=== PATIENT | male | born 2000 | race Caucasian/White ===

== ENCOUNTER 2023-10-18 13:33 | Emergency (ER) | payer SELFPAY ==
--- OUTSIDE RECORDS SUMMARY | 2023-10-18 13:38 | XMS REPORT | Continuity of Care Document ---
:2000 Author Organization [facility] t Address [address] [facility] [address] [place] [address] Care Team Providers Name Role Phone NO, PCP Primary Care Physician Unavailable LAURYN SALGADO Attending Clinician Unavailable Osvaldo Chiang MD Attending Clinician [phone] Lauryn Paz Attending Clinician Roger Wagner Attending Clinician Lab, Ang - Db Attending Clinician Unavailable Doctor Unassigned, [facility] Attending Clinician Unavailable Orquidea Sheets RN Attending Clinician Unavailable Hernan Mcneill MD Attending Clinician Pa Ramsey MD Attending Clinician PA RAMSEY Attending Clinician Unavailable Ria Hendricks MD Attending Clinician Sp Cazares Attending Clinician Unavailable Pa Ramsey MD Admitting Clinician PA RAMSEY Admitting Clinician Unavailable Payers Payer Name Policy Type Policy Number Effective Date Expiration Date [place] [id number] 2023 2023 C 00:00:00 00:00:00 Problems Condition Condition Condition Status Onset Resolution Last Treating Co mments Source Name Details Category Date Date Treatment Clinician Date Rectal Rectal Disease Active Univers bleeding bleeding -05 ity of 00:00: [address] Branch Colitis Colitis Disease Active Overview: Univ ers with with 5-05 Formattin ity of rectal rectal 00:00: g of this [place] bleeding bleeding 00 note Medica l might be Branch different from the original. Added automatic ally from request for surgery [id number] Shortness Problem Active [facility] Allergies, Adverse Reactions, Alerts Allergy Allergy Status Severity Reaction(s) Onset Inactive Treating Comm ents Source Name Type Date Date Clinician No Known DA Active [facility] NO KNOWN Drug Active Univers ALLERGIE Class ity of S [place] [facility] Social History Social Habit Start Date Stop Date Quantity Comments Source History SDOH University o f Alcohol Std Drinks [place] [facility] History SDOH University o f Alcohol Binge [place] [facility] al Branch History SDOH Social Unive rsity of Connections Get [place] Med ical Together Branch History SDOH Social Unive rsity of Connections [facility] Medical Branch History SDOH Social Unive rsity of Connections [place] [facility] Membership Branch History SDOH Social Unive rsity of Connections [place] [facility] Meetings Branch History SDOH Food Univers ity of Scarcity [place] [facility] Gender identity [facility] [place] [facility] Sexual orientation [facility] [place] [facility] Alcohol intake 2023-06-15 2023-06-15 3 /d University of 00:00:00 00:00:00 [place] [facility] History SDOH 2023-04-04 2023-04-04 1 University o f Alcohol Frequency 00:00:00 00:00:00 [place] [facility] History SDOH Social 2023-04-04 2023-04-04 5 Unive rsity of Connections Phone 00:00:00 00:00:00 [place] [facility] Branch History SDOH Social 2023-04-04 2023-04-04 7 Unive rsity of Connections Living 00:00:00 00:00:00 [place] [facility] History SDOH 2023-04-04 2023-04-04 3 University o f Physical Activity 00:00:00 00:00:00 [place] [facility] DPW Branch History SDOH 2023-04-04 2023-04-04 3 University o f Physical Activity 00:00:00 00:00:00 [place] [facility] MPS Branch History SDOH 2023-04-04 2023-04-04 5 University o f Financial 00:00:00 00:00:00 [place] [facility] History SDOH Food 2023-04-04 2023-04-04 1 Univers ity of Worry 00:00:00 00:00:00 [place] [facility] History SDOH 2023-04-04 2023-04-04 2 University o f Transport Med 00:00:00 00:00:00 [place] Medic al Branch History SDOH 2023-04-04 2023-04-04 2 University o f Transport Non-Med 00:00:00 00:00:00 [place] [facility] Branch History SDDE 2023-04-04 2023-04-04 2 University o f Housing Unable to 00:00:00 00:00:00 [place] [facility] edical Pay Branch History SDDE 2023-04-04 2023-04-04 1 University o f Housing Places 00:00:00 00:00:00 [facility] dakotah Lived Branch History SDDE 2023-04-04 2023-04-04 2 University o f Housing Homeless 00:00:00 00:00:00 [facility] dical Last Year Branch Exposure to 2023-03-24 2023-04-03 Not sure [facility] SARS-CoV-2 (event) 00:00:00 12:55:00 [facility] History of Social 2023-04-03 2023-04-03 Univers ity of function 00:00:00 00:00:00 [facility] Tobacco use and 2023-03-31 2023-03-31 Smokeless Universit y of exposure 00:00:00 00:00:00 tobacco non-user [facility] dical [place] Sex Assigned At [birth year] Universit y of 00:00:00 00:00:00 [facility] Smoking Status Start Date Stop Date Source Never smoked tobacco [facility] Medications Ordered Filled Start Stop Current Ordering Indication Dosage Frequency Signature Comments Components Source Medication Medication Date Date Medication? Clinician (SIG) Name Name mesalamine Yes [id number] 2.4g Take 2 Univers 1.2 gram EC 9-20 tablets by it y of tablet 00:00: mouth 00 daily with Medical breakfast. Branch mesalamine Yes [id number] 2.4g Take 2 Univers 1.2 gram EC 9-20 tablets by it y of tablet 00:00: mouth daily with Medical breakfast. Branch mesalamine Yes [id number] 2.4g Take 2 Univers 1.2 gram EC 9-20 tablets by it y of tablet 00:00: mouth [place] 00 daily with Medical breakfast. Branch mesalamine 2022-0 Yes [id number] 2.4g Take 2 Univers 1.2 gram EC 9-20 tablets by it y of tablet 00:00: mouth [place] 00 daily with Medical breakfast. Branch mesalamine 2022-0 Yes [id number] 2.4g Take 2 Univers 1.2 gram EC 9-20 tablets by it y of tablet 00:00: mouth [place] 00 daily with Medical breakfast. Branch mesalamine 0 Yes [id number] 2.4g Take 2 Univers 1.2 gram EC 9-20 tablets by it y of tablet 00:00: mouth [place] 00 daily with Medical breakfast. Branch mesalamine Yes [id number] 2.4g Take 2 Univers 1.2 gram EC 8-24 tablets by it y of tablet 00:00: mouth [place] 00 daily with Medical breakfast. Branch mesalamine 2022- No [id number] 2.4g Take 2 Univers 1.2 gram EC 8-24 09-20 tablets by i ty of tablet 00:00: 00:00 mouth [place] 00 :00 daily with Medical breakfast. Branch mesalamine 0 Yes [id number] 2.4g Take 2 Univers 1.2 gram EC 8-14 tablets by it y of tablet 00:00: mouth [place] 00 daily with Medical breakfast. Branch mesalamine 2022- No [id number] 2.4g Take 2 Univers 1.2 gram EC 8-14 08-24 tablets by i ty of tablet 00:00: 00:00 mouth [place] 00 :00 daily with Medical breakfast. Branch mesalamine 2022-0 Yes [id number] 2.4g Take 2 Univers 1.2 gram EC 7-20 tablets by it y of tablet 00:00: mouth [place] 00 daily with Medical breakfast. Branch mesalamine 2022-0 2022- No [id number] 2.4g Take 2 Univers 1.2 gram EC 7-20 08-14 tablets by i ty of tablet 00:00: 00:00 mouth [place] 00 :00 daily with Medical breakfast. Branch pantoprazol 2022-0 3- No [id number] 40mg Take 1 Univers e 40 mg EC 5-14 07-14 tablet by ity of tablet 00:00: 04:59 mouth in [place] 00 :00 the Medical morning Branch for 60 days. pantoprazol 2022-2022- No [id number] 40mg Take 1 Univers e 40 mg EC 5-14 - tablet by ity of tablet 00:00: 04:59 mouth in [place] 00 :00 the [facility] morning [place] for 60 days. pantoprazol 2022- No [id number] 40mg Take 1 Univers e 40 mg EC 5-06-09 tablet by ity of tablet 00:00: 04:59 mouth in [place] 00 :00 the [facility] morning [place] for 60 days. pantoprazol 2022- No [id number] 40mg Take 1 Univers e 40 mg EC 5-06-09 tablet by ity of tablet 00:00: 04:59 mouth in [place] 00 :00 the [facility] morning [place] for 60 days. pantoprazol 2022-2022- No [id number] 40mg Take 1 Univers e 40 mg EC 5-06-09 tablet by ity of tablet 00:00: 04:59 mouth in [place] 00 :[address] [facility] for 60 days. pantoprazol 2022-2022- No [id number] 40mg Take 1 Univers e 40 mg EC 5-06-09 tablet by ity of tablet 00:00: 04:59 mouth in [place] 00 :[address] [facility] for 60 days. pantoprazol 2022-2022- No [id number] 40mg Take 1 Univers e 40 mg EC 5-09 06- tablet by ity of tablet 00:00: 04:59 mouth in [place] 00 :[address] [facility] for 60 days. pantoprazol 2022- No [id number] 40mg Take 1 Univers e 40 mg EC 5-14 tablet by ity of tablet 00:00: 04:59 mouth in [place] 00 :[address] [facility] for 60 days. predniSONE 2022- No 60mg 60 mg, Univ ers (DELTASONE) 04-08 05-25 Oral, ity of tablet 60 14:00: 13:59 DAILY, 12 [place] 00 :00 doses, Medical First dose Branch on 04/08/23 at 0900, Last dose on Mon04/19/23 at 0900, Routine mesalamine 2022-0 Yes [id number] 2.4g Take 2 Univers 1.2 gram EC 5-13 tablets by it y of tablet 00:00: mouth [place] 00 daily with Medical breakfast. Branch mesalamine 2022-0 Yes [id number] 2.4g Take 2 Univers 1.2 gram EC 5-13 tablets by it y of tablet 00:00: mouth [place] 00 daily with Medical breakfast. Branch mesalamine 2022-0 Yes [id number] 2.4g Take 2 Univers 1.2 gram EC 5-13 tablets by it y of tablet 00:00: mouth [place] 00 daily with Medical breakfast. Branch mesalamine 2022-0 Yes [id number] 2.4g Take 2 Univers 1.2 gram EC 5-13 tablets by it y of tablet 00:00: mouth [place] 00 daily with Medical breakfast. Branch mesalamine 2022-0 Yes [id number] 2.4g Take 2 Univers 1.2 gram EC 5-13 tablets by it y of tablet 00:00: mouth [place] 00 daily with Medical breakfast. Branch mesalamine 2022-0 Yes [id number] 2.4g Take 2 Univers 1.2 gram EC 5-13 tablets by it y of tablet 00:00: mouth [place] 00 daily with Medical breakfast. Branch mesalamine 2022-0 Yes [id number] 2.4g Take 2 Univers 1.2 gram EC 5-13 tablets by it y of tablet 00:00: mouth [place] 00 daily with Medical breakfast. Branch predniSONE 2022-2022- No [id number] Take 3 Univers 20 mg 5-13 07-25 tablets by ity of tablet 00:00: 04:59 mouth [place] 00 :00 daily for Medical 7 days, Branch THEN 2 tablets daily for 30 days, THEN 1.5 tablets daily for 7 days, THEN 1 tablet daily for 28 days. predniSONE 2022-2022- No [id number] Take 3 Univers 20 mg 5-13 07-25 tablets by ity of tablet 00:00: 04:59 mouth [place] 00 :00 daily for Medical 7 days, Branch THEN 2 tablets daily for 30 days, THEN 1.5 tablets daily for 7 days, THEN 1 tablet daily for 28 days. predniSONE 2022-0 2022- No [id number] Take 3 Univers 20 mg 5-13 07-25 tablets by ity of tablet 00:00: 04:59 mouth [place] 00 :00 daily for Medical 7 days, Branch THEN 2 tablets daily for 30 days, THEN 1.5 tablets daily for 7 days, THEN 1 tablet daily for 28 days. predniSONE No [id number] Take 3 Univers 20 mg 5-13 07-25 tablets by ity of tablet 00:00: 04:59 mouth [place] 00 :00 daily for Medical 7 days, Branch THEN 2 tablets daily for 30 days, THEN 1.5 tablets daily for 7 days, THEN 1 tablet daily for 28 days. predniSONE No [id number] Take 3 Univers 20 mg 5-13 07-25 tablets by ity of tablet 00:00: 04:59 mouth [place] 00 :00 daily for Medical 7 days, Branch THEN 2 tablets daily for 30 days, THEN 1.5 tablets daily for 7 days, THEN 1 tablet daily for 28 days. predniSONE No [id number] Take 3 Univers 20 mg 5-13 07-25 tablets by ity of tablet 00:00: 04:59 mouth [place] 00 :00 daily for Medical 7 days, Branch THEN 2 tablets daily for 30 days, THEN 1.5 tablets daily for 7 days, THEN 1 tablet daily for 28 days. predniSONE No [id number] Take 3 Univers 20 mg 5-13 07-25 tablets by ity of tablet 00:00: 04:59 mouth [place] 00 :00 daily for Medical 7 days, Branch THEN 2 tablets daily for 30 days, THEN 1.5 tablets daily for 7 days, THEN 1 tablet daily for 28 days. predniSONE No [id number] Take 3 Univers 20 mg 5-13 07-25 tablets by ity of tablet 00:00: 04:59 mouth [place] 00 :00 daily for Medical 7 days, Branch THEN 2 tablets daily for 30 days, THEN 1.5 tablets daily for 7 days, THEN 1 tablet daily for 28 days. mesalamine No [id number] 2.4g Take 2 Univers 1.2 gram EC 5-13 07-20 tablets by i ty of tablet 00:00: 00:00 mouth [place] 00 :00 daily with Medical breakfast. Hilda melatonin Yes 3mg 3 mg, Univers (MELATIN) 5-12 Oral, QHS, ity of tablet 3 mg 02:00: First dose [place] 00 (after Medical last Branch modificati on) on Mon04/06/23 at 2100, Until Discontinu ed, Routine methylpredn 2023-0 2023- No 60mg 60 mg, Uni vers isolone sod 04-04 Intravenou i ty of succ 21:00: 20:59 s, Q24H, 3 [place] (SOLU-MEDRO 00 :00 doses, Medica l L) First dose Branch injection on Tue 60 mg 04/04/23 at 1600, Last dose on Mon04/06/23 at 1600, 2 mL methylpredn 2023-0 2023- No 60mg 60 mg, Uni vers isolone sod 04-04 Intravenou i ty of succ 21:00: 20:43 s, Q24H, 3 [place] (SOLU-MEDRO 00 :00 doses, Medica l L) First dose Branch injection on Tue 60 mg 04/04/23 at 1600, Last dose on Mon04/06/23 at 1600, 2 mL pantoprazol 2023-0 Yes 40mg 40 mg, Univ ers e 04-04 Oral, ity of (PROTONIX) 16:00: DAILY, [place] EC tablet 00 First dose Medi [place] 40 mg on [facility] 04/04/23 at 1100, Until Discontinu ed, Routine pantoprazol 2023-0 Yes 40mg 40 mg, Univ ers e 04-04 Oral, ity of (PROTONIX) 16:00: DAILY, [place] EC tablet 00 First dose Medi [place] 40 mg on [facility] 04/04/23 at 1100, Until Discontinu ed, Routine enoxaparin 2023-0 Yes 40mg 40 mg, Unive rs (LOVENOX) 5- Subcutaneo ity of injection 05:00: us, Q24H, [place] 40 mg 00 First dose Medical (after Branch last modificati on) on Mon04/04/23 at 0000, Until Discontinu ed, Routine enoxaparin 2023-0 Yes 40mg 40 mg, Unive rs (LOVENOX) 5- Subcutaneo ity of injection 05:00: us, Q24H, [place] 40 mg 00 First dose Medical (after Branch last modificati on) on Mon04/04/23 at 0000, Until Discontinu ed, Routine simethicone 2022- No PRN, Unive rs (GAS RELIEF 04-03 Starting ity of (SIMETHICON 22:12: 23:40 on Mon [place] E)) 40 00 :00 04/03/23 at Medical mg/0.6 mL 1712, Branch drops Until Mon04/03/23 at 1840, Routine, Intra-op bisacodyL No 10mg 10 mg, Unive rs (DULCOLAX) 04-02 Oral, ity of tablet 10 18:00: 18:03 PRE-PROCED [place] mg 00 :00 URE ONCE, Medical 1 dose, Branch Starting on Mon04/02/23 at 1300, Until Discontinu ed, Routine, Bowel Prep, Colonoscop y ondansetron 2022- No 4mg 4 mg, Slow Univers (ZOFRAN 04-02 IV Push, ity of (PF)) 12:40: 12:17 Q6HPRN, [place] injection 4 42 :10 Starting Medi [place] mg on Mon Branch 04/02/23 at 0740, Until Mon04/04/23 at 0717, Routine, Nausea and Vomiting (N/V) ciprofloxac No 500mg 500 mg, U nivers in HCl 04-01 Oral, ity of (CIPRO) 23:00: 15:51 Q12HA2, 20 [place] tablet 500 00 :55 doses, Medical mg First dose Branch on Mon04/01/23 at 1800, Last dose on Mon04/11/23 at 0600, BREN
Re ason for Anti-Infec tive: Documented Infection< br>Documen james Infection Site: Abdominal< br>Duratio n of Therapy: 10 days enoxaparin 2022- No 40mg 40 mg, Univ ers (LOVENOX) 04-01 Subcutaneo ity of injection 20:15: 20:56 [place], Q24H, [place] 40 mg 00 :13 First dose Medical on [facility] Branch 04/01/23 at 1515, Until Discontinu ed, Routine metroNIDAZO No 500mg 500 mg, U nivers LE (FLAGYL) 04-01-09 Oral, Q8H, i ty of tablet 500 19:00: 15:51 30 doses, [place] mg 00 :55 First dose Medical on Sat Branch 04/01/23 at 1400, Last dose on Mon04/11/23 at 0600, Routine
Reason for Anti-Infec tive: Documented Infection< br>Documen james Infection Site: Abdominal< br>Duratio n of Therapy: 10 days lactated 2022- No 1000mL at 999 Univ ers ringers IV 04-01-07 mL/hr, ity of infusion 13:30: 01:00 1,000 mL, [place] 1,000 mL 00 :00 Intravenou Medic al s, ONCE, 1 Branch dose, On 04/01/23 at 0830, Routine ciprofloxac No 400mg 400 mg, IV Univers in in 5 % 04-01 Piggyback, ity of dextrose 11:00: 14:45 Q12H ABX, [place] (CIPRO) 00 :11 28 doses, Medical piggyback First dose Bran ch 400 mg on 04/01/23 at 0600, Last dose on Mon04/14/23 at 1800, Administer over 60 Minutes, 200 mL
Reas on for Anti-Infec tive: Empiric Therapy for Suspected Infection< br>Empiric Therapy Site: Abdominal< br>Duratio n of therapy: 5 days metroNIDAZO No 500mg 500 mg, IV Univers LE in NaCl 04-01 Infusion, ity of (iso-os) 06:00: 14:45 Q8H ABX, [place] (FLAGYL 00 :11 42 doses, Medical I.V.) RTU First dose Bran ch IV infusion on Sat 500 mg 04/01/23 at 0100, Last dose on Mon04/14/23 at 1700, Administer over 60 Minutes, 100 mL
Reas on for Anti-Infec tive: Empiric Therapy for Suspected Infection< br>Empiric Therapy Site: Abdominal< br>Duratio n of therapy: 5 days lactated 2022- No 1000mL at 999 [facility] ers ringers IV 04-01 05-06 mL/hr, ity of infusion 04:30: 08:10 1,000 mL, [place] 1,000 mL 00 :00 Intravenou Medic al s, ONCE, 1 Branch dose, On Mon03/31/23 at 2330, Routine acetaminoph 0 Yes 650mg 650 mg, Un fawad en 04-01 Oral, ity of (TYLENOL) 03:33: Q6HPRN, [place] tablet 650 45 Starting Medic al mg on Mon Branch 03/31/23 at 2233, Until Discontinu ed, Routine, Pain (scale 1-3) acetaminoph Yes 650mg 650 mg, Un fawad en 04-01 Oral, ity of (TYLENOL) 03:33: Q6HPRN, [place] tablet 650 45 Starting Medic al mg on Mon Branch 03/31/23 at 2233, Until Discontinu ed, Routine, Pain (scale 1-3) NaCl 0.9% 2022- No 1000mL at 150 Uni vers (NS) IV 03-31-09 mL/hr, IV ity of infusion 22:45: 12:16 Infusion, [place] 1,000 mL 00 :26 CONTINUOUS Medic al , Starting Branch on Mon03/31/23 at 1745, Until Mon04/04/23 at 0716, Routine lactobacill 2022- No 1mg 1 mg, Univ ers us 03-31-05 Oral, ONCE ity of acidophilus 22:45: 22:49 NOW, 1 [place] tablet 1 mg 00 :00 dose, On Medi [place] Mon03/31/23 Branch at 1745, BREN ciprofloxac 2022- No 400mg 400 mg, IV Univers in in 5 % 03-31- Piggyback, ity of dextrose 22:30: 01:02 ONCE, 1 [place] (CIPRO) 00 :00 dose, On Medical piggyback Mon03/31/23 Bran ch 400 mg at 1730, Administer over 60 Minutes, 200 mL
R demar for Anti-Infec tive: Empiric Therapy for Suspected Infection< br>Empiric Therapy Site: Abdominal< br>Duratio n of therapy: 72 hours metroNIDAZO 2022- No 500mg 500 mg, U nivers LE (FLAGYL) 03-31 05-05 Oral, ity of tablet 500 21:45: 22:49 ONCE, 1 [place] mg 00 :00 dose, On Medical Mon03/31/23 Branch at 1645, BREN
Re ason for Anti-Infec tive: Empiric Therapy for Suspected Infection< br>Empiric Therapy Site: Abdominal< br>Duratio n of therapy: 72 hours iopamidol 2022- No [id number] 75mL 75 mL, U nivers (ISOVUE 03-31 05-05 Intravenou ity o f 370-500 mL) 21:45: 21:45 s, ONCE, 1 [place] injection 00 :00 dose, On Medica l 75 mL Mon03/31/23 Branch at 1645, Routine NaCl 0.9% 2022- No 1000mL at 999 Uni vers (NS) bolus 03-31 05-05 mL/hr, ity of infusion 20:30: 22:50 1,000 mL, [place] 1,000 mL 00 :00 IV Medical Piggyback, Branch ONCE, 1 dose, On Mon03/31/23 at 1530, STAT Immunizations Ordered Filled Date Status Comments Source Immunization Name Immunization Name DTAP 2018-05-09 Completed University of 00:00:00 [facility] DTAP 2018-05-09 Completed University of 00:00:00 [facility] DTAP 2018-05-09 Completed [facility] 00:00:00 [facility] DTAP 2018-05-09 Completed University of 00:00:00 [facility] DTAP 2018-05-09 Completed University of 00:00:00 [facility] DTAP 2018-05-09 Completed University of 00:00:00 [facility] DTAP 2018-05-09 Completed University of 00:00:00 [facility] DTAP Unknown Completed [facility] DTAP Unknown Completed [facility] DTAP Unknown Completed [facility] DTAP Unknown Completed [facility] DTAP Unknown Completed [facility] DTAP Unknown Completed [facility] Vital Signs Vital Name Observation Time Observation Value Comments Source Systolic blood 2023-05-11 19:48:00 126 mm[Hg] Univer sity of pressure [place] [facility] Diastolic blood 2023-05-11 19:48:00 68 mm[Hg] Unive rsity of pressure [place] [facility] Heart rate 2023-05-11 19:48:00 73 /min [facility]i ty [facility] [place] [facility] Body temperature 2023-05-11 19:48:00 36.78 Megha Univ ersity of [place] [facility] Respiratory rate 2023-05-11 19:48:00 16 /min Univ ersity of [place] [facility] Body height 2023-05-11 19:48:00 173.7 cm [facility]i ty [facility] [place] [facility] Body weight 2023-05-11 19:48:00 55.43 kg [facility] [place] [facility] BMI 2023-05-11 19:48:00 18.36 kg/m2 [facility] ty [facility] [place] [facility] Oxygen saturation in 2023-05-11 19:48:00 99 /min University of Arterial blood by [facility] Pulse oximetry Branch Systolic blood 2023-04-08 17:11:00 100 mm[Hg] Univer sity of pressure [place] [facility] Diastolic blood 2023-04-08 17:11:00 59 mm[Hg] Unive rsity of pressure [place] [facility] Heart rate 2023-04-08 17:11:00 88 /min Universi ty [facility] [place] [facility] Body temperature 2023-04-08 17:11:00 36.56 Megha Univ ersity of [place] [facility] Respiratory rate 2023-04-08 17:11:00 18 /min Univ ersity of [place] [facility] Oxygen saturation in 2023-04-08 17:11:00 96 /min University of Arterial blood by [facility] Pulse oximetry Branch Body height 2023-04-01 02:43:00 170.2 cm [facility] [place] [facility] Body weight 2023-04-01 02:43:00 55.339 kg [facility] [place] [facility] BMI 2023-04-01 02:43:00 19.11 kg/m2 [facility] [place] [facility] Systolic blood 2023-04-03 16:09:00 102 mm[Hg] Univer sity of pressure [place] [facility] Diastolic blood 2023-04-03 16:09:00 66 mm[Hg] Unive rsity of pressure [place] [facility] Heart rate 2023-04-03 16:09:00 94 /min [facility] [place] [facility] Body temperature 2023-04-03 16:09:00 36.67 Megha [facility] Respiratory rate 2023-04-03 16:09:00 18 /min [facility] Oxygen saturation in 2023-04-03 16:09:00 98 /min [facility] Arterial blood by [facility] Pulse oximetry Branch Body height 2023-04-01 02:43:00 170.2 cm [facility] Body weight 2023-04-01 02:43:00 55.339 kg [facility] BMI 2023-04-01 02:43:00 19.11 kg/m2 [facility] BMI (Body Mass 2020 08:22:00 21.0 kg/m2 [facility] Weight 2020 08:22:00 130 [lb_av] [facility] Procedures Procedure Date / Time Performing Clinician Source Performed COMP. METABOLIC PANEL 2023-05-11 21:01:00 Lauryn Salgado [facility] ([id number]) Medical Branch CBC WITH DIFF 2023-05-11 21:01[facility]00 [facility] ASSIGNMENT OF BENEFITS 2023-05-11 19:27:07 Doctor Unassigned, [facility] Medical Branch MAGNESIUM 2023-04-08 10:10:00 [facility] BASIC METABOLIC PANEL (NA, 2023-04-08 10:10:00 Jeny Pena [facility] K, CL, CO2, GLUCOSE, BUN, Medica l Branch CREATININE, CA) CBC WITH DIFF 2023-04-08 10:10:00 [facility] MAGNESIUM 2023-04-06 09:13:00 Moises [facility] HEPATIC FUNCTION PANEL 2023-04-06 09:13:00 Moises [facility] ([id number]) (ALB,T.PRO,BILI Medical Branch T,BU/BC,ALT,AST,ALK PHOS) BASIC METABOLIC PANEL (NA, 2023-04-06 09:13:00 Moises [facility] K, CL, CO2, GLUCOSE, BUN, Medica l Branch CREATININE, CA) CBC WITH DIFF 2023-04-06 09:13:00 Moises [facility] CBC WITH DIFF 2023-04-05 09:33:00 Moises [facility] MAGNESIUM 2023-04-05 09:14:00 [facility] (NA, 2023-04-05 09:14:00 Moises [facility] K, CL, CO2, GLUCOSE, BUN, Medica l Branch CREATININE, CA) HEPATITIS B SURFACE 2023-04-04 16:43[facility] HBC ANTIBODY (IGM & IGG) 2023-04-04 16:43:00 Moises [facility] HEPATITIS C VIRUS (HCV) BY 2023-04-04 16:43:00 Moises [facility] QUANTITATIVE NAAT [facility] QUANTIFERON-TB ASSAY 2023-04-04 16:43[facility] MINUS NIL 2023-04-04 16:43:00 Moises [facility] MAGNESIUM 2023-04-04 10:29:00 [facility] BASIC METABOLIC PANEL (NA, 2023-04-04 10:29:00 [facility] K, CL, CO2, GLUCOSE, BUN, Medica l Branch CREATININE, CA) CBC WITH DIFF 2023-04-04 10:29:00 Moises [facility] [facility] HEPATITIS B SURFACE 2023-04-04 10:29:00 Moises [facility] ANTIGEN [facility] MAGNESIUM 2023-04-04 10:29:00 oMises [facility] BASIC METABOLIC PANEL (NA, 2023-04-04 10:29:00 De Leon, [facility] K, CL, CO2, GLUCOSE, BUN, Medica l Branch CREATININE, CA) CBC WITH DIFF 2023-04-04 10:29:00 [facility] 2023-04-04 10:29:[address] [facility] SURGICAL PATHOLOGY EXAM 2023-04-03 22:36:00 [facility] COLONOSCOPY 2023-04-03 21:47:00 [facility] COLONOSCOPY 2023-04-03 21:47:00 [facility] COLONOSCOPY (ENDO) 2023-04-03 20:43:38 Moraima Jose M [facility] COLONOSCOPY (ENDO) 2023-04-03 20:43:38 Jose M Valera [facility] MAGNESIUM 2023-04-03 09:33:00 Moises [facility] BASIC METABOLIC PANEL (NA, 2023-04-03 09:33:00 [facility] K, CL, CO2, GLUCOSE, BUN, Medica l Branch CREATININE, CA) CBC WITH DIFF 2023-04-03 09:33:00 Moises [facility] MAGNESIUM 2023-04-03 09:33:00 [facility] BASIC METABOLIC PANEL (NA, 2023-04-03 09:33:00 [facility] K, CL, CO2, GLUCOSE, BUN, Medica l Branch CREATININE, CA) CBC WITH DIFF 2023-04-03 09:33:00 Moises [facility] CBC WITH DIFF 2023-04-02 10:56:00 [facility] CBC WITH DIFF 2023-04-02 10:56:00 [facility] 2023-04-01 16:47:00 [facility] LAB [facility] CELIAC SCREEN IGA 2023-04-01 16:47:00 Jeny Pena [facility] CELIAC SCREEN 2023-04-01 16:47:00 [facility] CELIAC SCREEN IGA 2023-04-01 16:47:00 Jeny Pena [facility] BLOOD CULTURE SCREEN 2023-04-01 16:21:00 [facility] 2023-04-01 16:21:00 Jeny Pena [facility] ABORH CONFIRMATION (LAB 2023-04-01 11:31:00 Kelly Good Li [facility] ONLY) Medical Branch ABORH CONFIRMATION (LAB 2023-04-01 11:31:00 Yejose Good Li [facility] ONLY) Medical Branch MAGNESIUM 2023-04-01 10:21:00 Derick [facility] FERRITIN SERUM 2023-04-01 10:21:00 Derick [facility] C-REACTIVE PROTEIN 2023-04-01 10:21:00 Dann Sepulveda [facility] HEPATIC FUNCTION PANEL 2023-04-01 10:21:00 Dann Sepulveda [facility] ([id number]) (ALB,T.PRO,BILI Medical Branch T,BU/BC,ALT,AST,ALK PHOS) BASIC METABOLIC PANEL (NA, 2023-04-01 10:21:00 Dann Sepulveda [facility] K, CL, CO2, GLUCOSE, BUN, Medica l Branch CREATININE, CA) IRON PANEL 2023-04-01 10:21:00 Derick [facility] CBC WITH DIFF 2023-04-01 10:21:00 Derick [facility] HB ABO GROUPING 2023-04-01 10:21:00 Dann Sepulveda [facility] MAGNESIUM 2023-04-01 10:21:00 Derick [facility] FERRITIN SERUM 2023-04-01 10:21:00 Derick [facility] C-REACTIVE PROTEIN 2023-04-01 10:21:00 Dann Sepulveda [facility] HEPATIC FUNCTION PANEL 2023-04-01 10:21:00 Dann Sepulveda [facility] ([id number]) (ALB,T.PRO,BILI [facility] Branch T,BU/BC,ALT,AST,ALK PHOS) BASIC METABOLIC PANEL (NA, 2023-04-01 10:21:00 Dann Sepulveda [facility] K, CL, CO2, GLUCOSE, BUN, Medica l Branch CREATININE, CA) IRON PANEL 2023-04-01 10:21:00 Dann Sepulveda [facility] CBC WITH DIFF 2023-04-01 10:21:00 Dann Sepulveda [facility] HB ABO GROUPING 2023-04-01 10:21:00 Dann Sepulveda [facility] CLOSTRIDIUM DIFFICILE 2023-04-01 04:15:00 Dann Sepulveda [facility] OVA AND PARASITE EXAM 2023-04-01 04:15:00 Dann Sepulveda [facility] FECAL [facility] GIARDIA CRYPTOSPORIDIUM AG 2023-04-01 04:15:00 Dann Sepulveda [facility] CALPROTECTIN, FECAL 2023-04-01 04:15:00 Dann Sepulveda [facility] FECAL PATHOGENS BY PCR 2023-04-01 04:15:00 Dann Sepulveda [facility] CLOSTRIDIUM DIFFICILE 2023-04-01 04:15:00 Dann Sepulveda [facility] GIARDIA CRYPTOSPORIDIUM AG 2023-04-01 04:15:00 Dann Sepulveda [facility] FECAL PATHOGENS BY PCR 2023-04-01 04:15:00 Dann Sepulveda [facility] CT ABDOMEN PELVIS W 2023-03-31 20:54:24 Hernan Mcneill [facility] CONTRAST [facility] CT ABDOMEN PELVIS W 2023-03-31 20:54:24 Hernan Mcneill [facility] CONTRAST [facility] COMP. METABOLIC PANEL 2023-03-31 20:19:00 Hernan Mcneill [facility] ([id number]) [facility] SEDIMENTATION RATE 2023-03-31 20:19:00 Hernan Mcneill [facility] CBC WITH DIFF 2023-03-31 20:19:00 Charito [facility] PROTHROMBIN TIME / INR 2023-03-31 20:19:00 Charito [facility] HIV 1/2 AG-AB WITH REFLEX 2023-03-31 20:19:00 Dann Sepulveda [facility] COMP. METABOLIC PANEL 2023-03-31 20:19:00 Hernan Mcneill [facility] ([id number]) Medical [place] SEDIMENTATION RATE 2023-03-31 20:19:00 Hernan Mcneill [facility] CBC WITH DIFF 2023-03-31 20:19:00 Hernan Mcneill [facility] PROTHROMBIN TIME / INR 2023-03-31 20:19:00 Hernan Mcneill [facility] HIV 1/2 AG-AB WITH REFLEX 2023-03-31 20:19:[address] [facility] NOTICE OF PRIVACY 2023-03-31 18:47:15 Doctor Unassigned, [facility] PRACTICES [facility] NOTICE OF PRIVACY 2023-03-31 18:47:15 Doctor Unasszafar, [facility] PRACTICES [facility] CONSENT/REFUSAL FOR 2023-03-31 18:46:20 Doctor Rosa Mzafar [facility] DIAGNOSIS AND TREATMENT [facility]SENT[facility]REFUSAL FOR 2023-03-31 18:46:20 Doctor Marco [facility] DIAGNOSIS AND TREATMENT [facility] HOSPITAL ADMISSION 2023-03-31 05:01:00 Doctor Marco [facility] Name [facility] ENDOSCOPY PROCEDURE 2023-03-31 05:01:00 Doctor Marco [facility] DOCUMENTATION [facility] Plan of Care Planned Activity Planned Date Details Comments Source Instructions Dyspnea [facility] Encounters Start End Encounter Admission Attending Care Care Encounter Source Date/Time Date/Time Type Type Clinicians Facility Department ID 2020 Inpatient [facility] [id number] MARITA 08:19:00 -[id number] [facility] 2023-11-16 2023-11-16 Outpatient GORDO JEWELL [facility] [id number] Univers 14:30:00 14:30:00 LAURYN boyd [facility] 2023-10-16 2023-10-16 Telephone Postletloree HUGHES 1.2.840.11 [id number] Univers 00:00:00 00:00:00 Osvaldo renner [facility] 350.1.13.10 [place]y [id number] [address] 2023-10-16 2023-10-16 [facility].840[facility]11 [id number] Univers 00:00:00 00:00:00 teOsvaldo Y HEALTH 350.1.13.10 ity of [facility] [address] [place] [phone] [address] 2023-10-16 2023-10-16 [facility] 1.2.840.11 [id number] Univers 00:00:00 00:00:00 teOsvaldo Y HEALTH 350.1.13.10 [place] [id number] [address] 2023-10-06 2023-10-06 Telephone [facility] 1.2.840.11 [id number] Univers 00:00:00 00:00:00 teOsvaldo Y HEALTH 350.1.13.10 ity of [facility] [address] [place] [id number] [address] 2023-09-07 2023-09-07 Outpatient R [facility] [id number] Univers 09:00:00 09:00:00 ity of [facility] 2023-08-18 2023-08-[address] [facility] [id number] Univers 00:00:00 00:00:00 Lauryn HEALTH 350.1.13.10 it y of [place] 4.2.7.2.686 Parish as CAROL?BLEA [phone] [address] MEDICAL OFFICE BUILDING 2023-08-15 2023-08-15 Outpatient R [facility] [id number] Univers 11:00:00 11:00:00 ity of [facility] 2023-08-14 2023-08-[address] [facility] 1.2.840.114 [id number] Univers 00:00:00 00:00:00 Lauryn HEALTH 350.1.13.10 it y of [place] 4.2.7.2.686 Parish as CAROL?BLEA [phone] [facility] 044 [facility] OFFICE [facility] 2023-07-20 2023-07-[address] [facility] [id number] Univers 00:00:00 00:00:00 Lauryn HEALTH 350.1.13.10 it y of [facility] 4.2.7.2.686 [place] [phone] [address] MEDICAL OFFICE [facility] 2023-07-06 2023-07-06 Outpatient R [facility] [id number] Univers 09:00:00 09:00:00 ity of [facility] 2023-07-05 2023-07-05 ELLEN Palacios ..[id number] Univers 00:00:00 00:00:00 Bandl Y HEALTH 350.1.13.10 i ty of [facility] [place] [id number] [address] 2023-05-18 2023-05-[address] [facility] 1..[id number] Univers 00:00:00 00:00:00 Lauryn HEALTH 350.1.13.10 it y of [facility] 4.2.7.2.686 Parish as [place] [id number] [address] OFFICE [facility] 2023-05-11 2023-05-11 [employer] [facility], Ang - Db [facility] 1.2.840.1 [id number] Univers 16:00:00 16:15:00 Visit Leida Salgadothia HEALTH 350.1.13.10 ity of [facility] 4.2.7.2.686 [place] [phone] [facility] 353 [facility] OFFICE [facility] 2023-05-11 2023-05-11 Outpatient R NAOMI [facility] [id number] Univers 14:30:00 15:43:12 LAURYN ity [facility] 2023-05-11 2023-05-[address] [facility] 1.2.840.114 [id number] Univers 14:30:00 15:43:12 Visit Lauryn HARDY 350.1.13.10 it y of [facility] 4.2.7.2.686 Parish as CAROL?[place] [id number] Ca alexandr PATEL 0[address] [place] MEDICAL OFFICE BUILDING 2023-05-11 2023-05-11 Orders Doctor SAVANNA 1.2.840.114 [id number] Univers 00:00:00 00:00:00 Only Unassigned, JACINTA 350.1.13.10 ity of [facility] 4.2.7.2.686 Parish as [id number] [facility] 009 Branch 2023-04-10 2023-04-10 Transition DAVID Sheets 1.2.840.114 [id number] Univers 00:00:00 00:00:00 of Care Orquideafransisco JAMES 350.1.13.10 i ty of [place] 4[place] [id number] [facility] 403 Branch 2023-03-31 2023-04-08 Hospital Charito Hernan COLE 1.2.840. 114 [id number] Univers 14:08:00 18:18:00 Encounter Pa Ramsey 350.1.13.1 0 ity of HOSPITAL 4.2.7.2.686 Parish as [phone] [facility] 095 Branch 2023-03-31 2023-04-08 [facility] [id number] Univers 14:08:00 18:18:00 PA cox of [facility] 2023-04-03 2023-04-03 Surgery [facility] [id number] Univers 16:09:00 17:21:00 Akshata ICAL 350.1.13.10 it y of [place] 4.2.7.2.686 [place] [phone] [facility] 020 Branch [address] [facility] [place] [id number] 08:50:00 09:50:00 Emergency Sp Patients 19 Hue es Room [facility] Results Test Description Test Time Test Comments Results Result Comments Source COMP. METABOLIC PANEL (37699) 2023-05-12 07:00:18 Test Item Value Reference Range Interpretation Comme nts NA (test code = 9731311307) 136 mmol/L 135-145 K (test code = 0271097207) 4.5 mmol/L 3.5-5.0 CL (test code = 2907825449) 98 mmol/L 98-108 CO2 TOTAL (test code = 2545194760) 28 mmol/L 23-31 AGAP (test code = 2823438051) 10 2-16 BUN (test code = 6590181025) 14 mg/dL 7-23 GLUCOSE (test code = 6241774186) 107 mg/dL 70-110 CREATININE (test code = 0.57 mg/dL 0.60-1.25 L 0371807729) TOTAL BILI (test code = 0.9 mg/dL 0.1-1.0 3799802469) CALCIUM (test code = 1080742318) 9.8 mg/dL 8.6-10.6 T PROTEIN (test code = 5948124196) 7.8 g/dL 6.3-8.2 ALBUMIN (test code = 9343807599) 4.7 g/dL 3.5-5.0 ALK PHOS (test code = 3011066357) 50 U/L 34-122 ALTv (test code = 1742-6) 35 U/L 5-50 AST(SGOT) (test code = 2449789122) 24 U/L 13-40 eGFR (test code = 5219531527) 175.6 mL/min/1.73m2 GEOVANI (test code = GEOVANI) Association of Glomerular Filtration Rate (GFR) and Staging of Kidney Disease* + +-------- + ------+| GFR (mL/min/1.73 m2) ?| With Kidney Damage ?| ?Without Kidney Damage+ +-- + +| ?>90 ?| ?Stage one ?| ? Normal ?+ +------- + -------+| ?60-89 ?| ?Stage two ?| ? Decreased GFR ? + +-------- + ------+| ?30-59 ?| ?Stage three ?| ? Stage three ? + +-------- + ------+| ?15-29 ?| ?Stage four ? | ? Stage four ?+ +------- + -------+| ?<15 (or dialysis) ? ?| ?Stage five ? | ? Stage five ?+ +------- + -------+ *Each stage assumes the associated GFR level has been in effect for at least three months. ?Stages 1 to 5, with or without kidney disease, indicate chronic kidney disease. Notes: Determination of stages one and two (with eGFR >59mL/min/1.73 m2) requires estimation of kidney damage for at least three months as defined by structural or functional abnormalities of the kidney, manifested by either:Pathological abnormalities or Markers of kidney damage (including abnormalities in the composition of the blood or urine or abnormalities in imaging tests). Lab Interpretation (test code = Abnormal 34658-6) [facility] WITH [id number] 06:57:57 Test Item Value Reference Range Interpretation Comments WBC (test code = 12.71 See_Comment H [Automated 3707-2) message] The system which generated this result transmit james reference range : 4.20 - 10.70 10*3/?L. The reference range was not used to interpret this result as normal/abnormal . RBC (test code = 4.79 See_Comment [Automated 829-8) message] The system which generated this result transmit james reference range : 4.26 - 5.52 10*6/?L. The reference range was not used to interpret this result as normal/abnormal . HGB (test code = 14.3 g/dL 12.2-16.4 718-7) HCT (test code = 43.0 % 38.4-49.3 4544-3) MCV (test code = 89.8 fL 81.7-95.6 787-2) MCH (test code = 29.9 pg 26.1-32.7 785-6) MCHC (test code = 33.3 g/dL 31.2-35.0 786-4) RDW-SD (test code = 47.6 fL 38.5-51.6 48091-0) RDW-CV (test code = 14.4 % 12.1-15.4 788-0) PLT (test code = 323 See_Comment [Automated 112-3) message] The system which generated this result transmit james reference range : 150 - 328 10*3/ ?L. The reference range was not u sed to interpret th is result as normal/abnormal . MPV (test code = 9.4 fL 9.8-13.0 L 19741-1) NRBC/100 WBC (test 0.0 See_Comment [Automat ed code = 0842099294) message] The system which generated this result transmit james reference range : 0.0 - 10.0 /100 WBCs. The reference range was not used to interpret this result as normal/abnormal . NRBC x10^3 (test code See_Comment [Auto mated = 7295330147) message] The system which generated this result transmit james reference range : 10*3/?L. The reference range was not used to interpret this result as normal/abnormal . GRAN MAT (NEUT) % 86.2 % (test code = 770-8) IMM GRAN % (test code 1.10 % = 4800588615) LYMPH % (test code = 9.4 % 736-9) MONO % (test code = 3.0 % 5905-5) EOS % (test code = 0.1 % 713-8) BASO % (test code = 0.2 % 706-2) GRAN MAT x10^3(ANC) 10.96 10*3/uL 1.99-6.95 H (test code = 9432764921) IMM GRAN x10^3 (test 0.14 10*3/uL 0.00-0.06 H code = 7380191753) LYMPH x10^3 (test code 1.20 10*3/uL 1.09-3.23 = 731-0) MONO x10^3 (test code 0.38 10*3/uL 0.36-1.02 = 742-7) EOS x10^3 (test code = 0.06-0.53 L 711-2) BASO x10^3 (test code 0.01-0.09 = 704-7) Lab Interpretation Abnormal (test code = 34527-9) [facility] [id number] 15:05:59 Test Item Value Reference Range Interpretation Comments QFT Gold Plus Result Negative Negative (test code = 51167-9) GEOVANI (test code = GEOVANI) The QuantiFERON? TB Gold Plus (in Tube) assay is intended for use as an aid in diagnosis of TB infection. A qualitative result (i.e., Negative, Positive, or Indeterminate) is based on interpretation of the four values, Nil, TB1 minus Nil, TB2 minus Nil, and Mitogen minus Nil. ?The Nil value represents nonspecific reactivity produced by the patient specimen. ?The TB1 minus Nil value indicates the interferon-gamma response of CD4+ T lymphocytes, specifically stimulated by the TB1 antigens. ?The TB2 minus Nil value indicates interferon-gamma response of both CD4+ and CD8+ T lymphocytes, stimulated by TB2 antigens. ?The Mitogen minus Nil value serves as the positive control, demonstrating the successful responsiveness of the T lymphocytes in patient specimen. A negative result suggests that M. tuberculosis infection is unlikely. ?However, in patients with high suspicion of exposure, a negative test should be repeated on a new sample. A positive result indicates an interferon-gamma response to M. tuberculosis antigens, suggesting infection with M. tuberculosis. Positive results in patients at low-risk for tuberculosis should be interpreted with caution and repeat testing on a new sample is advised. ?If repeat testing is positive, treatment may be indicated. ?Consult Infectious Disease Services for further recommendations. False positive results may occur in patients with prior infection with M. marinum, M. szulgai, or M. kansasii. For an indeterminate result, the likelihood of determining infection with M. tuberculosis cannot be determined. ?If clinically indicated, repeat testing on a new sample is advised. For further information, refer to http://www.cdc.gov/mmw r/pdf/rr/bz5996.pdf and https://doi.org/10.109 3/rema/yty497. Lab Interpretation Normal (test code = 12143-0) [facility] WITH [id number] 10:03:34 Test Item Value Reference Range Interpretation Comments WBC (test code = 15.09 See_Comment H [Automated 5009-2) message] The system which generated this result transmitted reference range : 4.20 - 10.70 10*3/?L. The reference range was not used to interpret this result as normal/abnormal . RBC (test code = 4.24 See_Comment L [Automated 789-8) message] The system which generated this result transmitted reference range : 4.26 - 5.52 10*6/?L. The reference range was not used to interpret this result as normal/abnormal . HGB (test code = 12.3 g/dL 12.2-16.4 718-7) HCT (test code = 35.8 % 38.4-49.3 L 4544-3) MCV (test code = 84.4 fL 81.7-95.6 787-2) MCH (test code = 29.0 pg 26.1-32.7 785-6) MCHC (test code = 34.4 g/dL 31.2-35.0 786-4) RDW-SD (test code = 37.8 fL 38.5-51.6 L 25698-5) RDW-CV (test code = 12.5 % 12.1-15.4 788-0) PLT (test code = 403 See_Comment H [Automated 777-3) message] The system which generated this result transmitted reference range : 150 - 328 10*3/?L. The reference range was not used to interpret this result as normal/abnormal . MPV (test code = 8.7 fL 9.8-13.0 L 96598-8) NRBC/100 WBC (test 0.0 See_Comment [Automat ed code = 5382762168) message] The system which generated this result transmitted reference range : 0.0 - 10.0 /100 WBCs. The reference range was not used to interpret this result as normal/abnormal . NRBC x10^3 (test code See_Comment [Auto mated = 0179199789) message] The system which generated this result transmitted reference range : 10*3/?L. The reference range was not used to interpret this result as normal/abnormal . GRAN MAT (NEUT) % 85.7 % (test code = 770-8) IMM GRAN % (test code 3.00 % = 8087925696) LYMPH % (test code = 6.7 % 736-9) MONO % (test code = 4.0 % 5905-5) EOS % (test code = 0.1 % 713-8) BASO % (test code = 0.5 % 706-2) GRAN MAT x10^3(ANC) 12.93 10*3/uL 1.99-6.95 H (test code = 4113898572) IMM GRAN x10^3 (test 0.46 10*3/uL 0.00-0.06 H code = 4956334368) LYMPH x10^3 (test 1.01 10*3/uL 1.09-3.23 L code = 731-0) MONO x10^3 (test code 0.61 10*3/uL 0.36-1.02 = 742-7) EOS x10^3 (test code 0.06-0.53 L = 711-2) BASO x10^3 (test code 0.07 10*3/uL 0.01-0.09 = 704-7) BANDS (test code = MARKED INCREASED A 5716018729) Lab Interpretation Abnormal (test code = 85632-2) [facility]80391[facility] (ALB,T.PRO,BILI T,BU/BC,ALT,AST,ALK PHOS)2023-04-06 09:54:25 Test Item Value Reference Range Interpretation Comments TOTAL BILI (test code = 3847767299) 0.3 mg/dL 0.1-1.1 BILI UNCON (test code = 6228540034) 0.2 mg/dL 0.1-1.1 BILI CONJ (test code = 5508891369) 0.0 mg/dL 0.0-0.3 T PROTEIN (test code = 6408670194) 6.2 g/dL 6.3-8.2 L ALBUMIN (test code = 2346246690) 3.4 g/dL 3.5-5.0 L ALK PHOS (test code = 9544730898) 54 U/L 34-122 ALTv (test code = 1742-6) 20 U/L 5-50 AST(SGOT) (test code = 8828423566) 33 U/L 13-40 Lab Interpretation (test code = Abnormal 72490-7) [facility]11 09:54:25 Test Item Value Reference Range Interpretation Comments MAGNESIUM (test code = 8764340125) 2.1 mg/dL 1.7-2.4 Lab Interpretation (test code = Normal 55842-7) [facility] METABOLIC PANEL (NA, K, CL, CO2, GLUCOSE, BUN, CREATININE, CA)2023-04-06 09:54:25 Test Item Value Reference Range Interpretation Comments NA (test code = 135 mmol/L 135-145 5664285352) K (test code = 3.8 mmol/L 3.5-5.0 7261279983) CL (test code = 98 mmol/L 98-108 6753411668) CO2 TOTAL (test code = 28 mmol/L 23-31 7981593167) AGAP (test code = 9 2-16 0728181731) BUN (test code = 6 mg/dL 7-23 L 8874663465) GLUCOSE (test code = 165 mg/dL 70-110 H 9655344751) CREATININE (test code = 0.63 mg/dL 0.60-1.25 5629259200) CALCIUM (test code = 8.1 mg/dL 8.6-10.6 L 6506553432) eGFR (test code = 156.5 mL/min/1.73m2 0607091341) GEOVANI (test code = GEOVANI) Association of Glomerular Filtration Rate (GFR) and Staging of Kidney Disease* + --+ --+ ------+| GFR (mL/min/1.73 m2) ?| With Kidney Damage ?| ?Without Kidney Damage+ --------+ --------+ +| ?>90 ?| ?Stage one ?| ? Normal ?+ ---+ ---+ -------+| ?60-89 ?| ?Stage two ?| ? Decreased GFR ? + --+ --+ ------+| ?30-59 ?| ?Stage three ?| ? Stage three ? + --+ --+ ------+| ?15-29 ?| ?Stage four ? | ? Stage four ?+ ---+ ---+ -------+| ?<15 (or dialysis) ? ?| ?Stage five ? | ? Stage five ?+ ---+ ---+ -------+ *Each stage assumes the associated GFR level has been in effect for at least three months. ?Stages 1 to 5, with or without kidney disease, indicate chronic kidney disease. Notes: Determination of stages one and two (with eGFR >59mL/min/1.73 m2) requires estimation of kidney damage for at least three months as defined by structural or functional abnormalities of the kidney, manifested by either:Pathological abnormalities or Markers of kidney damage (including abnormalities in the composition of the blood or urine or abnormalities in imaging tests). Lab Interpretation Abnormal (test code = 32884-2) [facility]IRUS (HCV) BY QUANTITATIVE NAAT 2023-04-05 19:02:52 Test Item Value Reference Range Interpretation Comments HCV Quantitative Not Detected Not Detected Interpretation (test code = 1578394784) GEOVANI (test code = GEOVANI) The Aptima HCV Quant Dx assay is an FDA-approved real-time wax machine operator-mediated amplification (TMA) test used for both detection and quantitation of hepatitis C virus (HCV) RNA in human serum and plasma from HCV-infected individuals. ?It is intended for use as an aid in the diagnosis of active HCV infection and the management of HCV-infected patients undergoing HCV antiviral drug therapy. ?It is not approved for use as a screening test for the presence of HCV RNA in blood or blood products. The quantitative range of this assay is 1.00 - 8.00 log IU/mL or 10 - 100,000,000 IU/mL. An interpretation of "Not Detected" does not rule out the presence of inhibitors in the patient specimen or HCV RNA concentration below the level of detection of the test. ?Care should be taken when interpreting any single viral load determination. Detected, not Quantifiable: HCV RNA detected, but at a level below 10 IU/mL (1.0 log IU/mL). ?HCV RNA concentration is below the lower limit of quantitation of the assay. Indeterminate: Error indicated in the generation of the result. ?Please submit a new specimen for repeat testing if clinically indicated. Lab Interpretation Normal (test code = 56227-3) [facility] [id number] 14:37:42 Test Item Value Reference Range Interpretation Comments Case Report (test code Surgical Pathology ? ? = [id number]) ?Case: [id number] ? Authorizing Provider: ?Ria Hendricks MD ? Collected: ? 04/03/2023 1736 ?Ordering Location: ? ? GI Endoscopy OR Department Received: ?04/04/2023 1257 ?Pathologist: ? Sofy Veronica MD ? Specimen: ? ?COLON, Colon BX eval for IBD ? Final Diagnosis (test a3dgbVJfRKYvv5rmVCQjiCJ code = 0277748217) uZzEwMzNcZnRuYmpcdWMxIH tccnRmMVxlcGljMTAyMDZcY Q9sjOateGl3hCexTCJgmqE6 hYYaTJewm2tzTHM0y8bvcjc qSYKlSWilZp5egNEarHmvQt OhZFAfWDb2gT72VXCxsV7ng YKkQTf1KWUnpAVsixKhLjBa EFGmoNMfoBJ9ANAhUF8mlnv zKSayTKzlTZUbqtR8WHZvnU FiS7DfOLNoJX8yghgjBQV5T CfhPDTkIFY7YlVtMRSsd6Yj coa1RbMmdZBaGJlsxONcdpp zjiXeFYEfmiKKYiBEO4dJSs wgQklPUFNZOlxwYXIgICAgL KZXP9jVOzyAYF0AY24KDIQN SVCZVSCBUAPFWPMMErtoA0V JUBLeEXESR4WOG4BEDWAPLp cYNVHTCiBYWCXEG5HXRtQHD ESGCGIGA7YYQH7YGRfqgLVe ICAgICAgIEFORCBJTkNSRUF SDCEbRYvPPHhFYEgBQ38XT2 cSKOCxJO8ESMBHWWUZNP6RS RqUUSaONRcWJZTEFq3WCqyZ LKZOF83GPUFWND9SFQhBHIs gXHBhciAgICAgICBDSFJPTk jWOPSFXAcZSWFeS1bLMGSJK 0VQChVAIXFLC1DBWdvFOCkm YXIgICAgLSBOTyBEWVNQTEF TSUEgSURFTlRJRklFRFxwYX HpyMOkcXxzaaEsKThco0DcH 2YyMjAwMFxhbnNpXGRlZmxh otooOUWdOST2tcJvZWUcQIt bBCFwZQulGb8udJEvtKwaLy WhGSKmb0ijueIPTQxzWpHyM 682OPDeOBhqf1qpj3ZqYIQp hHLrk1E7GCEIjzlaaTz6f5r gDdAxCqO8kLYiHZmjM5riio QhrVQfO6LmiMRzcJm6uUntS 69ne8H0MgwrP9deGPYkQTEb D7PpBY3qTBPuTyy6UAL7UWK 9OXXfGGMkT3HfMJ5iECUguX GzVSa3w7ctdMhfRCEpUPT3e 9ewQYxggaA6GU0zym7inPt4 i3octvZnLLRpMWIdoGJCLZE tB2XlsSshRm8xsQc3zArbPo vgKLU7Kpj3KV8gqr87cnr6e TkyHGAgxjrhKfT1FHifVALz wohlUYq6YWicALIpjRM5EPM rrVRfC7FgDJMvLG4jgld2LQ P3FLhcERMnCzV4YGDtqLTmC TUwlQqsAIujf123FOJ0CoEp UI9qM2Qpm6I6iM8dnMYdIQG hoIQuFjIdCEQltq4bwDPrEV iuz9MtYCO1jiX9pZAliYEtE NNjZO63Yypvr6TeCtszUBT5 VJNymjLtr2Zkp9moGuNagbP gU6buM2KiSGYzSQHxSDFdDz NiztTta7Nmc9LfrPFggEp3d 7vkAJMuFURgtNhkx9gtEXU4 OPCbX1U9vJVco6nnIHjcAIA toXA1peS5AHYsmCTbD1BrcI 3rOKIdXS3mfpn2d0otZQU9B AenPZHvVuR3zeY7OZUbtJRu HAAhlAfiBLadf777VOU2QdH aXPHyg9OjH2FbvVhdZ58idP gcI82bSUTwxXshbM8kwRtkz C2nTcUdTrFvMKegpPbhkIPt blxmMVxmczIwXGxhbmcxMDM zXEzuF3biRhOkHHTliKwsLR cta0YcBDTyJYZtXjmzlzRhF PEalcJFHMynacEjtIMzk63g YWxseSByZXZpZXdlZCBhbGw mk5SsP4nlPQ8wY7PgyABvpm BauxPcVKmjTQOco5n4vYUan Volf3JxjHBkUD27hhXxZVLs AFW5WNWnt8geTT19eicrEjJ xwT00jbCluiWsGJMvy0niD8 iwcYMfd5Wtf5MknbEeRZbll 6JkGR6pnTWxjinyaHG5WXEe hYPexxHqxhL3eVutNTQkhC7 msW6tpMvxkN8jSaOgJnUqED lwDK6mBHTjB0xzdAMyJMWeF NToX8xoVcWbfN5cqIqpAzdo isK2CLPwwr07 Clinical Information Pa Sultana (test code = Estremadoyung is a 22 [id number]) year old male1. Colon BX eval for IBD Gross Description p6rasQCnMLEchKNOJXQrBKO (test code = nEQ0ebOoshCw9vUfuBZCdpq 3660323000) P3pSUiZKaoi4vsINT2d1vhq nZLQukmZLBgKG8mLKfhPSVc VO9zCcHfXRBdQjQlDVHkzDF eqvMuQwYaUXXtxJCsuBJ6ZT QdUY6jsrwbVZdyZZfxEUXom pJ3XQFjnAUdV5ClJIOeVV7s qsdzPRU3CGBWGotlCh1hlNR ibHtcZjFcZmNoYXJzZXQwXG KzcDcdZNGcIBu4kH7OKccrM WZ4YHZFDeurBnkkwRnbf0Gr dCBcXHNnIFxcaWQgNTEwMDA mHJhcRcEGYmOmLkV1IYI9ZZ UaPtL6YOe2FRBANEJhHqv8V HGiSZN6FSe8TITsCK7tMEjb xRSbHGeeUdirKUmuT068JRr tXNEuW7FfY8NsUPakHtXjUS apQJCoSDVoLLhmZVJcM4MKM OIiPoR5BaS1AkSyYNf5VOjm L2GZFGEgAHSxPgJuFOV2StQ 0KRn9BGFVTo3nGWzaADFjHE H5MVH9LEusPUUlXRUgGwZlG OHtVWTfNOmjrYQmTG0boBda WAGoAV9GQHZrWBigYHRoCrU bU3FJV2hMQV6kZEeiTVJdFT pccGFyZCANClxwbGFpblxmc tPzLFr8sfKbEOYkGhLeMYVg B02cg9JDf9PbQA6EZJd4yxO gtyffwV0gVPLtmuIdAPlGdP GktX9hitRWDJaoTAMgG0Wpo rDbVRcjIJAefp7xaZumVZOi ARRoyFTrSUzqzWgjeDO2wFR cvPLqAF5zLGUQZRUzzD7sPK KiYWMkFHKmI06im15wIBCyg Q9yPFLLZSJ7FFzyJi9dBKzI RSEyMV4qMDRuslOpt4SkXR7 oYP26aYNazUsgIQwlL7o4WV DgzaDamfXtF7BvQSJxvSvaj 0AwJEHeBHrqIN79mnJiQA7x LTAuNCBjbSBpbiBncmVhdGV liZOtiP9nseNmt94uHBMlUG R8LLTmGLA5LPQrGxVhoQSau vNjH4ntCXjrnAKtDnSaEGiq IHNwZWNpbWVuIGlzIGZpbHR mclVkNXIrfy28O6ggTSMauI 6wg0jtCtOuNCXqLILvnCJdz XH7PGDhuZ0wrW47taCiylRQ IH4mbXWcLW0AYCRwkoCXYuT tbXlsZWUgWmFuZywgUEEgc3 I3NZElkOasESVnZRoQoEynO NOGA4aanHAuLLdnXCNIQOTR V9CeUTWduxXJOxylJRIcFJc ik8HrFEwdgNulOQXwLnOmHU ypWTUeE62oc1YUx7Bvz4bvu Rbvh5XypRAxZN93ZTVezNCp DPQ6FE2ggYhmDJTfRUhxcPE yZCANCn0= Disclaimer (test code z5vmtOKcWEKrv3isOELgpHZ = [id number]) uZzEwMzNcZnRuYmpcdWMxIH qavaZmMNmzp5GoC7VoIgHfV FxhbnNpXGRlZmxhbmcxMDMz ZGE3htIoDWCiIRygFHInMBb wLg6kzTDbhOvyHbOgENYay0 dujoMDJSfeSaZnC640MTJdI Beiu7oib5BxUAAdyJQqk3C7 TPUJvvwrqAr6qUihH11gi2Z 8VjhwO8goGTJbBWMjB2QrER 3wEIKyRel1JKU1KHA0CQQpL POzB4VfTF5uEBWnhHTpPGv2 w5fxuLfgFWIdPZZ9s8sfPSg hkjDdDE7gef1dqPb1x7ibei BiBHDxISUofGLLSUEnG4Anb OsuWd1geSn4sIomAffaJNG9 Iix4WD4bnp07fcu6uFdzPLW gqnexYhV8BOqxBPTcfhgmAK q9ZHaoBZXmiXH6WCGygMMcP 7BaITMaVU9pqru8WKN9WTvt CZVgDwV7HBGfvTHwLPMhbVa qQOgdq171UHL1EyAhAW0iS0 Tby0M0pO2msKGwCPIdeDEwU oDdGHYfqf8xzKVlUOpbo9Pr AFU7zzN8aFQqyQFgEWNmFJ4 4Kmlde2GpGllwk7WqD82ddP F8AVama5zsIP7gQiO6fgGlD Apal6pqqD8yZvU0HEkrLJ3c LR1dYBFrjS8uedepUDCyLsE olvupVIYexOycuvQwSl0inS zoGGU9UCepI3qwhB1oYvJ4M LnmU6dgwL8uTNx3AXiesSX3 EKWysU8mZG2gtuqto5ryLAo sQEwcMOGqqrX6llN1LJRigR YjN5VnwJ3sSVVqAH9ipwajy 0syWKU7ULnfORFzUSC4SeAn QLCvg6Nvstp5JiJto8NowXC vCBbiD83gn540TPBqrbBiE1 xwbGFpblxwbGFpblxmMFxmc dH5XJYjejAtw9RyTBPfJFK6 MBneVMcqaPTvISStgSunq4s lB7XdjDVlEIIhIGcaRTIhLV ZzMjBcbGFuZzEwMzNcaGlja DgpHTleKnXaSYApTXqvI1vg CmHcK1KkQXZvJqRjqAFcP1b xOQbrhaFaTRRtpjFrxEP2DY wiS8h7RPGiafSoeOj9fnNbR yNmNZCtQKT4JJkjwBZyQAPa g1NuygdosTIsXs4hyMJsBQV miY8aYVJeTIRcAEimZB2znS z9LZKJgXIncMNrUgMATOSeT S62okRvYLZIfqrxz3M3MRch MENgv9QycLWcT0zai9OjTYL pm67tFQ0ug9P5t2mbRTF0QX 0yw4YhKYNttGSskPEpXFHfo 7Fhdhior1NzWPXraaUbs2Vg ZCBhbmQgaXRzIHBlcmZvcm1 zckJgOQGdDVIaY6IoussvgQ iixwIpUWSszo1xqyVyIIG0H XVCBPLrHCDkw1WauF2rzOLY IRR4eLLsll1hlsKIjLWsPLO uxy43VNRwSU9xC8mrNMBwOZ QtfnPyhDVex2GxBLYvqPR5i PHeTZ6PNnTGx83yTSCgUAKH kzAlVAMckVbqiZN7nvF8oF9 uIChGREEpLlx+IFRoZSBGRE IwBF1qmsVrj0GgjlZsgErqO AHjgMOqk3IyiAYcq6HkzFci v0XihBWzaASsAY9qYROsdau aVYFwESWWHcGURDYwmlP7l5 NtDPZjMIGmQBZ3kVekhve8N TPzxO9rQTJfQ9venenzABec XKQoz1AelB7gwFBEbXUeh7X gdBMrhTZVjFHbOC3iwpGaOT sOGJoTWFY7kkBrTKKib4AlO GjuK8atB02ppYfnrIp6wJC9 LAQ7wR2iNug+IFxwYXJccGF yIEFwcHJvcHJpYXRlbHkgcm UyL7IiufGobL4qhNYyvbNoE B6nRI0qV9O2eACtPMVepmRq j7izWDntbsZyMaYziwVdCUU aAZjgJEUip9VwLQimSLL6VW lucyBpbmNsdWRpbmcgSCZFL PWHhOPmjKXuNJZ9WFmwqbHy hxFgTE7kaJ9gbWpdhH4frND xiMD2uchpFSThTBQgaDeiQZ HsWZ6gvHEjVGCvyeFGeNklf OJcsG0cU4NnDKGpBZJboc4q QJNlxO0uFZlwc4InrecbNLW uLEPpQNEutxUndf2sJVOhoX ATMT2WGFpqxQZpe6LrluApP 9kWAMN5MCRpIgMhYljxSCGj iAAceWLcHDWigc38OYDzdE9 rtAagVOMtmP0zeA8jjYozdU 7wDvLcWfYnJPtnBY8mIJFlC 4pclSKzCWVgLYNsB3qzPbVg eA4khZinTRleLxNbAgHqQKs uVDQ8zJ== Embedded Images (test code = 3992448485) [facility] [id number] 14:35:43 Test Item Value Reference Range Interpretation Comments Extra Tube (test code = Received in Lab [id number]) [facility] WITH [id number] 10:45:28 Test Item Value Reference Range Interpretation Comments WBC (test code = 22.16 See_Comment H [Automated 6501-2) message] The system which generated this result transmitted reference range : 4.20 - 10.70 10*3/?L. The reference range was not used to interpret this result as normal/abnormal . RBC (test code = 4.37 See_Comment [Automated 592-9) message] The system which generated this result transmitted reference range : 4.26 - 5.52 10*6/?L. The reference range was not used to interpret this result as normal/abnormal . HGB (test code = 13.0 g/dL 12.2-16.4 718-7) HCT (test code = 36.8 % 38.4-49.3 L 4544-3) MCV (test code = 84.2 fL 81.7-95.6 787-2) MCH (test code = 29.7 pg 26.1-32.7 785-6) MCHC (test code = 35.3 g/dL 31.2-35.0 H 786-4) RDW-SD (test code = 37.9 fL 38.5-51.6 L 59280-6) RDW-CV (test code = 12.4 % 12.1-15.4 788-0) PLT (test code = 403 See_Comment H [Automated 777-3) message] The system which generated this result transmitted reference range : 150 - 328 10*3/?L. The reference range was not used to interpret this result as normal/abnormal . MPV (test code = 8.8 fL 9.8-13.0 L 42510-9) NRBC/100 WBC (test 0.0 See_Comment [Automat ed code = 5353941866) message] The system which generated this result transmitted reference range : 0.0 - 10.0 /100 WBCs. The reference range was not used to interpret this result as normal/abnormal . NRBC x10^3 (test code See_Comment [Auto mated = 4766065015) message] The system which generated this result transmitted reference range : 10*3/?L. The reference range was not used to interpret this result as normal/abnormal . GRAN MAT (NEUT) % 90.9 % (test code = 770-8) IMM GRAN % (test code 1.60 % = 1752380203) LYMPH % (test code = 4.3 % 736-9) MONO % (test code = 2.9 % 5905-5) EOS % (test code = 0.0 % 713-8) BASO % (test code = 0.3 % 706-2) GRAN MAT x10^3(ANC) 20.14 10*3/uL 1.99-6.95 H (test code = 2246462430) IMM GRAN x10^3 (test 0.36 10*3/uL 0.00-0.06 H code = 9933871667) LYMPH x10^3 (test 0.95 10*3/uL 1.09-3.23 L code = 731-0) MONO x10^3 (test code 0.65 10*3/uL 0.36-1.02 = 742-7) EOS x10^3 (test code 0.06-0.53 L = 711-2) BASO x10^3 (test code 0.06 10*3/uL 0.01-0.09 = 704-7) BANDS (test code = MARKED INCREASED A 6144100297) Lab Interpretation Abnormal (test code = 30776-3) [facility] 09:58:18 Test Item Value Reference Range Interpretation Comments MAGNESIUM (test code = 8723080758) 2.1 mg/dL 1.7-2.4 Lab Interpretation (test code = Normal 04641-0) [facility] (NA, K, CL, CO2, GLUCOSE, BUN, CREATININE, CA)2023-04-05 09:58:18 Test Item Value Reference Range Interpretation Comments NA (test code = 133 mmol/L 135-145 L 7937343315) K (test code = 4.0 mmol/L 3.5-5.0 Slight 7420748431) hemolysis CL (test code = 100 mmol/L 98-108 8949801975) CO2 TOTAL (test code 26 mmol/L 23-31 = 3943202679) AGAP (test code = 7 2-16 4266996279) BUN (test code = 3 mg/dL 7-23 L Slight 6662344108) hemolysis GLUCOSE (test code = 178 mg/dL 70-110 H 9823971839) CREATININE (test code 0.58 mg/dL 0.60-1.25 L = 3407511327) CALCIUM (test code = 8.1 mg/dL 8.6-10.6 L 2555541558) eGFR (test code = 172.1 mL/min/1.73m2 7484030088) GEOVANI (test code = GEOVANI) Association of Glomerular Filtration Rate (GFR) and Staging of Kidney Disease* + -----+ --------+ +| GFR (mL/min/1.73 m2) ?| With Kidney Damage ?| ?Without Kidney Damage+ +------- +---- --+| ?>90 ?| ?Stage one ?| ? Normal ?+ ------+ ---------+--------- +| ?60-89 ?| ?Stage two ?| ? Decreased GFR ? + -----+ --------+ +| ?30-59 ?| ?Stage three ?| ? Stage three ? + -----+ --------+ +| ?15-29 ?| ?Stage four ? | ? Stage four ?+ ------+ ---------+--------- +| ?<15 (or dialysis) ? ?| ?Stage five ? | ? Stage five ?+ ------+ ---------+--------- + *Each stage assumes the associated GFR level has been in effect for at least three months. ?Stages 1 to 5, with or without kidney disease, indicate chronic kidney disease. Notes: Determination of stages one and two (with eGFR >59mL/min/1.73 m2) requires estimation of kidney damage for at least three months as defined by structural or functional abnormalities of the kidney, manifested by either:Pathological abnormalities or Markers of kidney damage (including abnormalities in the composition of the blood or urine or abnormalities in imaging tests). Lab Interpretation Abnormal (test code = 66574-5) [facility] B SURFACE [id number] 22:55:30 Test Item Value Reference Range Interpretation Comments HBsAB (test code = Negative 4136243971) HBsAb 0.10 mIU/mL Semi-Quantitative (test code = 6237744692) GEOVANI (test code = Interpretation: GEOVANI) ?Hepatitis B Surface Antibody ? Negative - Patient is considered to be not immune to infection with HBV. ? ? Positive - Anti-HBs detected at greater than or equal to 12 mIU/mL. ?Patient is considered to be immune to infection with HBV. ? [facility] IGG[facility]2023-04-04 22:55:30 Test Item Value Reference Range Interpretation Comments HBC (test code = 5422489429) Negative HBC Semi-Quantitative (test code = 3.15 4243131931) [facility] B SURFACE [id number] 15:42:58 Test Item Value Reference Range Interpretation Comments HBsAg Semi-Quantitative (test code = 0.05 Negative 5195-3) [facility] B SURFACE [id number] 15:42:58 Test Item Value Reference Range Interpretation Comments HBsAg Semi-Quantitative (test code = 0.05 Negative 5195-3) [facility] (NA, K, CL, CO2, GLUCOSE, BUN, CREATININE, CA)2023-04-04 11:32:42 Test Item Value Reference Range Interpretation Comments NA (test code = 132 mmol/L 135-145 L 6994649220) K (test code = 3.5 mmol/L 3.5-5.0 Slight 0620938063) hemolysis CL (test code = 100 mmol/L 98-108 5760397375) CO2 TOTAL (test code 24 mmol/L 23-31 = 6824368065) AGAP (test code = 8 2-16 1313062403) BUN (test code = 7-23 L Slight 4088814136) hemolysis GLUCOSE (test code = 88 mg/dL 70-110 1962896892) CREATININE (test code 0.73 mg/dL 0.60-1.25 = 2561883866) CALCIUM (test code = 7.7 mg/dL 8.6-10.6 L 8838993893) eGFR (test code = 132.0 mL/min/1.73m2 6213522955) GEOVANI (test code = GEOVANI) Association of Glomerular Filtration Rate (GFR) and Staging of Kidney Disease* + -----+ --------+ +| GFR (mL/min/1.73 m2) ?| With Kidney Damage ?| ?Without Kidney Damage+ +------- +---- --+| ?>90 ?| ?Stage one ?| ? Normal ?+ ------+ ---------+--------- +| ?60-89 ?| ?Stage two ?| ? Decreased GFR ? + -----+ --------+ +| ?30-59 ?| ?Stage three ?| ? Stage three ? + -----+ --------+ +| ?15-29 ?| ?Stage four ? | ? Stage four ?+ ------+ ---------+--------- +| ?<15 (or dialysis) ? ?| ?Stage five ? | ? Stage five ?+ ------+ ---------+--------- + *Each stage assumes the associated GFR level has been in effect for at least three months. ?Stages 1 to 5, with or without kidney disease, indicate chronic kidney disease. Notes: Determination of stages one and two (with eGFR >59mL/min/1.73 m2) requires estimation of kidney damage for at least three months as defined by structural or functional abnormalities of the kidney, manifested by either:Pathological abnormalities or Markers of kidney damage (including abnormalities in the composition of the blood or urine or abnormalities in imaging tests). Lab Interpretation Abnormal (test code = 27759-4) [facility] METABOLIC PANEL (NA, K, CL, CO2, GLUCOSE, BUN, CREATININE, CA)2023-04-04 11:32:42 Test Item Value Reference Range Interpretation Comments NA (test code = 132 mmol/L 135-145 L 9008273739) K (test code = 3.5 mmol/L 3.5-5.0 Slight 5372067997) hemolysis CL (test code = 100 mmol/L 98-108 2429280220) CO2 TOTAL (test code 24 mmol/L 23-31 = 6934007376) AGAP (test code = 8 2-16 7882736811) BUN (test code = 7-23 L Slight 2674454848) hemolysis GLUCOSE (test code = 88 mg/dL 70-110 2311335381) CREATININE (test code 0.73 mg/dL 0.60-1.25 = 6153855065) CALCIUM (test code = 7.7 mg/dL 8.6-10.6 L 7426457773) eGFR (test code = 132.0 mL/min/1.73m2 7984192956) GEOVANI (test code = GEOVANI) Association of Glomerular Filtration Rate (GFR) and Staging of Kidney Disease* + -----+ --------+ +| GFR (mL/min/1.73 m2) ?| With Kidney Damage ?| ?Without Kidney Damage+ +------- +---- --+| ?>90 ?| ?Stage one ?| ? Normal ?+ ------+ ---------+--------- +| ?60-89 ?| ?Stage two ?| ? Decreased GFR ? + -----+ --------+ +| ?30-59 ?| ?Stage three ?| ? Stage three ? + -----+ --------+ +| ?15-29 ?| ?Stage four ? | ? Stage four ?+ ------+ ---------+--------- +| ?<15 (or dialysis) ? ?| ?Stage five ? | ? Stage five ?+ ------+ ---------+--------- + *Each stage assumes the associated GFR level has been in effect for at least three months. ?Stages 1 to 5, with or without kidney disease, indicate chronic kidney disease. Notes: Determination of stages one and two (with eGFR >59mL/min/1.73 m2) requires estimation of kidney damage for at least three months as defined by structural or functional abnormalities of the kidney, manifested by either:Pathological abnormalities or Markers of kidney damage (including abnormalities in the composition of the blood or urine or abnormalities in imaging tests). Lab Interpretation Abnormal (test code = 27144-2) [facility] Test Item Value Reference Range Interpretation Comments MAGNESIUM (test code = 2517758704) 1.7 mg/dL 1.7-2.4 Lab Interpretation (test code = Normal 52203-7) [facility] 11:23[facility]35 Test Item Value Reference Range Interpretation Comments MAGNESIUM (test code = 8030643016) 1.7 mg/dL 1.7-2.4 Lab Interpretation (test code = Normal 61534-7) [facility] WITH [id number] 10:55:07 Test Item Value Reference Range Interpretation Comments WBC (test code = 18.08 See_Comment H [Automated 2190-2) message] The system which generated this result transmit james reference range : 4.20 - 10.70 10*3/?L. The reference range was not used to interpret this result as normal/abnormal . RBC (test code = 4.29 See_Comment [Automated 672-8) message] The system which generated this result transmit james reference range : 4.26 - 5.52 10*6/?L. The reference range was not used to interpret this result as normal/abnormal . HGB (test code = 12.5 g/dL 12.2-16.4 718-7) HCT (test code = 35.6 % 38.4-49.3 L 4544-3) MCV (test code = 83.0 fL 81.7-95.6 787-2) MCH (test code = 29.1 pg 26.1-32.7 785-6) MCHC (test code = 35.1 g/dL 31.2-35.0 H 786-4) RDW-SD (test code = 37.7 fL 38.5-51.6 L 21619-6) RDW-CV (test code = 12.5 % 12.1-15.4 788-0) PLT (test code = 329 See_Comment H [Automated 777-3) message] The system which generated this result transmit james reference range : 150 - 328 10*3/ ?L. The reference range was not u sed to interpret th is result as normal/abnormal . MPV (test code = 8.6 fL 9.8-13.0 L 07618-8) NRBC/100 WBC (test 0.0 See_Comment [Automat ed code = 8169774024) message] The system which generated this result transmit james reference range : 0.0 - 10.0 /100 WBCs. The reference range was not used to interpret this result as normal/abnormal . NRBC x10^3 (test code See_Comment [Auto mated = 1176891214) message] The system which generated this result transmit james reference range : 10*3/?L. The reference range was not used to interpret this result as normal/abnormal . GRAN MAT (NEUT) % 72.5 % (test code = 770-8) IMM GRAN % (test code 1.60 % = 1593025019) LYMPH % (test code = 11.5 % 736-9) MONO % (test code = 6.8 % 5905-5) EOS % (test code = 6.9 % 713-8) BASO % (test code = 0.7 % 706-2) GRAN MAT x10^3(ANC) 13.10 10*3/uL 1.99-6.95 H (test code = [id number]) IMM GRAN x10^3 (test 0.29 10*3/uL 0.00-0.06 H code = [id number]) LYMPH x10^3 (test code 2.08 10*3/uL 1.09-3.23 = 731-0) MONO x10^3 (test code 1.23 10*3/uL 0.36-1.02 H = 742-7) EOS x10^3 (test code = 1.25 10*3/uL 0.06-0.53 H 711-2) BASO x10^3 (test code 0.13 10*3/uL 0.01-0.09 H = 704-7) Lab Interpretation Abnormal (test code = 24767-2) [facility] WITH [id number] 10:55:07 Test Item Value Reference Range Interpretation Comments WBC (test code = 18.08 See_Comment H [Automated 6690-2) message] The system which generated this result transmit james reference range : 4.20 - 10.70 10*3/?L. The reference range was not used to interpret this result as normal/abnormal . RBC (test code = 4.29 See_Comment [Automated 789-8) message] The system which generated this result transmit james reference range : 4.26 - 5.52 10*6/?L. The reference range was not used to interpret this result as normal/abnormal . HGB (test code = 12.5 g/dL 12.2-16.4 718-7) HCT (test code = 35.6 % 38.4-49.3 L 4544-3) MCV (test code = 83.0 fL 81.7-95.6 787-2) MCH (test code = 29.1 pg 26.1-32.7 785-6) MCHC (test code = 35.1 g/dL 31.2-35.0 H 786-4) RDW-SD (test code = 37.7 fL 38.5-51.6 L 09104-9) RDW-CV (test code = 12.5 % 12.1-15.4 788-0) PLT (test code = 329 See_Comment H [Automated 777-3) message] The system which generated this result transmit james reference range : 150 - 328 10*3/ ?L. The reference range was not u sed to interpret th is result as normal/abnormal . MPV (test code = 8.6 fL 9.8-13.0 L 70582-8) NRBC/100 WBC (test 0.0 See_Comment [Automat ed code = [id number]) message] The system which generated this result transmit james reference range : 0.0 - 10.0 /100 WBCs. The reference range was not used to interpret this result as normal/abnormal . NRBC x10^3 (test code See_Comment [Auto mated = 4412830157) message] The system which generated this result transmit james reference range : 10*3/?L. The reference range was not used to interpret this result as normal/abnormal . GRAN MAT (NEUT) % 72.5 % (test code = 770-8) IMM GRAN % (test code 1.60 % = 6591774671) LYMPH % (test code = 11.5 % 736-9) MONO % (test code = 6.8 % 5905-5) EOS % (test code = 6.9 % 713-8) BASO % (test code = 0.7 % 706-2) GRAN MAT x10^3(ANC) 13.10 10*3/uL 1.99-6.95 H (test code = 5292741103) IMM GRAN x10^3 (test 0.29 10*3/uL 0.00-0.06 H code = 3697076855) LYMPH x10^3 (test code 2.08 10*3/uL 1.09-3.23 = 731-0) MONO x10^3 (test code 1.23 10*3/uL 0.36-1.02 H = 742-7) EOS x10^3 (test code = 1.25 10*3/uL 0.06-0.53 H 711-2) BASO x10^3 (test code 0.13 10*3/uL 0.01-0.09 H = 704-7) Lab Interpretation Abnormal (test code = 15146-2) [facility] METABOLIC PANEL (NA, K, CL, CO2, GLUCOSE, BUN, CREATININE, CA)2023-04-03 10:31:41 Test Item Value Reference Range Interpretation Comments NA (test code = 136 mmol/L 135-145 3247053397) K (test code = 3.5 mmol/L 3.5-5.0 2343836611) CL (test code = 104 mmol/L 98-108 0371996337) CO2 TOTAL (test code = 22 mmol/L 23-31 L 6251529244) AGAP (test code = 10 2-16 3415429470) BUN (test code = 7-23 L 2192750200) GLUCOSE (test code = 101 mg/dL 70-110 3410838674) CREATININE (test code = 0.77 mg/dL 0.60-1.25 5705246179) CALCIUM (test code = 8.4 mg/dL 8.6-10.6 L 5528290250) eGFR (test code = 124.1 mL/min/1.73m2 4458193616) GEOVANI (test code = GEOVANI) Association of Glomerular Filtration Rate (GFR) and Staging of Kidney Disease* + --+ --+ ------+| GFR (mL/min/1.73 m2) ?| With Kidney Damage ?| ?Without Kidney Damage+ --------+ --------+ +| ?>90 ?| ?Stage one ?| ? Normal ?+ ---+ ---+ -------+| ?60-89 ?| ?Stage two ?| ? Decreased GFR ? + --+ --+ ------+| ?30-59 ?| ?Stage three ?| ? Stage three ? + --+ --+ ------+| ?15-29 ?| ?Stage four ? | ? Stage four ?+ ---+ ---+ -------+| ?<15 (or dialysis) ? ?| ?Stage five ? | ? Stage five ?+ ---+ ---+ -------+ *Each stage assumes the associated GFR level has been in effect for at least three months. ?Stages 1 to 5, with or without kidney disease, indicate chronic kidney disease. Notes: Determination of stages one and two (with eGFR >59mL/min/1.73 m2) requires estimation of kidney damage for at least three months as defined by structural or functional abnormalities of the kidney, manifested by either:Pathological abnormalities or Markers of kidney damage (including abnormalities in the composition of the blood or urine or abnormalities in imaging tests). Lab Interpretation Abnormal (test code = 96987-9) [facility] (NA, K, CL, CO2, GLUCOSE, BUN, CREATININE, CA)2023-04-03 10:31:41 Test Item Value Reference Range Interpretation Comments NA (test code = 136 mmol/L 135-145 7806573632) K (test code = 3.5 mmol/L 3.5-5.0 5639934041) CL (test code = 104 mmol/L 98-108 8944661106) CO2 TOTAL (test code = 22 mmol/L 23-31 L 1931705364) AGAP (test code = 10 2-16 7225143113) BUN (test code = 7-23 L [id number]) GLUCOSE (test code = 101 mg/dL 70-110 7523134502) CREATININE (test code = 0.77 mg/dL 0.60-1.25 8783508293) CALCIUM (test code = 8.4 mg/dL 8.6-10.6 L 7167186871) eGFR (test code = 124.1 mL/min/1.73m2 3009238497) GEOVANI (test code = GEOVANI) Association of Glomerular Filtration Rate (GFR) and Staging of Kidney Disease* + --+ --+ ------+| GFR (mL/min/1.73 m2) ?| With Kidney Damage ?| ?Without Kidney Damage+ --------+ --------+ +| ?>90 ?| ?Stage one ?| ? Normal ?+ ---+ ---+ -------+| ?60-89 ?| ?Stage two ?| ? Decreased GFR ? + --+ --+ ------+| ?30-59 ?| ?Stage three ?| ? Stage three ? + --+ --+ ------+| ?15-29 ?| ?Stage four ? | ? Stage four ?+ ---+ ---+ -------+| ?<15 (or dialysis) ? ?| ?Stage five ? | ? Stage five ?+ ---+ ---+ -------+ *Each stage assumes the associated GFR level has been in effect for at least three months. ?Stages 1 to 5, with or without kidney disease, indicate chronic kidney disease. Notes: Determination of stages one and two (with eGFR >59mL/min/1.73 m2) requires estimation of kidney damage for at least three months as defined by structural or functional abnormalities of the kidney, manifested by either:Pathological abnormalities or Markers of kidney damage (including abnormalities in the composition of the blood or urine or abnormalities in imaging tests). Lab Interpretation Abnormal (test code = 95642-5) [facility] WITH [id number] 10:27:32 Test Item Value Reference Range Interpretation Comments WBC (test code = 24.94 See_Comment H [Automated 6690-2) message] The system which generated this result transmit james reference range : 4.20 - 10.70 10*3/?L. The reference range was not used to interpret this result as normal/abnormal . RBC (test code = 4.81 See_Comment [Automated 789-8) message] The system which generated this result transmit james reference range : 4.26 - 5.52 10*6/?L. The reference range was not used to interpret this result as normal/abnormal . HGB (test code = 14.0 g/dL 12.2-16.4 718-7) HCT (test code = 40.1 % 38.4-49.3 4544-3) MCV (test code = 83.4 fL 81.7-95.6 787-2) MCH (test code = 29.1 pg 26.1-32.7 785-6) MCHC (test code = 34.9 g/dL 31.2-35.0 786-4) RDW-SD (test code = 37.5 fL 38.5-51.6 L 73934-6) RDW-CV (test code = 12.3 % 12.1-15.4 788-0) PLT (test code = 406 See_Comment H [Automated 777-3) message] The system which generated this result transmit james reference range : 150 - 328 10*3/ ?L. The reference range was not u sed to interpret th is result as normal/abnormal . MPV (test code = 8.6 fL 9.8-13.0 L 59726-1) NRBC/100 WBC (test 0.0 See_Comment [Automat ed code = 5083864740) message] The system which generated this result transmit james reference range : 0.0 - 10.0 /100 WBCs. The reference range was not used to interpret this result as normal/abnormal . NRBC x10^3 (test code See_Comment [Auto mated = 8636797015) message] The system which generated this result transmit james reference range : 10*3/?L. The reference range was not used to interpret this result as normal/abnormal . GRAN MAT (NEUT) % 72.4 % (test code = 770-8) IMM GRAN % (test code 1.70 % = 8977139620) LYMPH % (test code = 13.6 % 736-9) MONO % (test code = 6.5 % 5905-5) EOS % (test code = 5.3 % 713-8) BASO % (test code = 0.5 % 706-2) GRAN MAT x10^3(ANC) 18.08 10*3/uL 1.99-6.95 H (test code = 5112786049) IMM GRAN x10^3 (test 0.42 10*3/uL 0.00-0.06 H code = 8945656995) LYMPH x10^3 (test code 3.39 10*3/uL 1.09-3.23 H = 731-0) MONO x10^3 (test code 1.61 10*3/uL 0.36-1.02 H = 742-7) EOS x10^3 (test code = 1.31 10*3/uL 0.06-0.53 H 711-2) BASO x10^3 (test code 0.13 10*3/uL 0.01-0.09 H = 704-7) BANDS (test code = Increased A 5401225180) Lab Interpretation Abnormal (test code = 80700-2) [facility] WITH [id number] 10:27:32 Test Item Value Reference Range Interpretation Comments WBC (test code = 24.94 See_Comment H [Automated 6690-2) message] The system which generated this result transmit james reference range : 4.20 - 10.70 10*3/?L. The reference range was not used to interpret this result as normal/abnormal . RBC (test code = 4.81 See_Comment [Automated 789-8) message] The system which generated this result transmit james reference range : 4.26 - 5.52 10*6/?L. The reference range was not used to interpret this result as normal/abnormal . HGB (test code = 14.0 g/dL 12.2-16.4 718-7) HCT (test code = 40.1 % 38.4-49.3 4544-3) MCV (test code = 83.4 fL 81.7-95.6 787-2) MCH (test code = 29.1 pg 26.1-32.7 785-6) MCHC (test code = 34.9 g/dL 31.2-35.0 786-4) RDW-SD (test code = 37.5 fL 38.5-51.6 L 32371-1) RDW-CV (test code = 12.3 % 12.1-15.4 788-0) PLT (test code = 406 See_Comment H [Automated 777-3) message] The system which generated this result transmit james reference range : 150 - 328 10*3/ ?L. The reference range was not u sed to interpret th is result as normal/abnormal . MPV (test code = 8.6 fL 9.8-13.0 L 25886-2) NRBC/100 WBC (test 0.0 See_Comment [Automat ed code = 8594794071) message] The system which generated this result transmit james reference range : 0.0 - 10.0 /100 WBCs. The reference range was not used to interpret this result as normal/abnormal . NRBC x10^3 (test code See_Comment [Auto mated = 5094018077) message] The system which generated this result transmit james reference range : 10*3/?L. The reference range was not used to interpret this result as normal/abnormal . GRAN MAT (NEUT) % 72.4 % (test code = 770-8) IMM GRAN % (test code 1.70 % = 7998723930) LYMPH % (test code = 13.6 % 736-9) MONO % (test code = 6.5 % 5905-5) EOS % (test code = 5.3 % 713-8) BASO % (test code = 0.5 % 706-2) GRAN MAT x10^3(ANC) 18.08 10*3/uL 1.99-6.95 H (test code = 8644734694) IMM GRAN x10^3 (test 0.42 10*3/uL 0.00-0.06 H code = 6593169032) LYMPH x10^3 (test code 3.39 10*3/uL 1.09-3.23 H = 731-0) MONO x10^3 (test code 1.61 10*3/uL 0.36-1.02 H = 742-7) EOS x10^3 (test code = 1.31 10*3/uL 0.06-0.53 H 711-2) BASO x10^3 (test code 0.13 10*3/uL 0.01-0.09 H = 704-7) BANDS (test code = Increased A 6565750914) Lab Interpretation Abnormal (test code = 89191-2) [facility] Test Item Value Reference Range Interpretation Comments MAGNESIUM (test code = 0198413226) 1.7 mg/dL 1.7-2.4 Lab Interpretation (test code = Normal 33490-7) [facility]27 Test Item Value Reference Range Interpretation Comments MAGNESIUM (test code = 5918760965) 1.7 mg/dL 1.7-2.4 Lab Interpretation (test code = Normal 22942-5) [facility] WITH [id number] 11:14:08 Test Item Value Reference Range Interpretation Comments WBC (test code = 12.48 See_Comment H [Automated 6690-2) message] The sy stem which generated this result transmitted reference range : 4.20 - 10.70 10*3/?L. The reference range was not used to interpret this result as normal/abnormal . RBC (test code = 4.20 See_Comment L [Automated 789-8) message] The sy stem which generated this result transmitted reference range : 4.26 - 5.52 10*6/?L. The reference range was not used to interpret this result as normal/abnormal . HGB (test code = 12.1 g/dL 12.2-16.4 L 718-7) HCT (test code = 35.6 % 38.4-49.3 L 4544-3) MCV (test code = 84.8 fL 81.7-95.6 787-2) MCH (test code = 28.8 pg 26.1-32.7 785-6) MCHC (test code = 34.0 g/dL 31.2-35.0 786-4) RDW-SD (test code = 38.0 fL 38.5-51.6 L 92725-1) RDW-CV (test code = 12.5 % 12.1-15.4 788-0) PLT (test code = 328 See_Comment [Automated 777-3) message] The sy stem which generated this result transmitted reference range : 150 - 328 10*3/ ?L. The reference r lauri was not used to interpret this result as normal/abnormal . MPV (test code = 9.2 fL 9.8-13.0 L 47791-5) NRBC/100 WBC (test 0.0 See_Comment [Automat ed code = 3417170943) message] The system which generated this result transmitted reference range : 0.0 - 10.0 /100 WBCs. The refer ence range was not u sed to interpret th is result as normal/abnormal . NRBC x10^3 (test code See_Comment [Auto mated = 9751166740) message] The s ystem which generated this result transmitted reference range : 10*3/?L. The reference range was not used to interpret this result as normal/abnormal . GRAN MAT (NEUT) % 58.9 % (test code = 770-8) IMM GRAN % (test code 1.90 % = 9789161204) LYMPH % (test code = 20.1 % 736-9) MONO % (test code = 8.8 % 5905-5) EOS % (test code = 9.6 % 713-8) BASO % (test code = 0.7 % 706-2) GRAN MAT x10^3(ANC) 7.34 10*3/uL 1.99-6.95 H (test code = 6977949097) IMM GRAN x10^3 (test 0.24 10*3/uL 0.00-0.06 H code = 8603006416) LYMPH x10^3 (test code 2.51 10*3/uL 1.09-3.23 = 731-0) MONO x10^3 (test code 1.10 10*3/uL 0.36-1.02 H = 742-7) EOS x10^3 (test code = 1.20 10*3/uL 0.06-0.53 H 711-2) BASO x10^3 (test code 0.09 10*3/uL 0.01-0.09 = 704-7) Lab Interpretation Abnormal (test code = 48792-9) [facility] WITH [id number] 11:14:08 Test Item Value Reference Range Interpretation Comments WBC (test code = 12.48 See_Comment H [Automated 6690-2) message] The sy stem which generated this result transmitted reference range : 4.20 - 10.70 10*3/?L. The reference range was not used to interpret this result as normal/abnormal . RBC (test code = 4.20 See_Comment L [Automated 789-8) message] The sy stem which generated this result transmitted reference range : 4.26 - 5.52 10*6/?L. The reference range was not used to interpret this result as normal/abnormal . HGB (test code = 12.1 g/dL 12.2-16.4 L 718-7) HCT (test code = 35.6 % 38.4-49.3 L 4544-3) MCV (test code = 84.8 fL 81.7-95.6 787-2) MCH (test code = 28.8 pg 26.1-32.7 785-6) MCHC (test code = 34.0 g/dL 31.2-35.0 786-4) RDW-SD (test code = 38.0 fL 38.5-51.6 L 18639-6) RDW-CV (test code = 12.5 % 12.1-15.4 788-0) PLT (test code = 328 See_Comment [Automated 777-3) message] The sy stem which generated this result transmitted reference range : 150 - 328 10*3/ ?L. The reference r lauri was not used to interpret this result as normal/abnormal . MPV (test code = 9.2 fL 9.8-13.0 L 37933-2) NRBC/100 WBC (test 0.0 See_Comment [Automat ed code = 1536815381) message] The system which generated this result transmitted reference range : 0.0 - 10.0 /100 WBCs. The refer ence range was not u sed to interpret th is result as normal/abnormal . NRBC x10^3 (test code See_Comment [Auto mated = 8013228941) message] The s ystem which generated this result transmitted reference range : 10*3/?L. The reference range was not used to interpret this result as normal/abnormal . GRAN MAT (NEUT) % 58.9 % (test code = 770-8) IMM GRAN % (test code 1.90 % = 4690053293) LYMPH % (test code = 20.1 % 736-9) MONO % (test code = 8.8 % 5905-5) EOS % (test code = 9.6 % 713-8) BASO % (test code = 0.7 % 706-2) GRAN MAT x10^3(ANC) 7.34 10*3/uL 1.99-6.95 H (test code = 9291997588) IMM GRAN x10^3 (test 0.24 10*3/uL 0.00-0.06 H code = 9067789848) LYMPH x10^3 (test code 2.51 10*3/uL 1.09-3.23 = 731-0) MONO x10^3 (test code 1.10 10*3/uL 0.36-1.02 H = 742-7) EOS x10^3 (test code = 1.20 10*3/uL 0.06-0.53 H 711-2) BASO x10^3 (test code 0.09 10*3/uL 0.01-0.09 = 704-7) Lab Interpretation Abnormal (test code = 76196-3) [facility]-REACTIVE [id number] 17:11:35 Test Item Value Reference Range Interpretation Comments CRP (test code = 7384388096) 2.1 mg/dL <=0.8 H Lab Interpretation (test code = Abnormal 85986-4) [facility]-REACTIVE [id number] 17:11:35 Test Item Value Reference Range Interpretation Comments CRP (test code = 6279560698) 2.1 mg/dL <=0.8 H Lab Interpretation (test code = Abnormal 70149-2) [facility] [id number] 14:44:35 Test Item Value Reference Range Interpretation Comments FERRITIN (test code = 47.1 ng/mL 18.0-464.0 3147450043) GEOVANI (test code = GEOVANI) Biotin has been reported to cause a negative bias, interpret results relative to patient's use of biotin. Lab Interpretation (test Normal code = 08235-7) [facility] [id number] 14:44:35 Test Item Value Reference Range Interpretation Comments FERRITIN (test code = 47.1 ng/mL 18.0-464.0 3219311308) GEOVANI (test code = GEOVANI) Biotin has been reported to cause a negative bias, interpret results relative to patient's use of biotin. Lab Interpretation (test Normal code = 30245-0) [facility] ([facility] Only)2023-04-01 11:38:00 Test Item Value Reference Range Interpretation Comments ABO & RH (test code = 20) O Positive [facility] Confirmation (Lab Only)2023-04-01 11:38:00 Test Item Value Reference Range Interpretation Comments ABO & RH (test code = 20) O [facility] [id number] 11:22:35 Test Item Value Reference Range Interpretation Comments IRON (test code = 5361588038) 27 ug/dL 50-160 L TIBC (test code = 7977558268) 267 ug/dL 250-410 % FE SAT (test code = 6203398145) 10 % 20-50 L Lab Interpretation (test code = Abnormal 59367-8) [id number] 11:22:35 Test Item Value Reference Range Interpretation Comments IRON (test code = 2168861062) 27 ug/dL 50-160 L TIBC (test code = 7890649676) 267 ug/dL 250-410 % FE SAT (test code = 4488877635) 10 % 20-50 L Lab Interpretation (test code = Abnormal 23878-2) [facility] (NA, K, CL, CO2, GLUCOSE, BUN, CREATININE, CA)2023-04-01 11:01:54 Test Item Value Reference Range Interpretation Comments NA (test code = 136 mmol/L 135-145 5350536517) K (test code = 3.5 mmol/L 3.5-5.0 7678758932) CL (test code = 102 mmol/L 98-108 1704817801) CO2 TOTAL (test code = 28 mmol/L 23-31 3132998158) AGAP (test code = 6 2-16 7409089950) BUN (test code = 3 mg/dL 7-23 L 0337486379) GLUCOSE (test code = 100 mg/dL 70-110 1243518127) CREATININE (test code = 0.83 mg/dL 0.60-1.25 3648255042) CALCIUM (test code = 7.9 mg/dL 8.6-10.6 L 7509357822) eGFR (test code = 113.8 mL/min/1.73m2 7942384540) GEOVANI (test code = GEOVANI) Association of Glomerular Filtration Rate (GFR) and Staging of Kidney Disease* + --+ --+ ------+| GFR (mL/min/1.73 m2) ?| With Kidney Damage ?| ?Without Kidney Damage+ --------+ --------+ +| ?>90 ?| ?Stage one ?| ? Normal ?+ ---+ ---+ -------+| ?60-89 ?| ?Stage two ?| ? Decreased GFR ? + --+ --+ ------+| ?30-59 ?| ?Stage three ?| ? Stage three ? + --+ --+ ------+| ?15-29 ?| ?Stage four ? | ? Stage four ?+ ---+ ---+ -------+| ?<15 (or dialysis) ? ?| ?Stage five ? | ? Stage five ?+ ---+ ---+ -------+ *Each stage assumes the associated GFR level has been in effect for at least three months. ?Stages 1 to 5, with or without kidney disease, indicate chronic kidney disease. Notes: Determination of stages one and two (with eGFR >59mL/min/1.73 m2) requires estimation of kidney damage for at least three months as defined by structural or functional abnormalities of the kidney, manifested by either:Pathological abnormalities or Markers of kidney damage (including abnormalities in the composition of the blood or urine or abnormalities in imaging tests). Lab Interpretation Abnormal (test code = 39889-4) [facility] (ALB,T.PRO,BILI T,BU/BC,ALT,AST,ALK PHOS)2023-04-01 11:01:54 Test Item Value Reference Range Interpretation Comments TOTAL BILI (test code = 5480236532) 0.4 mg/dL 0.1-1.1 BILI UNCON (test code = 6818138152) 0.4 mg/dL 0.1-1.1 BILI CONJ (test code = 8933832241) 0.0 mg/dL 0.0-0.3 T PROTEIN (test code = 9294003477) 6.0 g/dL 6.3-8.2 L ALBUMIN (test code = 4279408471) 3.2 g/dL 3.5-5.0 L ALK PHOS (test code = 4546836355) 54 U/L 34-122 ALTv (test code = 1742-6) 12 U/L 5-50 AST(SGOT) (test code = 6523246443) 24 U/L 13-40 Lab Interpretation (test code = Abnormal 61789-2) [facility] [id number] 11:01:54 Test Item Value Reference Range Interpretation Comments MAGNESIUM (test code = 2554448189) 2.0 mg/dL 1.7-2.4 Lab Interpretation (test code = Normal 27950-8) [facility] (NA, K, CL, CO2, GLUCOSE, BUN, CREATININE, CA)2023-04-01 11:01:54 Test Item Value Reference Range Interpretation Comments NA (test code = 136 mmol/L 135-145 7696961157) K (test code = 3.5 mmol/L 3.5-5.0 4010952777) CL (test code = 102 mmol/L 98-108 9454223658) CO2 TOTAL (test code = 28 mmol/L 23-31 4388998654) AGAP (test code = 6 2-16 4105390563) BUN (test code = 3 mg/dL 7-23 L 9554160756) GLUCOSE (test code = 100 mg/dL 70-110 1343986631) CREATININE (test code = 0.83 mg/dL 0.60-1.25 4403998305) CALCIUM (test code = 7.9 mg/dL 8.6-10.6 L 4510423117) eGFR (test code = 113.8 mL/min/1.73m2 3415577371) GEOVANI (test code = GEOVANI) Association of Glomerular Filtration Rate (GFR) and Staging of Kidney Disease* + --+ --+ ------+| GFR (mL/min/1.73 m2) ?| With Kidney Damage ?| ?Without Kidney Damage+ --------+ --------+ +| ?>90 ?| ?Stage one ?| ? Normal ?+ ---+ ---+ -------+| ?60-89 ?| ?Stage two ?| ? Decreased GFR ? + --+ --+ ------+| ?30-59 ?| ?Stage three ?| ? Stage three ? + --+ --+ ------+| ?15-29 ?| ?Stage four ? | ? Stage four ?+ ---+ ---+ -------+| ?<15 (or dialysis) ? ?| ?Stage five ? | ? Stage five ?+ ---+ ---+ -------+ *Each stage assumes the associated GFR level has been in effect for at least three months. ?Stages 1 to 5, with or without kidney disease, indicate chronic kidney disease. Notes: Determination of stages one and two (with eGFR >59mL/min/1.73 m2) requires estimation of kidney damage for at least three months as defined by structural or functional abnormalities of the kidney, manifested by either:Pathological abnormalities or Markers of kidney damage (including abnormalities in the composition of the blood or urine or abnormalities in imaging tests). Lab Interpretation Abnormal (test code = 01606-4) [facility]91489[facility] (ALB,T.PRO,BILI T,BU/BC,ALT,AST,ALK PHOS)2023-04-01 11:01:54 Test Item Value Reference Range Interpretation Comments TOTAL BILI (test code = 1828008883) 0.4 mg/dL 0.1-1.1 BILI UNCON (test code = 1769057824) 0.4 mg/dL 0.1-1.1 BILI CONJ (test code = 5644485886) 0.0 mg/dL 0.0-0.3 T PROTEIN (test code = 0835016972) 6.0 g/dL 6.3-8.2 L ALBUMIN (test code = 5690820661) 3.2 g/dL 3.5-5.0 L ALK PHOS (test code = 4865192628) 54 U/L 34-122 ALTv (test code = 1742-6) 12 U/L 5-50 AST(SGOT) (test code = 6751738982) 24 U/L 13-40 Lab Interpretation (test code = Abnormal 48824-7) [facility] Zuaqy1295-20-16 11:01:54 Test Item Value Reference Range Interpretation Comments MAGNESIUM (test code = 4935309293) 2.0 mg/dL 1.7-2.4 Lab Interpretation (test code = Normal 08311-1) [facility] with Lhmqvzqoilna2655-26-98 10:39:49 Test Item Value Reference Range Interpretation Comments WBC (test code = 17.31 See_Comment H [Automated 1790-2) message] The system which generated this result transmit james reference range : 4.20 - 10.70 10*3/?L. The reference range was not used to interpret this result as normal/abnormal . RBC (test code = 4.27 See_Comment [Automated 089-8) message] The system which generated this result transmit james reference range : 4.26 - 5.52 10*6/?L. The reference range was not used to interpret this result as normal/abnormal . HGB (test code = 12.6 g/dL 12.2-16.4 718-7) HCT (test code = 35.8 % 38.4-49.3 L 4544-3) MCV (test code = 83.8 fL 81.7-95.6 787-2) MCH (test code = 29.5 pg 26.1-32.7 785-6) MCHC (test code = 35.2 g/dL 31.2-35.0 H 786-4) RDW-SD (test code = 37.3 fL 38.5-51.6 L 83773-2) RDW-CV (test code = 12.3 % 12.1-15.4 788-0) PLT (test code = 332 See_Comment H [Automated 777-3) message] The system which generated this result transmit james reference range : 150 - 328 10*3/ ?L. The reference range was not u sed to interpret th is result as normal/abnormal . MPV (test code = 8.8 fL 9.8-13.0 L 69948-4) NRBC/100 WBC (test 0.0 See_Comment [Automat ed code = 6548394460) message] The system which generated this result transmit james reference range : 0.0 - 10.0 /100 WBCs. The reference range was not used to interpret this result as normal/abnormal . NRBC x10^3 (test code See_Comment [Auto mated = 4065946705) message] The system which generated this result transmit james reference range : 10*3/?L. The reference range was not used to interpret this result as normal/abnormal . GRAN MAT (NEUT) % 69.2 % (test code = 770-8) IMM GRAN % (test code 1.20 % = 3522420468) LYMPH % (test code = 14.9 % 736-9) MONO % (test code = 8.5 % 5905-5) EOS % (test code = 5.7 % 713-8) BASO % (test code = 0.5 % 706-2) GRAN MAT x10^3(ANC) 11.97 10*3/uL 1.99-6.95 H (test code = 9444572592) IMM GRAN x10^3 (test 0.21 10*3/uL 0.00-0.06 H code = 3704096451) LYMPH x10^3 (test code 2.58 10*3/uL 1.09-3.23 = 731-0) MONO x10^3 (test code 1.47 10*3/uL 0.36-1.02 H = 742-7) EOS x10^3 (test code = 0.99 10*3/uL 0.06-0.53 H 711-2) BASO x10^3 (test code 0.09 10*3/uL 0.01-0.09 = 704-7) Lab Interpretation Abnormal (test code = 92362-1) [facility] with Izohzmefynfg7226-69-76 10:39:49 Test Item Value Reference Range Interpretation Comments WBC (test code = 17.31 See_Comment H [Automated 6690-2) message] The system which generated this result transmit james reference range : 4.20 - 10.70 10*3/?L. The reference range was not used to interpret this result as normal/abnormal . RBC (test code = 4.27 See_Comment [Automated 789-8) message] The system which generated this result transmit james reference range : 4.26 - 5.52 10*6/?L. The reference range was not used to interpret this result as normal/abnormal . HGB (test code = 12.6 g/dL 12.2-16.4 718-7) HCT (test code = 35.8 % 38.4-49.3 L 4544-3) MCV (test code = 83.8 fL 81.7-95.6 787-2) MCH (test code = 29.5 pg 26.1-32.7 785-6) MCHC (test code = 35.2 g/dL 31.2-35.0 H 786-4) RDW-SD (test code = 37.3 fL 38.5-51.6 L 58805-1) RDW-CV (test code = 12.3 % 12.1-15.4 788-0) PLT (test code = 332 See_Comment H [Automated 777-3) message] The system which generated this result transmit james reference range : 150 - 328 10*3/ ?L. The reference range was not u sed to interpret th is result as normal/abnormal . MPV (test code = 8.8 fL 9.8-13.0 L 36379-7) NRBC/100 WBC (test 0.0 See_Comment [Automat ed code = 6939306058) message] The system which generated this result transmit james reference range : 0.0 - 10.0 /100 WBCs. The reference range was not used to interpret this result as normal/abnormal . NRBC x10^3 (test code See_Comment [Auto mated = 0667547485) message] The system which generated this result transmit james reference range : 10*3/?L. The reference range was not used to interpret this result as normal/abnormal . GRAN MAT (NEUT) % 69.2 % (test code = 770-8) IMM GRAN % (test code 1.20 % = 0539301029) LYMPH % (test code = 14.9 % 736-9) MONO % (test code = 8.5 % 5905-5) EOS % (test code = 5.7 % 713-8) BASO % (test code = 0.5 % 706-2) GRAN MAT x10^3(ANC) 11.97 10*3/uL 1.99-6.95 H (test code = 6562358871) IMM GRAN x10^3 (test 0.21 10*3/uL 0.00-0.06 H code = 4590404473) LYMPH x10^3 (test code 2.58 10*3/uL 1.09-3.23 = 731-0) MONO x10^3 (test code 1.47 10*3/uL 0.36-1.02 H = 742-7) EOS x10^3 (test code = 0.99 10*3/uL 0.06-0.53 H 711-2) BASO x10^3 (test code 0.09 10*3/uL 0.01-0.09 = 704-7) Lab Interpretation Abnormal (test code = 41090-4) [facility] [id number] 10:28:00 Test Item Value Reference Range Interpretation Comments ABO & RH (test code = 20) O POSITIVE IAT (test code = 1185) Negative [facility] [id number] 10:28:00 Test Item Value Reference Range Interpretation Comments ABO & RH (test code = 20) O POSITIVE IAT (test code = 1185) Negative [facility]2020 09:39:00 [place] [address] PatientName: PA LAWRENCE MR #: [id number] : 2000 Age/Sex: 20/M Req #: [id number] Adm Physician: Ordered by: Sp Cazares MD Report #: [id number] Location: ER Room/Bed: Procedure: [id number] DX/CHEST SINGLE (PORTABLE) Exam Date: 09/01/20 Exam Time: 900 REPORTSTATUS: Signed EXAMINATION: CHEST SINGLE (PORTABLE) INDICATION: Shortness of breath COMPARISON: NoneFINDINGS: LINES/TUBES:None LUNGS:The lungs are well-inflated. No focal consolidation or pulmonary edema. PLEURA:No pleural effusion or pneumothorax. MEDIASTINUM:The cardiomediastinal silhouette appearsnormal in size and shape. BONES/SOFT TISSUES:No acute osseous injury. ABDOMEN:No free air under thediaphragm. IMPRESSION: No focal pneumonia or pulmonary edema. Signed by: Ele Dhaliwal MD on 09/01/20209:39 AM Dictated By: ELE DHALIWAL MD 8 Transcribed By: VETO on 09/01/20938 COPY TO: SP CAZARES MDInfluenza virus A and B antigen identification by [id number] 08:30:00 Test Item Value Reference Range Interpretation Comments Influenza Virus Types A,B Antigen NEGATIVE NEGATIVE (test code = 25753-6) [facility] Notes Date/Time Note Provider Source 2023-07-20 09:07:42 [id number]:07:42Formatting of [facility] this note might be different from the original.Patient is needing a 30 day supply of Mesalamine due to a discrepancy on the script provided to the Patient assistance program. Script was corrected and resubmitted with corrections. BCIP approved patient to receive a refill from provider. Ishmael Damian [id number] encounter VxerUS3558-06-27S63:10:58Telephone encounter NoteTXT1.2.840.945561.1.13.104.2.7 .2.952225|[id number] for patient gbzv58178-3MssqKCECBWGYDN81 [id number] 44FQZZMEYISLTLWZEWJQTTZS7441-19-44 T09:10:581.2.840.875291.1.72.3.15| 1.2.840.652967.1.13.104.2.7.2.7278 [id number] 2023-07-10 09:57:20 [id number]:57:20Formatting of Julia metz [facility] this note is different from the original.Received 07/05/2023 refill request for: Medication:Requested Prescriptions Pending Prescriptions Disp Refills mesalamine 1.2 gram EC tablet 60 tablet 0 Sig: Take 2 tablets by mouth daily with breakfast. Last filled:06/15/2023Follow up scheduled for : 08/15/2023Last office visit:07/05/2023Refilled approval sent to: [id number] [place] [place] - [address] [facility] [address] [address] [place] [address]Qnhbq: [phone] Ioeautbk per ID Guidelines [id number] encounter SscrPV5685-26-85A86:58:26Telephone encounter NoteTXT1.2.840.670156.1.13.104.2.7 .2.782431|[id number] for patient [id number] [address] [place] [address]vdG[id number] 83YNOXWXALOHNANXFEZOVECM1005-34-12 T09:58:261.2.840.083643.1.72.3.15| 1.2.840.634783.1.13.104.2.7.2.7278 [id number] 2023-07-05 18:29:21 [id number]:29:21Formatting of [facility] this note might be different from the original.Pa Lawrence is a 22 year old malePatient had to cancel his appt because there is an insurance issue.It couldn't be rescheduled until September 07, but his medication is running out.Please refill the mesalamine 1.2 gram EC tablet so that he can make it until his next appointment.[id number] - [place], [place] [address] [facility] [address] [facility] [place] [address]Mfqnv: [phone] Jglrtxamwkngev signed by Cass Gilmore at 07/05/2023 6:32 PM [id number] encounter XofdOY5343-77-37G25:32:00Telephone encounter NoteTXT1.2.840.653223.1.13.104.2.7 .2.393506|[id number] for patient jfzz95500-7HtceTSWCRGMTBC24 [address] [id number] 28PJHFAXOCSMEDZIDYISDTQW8429-59-43 T18:32:001.2.840.385374.1.72.3.15| 1.2.840.871346.1.13.104.2.7.2.7278 [id number] 2023-05-11 14:30:00 [id number]:30:00 Addended by: [facility] BESSIE SALGADO DNP-LAURYN ARZATE on: 06/15/2023 05:04 PM Modules accepted: Orders [id number] [id number]:04:27Adden dum DocumentTXT1.2.840.789776.1.13.104 .2.7.2.068144|[id number] e for patient [id number] 66RGYJZEJWPDDDHULHWKBZNZ1268-01-68 T17:04:271.2.840.801280.1.72.3.15| 1.2.840.895711.1.13.104.2.7.2.7278 [id number]
--- NOTE | 2023-10-18 14:04 | ER ---
Nurse's Notes [facility] Name: Orlando Rowland Age: 23 yrs Sex: Male : 2000 Arrival Date: 10/18/2023 Time: 13:33 Bed 12 Private MD: Diagnosis: Encounter for medication refill Presentation: 10/18 13:59 Chief complaint: Has been taking mesalamine 1.2 mg BID for ulcerative colitis but ran hb out, follow up appointment is next week, needs refill. Coronavirus screen: At this time, the client does not indicate any symptoms associated with coronavirus-19. Ebola Screen: No symptoms or risks identified at this time. Initial Sepsis Screen: Does the patient meet any 2 criteria? No. Patient's initial sepsis screen is negative. Does the patient have a suspected source of infection? No. Patient's initial sepsis screen is negative. Risk Assessment: Do you want to hurt yourself or someone else? Patient reports no desire to harm self or others. Onset of symptoms was October 18, 2023. 13:59 Method Of Arrival: Ambulatory hb 13:59 Acuity: KO 5 hb Historical: - Allergies: 14:00 No Known Allergies; hb - Home Meds: 14:00 mesalamine 1.2 gram oral tablet, delayed release (enteric coated) twice a day [Active]; hb - PMHx: 14:00 Ulcerative Colitis; hb - PSHx: 14:00 None; hb - Immunization history:: Adult Immunizations up to date. - Social history:: Smoking status: Patient denies any tobacco usage or history of. Vital Signs: 13:59 BP 111 / 48; Pulse 75; Resp 16; Temp 97.8; Pulse Ox 98% on R/A; Weight 54.43 kg; Height hb 5 ft. 7 in. ; Pain 0/10; 13:59 Body Mass Index 18.79 (54.43 kg, 170.18 cm) hb 13:59 Pain Scale: Adult hb ED Course: 13:35 Patient arrived in ED. mr 13:41 Jennifer Rivers PA-C is PHCP. sb4 13:41 Tono Sanchez MD is Attending Physician. sb4 14:00 Triage completed. hb 14:01 Arm band placed on. hb Administered Medications: No medications were administered Outcome: 14:04 Discharge ordered by MD. lemus 14:46 Patient left the ED. hb Signatures: Charlene Pollock, Reg Reg Susan Kerr, EZEKIEL RN Jennifer Zheng, JACOBY lemus
--- NOTE | 2023-10-18 14:04 | EDPHYS ---
Physician Documentation [facility] Name: Orlando Rowland Age: 23 yrs Sex: Male : 2000 Arrival Date: 10/18/2023 Time: 13:33 Bed 12 Private MD: ED Physician Tono Sanchez HPI: 10/18 14:09 This 23 yrs old Male presents to ER via Ambulatory with complaints of Medication Refill.sb4 14:09 The patient presents to the emergency department requesting refill(s) for: mesalamine. sb4 The patient chronically suffers from ulcerative colitis. patient was diagnosed with UC and hospitalized because of it 1 month ago. he he been having issues getting a follow up appointment, therefore has run out of his medication. he states it has been working extremely well. Historical: - Allergies: 14:00 No Known Allergies; hb - Home Meds: 14:00 mesalamine 1.2 gram oral tablet, delayed release (enteric coated) twice a day [Active]; hb - PMHx: 14:00 Ulcerative Colitis; hb - PSHx: 14:00 None; hb - Immunization history:: Adult Immunizations up to date. - Social history:: Smoking status: Patient denies any tobacco usage or history of. ROS: 14:09 Constitutional: Negative for fever, chills, and weight loss, sb4 14:09 All other systems are negative, Exam: 14:09 Constitutional: This is a well developed, well nourished patient who is awake, alert, sb4 and in no acute distress. Head/Face: Normocephalic, atraumatic. Eyes: Extra-ocular motions intact. Periorbital areas with no swelling, redness, or edema. ENT: Mucous membranes moist. Skin: Warm, dry with normal turgor. Normal color with no rashes, no lesions, and no evidence of cellulitis. MS/ Extremity: Pulses equal, no cyanosis. Neurovascular intact. Full, normal range of motion. Neuro: Awake and alert, GCS 15, oriented to person, place, time, and situation. Motor strength 5/5 in all extremities. Sensory grossly intact. Vital Signs: 13:59 BP 111 / 48; Pulse 75; Resp 16; Temp 97.8; Pulse Ox 98% on R/A; Weight 54.43 kg; Height hb 5 ft. 7 in. ; Pain 0/10; 13:59 Body Mass Index 18.79 (54.43 kg, 170.18 cm) hb 13:59 Pain Scale: Adult hb MDM: 13:56 Patient medically screened. sb4 14:09 Data reviewed: vital signs, nurses notes, and as a result, I will discharge patient. sb4 Historians other than the Patient: Parent: mother. Counseling: I had a detailed discussion with the patient and/or guardian regarding the historical points, exam findings, and any diagnostic results supporting the discharge/admit diagnosis, the need for outpatient follow up, a business management specialist, to return to the emergency department if symptoms worsen or persist or if there are any questions or concerns that arise at home. Administered Medications: No medications were administered Disposition: 20:19 Co-signature as Attending Physician, Tono Sanchez MD I reviewed the patient's care rt provided by the Advanced Practice Provider and agree with the diagnosis and treatment plan. Disposition Summary: 10/18/23 14:04 Discharge Ordered Notes: Location: Home sb4 Problem: new sb4 Symptoms: are unchanged sb4 Condition: Stable sb4 Diagnosis - Encounter for medication refill sb4 Followup: sb4 - With: Emergency Department - When: As needed - Reason: Trouble breathing, Worsening of condition Discharge Instructions: - Discharge Summary Sheet sb4 - Ulcerative Colitis, Adult sb4 Forms: - Medication Reconciliation Form sb4 - Thank You Letter sb4 - Antibiotic Education sb4 - Prescription Opioid Use sb4 - Patient Portal Instructions sb4 - Leadership Thank You Letter sb4 Prescriptions: - mesalamine 1.2 gram Oral tablet, delayed release (enteric coated) - take 1 tablet ORAL route every 12 hours; 20 tablet; Refills: 0, Product sb4 Selection Permitted Signatures: Susan Gilliam, RN RN Jennifer Zheng PA-C PASebastien sb4 Tono Sanchez MD MD rt
[2023-10-18 15:07] VITALS: BP 111/48; TEMP 97.8; O2SAT 98
== END 2023-10-18 14:46 | disposition home or self-care (01) ==
LOC: ER 13:33
DX: Z76.0 Encounter for issue of repeat prescription (principal)
CPT/HCPCS: 99281

== ENCOUNTER 2023-11-02 14:46 | Emergency (ER) | payer SELFPAY ==
--- OUTSIDE RECORDS SUMMARY | 2023-11-02 14:51 | XMS REPORT | Continuity of Care Document ---
Author Name Unknown Address [address] [facility]. [address] [place] [address] [facility] Address [address] [facility] [address] [place] [address] Care Team Providers Care Acquisition Analyst Name Role Phone NO, PCP Primary Care Physician Unavailab ORALIA Albrecht Attending Clinician Unavailable Osvaldo Chiang MD Attending Clinicia n Oralia Paz Attending Clinician [phone] Roger Wagner Attending Clinician [phone] Thania, Ang - Db Attending Clinician Unavailable Doctor Unassigned, [place] Attending Clinician U susana Sheets RN, Orquidea Roberts Attending Clinician Unavail Hernan Belle MD Attending Clinician [phone] Pa Ramsey MD Attending Clinician [phone] PA RAMSEY Attending Clinician Unavailleon Hendricks MD, Ria Attending Clinician [phone] Sp Cazares Attending Clinician Pa Paez MD Admitting Clinician [phone] PA RAMSEY Admitting Clinician Shalini hinson Payers Payer Name Policy Type Policy Number Effective Date Expirati on Date Source [place] [id number] 2023 00:00:00 2023 00:00:00 Problems Condition Name Condition Details Condition Category Status Onset Date Resolution Date Last Treatment Date Treating Clinician Comments Source Rectal bleeding Rectal bleeding Disease Active 03-31 00:00: 00 [facility] Colitis with rectal bleeding Colitis with rectal bleeding Disease Active 03-31 00:00: 00 Overview: Formattin g of this note might be different from the original. Added automatic ally from request for surgery [id number] [facility] Shortness of breath Problem Active [facility] Allergies, Adverse Reactions, Alerts Allergy Name Allergy Type Status Severity Reaction(s) Onset Date Inactive Date Treating Clinician Comments Source No Known Allergie s DA Active [facility] NO KNOWN ALLERGIE S Drug Class Active [facility] Social History Social Habit Start Date Stop Date Quantity Comments Source History SDOH Alcohol Std Drinks [facility] History SDOH Alcohol Binge [facility] History SDOH Social Connections Get Together [facility] History SDOH Social Connections Voodoo [facility] History SDOH Social Connections Membership [facility] History SDOH Social Connections Meetings [facility] History SDOH Food Scarcity [facility] Gender identity [facility] Sexual orientation U [facility] Alcohol intake 2023-06-15 00:00:00 2023-06-15 00:00:00 3 /d [facility] History SDOH Alcohol Frequency 2023-04-04 00:00:00 2023-04-04 00:00:00 1 [facility] History SDOH Social Connections Phone 2023-04-04 00:00:00 2023-04-04 00:00:00 5 [facility] History SDOH Social Connections Living 2023-04-04 00:00:00 2023-04-04 00:00:00 7 [facility] History SDOH Physical Activity DPW 2023-04-04 00:00:00 2023-04-04 00:00:00 3 [facility] History SDOH Physical Activity MPS 2023-04-04 00:00:00 2023-04-04 00:00:00 3 [facility] History SDOH Financial 2023-04-04 00:00:00 2023-04-04 00:00:00 5 [facility] History SDOH Food Worry 2023-04-04 00:00:00 2023-04-04 00:00:00 1 [facility] History SDOH Transport Med 2023-04-04 00:00:00 2023-04-04 00:00:00 2 [facility] History SDOH Transport Non-Med 2023-04-04 00:00:00 2023-04-04 00:00:00 2 [facility] History SDOH Housing Unable to Pay 2023-04-04 00:00:00 2023-04-04 00:00:00 2 [facility] History SDOH Housing Places Lived 2023-04-04 00:00:00 2023-04-04 00:00:00 1 [facility] History SDOH Housing Homeless Last Year 2023-04-04 00:00:00 2023-04-04 00:00:00 2 [facility] Exposure to SARS-CoV-2 (event) 2023-03-24 00:00:00 2023-04-03 12:55:00 Not sure [facility] History of Social function 2023-04-03 00:00:00 2023-04-03 00:00:00 [facility] Tobacco use and exposure 2023-03-31 00:00:00 2023-03-31 00:00:00 Smokeless tobacco non-user [facility] Sex Assigned At 2000 00:00:00 2000 00:00:00 [facility] Smoking Status Start Date Stop Date Source Never smoked tobacco [facility] Medications Ordered Medication Name Filled Medication Name Start Date Stop Date Current Medication? Ordering Clinician Indication Dosage Frequency Signature (SIG) Comments Components Source mesalamine 1.2 gram EC tablet 2022-11 00:00: 00 Yes [id number] 2.4g Take 2 tablets by mouth daily with breakfast. [facility] mesalamine 1.2 gram EC tablet 08-16 00:00: 00 Yes [id number] 2.4g Take 2 tablets by mouth daily with breakfast. [facility] mesalamine 1.2 gram EC tablet 08-16 00:00: 00 Yes [id number] 2.4g Take 2 tablets by mouth daily with breakfast. [facility] mesalamine 1.2 gram EC tablet 2022-0 9-20 00:00: 00 Yes [id number] 2.4g Take 2 tablets by mouth daily with breakfast. [facility] mesalamine 1.2 gram EC tablet 2022-0 9-20 00:00: 00 Yes [id number] 2.4g Take 2 tablets by mouth daily with breakfast. [facility] mesalamine 1.2 gram EC tablet 2022-0 9-20 00:00: 00 Yes [id number] 2.4g Take 2 tablets by mouth daily with breakfast. [facility] mesalamine 1.2 gram EC tablet 2022-0 920 00:00: 00 Yes [id number] 2.4g Take 2 tablets by mouth daily with breakfast. [facility] mesalamine 1.2 gram EC tablet 2022-0 920 00:00: 00 10-16 00:00 :00 No [id number] 2.4g Take 2 tablets by mouth daily with breakfast. [facility] mesalamine 1.2 gram EC tablet 2022-0 824 00:00: 00 Yes [id number] 2.4g Take 2 tablets by mouth daily with breakfast. [facility] mesalamine 1.2 gram EC tablet 2022-0 824 00:00: 00 08-16 00:00 :00 No [id number] 2.4g Take 2 tablets by mouth daily with breakfast. [facility] mesalamine 1.2 gram EC tablet 2022-0 8-14 00:00: 00 Yes [id number] 2.4g Take 2 tablets by mouth daily with breakfast. [facility] mesalamine 1.2 gram EC tablet 2022-0 8-14 00:00: 00 24 00:00 :00 No [id number] 2.4g Take 2 tablets by mouth daily with breakfast. [facility] mesalamine 1.2 gram EC tablet 2022-0 7-20 00:00: 00 Yes [id number] 2.4g Take 2 tablets by mouth daily with breakfast. [facility] mesalamine 1.2 gram EC tablet 2022-0 7-20 00:00: 00 07-10 00:00 :00 No [id number] 2.4g Take 2 tablets by mouth daily with breakfast. [facility] pantoprazol e 40 mg EC tablet 14 00:00: 00 06-09 04:59 :00 No [id number] 40mg Take 1 tablet by mouth in the morning for 60 days. [facility] pantoprazol e 40 mg EC tablet 04-09 00:00: 00 06-09 04:59 :00 No [id number] 40mg Take 1 tablet by mouth in the morning for 60 days. [facility] pantoprazol e 40 mg EC tablet 04-09 00:00: 00 06-09 04:59 :00 No [id number] 40mg Take 1 tablet by mouth in the morning for 60 days. [facility] pantoprazol e 40 mg EC tablet 04-09 00:00: 00 06-09 04:59 :00 No [id number] 40mg Take 1 tablet by mouth in the morning for 60 days. [facility] pantoprazol e 40 mg EC tablet 04-09 00:00: 00 06-09 04:59 :00 No [id number] 40mg Take 1 tablet by mouth in the morning for 60 days. [facility] pantoprazol e 40 mg EC tablet 04-09 00:00: 00 06-09 04:59 :00 No [id number] 40mg Take 1 tablet by mouth in the morning for 60 days. [facility] pantoprazol e 40 mg EC tablet 14 00:00: 00 06-09 04:59 :00 No [id number] 40mg Take 1 tablet by mouth in the morning for 60 days. [facility] pantoprazol e 40 mg EC tablet 0 14 00:00: 00 06-09 04:59 :00 No [id number] 40mg Take 1 tablet by mouth in the morning for 60 days. [facility] predniSONE (DELTASONE) tablet 60 mg 04-08 14:00: 00 04-20 13:59 :00 No 60mg 60 mg, Oral, DAILY, 12 doses, First dose on Mon04/08/23 at 0900, Last dose on Mon04/19/23 at 0900, Routine [facility] mesalamine 1.2 gram EC tablet 0 04-08 00:00: 00 Yes [id number] 2.4g Take 2 tablets by mouth daily with breakfast. [facility] mesalamine 1.2 gram EC tablet 0 04-08 00:00: 00 Yes [id number] 2.4g Take 2 tablets by mouth daily with breakfast. [facility] mesalamine 1.2 gram EC tablet 0 04-08 00:00: 00 Yes [id number] 2.4g Take 2 tablets by mouth daily with breakfast. [facility] mesalamine 1.2 gram EC tablet 0 04-08 00:00: 00 Yes [id number] 2.4g Take 2 tablets by mouth daily with breakfast. [facility] mesalamine 1.2 gram EC tablet 0 04-08 00:00: 00 Yes [id number] 2.4g Take 2 tablets by mouth daily with breakfast. [facility] mesalamine 1.2 gram EC tablet 0 04-08 00:00: 00 Yes [id number] 2.4g Take 2 tablets by mouth daily with breakfast. [facility] mesalamine 1.2 gram EC tablet 0 04-08 00:00: 00 Yes [id number] 2.4g Take 2 tablets by mouth daily with breakfast. [facility] predniSONE 20 mg tablet 2022-0 04-08 00:00: 00 06-20 04:59 :00 No [id number] Take 3 tablets by mouth daily for 7 days, THEN 2 tablets daily for 30 days, THEN 1.5 tablets daily for 7 days, THEN 1 tablet daily for 28 days. [facility] predniSONE 20 mg tablet 2022-0 04-08 00:00: 00 06-20 04:59 :00 No [id number] Take 3 tablets by mouth daily for 7 days, THEN 2 tablets daily for 30 days, THEN 1.5 tablets daily for 7 days, THEN 1 tablet daily for 28 days. [facility] predniSONE 20 mg tablet 2022-0 04-08 00:00: 00 06-20 04:59 :00 No [id number] Take 3 tablets by mouth daily for 7 days, THEN 2 tablets daily for 30 days, THEN 1.5 tablets daily for 7 days, THEN 1 tablet daily for 28 days. [facility] predniSONE 20 mg tablet 2022-0 04-08 00:00: 00 06-20 04:59 :00 No [id number] Take 3 tablets by mouth daily for 7 days, THEN 2 tablets daily for 30 days, THEN 1.5 tablets daily for 7 days, THEN 1 tablet daily for 28 days. [facility] predniSONE 20 mg tablet 04-08 00:00: 00 06-20 04:59 :00 No [id number] Take 3 tablets by mouth daily for 7 days, THEN 2 tablets daily for 30 days, THEN 1.5 tablets daily for 7 days, THEN 1 tablet daily for 28 days. [facility] predniSONE 20 mg tablet 2022-0 04-08 00:00: 00 06-20 04:59 :00 No [id number] Take 3 tablets by mouth daily for 7 days, THEN 2 tablets daily for 30 days, THEN 1.5 tablets daily for 7 days, THEN 1 tablet daily for 28 days. [facility] predniSONE 20 mg tablet 2022-0 04-08 00:00: 00 06-20 04:59 :00 No [id number] Take 3 tablets by mouth daily for 7 days, THEN 2 tablets daily for 30 days, THEN 1.5 tablets daily for 7 days, THEN 1 tablet daily for 28 days. [facility] predniSONE 20 mg tablet 2022-0 04-08 00:00: 00 06-20 04:59 :00 No [id number] Take 3 tablets by mouth daily for 7 days, THEN 2 tablets daily for 30 days, THEN 1.5 tablets daily for 7 days, THEN 1 tablet daily for 28 days. [facility] mesalamine 1.2 gram EC tablet 04-08 00:00: 00 06-15 00:00 :00 No [id number] 2.4g Take 2 tablets by mouth daily with breakfast. [facility] melatonin (MELATIN) tablet 3 mg 04-07 02:00: 00 Yes 3mg 3 mg, Oral, QHS, First dose (after last modificati on) on Mon04/06/23 at 2100, Until Discontinu ed, Routine [facility] methylpredn isolone sod succ (SOLU-MEDRO L) injection 60 mg 04-04 21:00: 00 04-07 20:59 :00 No 60mg 60 mg, Intravenou s, Q24H, 3 doses, First dose on Mon04/04/23 at 1600, Last dose on Mon04/06/23 at 1600, 2 mL [facility] methylpredn isolone sod succ (SOLU-MEDRO L) injection 60 mg 04-04 21:00: 00 04-06 20:43 :00 No 60mg 60 mg, Intravenou s, Q24H, 3 doses, First dose on Mon04/04/23 at 1600, Last dose on Mon04/06/23 at 1600, 2 mL [facility] pantoprazol e (PROTONIX) EC tablet 40 mg 04-04 16:00: 00 Yes 40mg 40 mg, Oral, DAILY, First dose on Mon04/04/23 at 1100, Until Discontinu ed, Routine [facility] pantoprazol e (PROTONIX) EC tablet 40 mg 04-04 16:00: 00 Yes 40mg 40 mg, Oral, DAILY, First dose on Mon04/04/23 at 1100, Until Discontinu ed, Routine [facility] enoxaparin (LOVENOX) injection 40 mg 04-04 05:00: 00 Yes 40mg 40 mg, Subcutaneo us, Q24H, First dose (after last modificati on) on Mon04/04/23 at 0000, Until Discontinu ed, Routine [facility] enoxaparin (LOVENOX) injection 40 mg 04-04 05:00: 00 Yes 40mg 40 mg, Subcutaneo us, Q24H, First dose (after last modificati on) on Mon04/04/23 at 0000, Until Discontinu ed, Routine [facility] simethicone (GAS RELIEF (SIMETHICON E)) 40 mg/0.6 mL drops 04-03 22:12: 00 04-03 23:40 :00 No PRN, Starting on Mon04/03/23 at 1712, Until Mon04/03/23 at 1840, Routine, Intra-op [facility] bisacodyL (DULCOLAX) tablet 10 mg 04-02 18:00: 00 04-02 18:03 :00 No 10mg 10 mg, Oral, PRE-PROCED URE ONCE, 1 dose, Starting on Mon04/02/23 at 1300, Until Discontinu ed, Routine, Bowel Prep, Colonoscop y [facility] ondansetron (ZOFRAN (PF)) injection 4 mg 04-02 12:40: 42 04-04 12:17 :10 No 4mg 4 mg, Slow IV Push, Q6HPRN, Starting on Mon04/02/23 at 0740, Until Mon04/04/23 at 0717, Routine, Nausea and Vomiting (N/V) [facility] ciprofloxac in HCl (CIPRO) tablet 500 mg 04-01 23:00: 00 04-04 15:51 :55 No 500mg 500 mg, Oral, Q12HA2, 20 doses, First dose on Mon04/01/23 at 1800, Last dose on Mon04/11/23 at 0600, BREN
Re ason for Anti-Infec tive: Documented Infection< br>Documen james Infection Site: Abdominal< br>Duratio n of Therapy: 10 days [facility] enoxaparin (LOVENOX) injection 40 mg 04-01 20:15: 00 04-02 20:56 :13 No 40mg 40 mg, Subcutaneo us, Q24H, First dose on Mon04/01/23 at 1515, Until Discontinu ed, Routine [facility] metroNIDAZO LE (FLAGYL) tablet 500 mg 04-01 19:00: 00 04-04 15:51 :55 No 500mg 500 mg, Oral, Q8H, 30 doses, First dose on Mon04/01/23 at 1400, Last dose on Mon04/11/23 at 0600, Routine
Reason for Anti-Infec tive: Documented Infection< br>Documen james Infection Site: Abdominal< br>Duratio n of Therapy: 10 days [facility] lactated ringers IV infusion 1,000 mL 04-01 13:30: 00 04-02 01:00 :00 No 1000mL at 999 mL/hr, 1,000 mL, Intravenou s, ONCE, 1 dose, On Mon04/01/23 at 0830, Routine [facility] ciprofloxac in in 5 % dextrose (CIPRO) piggyback 400 mg 04-01 11:00: 00 04-01 14:45 :11 No 400mg 400 mg, IV Piggyback, Q12H ABX, 28 doses, First dose on Mon04/01/23 at 0600, Last dose on Mon04/14/23 at 1800, Administer over 60 Minutes, 200 mL
Reas on for Anti-Infec tive: Empiric Therapy for Suspected Infection< br>Empiric Therapy Site: Abdominal< br>Duratio n of therapy: 5 days [facility] metroNIDAZO LE in NaCl (iso-os) (FLAGYL I.V.) RTU IV infusion 500 mg 04-01 06:00: 00 04-01 14:45 :11 No 500mg 500 mg, IV Infusion, Q8H ABX, 42 doses, First dose on Mon04/01/23 at 0100, Last dose on Mon04/14/23 at 1700, Administer over 60 Minutes, 100 mL
Reas on for Anti-Infec tive: Empiric Therapy for Suspected Infection< br>Empiric Therapy Site: Abdominal< br>Duratio n of therapy: 5 days [facility] lactated ringers IV infusion 1,000 mL 04-01 04:30: 00 04-01 08:10 :00 No 1000mL at 999 mL/hr, 1,000 mL, Intravenou s, ONCE, 1 dose, On Mon03/31/23 at 2330, Routine [facility] acetaminoph en (TYLENOL) tablet 650 mg 04-01 03:33: 45 Yes 650mg 650 mg, Oral, Q6HPRN, Starting on Mon03/31/23 at 2233, Until Discontinu ed, Routine, Pain (scale 1-3) [facility] acetaminoph en (TYLENOL) tablet 650 mg 04-01 03:33: 45 Yes 650mg 650 mg, Oral, Q6HPRN, Starting on Mon03/31/23 at 2233, Until Discontinu ed, Routine, Pain (scale 1-3) [facility] NaCl 0.9% (NS) IV infusion 1,000 mL 03-31 22:45: 00 04-04 12:16 :26 No 1000mL at 150 mL/hr, IV Infusion, CONTINUOUS , Starting on Mon03/31/23 at 1745, Until Mon04/04/23 at 0716, Routine [facility] lactobacill us acidophilus tablet 1 mg 03-31 22:45: 00 03-31 22:49 :00 No 1mg 1 mg, Oral, ONCE NOW, 1 dose, On Mon03/31/23 at 1745, BREN [facility] ciprofloxac in in 5 % dextrose (CIPRO) piggyback 400 mg 03-31 22:30: 00 04-01 01:02 :00 No 400mg 400 mg, IV Piggyback, ONCE, 1 dose, On Mon03/31/23 at 1730, Administer over 60 Minutes, 200 mL
Reas on for Anti-Infec tive: Empiric Therapy for Suspected Infection< br>Empiric Therapy Site: Abdominal< br>Duratio n of therapy: 72 hours [facility] metroNIDAZO LE (FLAGYL) tablet 500 mg 03-31 21:45: 00 03-31 22:49 :00 No 500mg 500 mg, Oral, ONCE, 1 dose, On Mon03/31/23 at 1645, BREN
Re ason for Anti-Infec tive: Empiric Therapy for Suspected Infection< br>Empiric Therapy Site: Abdominal< br>Duratio n of therapy: 72 hours [facility] iopamidol (ISOVUE 370-500 mL) injection 75 mL 03-31 21:45: 00 03-31 21:45 :00 No [id number] 75mL 75 mL, Intravenou s, ONCE, 1 dose, On Mon03/31/23 at 1645, Routine [facility] NaCl 0.9% (NS) bolus infusion 1,000 mL 03-31 20:30: 00 03-31 22:50 :00 No 1000mL at 999 mL/hr, 1,000 mL, IV Piggyback, ONCE, 1 dose, On Mon03/31/23 at 1530, STAT [facility] Immunizations Ordered Immunization Name Filled Immunization Name Date Status Comments Source DTAP 2018-05-09 00:00:00 Completed [facility] DTAP 2018-05-09 00:00:00 Completed [facility] DTAP 2018-05-09 00:00:00 Completed [facility] DTAP 2018-05-09 00:00:00 Completed [facility] DTAP 2018-05-09 00:00:00 Completed [facility] DTAP 2018-05-09 00:00:00 Completed [facility] DTAP 2018-05-09 00:00:00 Completed [facility] DTAP Unknown Completed [facility] DTAP Unknown Completed [facility] DTAP Unknown Completed [facility] DTAP Unknown Completed [facility] DTAP Unknown Completed [facility] DTAP Unknown Completed [facility] DTAP Unknown Completed [facility] Vital Signs Vital Name Observation Time Observation Value Comments S ource Systolic blood pressure 2023-05-11 19:48:00 126 mm[Hg] [facility] Diastolic blood pressure 2023-05-11 19:48:00 68 mm[Hg] [facility] Heart rate 2023-05-11 19:48:00 73 /min Unive [facility] Body temperature 2023-05-11 19:48:00 36.78 Megha [facility] Respiratory rate 2023-05-11 19:48:00 16 /min [facility] Body height 2023-05-11 19:48:00 173.7 cm [facility] Body weight 2023-05-11 19:48:00 55.43 kg [facility] BMI 2023-05-11 19:48:00 18.36 kg/m2 [facility] Oxygen saturation in Arterial blood by Pulse oximetry 2023-05-11 19:48:00 99 /min [facility] Systolic blood pressure 2023-04-08 17:11:00 100 mm[Hg] [facility] Diastolic blood pressure 2023-04-08 17:11:00 59 mm[Hg] [facility] Heart rate 2023-04-08 17:11:00 88 /min Unive [facility] Body temperature 2023-04-08 17:11:00 36.56 Megha [facility] Respiratory rate 2023-04-08 17:11:00 18 /min [facility] Oxygen saturation in Arterial blood by Pulse oximetry 2023-04-08 17:11:00 96 /min [facility] Body height 2023-04-01 02:43:00 170.2 cm [facility] Body weight 2023-04-01 02:43:00 55.339 kg [facility] BMI 2023-04-01 02:43:00 19.11 kg/m2 [facility] Systolic blood pressure 2023-04-03 16:09:00 102 mm[Hg] [facility] Diastolic blood pressure 2023-04-03 16:09:00 66 mm[Hg] [facility] Heart rate 2023-04-03 16:09:00 94 /min Unive [facility] Body temperature 2023-04-03 16:09:00 36.67 Megha [facility] Respiratory rate 2023-04-03 16:09:00 18 /min [facility] Oxygen saturation in Arterial blood by Pulse oximetry 2023-04-03 16:09:00 98 /min [place] [facility] Body height 2023-04-01 02:43:00 170.2 cm [facility] Body weight 2023-04-01 02:43:00 55.339 kg [facility] BMI 2023-04-01 02:43:00 19.11 kg/m2 [facility] BMI (Body Mass Index) 2020 08:22:00 21.0 kg/m2 [facility] Weight 2020 08:22:00 130 [lb_av] [facility] Procedures Procedure Date / Time Performed Performing Clinician Source COMP. METABOLIC PANEL (90689) 2023-05-11 21:01:00 Oralia Salgado [facility] CBC WITH DIFF 2023-05-11 21:01:00 Oralia Salgado [facility] ASSIGNMENT OF BENEFITS 2023-05-11 19:27:07 Docto r Unassigned, [place] [facility] MAGNESIUM 2023-04-08 10:10:00 Jeny Pena [facility] BASIC METABOLIC PANEL (NA, K, CL, CO2, GLUCOSE, BUN, CREATININE, CA) 2023-04-08 10:10:00 Jeny Pena [facility] CBC WITH DIFF 2023-04-08 10:10:00 Jeny Pena [facility] MAGNESIUM 2023-04-06 09:13:00 Moises [facility] HEPATIC FUNCTION PANEL (23863) (ALB,T.PRO,BILI T,BU/BC,ALT,AST,ALK PHOS) 2023-04-06 09:13:00 [facility] (NA, K, CL, CO2, GLUCOSE, BUN, CREATININE, CA) 2023-04-06 09:13:00 Moises [facility] CBC WITH DIFF 2023-04-06 09:13:00 De Leon, [facility] CBC WITH DIFF 2023-04-05 09:33:00 De Leon, [facility] MAGNESIUM 2023-04-05 09:14[facility] (NA, K, CL, CO2, GLUCOSE, BUN, CREATININE, CA) 2023-04-05 09:14:00 Moises [facility] HEPATITIS B SURFACE ANTIBODY 2023-04-04 16:43:00 Moises [facility] HBC ANTIBODY (IGM & IGG) 2023-04-04 16:43:00 Moises [facility] HEPATITIS C VIRUS (HCV) BY QUANTITATIVE NAAT 2023-04-04 16:43:00 [facility] QUANTIFERON-TB ASSAY 2023-04-04 16:43:00 Moises [facility] QFT TB2 MINUS NIL 2023-04-04 16:43:00 Moises [facility] MAGNESIUM 2023-04-04 10:29:[facility] (NA, K, CL, CO2, GLUCOSE, BUN, CREATININE, CA) 2023-04-04 10:29:00 Moises [facility] CBC WITH DIFF 2023-04-04 10:29:00 De Leon [facility] HEPATITIS B SURFACE ANTIGEN 2023-04-04 10:29:00 Moises [facility] MAGNESIUM 2023-04-04 10:29:00 [facility]IC [facility]EL (NA, K, CL, CO2, GLUCOSE, BUN, CREATININE, CA) 2023-04-04 10:29:00 Moises [facility] CBC WITH DIFF 2023-04-04 10:29:00 [facility]FACE ANTIGEN 2023-04-04 10:29:00 [facility]AM 2023-04-03 22:36:00 Geoff Hendricks [facility] COLONOSCOPY 2023-04-03 21:47:00 Rafael Hendricksangelia [facility] COLONOSCOPY 2023-04-03 21:47:00 Eladio [facility] COLONOSCOPY (ENDO) 2023-04-03 20:43:38 Jose M Valera larry [facility] COLONOSCOPY (ENDO) 2023-04-03 20:43:38 Jose M Valera [facility] MAGNESIUM 2023-04-03 09:33:00 Moises [facility] BASIC METABOLIC PANEL (NA, K, CL, CO2, GLUCOSE, BUN, CREATININE, CA) 2023-04-03 09:33:00 Moises [facility] CBC WITH DIFF 2023-04-03 09:33:00 De Leon [facility] MAGNESIUM 2023-04-03 09:33:00 De Leon [facility] BASIC METABOLIC PANEL (NA, K, CL, CO2, GLUCOSE, BUN, CREATININE, CA) 2023-04-03 09:33:00 De Leon [facility] CBC WITH DIFF 2023-04-03 09:33:00 De Leon [facility] CBC WITH DIFF 2023-04-02 10:56:00 Jean [facility] CBC WITH DIFF 2023-04-02 10:56:00 Jean [facility] CELIAC SCREEN 2023-04-01 16:47:00 Jean [facility] LAB ONLY CELIAC SCREEN IGA 2023-04-01 16:47:00 Jean [facility] CELIAC SCREEN 2023-04-01 16:47:00 Jean [facility] LAB ONLY CELIAC SCREEN IGA 2023-04-01 16:47:00 Jean [facility] BLOOD CULTURE SCREEN 2023-04-01 16:21:00 Jean [facility] BLOOD CULTURE SCREEN 2023-04-01 16:21:00 Jean, [facility] ABORH CONFIRMATION (LAB ONLY) 2023-04-01 11:31:00 Good Mendoza [facility] ABORH CONFIRMATION (LAB ONLY) 2023-04-01 11:31:00 Good Mendoza [facility] MAGNESIUM 2023-04-01 10:21:00 Dann Sepulveda [facility] FERRITIN SERUM 2023-04-01 10:21:00 Dann Sepulveda [facility] C-REACTIVE PROTEIN 2023-04-01 10:21:00 Dann Sepulveda [facility] HEPATIC FUNCTION PANEL (01293) (ALB,T.PRO,BILI T,BU/BC,ALT,AST,ALK PHOS) 2023-04-01 10:21:00 Derick [facility] BASIC METABOLIC PANEL (NA, K, CL, CO2, GLUCOSE, BUN, CREATININE, CA) 2023-04-01 10:21:00 Dann Sepulveda [facility] IRON PANEL 2023-04-01 10:21:00 Dann Sepulveda [facility] CBC WITH DIFF 2023-04-01 10:21:00 Dann Sepulveda [facility] HB ABO GROUPING 2023-04-01 10:21:00 Dann Sepulveda [facility] MAGNESIUM 2023-04-01 10:21:00 Dann Sepulveda [facility] FERRITIN SERUM 2023-04-01 10:21:00 Dann Sepulveda [facility] C-REACTIVE PROTEIN 2023-04-01 10:21:00 Dann Sepulveda [facility] HEPATIC FUNCTION PANEL (09922) (ALB,T.PRO,BILI T,BU/BC,ALT,AST,ALK PHOS) 2023-04-01 10:21:00 Derick [facility] BASIC METABOLIC PANEL (NA, K, CL, CO2, GLUCOSE, BUN, CREATININE, CA) 2023-04-01 10:21:00 Dann Sepulveda [facility] IRON PANEL 2023-04-01 10:21:00 Dann Sepulveda [facility] CBC WITH DIFF 2023-04-01 10:21:00 Derick, Dann [facility] HB ABO GROUPING 2023-04-01 10:21:00 Dann Sepulveda [facility] CLOSTRIDIUM DIFFICILE TOXIN 2023-04-01 04:15:00 Dann Sepulveda [facility] OVA AND PARASITE EXAM FECAL 2023-04-01 04:15:00 Dann Sepulveda [facility] GIARDIA CRYPTOSPORIDIUM AG SCR 2023-04-01 04:15:00 Dann Sepulveda [facility] CALPROTECTIN, FECAL 2023-04-01 04:15:00 Dann Sepulveda [facility] FECAL PATHOGENS BY PCR 2023-04-01 04:15:00 Oswald Sepulveda [facility] CLOSTRIDIUM DIFFICILE TOXIN 2023-04-01 04:15:00 Dann Sepulveda [facility] GIARDIA CRYPTOSPORIDIUM AG SCR 2023-04-01 04:15:00 Dann Sepulveda [facility] FECAL PATHOGENS BY PCR 2023-04-01 04:15:00 Oswald Sepulveda [facility] CT ABDOMEN PELVIS W CONTRAST 2023-03-31 20:54:[facility] 2023-03-31 20:54:24 [facility] COMP. METABOLIC PANEL (20057) 2023-03-31 20:19:00 Hernan Mcneill [facility] SEDIMENTATION RATE 2023-03-31 20:19:00 Nehemias Mcneill [facility] CBC WITH DIFF 2023-03-31 20:19:00 Hernan Mcneill [facility] PROTHROMBIN TIME / INR 2023-03-31 20:19:00 Symone Mcneill [facility] HIV 1/2 AG-AB WITH REFLEX 2023-03-31 20:19:00 Nasir Sepulveda [facility] COMP. METABOLIC PANEL (75119) 2023-03-31 20:19:00 Hernan Mcneill [facility] SEDIMENTATION RATE 2023-03-31 20:19:00 Nehemias Mcneill [facility] CBC WITH DIFF 2023-03-31 20:19:00 Hernan Mcneill [facility] PROTHROMBIN TIME / INR 2023-03-31 20:19:00 Symone Mcneill [facility] HIV 1/2 AG-AB WITH REFLEX 2023-03-31 20:19:00 Nasir Sepulveda [facility] NOTICE OF PRIVACY PRACTICES 2023-03-31 18:47:15 Doctor Unassigned, [place] [facility] NOTICE OF PRIVACY PRACTICES 2023-03-31 18:47:15 Doctor Unassigned, [place] [facility] CONSENT/REFUSAL FOR DIAGNOSIS AND TREATMENT 2023-03-31 18:46:20 Doctor Unassigned, [place] [facility] CONSENT/REFUSAL FOR DIAGNOSIS AND TREATMENT 2023-03-31 18:46:20 Doctor Unassigned, [place] [facility] HOSPITAL ADMISSION 2023-03-31 05:01:00 Doctor Un assigned, [place] [facility] ENDOSCOPY PROCEDURE DOCUMENTATION 2023-03-31 05:01:00 Doctor Unassigned, [place] [facility] Plan of Care Planned Activity Planned Date Details Comments Source Instructions Dyspnea [facility] Encounters Start Date/Time End Date/Time Encounter Type Admission Type Attending [facility] Care Facility Care Department Encounter ID Source 2020 08:19:00 Inpatient [facility] [id number] [facility] 2023-11-16 14:30:00 2023-11-16 14:30:00 Outpatient ORALIA JEWELL [place] [id number] [facility] 2023-10-26 08:00:00 2023-10-26 08:00:00 Outpatient R [place] [id number] [facility] 2023-10-16 00:00:00 2023-10-16 00:00:00 Telephone Postletloree renner [facility] ..840.114 350.1.13.10 4.2.7.2.686 [id number] [facility] 2023-10-16 00:00:00 2023-10-16 00:00:00 Telephone Postmarisela renner [facility] 1.840.114 350.1.13.10 4.2.7.2.686 [id number] [facility] 2023-10-16 00:00:00 2023-10-16 00:00:00 [facility] 1.114 350.1.13.10 4.2.7.2.686 [id number] [facility] 2023-10-16 00:00:00 2023-10-16 00:00:00 [facility] 1.84.114 350.1.13.10 4.2.7.2.686 [id number] [facility] 2023-10-06 00:00:00 2023-10-06 00:00:00 [facility] 1.114 350.1.13.10 4.2.7.2.686 [id number] [facility] 2023-09-07 09:00:00 2023-09-07 09:00:00 Outpatient [place] [id number] [facility] 2023-08-18 00:00:00 2023-08-18 00:00:00 Telephone [facility]omi [facility] 1.84.114 350.1.13.10 4.2.7.2.686 [id number] [facility] 2023-08-15 11:00:00 2023-08-15 11:00:00 Outpatient [place] [id number] [facility] 2023-08-14 00:00:00 2023-08-14 00:00:00 Refill Naomi [facility] 1.84.114 350.1.13.10 4.2.7.2.686 [id number] [facility] 2023-07-20 00:00:00 2023-07-20 00:00:00 Telephone [facility]Former[facility] 1..840.114 350.1.13.10 4.2.7.2.686 [id number] [facility] 2023-07-06 09:00:00 2023-07-06 09:00:00 Outpatient [place] [id number] [facility] 2023-07-05 00:00:00 2023-07-05 00:00:00 [facility] 1..840.114 350.1.13.10 4.2.7.2.686 [id number] [facility] 2023-05-18 00:00:00 2023-05-18 00:00:00 [facility] 1..840.114 350.1.13.10 4.2.7.2.686 [id number] [facility] 2023-05-11 16:00:00 2023-05-11 16:15:00 [facility] Visit Lab, [facility] 1..840.114 350.1.13.10 4.2.7.2.686 [id number] [facility] 2023-05-11 14:30:00 2023-05-11 15:43:12 Outpatient R ORALIA SALGADO [place] [id number] [facility] 2023-05-11 14:30:00 2023-05-11 15:43:12 Office [facility] 1.2840.114 350.1.13.10 4.2.7.2.686 [id number] [facility] 2023-05-11 00:00:00 2023-05-11 00:00:00 Orders Only Doctor Unassigned, [place] [facility] 1.2.840.114 350.1.13.10 4.2.7.2.686 [id number] [facility] 2023-04-10 00:00:00 2023-04-10 00:00:00 Transition of Care SudeepRandyOrquidea Alejandra CASTR[facility] 1.2840.114 350.1.13.10 4.2.7.2.686 [id number] [facility] 2023-03-31 14:08:00 2023-04-08 18:18:00 Hospital Encounter Hernan Mcneill [facility] 1.2840.114 350.1.13.10 4.2.7.2.686 [id number] [facility] 2023-03-31 14:08:00 2023-04-08 18:18:00 Inpatient U PA [facility] [id number] [facility] 2023-04-03 16:09:00 2023-04-03 17:21:00 Surgery Ria Hendricks [facility] 1.2840.114 350.1.13.10 4.2.7.2.686 [id number] [facility] 2020 08:50:00 2020 09:50:00 Departed Emergency Room 1 Sp [facility] [id number] [facility] Results Test Description Test Time Test Comments Results Result Co mments Source [facility] [id number] 06:57:57* Test Item Value Reference Range Interpretation Comme nts WBC (test code = 6690-2) 12.71 See_Comment H [Automated message] The system which generated this result transmitted reference range: 4.20 - 10.70 10*3/?L. The reference range was not used to interpret this result as normal/abnormal. RBC (test code = 789-8) 4.79 See_Comment [Automated message] The system which generated this result transmitted reference range: 4.26 - 5.52 10*6/?L. The reference range was not used to interpret this result as normal/abnormal. HGB (test code = 718-7) 14.3 g/dL 12.2-16.4 HCT (test code = 4544-3) 43.0 % 38.4-49.3 MCV (test code = 787-2) 89.8 fL 81.7-95.6 MCH (test code = 785-6) 29.9 pg 26.1-32.7 MCHC (test code = 786-4) 33.3 g/dL 31.2-35.0 RDW-SD (test code = 43153-5) 47.6 fL 38.5-51.6 RDW-CV (test code = 788-0) 14.4 % 12.1-15.4 PLT (test code = 777-3) 323 See_Comment [Automated message] The system which generated this result transmitted reference range: 150 - 328 10*3/?L. The reference range was not used to interpret this result as normal/abnormal. MPV (test code = 14933-9) 9.4 fL 9.8-13.0 L NRBC/100 WBC (test code = 8504357931) 0.0 See_Comment [Automated message] The system which generated this result transmitted reference range: 0.0 - 10.0 /100 WBCs. The reference range was not used to interpret this result as normal/abnormal. NRBC x10^3 (test code = 4092073332) See_Comment [Automated message] The system which generated this result transmitted reference range: 10*3/?L. The reference range was not used to interpret this result as normal/abnormal. GRAN MAT (NEUT) % (test code = 770-8) 86.2 % IMM GRAN % (test code = 9032225943) 1.10 % LYMPH % (test code = 736-9) 9.4 % MONO % (test code = 5905-5) 3.0 % EOS % (test code = 713-8) 0.1 % BASO % (test code = 706-2) 0.2 % GRAN MAT x10^3(ANC) (test code = 3439578520) 10.96 10*3/uL 1.99-6.95 H IMM GRAN x10^3 (test code = 7739315320) 0.14 10*3/uL 0.00-0.06 H LYMPH x10^3 (test code = 731-0) 1.20 10*3/uL 1.09-3.23 MONO x10^3 (test code = 742-7) 0.38 10*3/uL 0.36-1.02 EOS x10^3 (test code = 711-2) 0.06-0.53 L BASO x10^3 (test code = 704-7) 0.01-0.09 Lab Interpretation (test code = 33395-7) Abnormal [facility] [id number] 15:05:59* Test Item Value Reference Range Interpretation Comme nts QFT Gold Plus Result (test code = 76745-2) Negative Negative GEOVANI (test code = GEOVANI) The QuantiFERON? T B Gold Plus (in Tube) assay is intended [...] advised. For further information, refer to http://www.cdc.gov/mmw r/pdf/rr/xk7685.pdf and https://doi.org/10.109 3/rema/qoi706. Lab Interpretation (test code = 24439-5) Normal [facility] WITH [id number] 10:03:34* Test Item Value Reference Range Interpretation Comme nts WBC (test code = 6690-2) 15.09 See_Comment H [Automated message] The system which generated this result transmitted reference range: 4.20 - 10.70 10*3/?L. The reference range was not used to interpret this result as normal/abnormal. RBC (test code = 789-8) 4.24 See_Comment L [Automated message] The system which generated this result transmitted reference range: 4.26 - 5.52 10*6/?L. The reference range was not used to interpret this result as normal/abnormal. HGB (test code = 718-7) 12.3 g/dL 12.2-16.4 HCT (test code = 4544-3) 35.8 % 38.4-49.3 L MCV (test code = 787-2) 84.4 fL 81.7-95.6 MCH (test code = 785-6) 29.0 pg 26.1-32.7 MCHC (test code = 786-4) 34.4 g/dL 31.2-35.0 RDW-SD (test code = 38230-9) 37.8 fL 38.5-51.6 L RDW-CV (test code = 788-0) 12.5 % 12.1-15.4 PLT (test code = 777-3) 403 See_Comment H [Automated message] The system which generated this result transmitted reference range: 150 - 328 10*3/?L. The reference range was not used to interpret this result as normal/abnormal. MPV (test code = 71157-3) 8.7 fL 9.8-13.0 L NRBC/100 WBC (test code = 4123286318) 0.0 See_Comment [Automated message] The system which generated this result transmitted reference range: 0.0 - 10.0 /100 WBCs. The reference range was not used to interpret this result as normal/abnormal. NRBC x10^3 (test code = 6600193408) See_Comment [Automated message] The system which generated this result transmitted reference range: 10*3/?L. The reference range was not used to interpret this result as normal/abnormal. GRAN MAT (NEUT) % (test code = 770-8) 85.7 % IMM GRAN % (test code = 1692342730) 3.00 % LYMPH % (test code = 736-9) 6.7 % MONO % (test code = 5905-5) 4.0 % EOS % (test code = 713-8) 0.1 % BASO % (test code = 706-2) 0.5 % GRAN MAT x10^3(ANC) (test code = 7262177472) 12.93 10*3/uL 1.99-6.95 H IMM GRAN x10^3 (test code = 4661208238) 0.46 10*3/uL 0.00-0.06 H LYMPH x10^3 (test code = 731-0) 1.01 10*3/uL 1.09-3.23 L MONO x10^3 (test code = 742-7) 0.61 10*3/uL 0.36-1.02 EOS x10^3 (test code = 711-2) 0.06-0.53 L BASO x10^3 (test code = 704-7) 0.07 10*3/uL 0.01-0.09 BANDS (test code = 5905177430) MARKED INCREASED A Lab Interpretation (test code = 93900-8) Abnormal [facility] (60489) (ALB,T.PRO,BILI T,BU/BC,ALT,AST,ALK PHOS)2023-04-06 09:54:25* Test Item Value Reference Range Interpretation Comme nts TOTAL BILI (test code = 6047008366) 0.3 mg/dL 0.1-1.1 BILI UNCON (test code = 6518434812) 0.2 mg/dL 0.1-1.1 BILI CONJ (test code = 0755460604) 0.0 mg/dL 0.0-0.3 T PROTEIN (test code = 5247197443) 6.2 g/dL 6.3-8.2 L ALBUMIN (test code = 6155387770) 3.4 g/dL 3.5-5.0 L ALK PHOS (test code = 4798501754) 54 U/L 34-122 ALTv (test code = 1742-6) 20 U/L 5-50 AST(SGOT) (test code = 6962244426) 33 U/L 13-40 Lab Interpretation (test cod e = 32736-5) Abnormal [facility]2023-[facility]-11 09:54:25* Test Item Value Reference Range Interpretation Comme nts MAGNESIUM (test code = 3319594947) 2.1 mg/dL 1.7-2.4 Lab Interpretation (test cod e = 15248-0) Normal [facility] (NA, K, CL, CO2, GLUCOSE, BUN, CREATININE, CA)2023-04-06 09:54:25* Test Item Value Reference Range Interpretation Comme nts NA (test code = 0786843689) 135 mmol/L 135-145 K (test code = 9953717809) 3.8 mmol/L 3.5-5.0 CL (test code = 0805231391) 98 mmol/L 98-108 CO2 TOTAL (test code = 2364319799) 28 mmol/L 23-31 AGAP (test code = 4124333641) 9 2-16 BUN (test code = 9805040910) 6 mg/dL 7-23 L GLUCOSE (test code = 2739204418) 165 mg/dL 70-110 H CREATININE (test code = 3444521043) 0.63 mg/dL 0.60-1.25 CALCIUM (test code = 7865227395) 8.1 mg/dL 8.6-10.6 L eGFR (test code = 5800035309) 156.5 mL/min/1.73m2 GEOVANI (test code = GEOVANI) Association [...] imaging tests). Lab Interpretation (test code = 68743-0) Abnormal [facility]IRUS (HCV) BY QUANTITATIVE NAAT 2023-04-05 19:02:52* Test Item Value Reference Range Interpretation Comme nts HCV Quantitative Interpretation (test code = 1928223863) Not Detected Not Detected GEOVANI (test code = GEOVANI) The Aptima HCV Dwight nt Dx assay is an FDA-approved real-time property site manager-mediated amplification (TMA) test used for both detection [...] repeat testing if clinically indicated. Lab Interpretation (test code = 53866-2) Normal [facility] [id number] 14:37:42* Test Item Value Reference Range Interpretation Comme nts Case Report (test code = 2668621547) Surgical Pathology ?Case: [id number] ? Authorizing Provider: ?Ria Hendricks MD ? Collected: ? 04/03/2023 1736 ?Ordering Location: ? ? GI Endoscopy OR Department Received: ?04/04/2023 1257 ?Pathologist: ? Sofy Veronica MD ? Specimen: ? ?COLON, Colon BX eval for IBD ? Final Diagnosis (test code = 7949612530) x2ftfSFgHCBge4hzUMNvpRP uZzEwMzNcZnRuYmpcdWMxIH tccnRmMVxlcGljMTAyMDZcY T0cuLeztXf4uTkiSFFpouP5 eIEqUSelm8jqFCR0g9rrler pZFHqINggSd4crTAazYqbCg KuJZVcRTs0bW31EHKnjO9ot FBjCJf6HPZocFMhowGkZqTd FWNkcZPdmWL1VKQvXH7ijon nJTgqTXkbZWLwqtG9EJLeyZ DoI5ArBHPdPY4gynihASH9S RptKWXbSLO7BiLpUPYpw7Bm vwo0DxVooGFnRGwpbNZcikw wtlMwGCFqpyERExBVI5dMFg wgQklPUFNZOlxwYXIgICAgL PBWE1sZFsgWVX7UV90QGQOL DQEVTHCSTKMAIASAOersG6B UQHFmCNJAE3ANP6BHTAPLYt bUBPCRMyEVXABWO6VSMhEKE RAZZDSAG2LIDO6CVMfxaHSn ICAgICAgIEFORCBJTkNSRUF XIJBsUBzOPArPORbAH47NI1 rQWQEzUV3JYBWIOAHBBZ0FM VqIDElJHKsBNLYNUy6ZWyhA ORALT57HYXOTAL9GMWyLCPn gXHBhciAgICAgICBDSFJPTk mMQDTYRWtHAPIuC4wPFKASA 2JZFvKRKUKZE3QHLqwLBVmw YXIgICAgLSBOTyBEWVNQTEF TSUEgSURFTlRJRklFRFxwYX WxiTXpcIcgvtYbBXqve7PlD 2YyMjAwMFxhbnNpXGRlZmxh ykiqTWDeJII9soQzEMOiDSe aUZNwAOkpDi5skAWkpKdrRq WbWRStd0cyqaBXHEzdHhJpY 441XOBhAMvqr2atl3GsHWCv oRCel3R3AAVSnqyrxRv8w4f hReZsLsJ5fNOyVFeqD6xsof NugGUyF1EhlJOyxKb5hQseQ 93ub5A9UpvwX0yvFYFkXRDt T3KgSA0lJNFyNnl9AGF2ESO 7IRAdLJIzY2ZePS9dOGTtrY XbSZn2l1giwWbtPCRxZEV8g 6zhIAgtidN8RU7huz2qhYp3 z3yborHcYDMbUJAlrCTTKKT fX0PirRpyAx8sqMb6gNqkYx avFGI3Qbl6NZ1qap37qwf1w JckDFFqudbkTnQ6BWqvQSXl djdnHIi3NZxsLSAseSR3XXT zgNWlY5XrOPYjFN3kmnp1QL Z9QCotSKOmCtP2JQBfwZIkV ALfmQvsJSurl184UNK6VfFg MI8kH2Xss6V9wP1rmDXlJQA swKQfDxZwTFUrgx4thKReWZ jgc2TrBSJ4fkW0fDGdtESpR UEnCD44Zdrjw3HvNdbbXRV2 QXFubbQeo6Ggn3pjVtUmsjC pW2pmC5MyADFxAHEqQRQsHn LzvfXwy9Hyx0XnaNCyfAy3j 1ogDHZmQSItpAggz6bnGML2 ITArY2J9dZOzf0cpWMjcYXO mpXU8vwK8ILBefXRbO7YolD 9hZHPmAZ9lixs3q6xrLXT5J PwnZAVoSaO2vfE1YLKzhMVz RNMltAkfNLgns441UNF6ZwU wPZNja3SuO2PhiVmpL75jaH vcL51sHWHbaYnrcC9mnNjym Y7zNhFnYgWfJBcyzQpnfTHy blxmMVxmczIwXGxhbmcxMDM iDOxgW6eaNzWjGAAfsKezIH atk9OmXOUwPKYxKqjsbeNtZ BQfmyNSYQncjkJufCKwy82d YWxseSByZXZpZXdlZCBhbGw cx2YcE6vpVA7yN8UevVAunj OhoaBrILhwOZYxz9r5xVQkz Ytil3NpaBEdYH85hqBiUNZx YQT7TAUei0pzXK42oisbIdJ xyG96jdFncgMiKGQrt6noX0 godLUog3Zro1EjhuPbPQhum 1MiEA8ucYRlljztnWD9KWXc lHVvkjPnivG3hQjaEZEotN9 eoB7bbDwqaL6pMrLjLbWqOG vfOV7dMIIcU1lnfBFjTJBtI ICsO7xpIhLbxX3stOwzFmla iiX9CFUior11 Clinical Information (test code = 8244069054) Pa Lawrence is a 22 year old male1. Colon BX eval for IBD Gross Description (test code = 3628041035) w0doxBWdSGFfmYLMVBRvFEV vSU5shEpanAy7hOyhBJKlhj Y8sFXgMXkym6boOKB1p5jpu uSVQqinURAuBK5dRWizARBa KB4eBqXpWUElUlMiMCGtkTK ozgKaPgRtFDIrgLZhaZU7WM QlOM9etbcaNFufPBneLCYjy pQ7GQIlkXLnY8LpDLBkYC6e ybxuHKO5YMGNDpsbLf3jeMS ibHtcZjFcZmNoYXJzZXQwXG DehDyhAQAeXVk0mN6PBkqkZ PE6XGCPSvjxKtxoaFany1Ji dCBcXHNnIFxcaWQgNTEwMDA gAMmxShCNFbGrIeF8XBP0PA CkZmK1GNt4MJGFUQAiXgs4K PJhDXW7WKd2PUSlWX1xVRtt rRNhQLkcNnjjTKuiR536UUx mZWXuF1GhK7BvUPhqZrUtJV aoETPtOOMdIFqdMZUsG1MZS CMvOeX7NtY6XsOpYWl3MMyf I4WCAQZmFZYrSeApYPH9TaA 3TDx9VMZZVr4gESwhFPEoLS N8OOK8DTxhYAPdRIJjOhQxI NDiYZYyJQoacYYjXB4eeFzn AROuOE0QOVAkLBpnAYZoZrK qL2QHI5nYDD6xUOogJWVyWB pccGFyZCANClxwbGFpblxmc nCyFJg7dmAaOPGxJtCzDEMh N35wq0NMq3AqWK7QZOf2pqB bvybvtM6tTYFviqXzPRnTfM LwfU2nczJYTYxbFMCxA8Pvn tQyZNaqASHeps8bzHudAHJb HVZqpBZiMXfmmKqylHJ3hKP izXWwZH4bOAPTFXRraZ3jLX ExLZUyXVYgL60mu43pOWRka Y3tNXJLDJO9XRqrLd3fFAaT MBPmOM5eNWByakTlu0DlRK6 yJN62xQIsnTesIRwtO4u3DK KpikYhndCmW5JnBDTpkQrcc 5HuKRVjQTorJE90gvZzVX2y LTAuNCBjbSBpbiBncmVhdGV laGBugA3bloLrt06eIAUjOK U8IVRsVMQ7NTJhVoRuzZUgu wQiT5gyJOzvzUCgKaFiNNvu IHNwZWNpbWVuIGlzIGZpbHR ltgPbSVVmpq75X4fwGWRpgU 6we9yyTzDyCVRzYEJdqZBkb EB0KKQbbA6eqP23xtKsgzOE NQ4wuFKoLS5BTJHwkbOBNvW tbXlsZWUgWmFuZywgUEEgc3 P9MXPndCerNJViXFySeEhmW NNXX6scaLRyJGmnKIVMXXFH U6DaHEMasaPFHdboGYQmLGd kk6YkVRxkeKdfQVSdXoBqEK bqBMWtX03yh1XIh8Fsw1iqp Ftsn8EpsJLtQV25BIDbmFNa XEA7LK3mpPbjLRQpQIjjpWY yZCANCn0= Disclaimer (test code = [id number]) f6gdfLSjWZJhd3rrDIGzwEB uZzEwMzNcZnRuYmpcdWMxIH olxrSzACzzw7SnQ6AdBsJjD FxhbnNpXGRlZmxhbmcxMDMz HSL2ejKiOCXpQRiqYXYbMTe lPy5tmISgvXzbCzFiIUUit9 ygyiJMQKknLrSqY232OIMoI Ylkv6raz7QiEMJhdIGxv8L4 BPWXzdyjnWk3jXmbT06af5U 7ZjnnA8rvNEIqMBXhB2SrNV 9nSPOvUaw6JIJ4ISA2UPBvE BFmB7CnIV9zIKSutGNaWYl2 j7qxqJbbQTPhNOY1s9uoWUz pjeXqVH1zzv8uyCt0i3sewj VwPPXeLCNqrNYPVLGbM5Mee NevGo0vrQz7aGybYrvdRRI5 Pme6MU2cyr39zoq0mSexXDB kcbfzRwF4PFuvYNIhcymdGN e5UAmuEJRslCE1YONmzRGiG 3UeFWPcWC8svtm9QLB4KYcd EXMjKhE5GSJcyHLiZKQnnGh ePOuux852EOP2QtIpUP7jP2 Tgb4P8mQ3xvFSiBFNetYMbC aXhKCAmac8dsJGxSWjdk5Vn CBR2tzB0sHDbmLQdAVXnFG7 9Nhxht2CbQcmmn6SuP73ouT W6LNekx3cnPW0pCpC3okYvU Bmgr2oyaO8pHiX8UChoFZ3s PG3uKVRwjF4rbqoxIWTiTjA bxejzXYYxoQmhcdXwKg1csD pfWXZ3HKsmJ9zzoY6kAlI7L AcfW3ltdE9hYDd9FItrfID0 RUKcuP4yOM3hknpij6tzGCg lTBidMXTdbfG8drD2XTEjvW SbH5LclF6xRHFkHI3ifpxft 4aqLBC9OKabDYCaESE1ZzSg KNGei6Sqrzz8PrLnw2BchMQ oXDftO10vf700ZGQhqzReF7 xwbGFpblxwbGFpblxmMFxmc oU7PUPtycBgm6YfXWKkYDA1 OQidTTzuaQZyQAOpaAifd9g lC9BkpWQqUDVaLVhvZLLqYF ZzMjBcbGFuZzEwMzNcaGlja EllZZyxPcXyRNKvGLptA4xi QqEiP1ZfJJKqIdSbbJVgF7h nOXjjjpAhOXZchiAynWM4JW ykZ6p2IBXoniImuWr9ctNgU xCuULAwPBQ5PXccoGViDLPk q5GzsdsikPFuJn5diSArSXS drJ9qJCKvBNSgENhgYD7tnP u2MTGMlYKrqHFmXcVUJWRmY N61lwXrMHUIllrjj0S5HVlo UGBjr6KwvDFaM5oiq2PnNMZ xp76fOR7of4N6s2lsZGG4UU 5wz1YuTWTeoAZenPMmBDNbb 4Xneqazv6EpOLPedhHck7Wa ZCBhbmQgaXRzIHBlcmZvcm1 ydbXfEFFsSHGaS2PvjhpwhY ksvmKhSXQlim5sygMnNNC5G NXVUFLeFBNxo4RleD3rcSOR HIL2sTTiis7bioCSkTKdDML lvo85FWPeVZ1eY7wqMQZxGP RdegBexLGwk4WuHZAcsVV7f RYaDV0JDuCQr79tJCBfKSSN isKpZJWoeBhhcAW8oyN7lK1 uIChGREEpLlx+IFRoZSBGRE ByAF2btcOnw9QrhvUapRnbU UJhjFKay8AeqJRbj1IuyDrm g7EdvSDhqZVqEM4iNCLrmpe xODTjWTCMAsNRZFHjrcP2w1 NxPTKhPMHrJZR5cAzyisi6S EOirH3lTGNlJ6ohpsijYTvy EVYan3CdqL2dpZVMoGQrz7O kqPVvzAZVkCBnVX3ietIjOR tQQXmTQFF1ueLrEASkc6LoZ LbbO8abO58qyObosSg1oWG6 UDK3xD7zDuy+IFxwYXJccGF yIEFwcHJvcHJpYXRlbHkgcm ZrC4KvjnIxoS1wbWFfaaHxO Q8aFO5uG1E7jRAfMWQyqwIy y2jpQRpsylEjOzXijoJtZJN dUGcdFLKkz0FaCIzaXKE2SV lucyBpbmNsdWRpbmcgSCZFL GRWbVZsyIPaNBZ9KOpcjxVu gqJkQX9gpX1aoJqylB2eqED wbMP4nmihMZEmBPOwySueWI YmXB5zvYQwMCIwpkCVlRvqv RYqaK7aD6YnLZSxDETmpu8x KPDmxG2yFSjez3VtxgheKZS tZQEvFEGsqjWbny0hIARhfS JBND5UJQbjwLNgj0UtxvVdT 5gTEEL9IRVfOlTcZierTEBd rSNjePFfFRYwhy12NGIxcK2 uuBjfRXGmuE3jcZ9hhNciwJ 8sOuJpJlYdPAsyKR5aNTOgN 2ckwPCyJZQsAYXmI9oqUhQn mP0cgJsnHMjfLhIpQwDeXQr uECR6fS== Embedded Images (test code = [id number]) [facility] [id number] 14:35:43* Test Item Value Reference Range Interpretation Comme nts Extra Tube (test code = [id number]) [facility] [id number] 10:45:28* Test Item Value Reference Range Interpretation Comme nts WBC (test code = 6690-2) 22.16 See_Comment H [Automated message] The system which generated this result transmitted reference range: 4.20 - 10.70 10*3/?L. The reference range was not used to interpret this result as normal/abnormal. RBC (test code = 789-8) 4.37 See_Comment [Automated message] The system which generated this result transmitted reference range: 4.26 - 5.52 10*6/?L. The reference range was not used to interpret this result as normal/abnormal. HGB (test code = 718-7) 13.0 g/dL 12.2-16.4 HCT (test code = 4544-3) 36.8 % 38.4-49.3 L MCV (test code = 787-2) 84.2 fL 81.7-95.6 MCH (test code = 785-6) 29.7 pg 26.1-32.7 MCHC (test code = 786-4) 35.3 g/dL 31.2-35.0 H RDW-SD (test code = 52665-7) 37.9 fL 38.5-51.6 L RDW-CV (test code = 788-0) 12.4 % 12.1-15.4 PLT (test code = 777-3) 403 See_Comment H [Automated message] The system which generated this result transmitted reference range: 150 - 328 10*3/?L. The reference range was not used to interpret this result as normal/abnormal. MPV (test code = 76510-8) 8.8 fL 9.8-13.0 L NRBC/100 WBC (test code = 7773461233) 0.0 See_Comment [Automated message] The system which generated this result transmitted reference range: 0.0 - 10.0 /100 WBCs. The reference range was not used to interpret this result as normal/abnormal. NRBC x10^3 (test code = 9475499813) See_Comment [Automated message] The system which generated this result transmitted reference range: 10*3/?L. The reference range was not used to interpret this result as normal/abnormal. GRAN MAT (NEUT) % (test code = 770-8) 90.9 % IMM GRAN % (test code = 6599817441) 1.60 % LYMPH % (test code = 736-9) 4.3 % MONO % (test code = 5905-5) 2.9 % EOS % (test code = 713-8) 0.0 % BASO % (test code = 706-2) 0.3 % GRAN MAT x10^3(ANC) (test code = 2576902180) 20.14 10*3/uL 1.99-6.95 H IMM GRAN x10^3 (test code = 6196931907) 0.36 10*3/uL 0.00-0.06 H LYMPH x10^3 (test code = 731-0) 0.95 10*3/uL 1.09-3.23 L MONO x10^3 (test code = 742-7) 0.65 10*3/uL 0.36-1.02 EOS x10^3 (test code = 711-2) 0.06-0.53 L BASO x10^3 (test code = 704-7) 0.06 10*3/uL 0.01-0.09 BANDS (test code = 5328742246) MARKED INCREASED A Lab Interpretation (test code = 04098-2) [facility]* Test Item Value Reference Range Interpretation Comme nts MAGNESIUM (test code = 6650969955) 2.1 mg/dL 1.7-2.4 Lab Interpretation (test cod e = 69618-1) [facility] (NA, K, CL, CO2, GLUCOSE, BUN, CREATININE, CA)2023-04-05 09:58:18* Test Item Value Reference Range Interpretation Comme nts NA (test code = 2671198538) 133 mmol/L 135-145 L K (test code = 8040891084) 4.0 mmol/L 3.5-5.0 Slight hemolysis CL (test code = 1374616965) 100 mmol/L 98-108 CO2 TOTAL (test code = 5332976485) 26 mmol/L 23-31 AGAP (test code = 7256789598) 7 2-16 BUN (test code = 9669284815) 3 mg/dL 7-23 L Slight hemolysis GLUCOSE (test code = 0329300917) 178 mg/dL 70-110 H CREATININE (test code = 3468612964) 0.58 mg/dL 0.60-1.25 L CALCIUM (test code = 9932948612) 8.1 mg/dL 8.6-10.6 L eGFR (test code = 4353529744) 172.1 mL/min/1.73m2 GEOVANI (test code = GEOVANI) Association [...] imaging tests). Lab Interpretation (test code = 11880-1) Abnormal [facility] B SURFACE [id number] 22:55:30* Test Item Value Reference Range Interpretation Comme [facility] HBsAB (test code = 4671273871) Negative HBsAb Semi-Quantitative (test code = 9630400266) 0.10 mIU/mL GEOVANI (test code = GEOVANI) Interpretation: ?Hepatitis B Surface Antibody ? Negative - Patient is considered to be not immune to infection with HBV. ? ? Positive - Anti-HBs detected at greater than or equal to 12 mIU/mL. ?Patient is considered to be immune to infection with HBV. ? [facility]GG[facility]2023-04-04 22:55:30* Test Item Value Reference Range Interpretation Comme [facility] HBC (test code = 8829866209) Negative HBC Semi-Quantitative (test code = 3065027002) 3.15 [facility] B SURFACE [id number] 15:42:58 * Test Item Value Reference Range Interpretation Comme [facility] HBsAg Semi-Quantitative (melvin t code = 5195-3) 0.05 Negative [facility] B SURFACE [id number] 15:42:58 * Test Item Value Reference Range Interpretation Comme [facility] HBsAg Semi-Quantitative (melvin t code = 5195-3) 0.05 Negative [facility] METABOLIC PANEL (NA, K, CL, CO2, GLUCOSE, BUN, CREATININE, CA)2023-04-04 11:32:42* Test Item Value Reference Range Interpretation Comme [facility] NA (test code = 5934389101) 132 mmol/L 135-145 L K (test code = 2548288157) 3.5 mmol/L 3.5-5.0 Slight hemolysis CL (test code = 1473550848) 100 mmol/L 98-108 CO2 TOTAL (test code = 3231087367) 24 mmol/L 23-31 AGAP (test code = 4454540879) 8 2-16 BUN (test code = 3999752575) 7-23 L Slight hemolysis GLUCOSE (test code = 4732080824) 88 mg/dL 70-110 CREATININE (test code = 0741852490) 0.73 mg/dL 0.60-1.25 CALCIUM (test code = 6503818216) 7.7 mg/dL 8.6-10.6 L eGFR (test code = 8776680745) 132.0 mL/min/1.73m2 GEOVANI (test code = GEOVANI) Association [...] imaging tests). Lab Interpretation (test code = 96283-1) Abnormal [facility] METABOLIC PANEL (NA, K, CL, CO2, GLUCOSE, BUN, CREATININE, CA)2023-04-04 11:32:42* Test Item Value Reference Range Interpretation Comme nts NA (test code = 4362160867) 132 mmol/L 135-145 L K (test code = 8349568883) 3.5 mmol/L 3.5-5.0 Slight hemolysis CL (test code = 4946306442) 100 mmol/L 98-108 CO2 TOTAL (test code = 2515612501) 24 mmol/L 23-31 AGAP (test code = 9723269122) 8 2-16 BUN (test code = 6997664679) 7-23 L Slight hemolysis GLUCOSE (test code = 6810290971) 88 mg/dL 70-110 CREATININE (test code = 2542936345) 0.73 mg/dL 0.60-1.25 CALCIUM (test code = 3131215726) 7.7 mg/dL 8.6-10.6 L eGFR (test code = 3402224794) 132.0 mL/min/1.73m2 GEOVANI (test code = GEOVANI) Association [...] imaging tests). Lab Interpretation (test code = 15636-4) [facility] Test Item Value Reference Range Interpretation Comme nts MAGNESIUM (test code = 6516184069) 1.7 mg/dL 1.7-2.4 Lab Interpretation (test cod e = 04731-5) [facility] 11:23:35* Test Item Value Reference Range Interpretation Comme nts MAGNESIUM (test code = 9774406252) 1.7 mg/dL 1.7-2.4 Lab Interpretation (test cod e = 54716-3) Normal [facility] WITH [id number] 10:55:07* Test Item Value Reference Range Interpretation Comme nts WBC (test code = 6690-2) 18.08 See_Comment H [Automated message] The system which generated this result transmitted reference range: 4.20 - 10.70 10*3/?L. The reference range was not used to interpret this result as normal/abnormal. RBC (test code = 789-8) 4.29 See_Comment [Automated message] The system which generated this result transmitted reference range: 4.26 - 5.52 10*6/?L. The reference range was not used to interpret this result as normal/abnormal. HGB (test code = 718-7) 12.5 g/dL 12.2-16.4 HCT (test code = 4544-3) 35.6 % 38.4-49.3 L MCV (test code = 787-2) 83.0 fL 81.7-95.6 MCH (test code = 785-6) 29.1 pg 26.1-32.7 MCHC (test code = 786-4) 35.1 g/dL 31.2-35.0 H RDW-SD (test code = 10676-7) 37.7 fL 38.5-51.6 L RDW-CV (test code = 788-0) 12.5 % 12.1-15.4 PLT (test code = 777-3) 329 See_Comment H [Automated message] The system which generated this result transmitted reference range: 150 - 328 10*3/?L. The reference range was not used to interpret this result as normal/abnormal. MPV (test code = 43828-6) 8.6 fL 9.8-13.0 L NRBC/100 WBC (test code = 8297696367) 0.0 See_Comment [Automated message] The system which generated this result transmitted reference range: 0.0 - 10.0 /100 WBCs. The reference range was not used to interpret this result as normal/abnormal. NRBC x10^3 (test code = 0625366887) See_Comment [Automated message] The system which generated this result transmitted reference range: 10*3/?L. The reference range was not used to interpret this result as normal/abnormal. GRAN MAT (NEUT) % (test code = 770-8) 72.5 % IMM GRAN % (test code = 8065993514) 1.60 % LYMPH % (test code = 736-9) 11.5 % MONO % (test code = 5905-5) 6.8 % EOS % (test code = 713-8) 6.9 % BASO % (test code = 706-2) 0.7 % GRAN MAT x10^3(ANC) (test code = 5787220207) 13.10 10*3/uL 1.99-6.95 H IMM GRAN x10^3 (test code = 0306151302) 0.29 10*3/uL 0.00-0.06 H LYMPH x10^3 (test code = 731-0) 2.08 10*3/uL 1.09-3.23 MONO x10^3 (test code = 742-7) 1.23 10*3/uL 0.36-1.02 H EOS x10^3 (test code = 711-2) 1.25 10*3/uL 0.06-0.53 H BASO x10^3 (test code = 704-7) 0.13 10*3/uL 0.01-0.09 H Lab Interpretation (test code = 66734-9) Abnormal [facility] WITH [id number] 10:55:07* Test Item Value Reference Range Interpretation Comme nts WBC (test code = 6690-2) 18.08 See_Comment H [Automated message] The system which generated this result transmitted reference range: 4.20 - 10.70 10*3/?L. The reference range was not used to interpret this result as normal/abnormal. RBC (test code = 789-8) 4.29 See_Comment [Automated message] The system which generated this result transmitted reference range: 4.26 - 5.52 10*6/?L. The reference range was not used to interpret this result as normal/abnormal. HGB (test code = 718-7) 12.5 g/dL 12.2-16.4 HCT (test code = 4544-3) 35.6 % 38.4-49.3 L MCV (test code = 787-2) 83.0 fL 81.7-95.6 MCH (test code = 785-6) 29.1 pg 26.1-32.7 MCHC (test code = 786-4) 35.1 g/dL 31.2-35.0 H RDW-SD (test code = 83751-4) 37.7 fL 38.5-51.6 L RDW-CV (test code = 788-0) 12.5 % 12.1-15.4 PLT (test code = 777-3) 329 See_Comment H [Automated message] The system which generated this result transmitted reference range: 150 - 328 10*3/?L. The reference range was not used to interpret this result as normal/abnormal. MPV (test code = 85572-0) 8.6 fL 9.8-13.0 L NRBC/100 WBC (test code = 1514319497) 0.0 See_Comment [Automated message] The system which generated this result transmitted reference range: 0.0 - 10.0 /100 WBCs. The reference range was not used to interpret this result as normal/abnormal. NRBC x10^3 (test code = 7720675838) See_Comment [Automated message] The system which generated this result transmitted reference range: 10*3/?L. The reference range was not used to interpret this result as normal/abnormal. GRAN MAT (NEUT) % (test code = 770-8) 72.5 % IMM GRAN % (test code = 2950519417) 1.60 % LYMPH % (test code = 736-9) 11.5 % MONO % (test code = 5905-5) 6.8 % EOS % (test code = 713-8) 6.9 % BASO % (test code = 706-2) 0.7 % GRAN MAT x10^3(ANC) (test code = 7885352627) 13.10 10*3/uL 1.99-6.95 H IMM GRAN x10^3 (test code = 2217464945) 0.29 10*3/uL 0.00-0.06 H LYMPH x10^3 (test code = 731-0) 2.08 10*3/uL 1.09-3.23 MONO x10^3 (test code = 742-7) 1.23 10*3/uL 0.36-1.02 H EOS x10^3 (test code = 711-2) 1.25 10*3/uL 0.06-0.53 H BASO x10^3 (test code = 704-7) 0.13 10*3/uL 0.01-0.09 H Lab Interpretation (test code = 54377-6) Abnormal [facility] METABOLIC PANEL (NA, K, CL, CO2, GLUCOSE, BUN, CREATININE, CA)2023-04-03 10:31:41* Test Item Value Reference Range Interpretation Comme nts NA (test code = 4704134418) 136 mmol/L 135-145 K (test code = 6505681146) 3.5 mmol/L 3.5-5.0 CL (test code = 6459840280) 104 mmol/L 98-108 CO2 TOTAL (test code = 3586312586) 22 mmol/L 23-31 L AGAP (test code = 3947593191) 10 2-16 BUN (test code = 8063021909) 7-23 L GLUCOSE (test code = 7583197154) 101 mg/dL 70-110 CREATININE (test code = 1535036889) 0.77 mg/dL 0.60-1.25 CALCIUM (test code = 8130634861) 8.4 mg/dL 8.6-10.6 L eGFR (test code = 7446928499) 124.1 mL/min/1.73m2 GEOVANI (test code = GEOVANI) Association [...] imaging tests). Lab Interpretation (test code = 14713-5) Abnormal [facility] METABOLIC PANEL (NA, K, CL, CO2, GLUCOSE, BUN, CREATININE, CA)2023-04-03 10:31:41* Test Item Value Reference Range Interpretation Comme nts NA (test code = 9101928904) 136 mmol/L 135-145 K (test code = 2241275686) 3.5 mmol/L 3.5-5.0 CL (test code = 2278235968) 104 mmol/L 98-108 CO2 TOTAL (test code = 3964651825) 22 mmol/L 23-31 L AGAP (test code = 8772204465) 10 2-16 BUN (test code = 9396877479) 7-23 L GLUCOSE (test code = 2745521323) 101 mg/dL 70-110 CREATININE (test code = 0399319458) 0.77 mg/dL 0.60-1.25 CALCIUM (test code = 5433851823) 8.4 mg/dL 8.6-10.6 L eGFR (test code = 3694447897) 124.1 mL/min/1.73m2 GEOVANI (test code = GEOVANI) Association [...] imaging tests). Lab Interpretation (test code = 08179-0) Abnormal [facility] WITH [id number] 10:27:32* Test Item Value Reference Range Interpretation Comme nts WBC (test code = 6690-2) 24.94 See_Comment H [Automated message] The system which generated this result transmitted reference range: 4.20 - 10.70 10*3/?L. The reference range was not used to interpret this result as normal/abnormal. RBC (test code = 789-8) 4.81 See_Comment [Automated message] The system which generated this result transmitted reference range: 4.26 - 5.52 10*6/?L. The reference range was not used to interpret this result as normal/abnormal. HGB (test code = 718-7) 14.0 g/dL 12.2-16.4 HCT (test code = 4544-3) 40.1 % 38.4-49.3 MCV (test code = 787-2) 83.4 fL 81.7-95.6 MCH (test code = 785-6) 29.1 pg 26.1-32.7 MCHC (test code = 786-4) 34.9 g/dL 31.2-35.0 RDW-SD (test code = 52797-0) 37.5 fL 38.5-51.6 L RDW-CV (test code = 788-0) 12.3 % 12.1-15.4 PLT (test code = 777-3) 406 See_Comment H [Automated message] The system which generated this result transmitted reference range: 150 - 328 10*3/?L. The reference range was not used to interpret this result as normal/abnormal. MPV (test code = 32749-8) 8.6 fL 9.8-13.0 L NRBC/100 WBC (test code = 1771955496) 0.0 See_Comment [Automated message] The system which generated this result transmitted reference range: 0.0 - 10.0 /100 WBCs. The reference range was not used to interpret this result as normal/abnormal. NRBC x10^3 (test code = 3452595748) See_Comment [Automated message] The system which generated this result transmitted reference range: 10*3/?L. The reference range was not used to interpret this result as normal/abnormal. GRAN MAT (NEUT) % (test code = 770-8) 72.4 % IMM GRAN % (test code = 1710134640) 1.70 % LYMPH % (test code = 736-9) 13.6 % MONO % (test code = 5905-5) 6.5 % EOS % (test code = 713-8) 5.3 % BASO % (test code = 706-2) 0.5 % GRAN MAT x10^3(ANC) (test code = 5828410986) 18.08 10*3/uL 1.99-6.95 H IMM GRAN x10^3 (test code = 5321074665) 0.42 10*3/uL 0.00-0.06 H LYMPH x10^3 (test code = 731-0) 3.39 10*3/uL 1.09-3.23 H MONO x10^3 (test code = 742-7) 1.61 10*3/uL 0.36-1.02 H EOS x10^3 (test code = 711-2) 1.31 10*3/uL 0.06-0.53 H BASO x10^3 (test code = 704-7) 0.13 10*3/uL 0.01-0.09 H BANDS (test code = 4885021262) Increased A Lab Interpretation (test code = 07091-7) Abnormal [facility] WITH [id number] 10:27:32* Test Item Value Reference Range Interpretation Comme nts WBC (test code = 6690-2) 24.94 See_Comment H [Automated message] The system which generated this result transmitted reference range: 4.20 - 10.70 10*3/?L. The reference range was not used to interpret this result as normal/abnormal. RBC (test code = 789-8) 4.81 See_Comment [Automated message] The system which generated this result transmitted reference range: 4.26 - 5.52 10*6/?L. The reference range was not used to interpret this result as normal/abnormal. HGB (test code = 718-7) 14.0 g/dL 12.2-16.4 HCT (test code = 4544-3) 40.1 % 38.4-49.3 MCV (test code = 787-2) 83.4 fL 81.7-95.6 MCH (test code = 785-6) 29.1 pg 26.1-32.7 MCHC (test code = 786-4) 34.9 g/dL 31.2-35.0 RDW-SD (test code = 29769-8) 37.5 fL 38.5-51.6 L RDW-CV (test code = 788-0) 12.3 % 12.1-15.4 PLT (test code = 777-3) 406 See_Comment H [Automated message] The system which generated this result transmitted reference range: 150 - 328 10*3/?L. The reference range was not used to interpret this result as normal/abnormal. MPV (test code = 49188-6) 8.6 fL 9.8-13.0 L NRBC/100 WBC (test code = 8837178500) 0.0 See_Comment [Automated message] The system which generated this result transmitted reference range: 0.0 - 10.0 /100 WBCs. The reference range was not used to interpret this result as normal/abnormal. NRBC x10^3 (test code = 2550114454) See_Comment [Automated message] The system which generated this result transmitted reference range: 10*3/?L. The reference range was not used to interpret this result as normal/abnormal. GRAN MAT (NEUT) % (test code = 770-8) 72.4 % IMM GRAN % (test code = 2721560649) 1.70 % LYMPH % (test code = 736-9) 13.6 % MONO % (test code = 5905-5) 6.5 % EOS % (test code = 713-8) 5.3 % BASO % (test code = 706-2) 0.5 % GRAN MAT x10^3(ANC) (test code = 1540295032) 18.08 10*3/uL 1.99-6.95 H IMM GRAN x10^3 (test code = 8874947641) 0.42 10*3/uL 0.00-0.06 H LYMPH x10^3 (test code = 731-0) 3.39 10*3/uL 1.09-3.23 H MONO x10^3 (test code = 742-7) 1.61 10*3/uL 0.36-1.02 H EOS x10^3 (test code = 711-2) 1.31 10*3/uL 0.06-0.53 H BASO x10^3 (test code = 704-7) 0.13 10*3/uL 0.01-0.09 H BANDS (test code = 4354721718) Increased A Lab Interpretation (test code = 49134-7) [facility]* Test Item Value Reference Range Interpretation Comme nts MAGNESIUM (test code = 0571086254) 1.7 mg/dL 1.7-2.4 Lab Interpretation (test cod e = 31215-9) [facility]:27:27* Test Item Value Reference Range Interpretation Comme nts MAGNESIUM (test code = 3843433942) 1.7 mg/dL 1.7-2.4 Lab Interpretation (test cod e = 23184-6) Normal [facility] WITH [id number] 11:14:08* Test Item Value Reference Range Interpretation Comme nts WBC (test code = 6690-2) 12.48 See_Comment H [Automated messa ge] The system which generated this result transmitted reference range: 4.20 - 10.70 10*3/?L. The reference range was not used to interpret this result as normal/abnormal. RBC (test code = 789-8) 4.20 See_Comment L [Automated messa ge] The system which generated this result transmitted reference range: 4.26 - 5.52 10*6/?L. The reference range was not used to interpret this result as normal/abnormal. HGB (test code = 718-7) 12.1 g/dL 12.2-16.4 L HCT (test code = 4544-3) 35.6 % 38.4-49.3 L MCV (test code = 787-2) 84.8 fL 81.7-95.6 MCH (test code = 785-6) 28.8 pg 26.1-32.7 MCHC (test code = 786-4) 34.0 g/dL 31.2-35.0 RDW-SD (test code = 12078-6) 38.0 fL 38.5-51.6 L RDW-CV (test code = 788-0) 12.5 % 12.1-15.4 PLT (test code = 777-3) 328 See_Comment [Automated messa ge] The system which generated this result transmitted reference range: 150 - 328 10*3/?L. The reference range was not used to interpret this result as normal/abnormal. MPV (test code = 43205-1) 9.2 fL 9.8-13.0 L NRBC/100 WBC (test code = 6404363653) 0.0 See_Comment [Automated [employer] ssage] The system which generated this result transmitted reference range: 0.0 - 10.0 /100 WBCs. The reference range was not used to interpret this result as normal/abnormal. NRBC x10^3 (test code = 5530101776) See_Comment [Automated messa ge] The system which generated this result transmitted reference range: 10*3/?L. The reference range was not used to interpret this result as normal/abnormal. GRAN MAT (NEUT) % (test code = 770-8) 58.9 % IMM GRAN % (test code = 2821424198) 1.90 % LYMPH % (test code = 736-9) 20.1 % MONO % (test code = 5905-5) 8.8 % EOS % (test code = 713-8) 9.6 % BASO % (test code = 706-2) 0.7 % GRAN MAT x10^3(ANC) (test code = 7000844981) 7.34 10*3/uL 1.99-6.95 H IMM GRAN x10^3 (test code = 7110620328) 0.24 10*3/uL 0.00-0.06 H LYMPH x10^3 (test code = 731-0) 2.51 10*3/uL 1.09-3.23 MONO x10^3 (test code = 742-7) 1.10 10*3/uL 0.36-1.02 H EOS x10^3 (test code = 711-2) 1.20 10*3/uL 0.06-0.53 H BASO x10^3 (test code = 704-7) 0.09 10*3/uL 0.01-0.09 Lab Interpretation (test code = 70437-3) Abnormal [facility] WITH [id number] 11:14:08* Test Item Value Reference Range Interpretation Comme nts WBC (test code = 6690-2) 12.48 See_Comment H [Automated messa ge] The system which generated this result transmitted reference range: 4.20 - 10.70 10*3/?L. The reference range was not used to interpret this result as normal/abnormal. RBC (test code = 789-8) 4.20 See_Comment L [Automated messa ge] The system which generated this result transmitted reference range: 4.26 - 5.52 10*6/?L. The reference range was not used to interpret this result as normal/abnormal. HGB (test code = 718-7) 12.1 g/dL 12.2-16.4 L HCT (test code = 4544-3) 35.6 % 38.4-49.3 L MCV (test code = 787-2) 84.8 fL 81.7-95.6 MCH (test code = 785-6) 28.8 pg 26.1-32.7 MCHC (test code = 786-4) 34.0 g/dL 31.2-35.0 RDW-SD (test code = 40519-6) 38.0 fL 38.5-51.6 L RDW-CV (test code = 788-0) 12.5 % 12.1-15.4 PLT (test code = 777-3) 328 See_Comment [Automated messa ge] The system which generated this result transmitted reference range: 150 - 328 10*3/?L. The reference range was not used to interpret this result as normal/abnormal. MPV (test code = 36624-7) 9.2 fL 9.8-13.0 L NRBC/100 WBC (test code = 3817259105) 0.0 See_Comment [Automated me ssage] The system which generated this result transmitted reference range: 0.0 - 10.0 /100 WBCs. The reference range was not used to interpret this result as normal/abnormal. NRBC x10^3 (test code = 0657633657) See_Comment [Automated messa ge] The system which generated this result transmitted reference range: 10*3/?L. The reference range was not used to interpret this result as normal/abnormal. GRAN MAT (NEUT) % (test code = 770-8) 58.9 % IMM GRAN % (test code = 5055986721) 1.90 % LYMPH % (test code = 736-9) 20.1 % MONO % (test code = 5905-5) 8.8 % EOS % (test code = 713-8) 9.6 % BASO % (test code = 706-2) 0.7 % GRAN MAT x10^3(ANC) (test code = 4883249650) 7.34 10*3/uL 1.99-6.95 H IMM GRAN x10^3 (test code = 2503144989) 0.24 10*3/uL 0.00-0.06 H LYMPH x10^3 (test code = 731-0) 2.51 10*3/uL 1.09-3.23 MONO x10^3 (test code = 742-7) 1.10 10*3/uL 0.36-1.02 H EOS x10^3 (test code = 711-2) 1.20 10*3/uL 0.06-0.53 H BASO x10^3 (test code = 704-7) 0.09 10*3/uL 0.01-0.09 Lab Interpretation (test code = 62958-2) Abnormal [facility] [id number] 17:11:35* Test Item Value Reference Range Interpretation Comme nts CRP (test code = 8298924846) 2.1 mg/dL <=0.8 H Lab Interpretation (test cod e = 95853-9) Abnormal [facility] [id number] 17:11:35* Test Item Value Reference Range Interpretation Comme nts CRP (test code = 6247316628) 2.1 mg/dL <=0.8 H Lab Interpretation (test cod e = 49509-0) [facility] [id number] 14:44:35* Test Item Value Reference Range Interpretation Comme nts FERRITIN (test code = 0405535043) 47.1 ng/mL 18.0-464.0 GEOVANI (test code = GEOVANI) Biotin has been reported to cause a negative bias, interpret results relative to patient's use of biotin. Lab Interpretation (test code = 37835-3) [facility] [id number] 14:44:35* Test Item Value Reference Range Interpretation Comme nts FERRITIN (test code = 3607833346) 47.1 ng/mL 18.0-464.0 GEOVANI (test code = GEOVANI) Biotin has been reported to cause a negative bias, interpret results relative to patient's use of biotin. Lab Interpretation (test code = 05905-6) Normal [facility] Confirmation (Lab Only)2023-04-01 11:38:00* Test Item Value Reference Range Interpretation Comme nts ABO & RH (test code = 20) [facility] 11:38:00* Test Item Value Reference Range Interpretation Comme nts ABO & RH (test code = 20) O Positive [facility] [id number] 11:22:35* Test Item Value Reference Range Interpretation Comme nts IRON (test code = 4232097281) 27 ug/dL 50-160 L TIBC (test code = 8049401003) 267 ug/dL 250-410 % FE SAT (test code = 0052088670) 10 % 20-50 L Lab Interpretation (test cod e = 70377-3) Abnormal [facility] [id number] 11:22:35* Test Item Value Reference Range Interpretation Comme nts IRON (test code = 6391854092) 27 ug/dL 50-160 L TIBC (test code = 4406319245) 267 ug/dL 250-410 % FE SAT (test code = 3924023234) 10 % 20-50 L Lab Interpretation (test cod e = 37472-8) Abnormal [facility] Metabolic Panel (NA, K, CL, CO2, GLUCOSE, BUN, CREATININE, CA)2023-04-01 11:01:54* Test Item Value Reference Range Interpretation Comme nts NA (test code = 2048454501) 136 mmol/L 135-145 K (test code = 2530110983) 3.5 mmol/L 3.5-5.0 CL (test code = 9769620327) 102 mmol/L 98-108 CO2 TOTAL (test code = 5821165585) 28 mmol/L 23-31 AGAP (test code = 9055172971) 6 2-16 BUN (test code = 7247753401) 3 mg/dL 7-23 L GLUCOSE (test code = 7691413696) 100 mg/dL 70-110 CREATININE (test code = 1323523381) 0.83 mg/dL 0.60-1.25 CALCIUM (test code = 6899595109) 7.9 mg/dL 8.6-10.6 L eGFR (test code = 6225140169) 113.8 mL/min/1.73m2 GEOVANI (test code = GEOVANI) Association [...] imaging tests). Lab Interpretation (test code = 41285-1) [facility]normal [facility] (ALB,T.PRO,BILI T,BU/BC,ALT,AST,ALK PHOS)2023-04-01 11:01:54* Test Item Value Reference Range Interpretation Comme nts TOTAL BILI (test code = 2318363975) 0.4 mg/dL 0.1-1.1 BILI UNCON (test code = 5013303487) 0.4 mg/dL 0.1-1.1 BILI CONJ (test code = 6666461664) 0.0 mg/dL 0.0-0.3 T PROTEIN (test code = 6141386756) 6.0 g/dL 6.3-8.2 L ALBUMIN (test code = 7480714030) 3.2 g/dL 3.5-5.0 L ALK PHOS (test code = 5551385932) 54 U/L 34-122 ALTv (test code = 1742-6) 12 U/L 5-50 AST(SGOT) (test code = 9614594897) 24 U/L 13-40 Lab Interpretation (test cod e = 43711-2) Abnormal [facility] Zvlkk2000-21-35 11:01:54* Test Item Value Reference Range Interpretation Comme nts MAGNESIUM (test code = 2689054472) 2.0 mg/dL 1.7-2.4 Lab Interpretation (test cod e = 93369-4) Normal [facility] (NA, K, CL, CO2, GLUCOSE, BUN, CREATININE, CA)2023-04-01 11:01:54* Test Item Value Reference Range Interpretation Comme nts NA (test code = 4602263295) 136 mmol/L 135-145 K (test code = 0817988370) 3.5 mmol/L 3.5-5.0 CL (test code = 0036922158) 102 mmol/L 98-108 CO2 TOTAL (test code = 7312560618) 28 mmol/L 23-31 AGAP (test code = 4359464093) 6 2-16 BUN (test code = 5120615589) 3 mg/dL 7-23 L GLUCOSE (test code = 2255148541) 100 mg/dL 70-110 CREATININE (test code = 6627455881) 0.83 mg/dL 0.60-1.25 CALCIUM (test code = 7337880285) 7.9 mg/dL 8.6-10.6 L eGFR (test code = 9431758554) 113.8 mL/min/1.73m2 GEOVANI (test code = GEOVANI) Association [...] imaging tests). Lab Interpretation (test code = 47282-8) Abnormal [facility] (76117) (ALB,T.PRO,BILI T,BU/BC,ALT,AST,ALK PHOS)2023-04-01 11:01:54* Test Item Value Reference Range Interpretation Comme nts TOTAL BILI (test code = 2559163335) 0.4 mg/dL 0.1-1.1 BILI UNCON (test code = 5187979562) 0.4 mg/dL 0.1-1.1 BILI CONJ (test code = 1216324798) 0.0 mg/dL 0.0-0.3 T PROTEIN (test code = 7553181476) 6.0 g/dL 6.3-8.2 L ALBUMIN (test code = 1293039299) 3.2 g/dL 3.5-5.0 L ALK PHOS (test code = 7705795826) 54 U/L 34-122 ALTv (test code = 1742-6) 12 U/L 5-50 AST(SGOT) (test code = 8669196114) 24 U/L 13-40 Lab Interpretation (test cod e = 13240-6) Abnormal [facility] Cphfm7802-07-94 11:01:54* Test Item Value Reference Range Interpretation Comme nts MAGNESIUM (test code = 8288515950) 2.0 mg/dL 1.7-2.4 Lab Interpretation (test cod e = 35046-6) Normal [facility] with Dpzbtamlvsae6118-44-45 10:39:49* Test Item Value Reference Range Interpretation Comme nts WBC (test code = 6690-2) 17.31 See_Comment H [Automated message] The system which generated this result transmitted reference range: 4.20 - 10.70 10*3/?L. The reference range was not used to interpret this result as normal/abnormal. RBC (test code = 789-8) 4.27 See_Comment [Automated message] The system which generated this result transmitted reference range: 4.26 - 5.52 10*6/?L. The reference range was not used to interpret this result as normal/abnormal. HGB (test code = 718-7) 12.6 g/dL 12.2-16.4 HCT (test code = 4544-3) 35.8 % 38.4-49.3 L MCV (test code = 787-2) 83.8 fL 81.7-95.6 MCH (test code = 785-6) 29.5 pg 26.1-32.7 MCHC (test code = 786-4) 35.2 g/dL 31.2-35.0 H RDW-SD (test code = 54772-1) 37.3 fL 38.5-51.6 L RDW-CV (test code = 788-0) 12.3 % 12.1-15.4 PLT (test code = 777-3) 332 See_Comment H [Automated message] The system which generated this result transmitted reference range: 150 - 328 10*3/?L. The reference range was not used to interpret this result as normal/abnormal. MPV (test code = 75985-7) 8.8 fL 9.8-13.0 L NRBC/100 WBC (test code = 0130593163) 0.0 See_Comment [Automated message] The system which generated this result transmitted reference range: 0.0 - 10.0 /100 WBCs. The reference range was not used to interpret this result as normal/abnormal. NRBC x10^3 (test code = 9752274243) See_Comment [Automated message] The system which generated this result transmitted reference range: 10*3/?L. The reference range was not used to interpret this result as normal/abnormal. GRAN MAT (NEUT) % (test code = 770-8) 69.2 % IMM GRAN % (test code = 0880580579) 1.20 % LYMPH % (test code = 736-9) 14.9 % MONO % (test code = 5905-5) 8.5 % EOS % (test code = 713-8) 5.7 % BASO % (test code = 706-2) 0.5 % GRAN MAT x10^3(ANC) (test code = 6209867710) 11.97 10*3/uL 1.99-6.95 H IMM GRAN x10^3 (test code = 9392671376) 0.21 10*3/uL 0.00-0.06 H LYMPH x10^3 (test code = 731-0) 2.58 10*3/uL 1.09-3.23 MONO x10^3 (test code = 742-7) 1.47 10*3/uL 0.36-1.02 H EOS x10^3 (test code = 711-2) 0.99 10*3/uL 0.06-0.53 H BASO x10^3 (test code = 704-7) 0.09 10*3/uL 0.01-0.09 Lab Interpretation (test code = 79212-4) Abnormal [facility] with Rflptnvzfifg4237-32-78 10:39:49* Test Item Value Reference Range Interpretation Comme nts WBC (test code = 6690-2) 17.31 See_Comment H [Automated message] The system which generated this result transmitted reference range: 4.20 - 10.70 10*3/?L. The reference range was not used to interpret this result as normal/abnormal. RBC (test code = 789-8) 4.27 See_Comment [Automated message] The system which generated this result transmitted reference range: 4.26 - 5.52 10*6/?L. The reference range was not used to interpret this result as normal/abnormal. HGB (test code = 718-7) 12.6 g/dL 12.2-16.4 HCT (test code = 4544-3) 35.8 % 38.4-49.3 L MCV (test code = 787-2) 83.8 fL 81.7-95.6 MCH (test code = 785-6) 29.5 pg 26.1-32.7 MCHC (test code = 786-4) 35.2 g/dL 31.2-35.0 H RDW-SD (test code = 79136-6) 37.3 fL 38.5-51.6 L RDW-CV (test code = 788-0) 12.3 % 12.1-15.4 PLT (test code = 777-3) 332 See_Comment H [Automated message] The system which generated this result transmitted reference range: 150 - 328 10*3/?L. The reference range was not used to interpret this result as normal/abnormal. MPV (test code = 72181-9) 8.8 fL 9.8-13.0 L NRBC/100 WBC (test code = 8953876957) 0.0 See_Comment [Automated message] The system which generated this result transmitted reference range: 0.0 - 10.0 /100 WBCs. The reference range was not used to interpret this result as normal/abnormal. NRBC x10^3 (test code = 0623531235) See_Comment [Automated message] The system which generated this result transmitted reference range: 10*3/?L. The reference range was not used to interpret this result as normal/abnormal. GRAN MAT (NEUT) % (test code = 770-8) 69.2 % IMM GRAN % (test code = 3122463504) 1.20 % LYMPH % (test code = 736-9) 14.9 % MONO % (test code = 5905-5) 8.5 % EOS % (test code = 713-8) 5.7 % BASO % (test code = 706-2) 0.5 % GRAN MAT x10^3(ANC) (test code = 9979647304) 11.97 10*3/uL 1.99-6.95 H IMM GRAN x10^3 (test code = 2234730459) 0.21 10*3/uL 0.00-0.06 H LYMPH x10^3 (test code = 731-0) 2.58 10*3/uL 1.09-3.23 MONO x10^3 (test code = 742-7) 1.47 10*3/uL 0.36-1.02 H EOS x10^3 (test code = 711-2) 0.99 10*3/uL 0.06-0.53 H BASO x10^3 (test code = 704-7) 0.09 10*3/uL 0.01-0.09 Lab Interpretation (test code = 37260-7) Abnormal [facility] - ONCE Yskfdmp1089-35-54 10:28:00* Test Item Value Reference Range Interpretation Comme nts ABO & RH (test code = 20) O POSITIVE IAT (test code = 1185) Negative [facility] and Screen - ONCE Iegemue6347-67-82 10:28:00* Test Item Value Reference Range Interpretation Comme nts ABO & RH (test code = 20) O POSITIVE IAT (test code = 1185) Negative [facility] SINGLE (PORTABLE)2020 09:39:00[place] [address] PatientName: PA LAWRENCE MR #: [id number] : 2000 Age/Sex: 20/M Req #: [id number] Adm Physician: Ordered by: Sp Cazares MD Report #: [id number] Location:ER Room/Bed: Procedure: [id number] DX/CHEST SINGLE (PORTABLE) Exam Date: 09/01/20 Exam Time: 900 REPORT STATUS: Signed EXAMINATION: CHEST SINGLE (PORTABLE) INDICATION: Shortness of breath COMPARISON: None FINDINGS: LINES/TUBES:None LUNGS:The lungs are well-inflated. No focal consolidation or pulmonary edema. PLEURA:No pleural effusion or pneumothorax. MEDIASTINUM:The cardiomediastinal silhouette appears normal in size and shape. BONES/SOFT TISSUES:No acute osseous injury. ABDOMEN:No free air under the diaphragm. IMPRESSION: No focal pneumonia or pulmonary edema. Signed by: Ele Dhaliwal MD on 2020 9:39 AM Dictated By: ELE DHALIWAL MD 8 Transcribed By: VETO on 09/01/20938 COPY TO: SP CAZARES MDInfluenza virus A and B antigen identification by qmzalvkqlmqqhpjhuj2642-91-44 08:30:00* Test Item Value Reference Range Interpretation Comme nts Influenza Virus Types A,B An tigen (test code = 65928-4) NEGATIVE NEGATIVE [facility] Notes Date/Time Note Provider Source 2023-07-20 09:07:42 5789-77-56G61:07:42F ormatting of this note might be different from the original.Patient is needing a 30 day supply of Mesalamine due to a discrepancy on the script provided to the Patient assistance program. Script was corrected and resubmitted with corrections. [facility] a [facility] from provider. Ishmael Damian 64971-7Ealskajxp encounter BgzhSW4608-02-74F78:10:58Telephone encounter NoteTXT1.2.840.384215.1.13.104.2.7 .2.959480|[id number] for patient kwoj69318-3KcszZNJXXDRKJV[id number] 77QKVXFASDTCQEQHCFPHBPCN7777-19-45 T09:10:581.2.840.809908.1.72.3.15| 1.2.840.036339.1.13.104.2.7.2.7278 [id number] [facility] 2023-07-10 09:57:20 2399-51-57O66:57:20F ormatting of this note is different from the original.Received 07/05/2023 refill request for: Medication:Requested Prescriptions Pending Prescriptions Disp Refills mesalamine 1.2 gram EC tablet 60 tablet 0 Sig: Take 2 tablets by mouth daily with breakfast. Last filled:06/15/2023Follow up scheduled for : 08/15/2023Last office visit:07/05/2023Refilled approval sent to: Pharmacy: [id number] - [place], [place] - [address] [facility] [address] [address] [place] [address]Nvuai: [phone] Yozdsaok per ID Guidelines [id number] encounter PvelFF8286-30-15Z54:58:26Telephone encounter NoteTXT1.2.840.821305.1.13.104.2.7 .2.748358|[id number] for patient obmc37107-7KumuAE444923249Jcozn N [place] [address] EzcqGbrqfvjjvTxeatpaycMUQJ36786791 05YFHDKMWZWYWVLIKYLIRMZW2625-63-54 T09:58:261.2.840.177576.1.72.3.15| 1.2.840.851535.1.13.104.2.7.2.7278 [id number] Julia Madera [facility] 2023-07-05 18:29:21 8485-16-02S89:29:21F ormatting of this note might be different from the original.Pa Lawrence is a 22 year old malePatient had to cancel his appt because there is an insurance issue.It couldn't be rescheduled until September 07, but his medication is running out.Please refill the mesalamine 1.2 gram EC tablet so that he can make it until his next appointment.[id number] - [place], [place] - [address] [facility] [address] [place] [address] [place] [address]Lpeps: [phone] Ptavhcsxohjhdd signed by Cass Gilmore at 07/05/2023 6:32 PM VLA70129-1Qicpokxgo encounter DwvqON3905-46-06V95:32:00Telephone encounter NoteTXT1.2.840.881980.1.13.104.2.7 .2.294153|[id number] for patient cwty52739-8NvqeXOZUYRRDQJ[address] StreetTXTX[address] 32FKTVCRUYQYTGPSSMRYUYOJ4968-15-05 T18:32:001.2.840.116828.1.72.3.15| 1.2.840.285025.1.13.104.2.7.2.7278 [id number] [facility] 2023-05-11 14:30:00 4984-50-46O61:30:00 Addended by: NAOMI MATTHEW, BESSIE-ORALIA ARZATE on: 06/15/2023 05:04 PM Modules accepted: Orders [id number] EqqiufuhHW7719-99-99R44:04:27Adden dum DocumentTXT1.2.840.621753.1.13.104 .2.7.2.328105|[id number] e for patient [address]onGalvestonTXTX[address] 40LSZMEXSVGXOJAIQSHWRYGD5330-75-85 T17:04:271.2.840.175622.1.72.3.15| 1.2.840.549596.1.13.104.2.7.2.7278 [id number] [facility]
--- NOTE | 2023-11-02 15:02 | EDPHYS ---
Physician Documentation [facility] Name: Orlando Rowland Age: 23 yrs Sex: Male : 2000 Arrival Date: 11/02/2023 Time: 14:46 Bed IW3 Private MD: ED Physician Alvin De Leon HPI: 11/02 15:00 This 23 yrs old Male presents to ER via Ambulatory with complaints of Medication Refill.sp3 15:00 23-year-old male with history of ulcerative colitis was on mesalamine 1.2 g twice daily sp3 presents ED for refill secondary to position change and insurance change in process. Patient has no symptoms and is only here due to his prior prescription running out. ROS completely negative. Historical: - Allergies: 14:54 No Known Allergies; ll1 - PMHx: 14:54 ulcerative colitis; ll1 - PSHx: 14:54 None; ll1 - Immunization history:: Adult Immunizations up to date. - Social history:: Smoking status: Patient denies any tobacco usage or history of. ROS: 15:00 Constitutional: Negative for fever, chills, and weight loss, Eyes: Negative for injury, sp3 pain, redness, and discharge, Neck: Negative for injury, pain, and swelling, Cardiovascular: Negative for chest pain, palpitations, and edema, Respiratory: Negative for shortness of breath, cough, wheezing, and pleuritic chest pain, Abdomen/GI: Negative for abdominal pain, nausea, vomiting, diarrhea, and constipation, Back: Negative for injury and pain, MS/Extremity: Negative for injury and deformity, Skin: Negative for injury, rash, and discoloration, Neuro: Negative for headache, weakness, numbness, tingling, and seizure, 15:00 All other systems are negative, Exam: 15:00 Constitutional: This is a well developed, well nourished patient who is awake, alert, sp3 and in no acute distress. Head/Face: Normocephalic, atraumatic. Eyes: Pupils equal round and reactive to light, extra-ocular motions intact. Lids and lashes normal. Conjunctiva and sclera are non-icteric and not injected. Cornea within normal limits. Periorbital areas with no swelling, redness, or edema. Neck: Trachea midline, no thyromegaly or masses palpated, and no cervical lymphadenopathy. Supple, full range of motion without nuchal rigidity, or vertebral point tenderness. No Meningismus. Chest/axilla: Normal chest wall appearance and motion. Nontender with no deformity. No lesions are appreciated. Cardiovascular: Regular rate and rhythm with a normal S1 and S2. No gallops, murmurs, or rubs. Normal PMI, no JVD. No pulse deficits. Respiratory: Lungs have equal breath sounds bilaterally, clear to auscultation and percussion. No rales, rhonchi or wheezes noted. No increased work of breathing, no retractions or nasal flaring. Abdomen/GI: Soft, non-tender, with normal bowel sounds. No distension or tympany. No guarding or rebound. No evidence of tenderness throughout. Male : Normal genitalia with no discharge or lesions. Skin: Warm, dry with normal turgor. Normal color with no rashes, no lesions, and no evidence of cellulitis. MS/ Extremity: Pulses equal, no cyanosis. Neurovascular intact. Full, normal range of motion. Neuro: Awake and alert, GCS 15, oriented to person, place, time, and situation. Cranial nerves II-XII grossly intact. Motor strength 5/5 in all extremities. Sensory grossly intact. Cerebellar exam normal. Normal gait. Vital Signs: 14:55 BP 103 / 52; Pulse 65; Resp 17; Temp 97.2; Pulse Ox 100% ; Weight 56.25 kg; Height 5 ll1 ft. 7 in. ; Pain 0/10; 14:55 Body Mass Index 19.42 (56.25 kg, 170.18 cm) ll1 14:55 Pain Scale: Adult ll1 MDM: 14:59 Patient medically screened. sp3 15:01 Data reviewed: vital signs, nurses notes. ED course: Prescription given for 30 days and sp3 patient to follow-up with his new GI physician.. Administered Medications: No medications were administered Disposition Summary: 11/02/23 15:01 Discharge Ordered Notes: Location: Home sp3 Condition: Stable sp3 Diagnosis - Ulcerative colitis, medication refill sp3 Followup: sp3 - With: Private Physician - When: Upon discharge from the Emergency Department - Reason: Continuance of care Discharge Instructions: - Discharge Summary Sheet sp3 - Ulcerative Colitis, Adult sp3 Forms: - Medication Reconciliation Form sp3 - Thank You Letter sp3 - Antibiotic Education sp3 - Prescription Opioid Use sp3 - Patient Portal Instructions sp3 - Leadership Thank You Letter sp3 Prescriptions: - mesalamine 1.2 gram Oral tablet, delayed release (enteric coated) - take 1 tablet ORAL route every 12 hours; 60 tablet; Refills: 0, Product sp3 Selection Permitted Signatures: Malou Ruiz RN RN ll1 Alvin De Leon MD MD sp3
--- NOTE | 2023-11-02 15:02 | ER ---
Nurse's Notes [facility] Name: Orlando Rowland Age: 23 yrs Sex: Male : 2000 Arrival Date: 11/02/2023 Time: 14:46 Bed IW3 Private MD: Diagnosis: Ulcerative colitis, medication refill Presentation: 11/02 14:55 Chief complaint: Patient states: Needs Mesalamine 1.2 GM BID 1 months worth until he ll1 can get to his GI appointment. Took his last dose yesterday. Coronavirus screen: Vaccine status: Patient reports being unvaccinated. Client denies travel out of the [place] in the last 14 days. At this time, the client does not indicate any symptoms associated with coronavirus-19. Ebola Screen: Patient denies travel to an Ebola-affected area in the 21 days before illness onset. Initial Sepsis Screen: Does the patient meet any 2 criteria? No. Patient's initial sepsis screen is negative. Does the patient have a suspected source of infection? Yes: Acute abdominal pain. Risk Assessment: Do you want to hurt yourself or someone else? Patient reports no desire to harm self or others. Onset of symptoms was November 02, 2023. 14:55 Method Of Arrival: Ambulatory ll1 14:55 Acuity: KO 5 ll1 Triage Assessment: 14:57 General: Appears in no apparent distress. Behavior is calm, cooperative, appropriate ll1 for age. Pain: Denies pain. GI: needs RX refill. Historical: - Allergies: 14:54 No Known Allergies; ll1 - PMHx: 14:54 ulcerative colitis; ll1 - PSHx: 14:54 None; ll1 - Immunization history:: Adult Immunizations up to date. - Social history:: Smoking status: Patient denies any tobacco usage or history of. Screenin:06 [facility] ED Fall Risk Assessment (Adult) Score/Fall Risk Level 0 - 2 = Low Risk. Abuse ll1 screen: Denies threats or abuse. Nutritional screening: No deficits noted. Tuberculosis screening: No symptoms or risk factors identified. Assessment: 15:06 Reassessment: No changes from previously documented assessment. Patient and/or family ll1 updated on plan of care and expected duration. Pain level reassessed. Patient is alert, oriented x 3, equal unlabored respirations, skin warm/dry/pink. Vital Signs: 14:55 BP 103 / 52; Pulse 65; Resp 17; Temp 97.2; Pulse Ox 100% ; Weight 56.25 kg; Height 5 ll1 ft. 7 in. ; Pain 0/10; 14:55 Body Mass Index 19.42 (56.25 kg, 170.18 cm) ll1 14:55 Pain Scale: Adult ll1 ED Course: 14:48 Patient arrived in ED. im 14:49 Alvin De Leon MD is Attending Physician. sp3 14:54 Arm band placed on. ll1 14:57 Triage completed. ll1 15:06 Patient has correct armband on for positive identification. Provided Education on: n/a. ll1 15:06 No provider procedures requiring assistance completed. Patient did not have IV access ll1 during this emergency room visit. Administered Medications: No medications were administered Medication: 15:06 VIS not applicable for this client. ll1 Outcome: 15:01 Discharge ordered by . sp3 15:06 Discharged to home ambulatory, ll1 15:06 Condition: stable 15:06 Discharge instructions given to patient, Instructed on discharge instructions, follow up and referral plans. medication usage, Demonstrated understanding of instructions, follow-up care, medications, Prescriptions given X 1, 15:07 Patient left the ED. ll1 Signatures: Malou Ruiz RN RN 1 Alvin De Leon MD MD sp3 Jennifer Meadows Corrections: (The following items were deleted from the chart) 15:06 14:55 BP 93 / 52; Pulse 65bpm; Resp 17bpm; Pulse Ox 100%; Temp 97.2F; 56.25 kg; Height ll1 5 ft. 7 in.; BMI: 19.4; Pain 0/10, Adult; ll1
[2023-11-02 15:25] VITALS: BP 103/52; TEMP 97.2; O2SAT 100
== END 2023-11-02 15:07 | disposition home or self-care (01) ==
LOC: ER 14:46
DX: Z76.0 Encounter for issue of repeat prescription (principal)
CPT/HCPCS: 99283

== ENCOUNTER 2024-04-27 17:48 | Emergency (ER) | payer OTHER, SELFPAY ==
--- OUTSIDE RECORDS SUMMARY | 2024-04-27 17:56 | XMS REPORT | Continuity of Care Document ---
Author Name Unknown Address [address] [facility] [place] [address] [facility] th[facility] Address [address] [facility] [address] [place] [address] Care Team Providers Care Manager Of Business Operations Name Role Phone NO, PCP Primary Care Physician Unavailab ORALIA Albrecht Attending Clinician Unavailable Osvaldo Chiang MD Attending Clinicia n Oralia Paz Attending Clinician [phone] Roger Wagner Attending Clinician [phone] Thania, Ang - Db Attending Clinician Unavailable Doctor Unassigned, [place] Attending Clinician U susana Sheets RN, Orquidea Roberts Attending Clinician Unavail Hernan Belle MD Attending Clinician [phone] Pa Ramsey MD Attending Clinician [phone] PA RAMSEY Attending Clinician Unavailleon Hendricks MD, Ria Attending Clinician [phone] Sp Cazares Attending Clinician Pa Paez MD Admitting Clinician [phone] PA RAMSEY Admitting Clinician Shalini hinson Payers Payer Name Policy Type Policy Number Effective Date Expirati on Date Source [place] [id number] 2023 00:00:00 2023 00:00:00 Problems Condition Name Condition Details Condition Category Status Onset Date Resolution Date Last Treatment Date Treating Clinician Comments Source Rectal bleeding Rectal bleeding Disease Active 03-31 00:00: 00 [facility] Colitis with rectal bleeding Colitis with rectal bleeding Disease Active 03-31 00:00: 00 Overview: Formattin g of this note might be different from the original. Added automatic ally from request for surgery [id number] [facility] Shortness of breath Problem Active [facility] Allergies, Adverse Reactions, Alerts Allergy Name Allergy Type Status Severity Reaction(s) Onset Date Inactive Date Treating Clinician Comments Source No Known Allergie s DA Active [facility] NO KNOWN ALLERGIE S Drug Class Active [facility] Social History Social Habit Start Date Stop Date Quantity Comments Source History SDOH Alcohol Std Drinks [facility] History SDOH Alcohol Binge [facility] History SDOH Social Connections Get Together [facility] History SDOH Social Connections Latter Day [facility] History SDOH Social Connections Membership [facility] History SDOH Social Connections Meetings [facility] History SDOH Food Scarcity [facility] Gender identity [facility] Sexual orientation U [facility] Alcohol intake 2023-06-15 00:00:00 2023-06-15 00:00:00 3 /d [facility] History SDOH Alcohol Frequency 2023-04-04 00:00:00 2023-04-04 00:00:00 1 [facility] History SDOH Social Connections Phone 2023-04-04 00:00:00 2023-04-04 00:00:00 5 [facility] History SDOH Social Connections Living 2023-04-04 00:00:00 2023-04-04 00:00:00 7 [facility] History SDOH Physical Activity DPW 2023-04-04 00:00:00 2023-04-04 00:00:00 3 [facility] History SDOH Physical Activity MPS 2023-04-04 00:00:00 2023-04-04 00:00:00 3 [facility] History SDOH Financial 2023-04-04 00:00:00 2023-04-04 00:00:00 5 [facility] History SDOH Food Worry 2023-04-04 00:00:00 2023-04-04 00:00:00 1 [facility] History SDOH Transport Med 2023-04-04 00:00:00 2023-04-04 00:00:00 2 [facility] History SDOH Transport Non-Med 2023-04-04 00:00:00 2023-04-04 00:00:00 2 [facility] History SDOH Housing Unable to Pay 2023-04-04 00:00:00 2023-04-04 00:00:00 2 [facility] History SDOH Housing Places Lived 2023-04-04 00:00:00 2023-04-04 00:00:00 1 [facility] History SDOH Housing Homeless Last Year 2023-04-04 00:00:00 2023-04-04 00:00:00 2 [facility] Exposure to SARS-CoV-2 (event) 2023-03-24 00:00:00 2023-04-03 12:55:00 Not sure [facility] History of Social function 2023-04-03 00:00:00 2023-04-03 00:00:00 [facility] Tobacco use and exposure 2023-03-31 00:00:00 2023-03-31 00:00:00 Smokeless tobacco non-user [facility] Sex Assigned At 2000 00:00:00 2000 00:00:00 [facility] Smoking Status Start Date Stop Date Source Never smoked tobacco [facility] Medications Ordered Medication Name Filled Medication Name Start Date Stop Date Current Medication? Ordering Clinician Indication Dosage Frequency Signature (SIG) Comments Components Source mesalamine 1.2 gram EC tablet 2022-11 00:00: 00 Yes [id number] 2.4g Take 2 tablets by mouth daily with breakfast. [facility] mesalamine 1.2 gram EC tablet - 00:00: 00 10-16 00:00 :00 No [id number] 2.4g Take 2 tablets by mouth daily with breakfast. [facility] mesalamine 1.2 gram EC tablet 8-24 00:00: 00 Yes [id number] 2.4g Take 2 tablets by mouth daily with breakfast. [facility] mesalamine 1.2 gram EC tablet 8-14 00:00: 00 Yes [id number] 2.4g Take 2 tablets by mouth daily with breakfast. [facility] mesalamine 1.2 gram EC tablet 7-20 00:00: 00 Yes [id number] 2.4g Take 2 tablets by mouth daily with breakfast. [facility] pantoprazol e 40 mg EC tablet 04-09 00:00: 00 06-09 04:59 :00 No [id number] 40mg Take 1 tablet by mouth in the morning for 60 days. [facility] predniSONE (DELTASONE) tablet 60 mg 04-08 14:00: 00 04-20 13:59 :00 No 60mg 60 mg, Oral, DAILY, 12 doses, First dose on Mon04/08/23 at 0900, Last dose on Mon04/19/23 at 0900, Routine [facility] predniSONE 20 mg tablet 04-08 00:00: 00 06-20 04:59 :00 No [id number] Take 3 tablets by mouth daily for 7 days, THEN 2 tablets daily for 30 days, THEN 1.5 tablets daily for 7 days, THEN 1 tablet daily for 28 days. [facility] mesalamine 1.2 gram EC tablet 04-08 00:00: 00 06-15 00:00 :00 No [id number] 2.4g Take 2 tablets by mouth daily with breakfast. [facility] melatonin (MELATIN) tablet 3 mg 12 02:00: 00 Yes 3mg 3 mg, Oral, QHS, First dose (after last modificati on) on Mon04/06/23 at 2100, Until Discontinu ed, Routine [facility] methylpredn isolone sod succ (SOLU-MEDRO L) injection 60 mg 04-04 21:00: 00 04-06 20:43 :00 No 60mg 60 mg, Intravenou s, Q24H, 3 doses, First dose on Mon04/04/23 at 1600, Last dose on Mon04/06/23 at 1600, 2 mL [facility] pantoprazol e (PROTONIX) EC tablet 40 mg 04-04 16:00: 00 Yes 40mg 40 mg, Oral, DAILY, First dose on Mon04/04/23 at 1100, Until Discontinu ed, Routine [facility] enoxaparin (LOVENOX) injection 40 mg 04-04 05:00: 00 Yes 40mg 40 mg, Subcutaneo us, Q24H, First dose (after last modificati on) on Mon04/04/23 at 0000, Until Discontinu ed, Routine [facility] simethicone (GAS RELIEF (SIMETHICON E)) 40 mg/0.6 mL drops 04-03 22:12: 00 04-03 23:40 :00 No PRN, Starting on Mon04/03/23 at 1712, Until Mon04/03/23 at 1840, Routine, Intra-op [facility] bisacodyL (DULCOLAX) tablet 10 mg 04-02 18:00: 00 04-02 18:03 :00 No 10mg 10 mg, Oral, PRE-PROCED URE ONCE, 1 dose, Starting on Mon04/02/23 at 1300, Until Discontinu ed, Routine, Bowel Prep, Colonoscop y [facility] ondansetron (ZOFRAN (PF)) injection 4 mg 04-02 12:40: 42 04-04 12:17 :10 No 4mg 4 mg, Slow IV Push, Q6HPRN, Starting on Mon04/02/23 at 0740, Until Mon04/04/23 at 0717, Routine, Nausea and Vomiting (N/V) [facility] ciprofloxac in HCl (CIPRO) tablet 500 mg 04-01 23:00: 00 04-04 15:51 :55 No 500mg 500 mg, Oral, Q12HA2, 20 doses, First dose on Mon04/01/23 at 1800, Last dose on Mon04/11/23 at 0600, BREN
Re ason for Anti-Infec tive: Documented Infection< br>Documen james Infection Site: Abdominal< br>Duratio n of Therapy: 10 days [facility] enoxaparin (LOVENOX) injection 40 mg 04-01 20:15: 00 04-02 20:56 :13 No 40mg 40 mg, Subcutaneo us, Q24H, First dose on Mon04/01/23 at 1515, Until Discontinu ed, Routine [facility] metroNIDAZO LE (FLAGYL) tablet 500 mg 04-01 19:00: 00 04-04 15:51 :55 No 500mg 500 mg, Oral, Q8H, 30 doses, First dose on Mon04/01/23 at 1400, Last dose on Mon04/11/23 at 0600, Routine
Reason for Anti-Infec tive: Documented Infection< br>Documen james Infection Site: Abdominal< br>Duratio n of Therapy: 10 days [facility] lactated ringers IV infusion 1,000 mL 04-01 13:30: 00 04-02 01:00 :00 No 1000mL at 999 mL/hr, 1,000 mL, Intravenou s, ONCE, 1 dose, On Mon04/01/23 at 0830, Routine [facility] ciprofloxac in in 5 % [...] Abdominal< br>Duratio n of therapy: 5 days [facility] metroNIDAZO LE in NaCl (iso-os) [...] Abdominal< br>Duratio n of therapy: 5 days [facility] lactated ringers IV infusion 1,000 mL 04-01 04:30: 00 04-01 08:10 :00 No 1000mL at 999 mL/hr, 1,000 mL, Intravenou s, ONCE, 1 dose, On Mon03/31/23 at 2330, Routine [facility] acetaminoph en (TYLENOL) tablet 650 mg 04-01 03:33: 45 Yes 650mg 650 mg, Oral, Q6HPRN, Starting on Mon03/31/23 at 2233, Until Discontinu ed, Routine, Pain (scale 1-3) [facility] NaCl 0.9% (NS) IV infusion 1,000 mL 03-31 22:45: 00 04-04 12:16 :26 No 1000mL at 150 mL/hr, IV Infusion, CONTINUOUS , Starting on Mon03/31/23 at 1745, Until Mon04/04/23 at 0716, Routine [facility] lactobacill us acidophilus tablet 1 mg 03-31 22:45: 00 03-31 22:49 :00 No 1mg 1 mg, Oral, ONCE NOW, 1 dose, On Mon03/31/23 at 1745, BREN [facility] ciprofloxac in in 5 % dextrose (CIPRO) piggyback 400 mg 03-31 22:30: 00 04-01 01:02 :00 No 400mg 400 mg, IV Piggyback, ONCE, 1 dose, On Mon03/31/23 at 1730, Administer over 60 Minutes, 200 mL
Reas on for Anti-Infec tive: Empiric Therapy for Suspected Infection< br>Empiric Therapy Site: Abdominal< br>Duratio n of therapy: 72 hours [facility] metroNIDAZO LE (FLAGYL) tablet 500 mg 03-31 21:45: 00 03-31 22:49 :00 No 500mg 500 mg, Oral, ONCE, 1 dose, On Mon03/31/23 at 1645, BREN
Re ason for Anti-Infec tive: Empiric Therapy for Suspected Infection< br>Empiric Therapy Site: Abdominal< br>Duratio n of therapy: 72 hours [facility] iopamidol (ISOVUE 370-500 mL) injection 75 mL 03-31 21:45: 00 03-31 21:45 :00 No [id number] 75mL 75 mL, Intravenou s, ONCE, 1 dose, On Mon03/31/23 at 1645, Routine [facility] NaCl 0.9% (NS) bolus infusion 1,000 mL 03-31 20:30: 00 03-31 22:50 :00 No 1000mL at 999 mL/hr, 1,000 mL, IV Piggyback, ONCE, 1 dose, On Mon03/31/23 at 1530, STAT [facility] Immunizations Ordered Immunization Name Filled Immunization Name Date Status Comments Source DTAP 2018-05-09 00:00:00 Completed [facility] DTAP 2018-05-09 00:00:00 Completed [facility] DTAP 2018-05-09 00:00:00 Completed [facility] DTAP 2018-05-09 00:00:00 Completed [facility] DTAP 2018-05-09 00:00:00 Completed [facility] DTAP 2018-05-09 00:00:00 Completed [facility] DTAP 2018-05-09 00:00:00 Completed [facility] DTAP Unknown Completed [facility] DTAP Unknown Completed [facility] DTAP Unknown Completed [facility] DTAP Unknown Completed [facility] DTAP Unknown Completed [facility] DTAP Unknown Completed [facility] DTAP Unknown Completed [facility] Vital Signs Vital Name Observation Time Observation Value Comments S ource Systolic blood pressure 2023-05-11 19:48:00 126 mm[Hg] [facility] Diastolic blood pressure 2023-05-11 19:48:00 68 mm[Hg] [facility] Heart rate 2023-05-11 19:48:00 73 /min Unive [facility] Body temperature 2023-05-11 19:48:00 36.78 Megha [facility] Respiratory rate 2023-05-11 19:48:00 16 /min [facility] Body height 2023-05-11 19:48:00 173.7 cm [facility] Body weight 2023-05-11 19:48:00 55.43 kg [facility] BMI 2023-05-11 19:48:00 18.36 kg/m2 [facility] Oxygen saturation in Arterial blood by Pulse oximetry 2023-05-11 19:48:00 99 /min [facility] Systolic blood pressure 2023-04-08 17:11:00 100 mm[Hg] [facility] Diastolic blood pressure 2023-04-08 17:11:00 59 mm[Hg] [facility] Heart rate 2023-04-08 17:11:00 88 /min [facility] Body temperature 2023-04-08 17:11:00 36.56 Megha [facility] Respiratory rate 2023-04-08 17:11:00 18 /min [facility] Oxygen saturation in Arterial blood by Pulse oximetry 2023-04-08 17:11:00 96 /min [facility] Body height 2023-04-01 02:43:00 170.2 cm [facility] Body weight 2023-04-01 02:43:00 55.339 kg [facility] BMI 2023-04-01 02:43:00 19.11 kg/m2 [facility] Systolic blood pressure 2023-04-03 16:09:00 102 mm[Hg] [facility] Diastolic blood pressure 2023-04-03 16:09:00 66 mm[Hg] [facility] Heart rate 2023-04-03 16:09:00 94 /min [facility] Body temperature 2023-04-03 16:09:00 36.67 Megha [facility] Respiratory rate 2023-04-03 16:09:00 18 /min [facility] Oxygen saturation in Arterial blood by Pulse oximetry 2023-04-03 16:09:00 98 /min Raymond o f [facility] Body height 2023-04-01 02:43:00 170.2 cm [facility] Body weight 2023-04-01 02:43:00 55.339 kg [facility] BMI 2023-04-01 02:43:00 19.11 kg/m2 [facility] BMI (Body Mass Index) 2020 08:22:00 21.0 kg/m2 [facility] Weight 2020 08:22:00 130 [lb_av] [facility] Procedures Procedure Date / Time Performed Performing Clinician Source COMP. METABOLIC PANEL ([id number]) 2023-05-11 21:01:00 [facility] 2023-05-11 21:01:00 [facility] ASSIGNMENT OF BENEFITS 2023-05-11 19:27:07 Docto r Unassigned, [place] [facility] MAGNESIUM 2023-04-08 10:10:00 Jeny Pena [facility] BASIC METABOLIC PANEL (NA, K, CL, CO2, GLUCOSE, BUN, CREATININE, CA) 2023-04-08 10:10:00 Jeny Pena [facility] CBC WITH DIFF 2023-04-08 10:10:00 [facility]y [facility] MAGNESIUM 2023-04-06 09:13:00 Moises [facility] HEPATIC FUNCTION PANEL ([id number]) (ALB,T.PRO,BILI T,BU/BC,ALT,AST,ALK PHOS) 2023-04-06 09:13:00 Moises [facility] BASIC METABOLIC PANEL (NA, K, CL, CO2, GLUCOSE, BUN, CREATININE, CA) 2023-04-06 09:13:00 Moises [facility] CBC WITH DIFF 2023-04-06 09:13:00 Moises [facility] CBC WITH DIFF 2023-04-05 09:33:00 De Leon [facility] MAGNESIUM 2023-04-05 09:14:00 [facility] (NA, K, CL, CO2, GLUCOSE, BUN, CREATININE, CA) 2023-04-05 09:14:00 Moises [facility] HEPATITIS B SURFACE ANTIBODY 2023-04-04 16:43:00 Moises [facility] HBC ANTIBODY (IGM & IGG) 2023-04-04 16:43:00 Moises [facility] HEPATITIS C VIRUS (HCV) BY QUANTITATIVE NAAT 2023-04-04 16:43[facility] 2023-04-04 16:43:00 Moises [facility] QFT TB2 MINUS NIL 2023-04-04 16:43:00 Moises [facility] MAGNESIUM 2023-04-04 10:29:[facility] (NA, K, CL, CO2, GLUCOSE, BUN, CREATININE, CA) 2023-04-04 10:29:00 Moises [facility] CBC WITH DIFF 2023-04-04 10:29:00 Moises [facility] HEPATITIS B SURFACE ANTIGEN 2023-04-04 10:29:00 Moises [facility] MAGNESIUM 2023-04-04 10:29:00 Moises [facility] BASIC METABOLIC PANEL (NA, K, CL, CO2, GLUCOSE, BUN, CREATININE, CA) 2023-04-04 10:29:00 Moises [facility] CBC WITH DIFF 2023-04-04 10:29[facility]TIGEN 2023-04-04 10:29:00 Moises [facility] SURGICAL PATHOLOGY EXAM 2023-04-03 22:36:00 EladioRafaelakua perdue [facility] COLONOSCOPY 2023-04-03 21:47:00 [facility] 2023-04-03 21:47:00 [facility] (ENDO) 2023-04-03 20:43:38 Jose M Valera [facility] COLONOSCOPY (ENDO) 2023-04-03 20:43:38 Jose M Valera [facility] MAGNESIUM 2023-04-03 09:33:00 Moises [facility] BASIC METABOLIC PANEL (NA, K, CL, CO2, GLUCOSE, BUN, CREATININE, CA) 2023-04-03 09:33:00 Moises [facility] CBC WITH DIFF 2023-04-03 09:33:00 Moises [facility] MAGNESIUM 2023-04-03 09:33:00 Moises [facility] BASIC METABOLIC PANEL (NA, K, CL, CO2, GLUCOSE, BUN, CREATININE, CA) 2023-04-03 09:33:00 Moises [facility] CBC WITH DIFF 2023-04-03 09:33:00 Moises [facility] CBC WITH DIFF 2023-04-02 10:56:00 [facility] CBC WITH DIFF 2023-04-02 10:56:00 [facility] CELIAC SCREEN 2023-04-01 16:47:00 [facility] LAB ONLY CELIAC SCREEN IGA 2023-04-01 16:47:00 Jean [facility] CELIAC SCREEN 2023-04-01 16:47:00 [facility] LAB ONLY CELIAC SCREEN IGA 2023-04-01 16:47:00 Jean [facility] BLOOD CULTURE SCREEN 2023-04-01 16:21:00 Jean [facility] BLOOD CULTURE SCREEN 2023-04-01 16:21:00 Jean [facility] ABORH CONFIRMATION (LAB ONLY) 2023-04-01 11:31:00 RileyjoseGood [facility] ABORH CONFIRMATION (LAB ONLY) 2023-04-01 11:31:00 [facility] 2023-04-01 10:21:00 Dann Sepulveda [facility] FERRITIN SERUM 2023-04-01 10:21:00 Dann [facility] C-REACTIVE PROTEIN 2023-04-01 10:21:00 Dann Sepulveda [facility] HEPATIC FUNCTION PANEL ([id number]) (ALB,T.PRO,BILI T,BU/BC,ALT,AST,ALK PHOS) 2023-04-01 10:21:00 Derick [facility] BASIC METABOLIC PANEL (NA, K, CL, CO2, GLUCOSE, BUN, CREATININE, CA) 2023-04-01 10:21:00 Dann Sepulveda [facility] IRON PANEL 2023-04-01 10:21:00 Dann Sepulveda [facility] CBC WITH DIFF 2023-04-01 10:21:00 Dann Sepulveda [facility] HB ABO GROUPING 2023-04-01 10:21:00 Dann Sepulveda [facility] MAGNESIUM 2023-04-01 10:21:00 Dann Sepulveda [facility] FERRITIN SERUM 2023-04-01 10:21:00 Dann [facility] C-REACTIVE PROTEIN 2023-04-01 10:21:00 Dann Sepulveda [facility] HEPATIC FUNCTION PANEL ([id number]) (ALB,T.PRO,BILI T,BU/BC,ALT,AST,ALK PHOS) 2023-04-01 10:21:00 Derick [facility] BASIC METABOLIC PANEL (NA, K, CL, CO2, GLUCOSE, BUN, CREATININE, CA) 2023-04-01 10:21:00 Derick [facility] IRON PANEL 2023-04-01 10:21:00 Derick[facility] 2023-04-01 10:21:00 Dann Sepulveda [facility] HB ABO GROUPING 2023-04-01 10:21:00 Dann Sepulveda [facility] CLOSTRIDIUM DIFFICILE TOXIN 2023-04-01 04:15:00 Dann Sepulveda [facility] OVA AND PARASITE EXAM FECAL 2023-04-01 04:15:00 Dann Sepulveda [facility] GIARDIA CRYPTOSPORIDIUM AG SCR 2023-04-01 04:15:00 Derick [facility] CALPROTECTIN, FECAL 2023-04-01 04:15:00 Dann Sepulveda [facility] FECAL PATHOGENS BY PCR 2023-04-01 04:15:00 Oswald Sepulveda [facility] CLOSTRIDIUM DIFFICILE TOXIN 2023-04-01 04:15:00 Derick [facility] GIARDIA CRYPTOSPORIDIUM AG SCR 2023-04-01 04:15:00 Dann Sepulveda [facility] FECAL PATHOGENS BY PCR 2023-04-01 04:15:00 Oswald Sepulveda [facility] ABDOMEN PELVIS W CONTRAST 2023-03-31 20:54:24 Hernan Mcneill [facility] CT ABDOMEN PELVIS W CONTRAST 2023-03-31 20:54:24 Hernan Mcneill [facility] COMP. METABOLIC PANEL ([id number]) 2023-03-31 20:19:00 Hernan Mcneill [facility] SEDIMENTATION RATE 2023-03-31 20:19:00 Nehemias Mcneill [facility] CBC WITH DIFF 2023-03-31 20:19:00 Hernan Mcneill [facility] PROTHROMBIN TIME / INR 2023-03-31 20:19:00 Symone Mcneill [facility] HIV 1/2 AG-AB WITH REFLEX 2023-03-31 20:19:00 Nasri Sepulveda [facility] COMP. METABOLIC PANEL ([id number]) 2023-03-31 20:19:00 Hernan Mcneill [facility] SEDIMENTATION RATE 2023-03-31 20:19:00 Nehemias Mcneill [facility] CBC WITH DIFF 2023-03-31 20:19:00 [facility] / [facility] 2023-03-31 20:19:00 Symone Mcneill [facility] HIV 1/2 AG-AB WITH REFLEX 2023-03-31 20:19:00 Nasir Sepulveda [facility] NOTICE OF PRIVACY PRACTICES 2023-03-31 18:47:15 Doctor Unassigned, [place] [facility] NOTICE OF PRIVACY PRACTICES 2023-03-31 18:47:15 Doctor Unassigned, [place] [facility] CONSENT/REFUSAL FOR DIAGNOSIS AND TREATMENT 2023-03-31 18:46:20 Doctor Unassigned, [place] [facility] CONSENT/REFUSAL FOR DIAGNOSIS AND TREATMENT 2023-03-31 18:46:20 Doctor Unassigned, [place] [facility] HOSPITAL ADMISSION 2023-03-31 05:01:00 Doctor Un assigned, [place] [facility] ENDOSCOPY PROCEDURE DOCUMENTATION 2023-03-31 05:01:00 Doctor Unassigned, [place] [facility] Plan of Care Planned Activity Planned Date Details Comments Source Instructions Dyspnea [facility] Encounters Start Date/Time End Date/Time Encounter Type Admission Type Attending Clinicians Care Facility Care Department Encounter ID Source 2020 08:19:00 Inpatient [facility] [id number] [facility] 2023-11-16 14:30:00 2023-11-16 14:30:00 Outpatient ORALIA JEWELL [facility] [id number] [facility] 2023-10-26 08:00:00 2023-10-26 08:00:00 Outpatient R [facility] [id number] [facility] 2023-10-16 00:00:00 2023-10-16 00:00:00 Telephone PostOsvaldo bhakta [facility] [id number] [facility] 2023-10-16 00:00:00 2023-10-16 00:00:00 [facility] [id number] [facility] 2023-10-16 00:00:00 2023-10-16 00:00:[facility] [id number] [facility] 2023-10-16 00:00:00 2023-10-16 00:00:00 Refjodie [facility] [id number] [facility] 2023-10-06 00:00:00 2023-10-06 00:00:00 [facility] [id number] [facility] 2023-09-07 09:00:00 2023-09-07 09:00:00 Outpatient R [facility] [id number] [facility] 2023-08-18 00:00:00 2023-08-18 00:00:00 Telephone [facility] [id number] [facility] 2023-08-15 11:00:00 2023-08-15 11:00:00 Outpatient R [facility] [id number] [facility] 2023-08-14 00:00:00 2023-08-14 00:00:00 Refill Anene, [facility] [place] [facility] 1..840.114 350.1.13.10 4.2.7.2.686 [id number] [id number] [facility] 2023-07-20 00:00:00 2023-07-20 00:00:00 [facility] 1.840.114 350.1.13.10 4.2.7.2.686 [id number] [facility] 2023-07-06 09:00:00 2023-07-06 09:00:00 Outpatient R [facility] [id number] [facility] 2023-07-05 00:00:00 2023-07-05 00:00:00 [facility] 1.840.114 350.1.13.10 4.2.7.2.686 [id number] [id number] [facility] 2023-05-18 00:00:00 2023-05-18 00:00:00 [facility] 1..840.114 350.1.13.10 4.2.7.2.686 [id number] [facility] 2023-05-11 16:00:00 2023-05-11 16:15:00 Cutter Inspector Visit Lab, Ronan Eid Naomi [facility] [place] CAROL[facility] 1..840.114 350.1.13.10 4.2.7.2.686 [id number] [facility] 2023-05-11 14:30:00 2023-05-11 15:43:12 [facility] [id number] [facility] 2023-05-11 14:30:00 2023-05-11 15:43:12 Office Visit Oralia Salgado [facility] 1.2.840.114 350.1.13.10 4.2.7.2.686 [id number] [facility] 2023-05-11 00:00:00 2023-05-11 00:00:00 Orders Only Doctor Unassigned, [place] [facility] 1.2.840.114 350.1.13.10 4.2.7.2.686 [id number] [id number] [facility] 2023-04-10 00:00:00 2023-04-10 00:00:00 Transition of Care Orquidea Sheets ERIKA CASTRO 1.2.840.114 350.1.13.10 4.2.7.2.686 [id number] [facility] 2023-03-31 14:08:00 2023-04-08 18:18:00 Hospital Encounter Hernan Mcneill Michael [facility] 1.2840.114 350.1.13.10 4.2.7.2.686 [id number] [facility] 2023-03-31 14:08:00 2023-04-08 18:18:00 Inpatient PA [facility] [id number] [facility] 2023-04-03 16:09:00 2023-04-03 17:21:00 Surgery Ria Hendricks [email or web address] 1.2840.114 350.1.13.10 4.2.7.2.686 [id number] [id number] [facility] 2020 08:50:00 2020 09:50:00 Departed Emergency Room 1 Sp [facility] [id number] [facility] Results Test Description Test Time Test Comments Results Result Co mments Source [facility] WITH [id number] 06:57:57* Test Item Value Reference Range Interpretation [...] 33.3 g/dL 31.2-35.0 RDW-SD (test code = 69038-1) 47.6 fL 38.5-51.6 RDW-CV (test code = 788-0) 14.4 % 12.1-15.4 PLT (test code = 777-3) 323 See_Comment [Automated message] The system which generated this result transmitted reference range: 150 - 328 10*3/?L. The reference range was not used to interpret this result as normal/abnormal. MPV (test code = 46096-8) 9.4 fL 9.8-13.0 L NRBC/100 WBC (test code = 6460280846) 0.0 See_Comment [Automated message] The system which generated this result transmitted reference range: 0.0 - 10.0 /100 WBCs. The reference range was not used to interpret this result as normal/abnormal. NRBC x10^3 (test code = 7989166310) See_Comment [Automated message] The system which generated this result transmitted reference range: 10*3/?L. The reference range was not used to interpret this result as normal/abnormal. GRAN MAT (NEUT) % (test code = 770-8) 86.2 % IMM GRAN % (test code = 7831247772) 1.10 % LYMPH % (test code = 736-9) 9.4 % MONO % (test code = 5905-5) 3.0 % EOS % (test code = 713-8) 0.1 % BASO % (test code = 706-2) 0.2 % GRAN MAT x10^3(ANC) (test code = 5803400564) 10.96 10*3/uL 1.99-6.95 H IMM GRAN x10^3 (test code = 6619634164) 0.14 10*3/uL 0.00-0.06 H LYMPH x10^3 (test code = 731-0) 1.20 10*3/uL 1.09-3.23 MONO x10^3 (test code = 742-7) 0.38 10*3/uL 0.36-1.02 EOS x10^3 (test code = 711-2) 0.06-0.53 L BASO x10^3 (test code = 704-7) 0.01-0.09 Lab Interpretation (test code = 76069-2) [facility] [id number] 15:05:59* Test Item Value Reference Range Interpretation Comme nts QFT Gold Plus Result (test code = 67755-6) Negative Negative GEOVANI (test code = GEOVANI) [...] advised. For further information, refer to http://www.cdc.gov/mmw r/pdf/rr/ew9225.pdf and https://doi.org/10.109 3/rema/uah249. Lab Interpretation (test code = 42868-4) Normal [facility] WITH [id number] 10:03:34* Test Item Value Reference Range Interpretation [...] 34.4 g/dL 31.2-35.0 RDW-SD (test code = 18871-5) 37.8 fL 38.5-51.6 L RDW-CV (test code = 788-0) 12.5 % 12.1-15.4 PLT (test code = 777-3) 403 See_Comment H [Automated message] The system which generated this result transmitted reference range: 150 - 328 10*3/?L. The reference range was not used to interpret this result as normal/abnormal. MPV (test code = 72844-1) 8.7 fL 9.8-13.0 L NRBC/100 WBC (test code = 8121847927) 0.0 See_Comment [Automated message] The system which generated this result transmitted reference range: 0.0 - 10.0 /100 WBCs. The reference range was not used to interpret this result as normal/abnormal. NRBC x10^3 (test code = 7175743213) See_Comment [Automated message] The system which generated this result transmitted reference range: 10*3/?L. The reference range was not used to interpret this result as normal/abnormal. GRAN MAT (NEUT) % (test code = 770-8) 85.7 % IMM GRAN % (test code = 3495697637) 3.00 % LYMPH % (test code = 736-9) 6.7 % MONO % (test code = 5905-5) 4.0 % EOS % (test code = 713-8) 0.1 % BASO % (test code = 706-2) 0.5 % GRAN MAT x10^3(ANC) (test code = 6149666628) 12.93 10*3/uL 1.99-6.95 H IMM GRAN x10^3 (test code = 3642986376) 0.46 10*3/uL 0.00-0.06 H LYMPH x10^3 (test code = 731-0) 1.01 10*3/uL 1.09-3.23 L MONO x10^3 (test code = 742-7) 0.61 10*3/uL 0.36-1.02 EOS x10^3 (test code = 711-2) 0.06-0.53 L BASO x10^3 (test code = 704-7) 0.07 10*3/uL 0.01-0.09 BANDS (test code = 8593483617) MARKED INCREASED A Lab Interpretation (test code = 56023-7) [facility] (ALB,T.PRO,BILI T,BU/BC,ALT,AST,ALK PHOS)2023-04-06 09:54:25* Test Item Value Reference Range Interpretation Comme nts TOTAL BILI (test code = 9534319422) 0.3 mg/dL 0.1-1.1 BILI UNCON (test code = 8126024659) 0.2 mg/dL 0.1-1.1 BILI CONJ (test code = 4767103440) 0.0 mg/dL 0.0-0.3 T PROTEIN (test code = 8325626873) 6.2 g/dL 6.3-8.2 L ALBUMIN (test code = 2960244126) 3.4 g/dL 3.5-5.0 L ALK PHOS (test code = 0339533723) 54 U/L 34-122 ALTv (test code = 1742-6) 20 U/L 5-50 AST(SGOT) (test code = 5163080887) 33 U/L 13-40 Lab Interpretation (test cod e = 75529-2) [facility] 09:54:25* Test Item Value Reference Range Interpretation Comme nts MAGNESIUM (test code = 6375886784) 2.1 mg/dL 1.7-2.4 Lab Interpretation (test cod e = 84478-0) [facility] (NA, K, CL, CO2, GLUCOSE, BUN, CREATININE, CA)2023-04-06 09:54:25* Test Item Value Reference Range Interpretation Comme nts NA (test code = 8346407552) 135 mmol/L 135-145 K (test code = 2705157285) 3.8 mmol/L 3.5-5.0 CL (test code = 0954711500) 98 mmol/L 98-108 CO2 TOTAL (test code = 2168536908) 28 mmol/L 23-31 AGAP (test code = 8853119959) 9 2-16 BUN (test code = 3895573803) 6 mg/dL 7-23 L GLUCOSE (test code = 0497869430) 165 mg/dL 70-110 H CREATININE (test code = 5874714894) 0.63 mg/dL 0.60-1.25 CALCIUM (test code = 7139432374) 8.1 mg/dL 8.6-10.6 L eGFR (test code = 2626378735) 156.5 mL/min/1.73m2 GEOVANI (test code = GEOVANI) [...] imaging tests). Lab Interpretation (test code = 50381-0) [facility]normal [facility] (HCV[facility] BY QUANTITATIVE NAAT 2023-04-05 19:02:52* Test Item Value Reference Range Interpretation Comme nts HCV Quantitative Interpretation (test code = 2079682362) Not Detected Not Detected GEOVANI (test code = GEOVANI) The Aptima HCV Dwight nt Dx assay is an FDA-approved real-time cutter plastics rolls-mediated amplification (TMA) test used for both detection [...] clinically indicated. Lab Interpretation (test code = 85060-2) Normal [facility] [id number] 14:37:42* Test Item Value Reference Range Interpretation Comme nts Case Report (test code = 4458217599) Surgical Pathology ?Case: [id number] ? Authorizing Provider: ?Ria Hendricks MD ? Collected: ? 04/03/2023 1736 ?Ordering Location: ? ? GI Endoscopy OR Department Received: ?04/04/2023 1257 ?Pathologist: ? Sofy Veronica MD ? Specimen: ? ?COLON, Colon BX eval for IBD ? Final Diagnosis (test code = 1167032106) [id number] uZzEwMzNcZnRuYmpcdWMxIH tccnRmMVxlcGljMTAyMDZcY N1fpRfdcZu5pRurKRXmdtQ7 hFQbFYdmd6txKNX7r6zjyod tEMPmPCzzFv3iyYKhmKczNx NuXNPtZNe3bJ60CEZuzO0jd GAcIRz9JWTycNOccgCxAfNw AGBhpMPhmYF2LHHjRQ0mmiu eKSziVMdvIKOuioQ7SGWeoL ShD1KxKAYvNL9algioXAD7T FpdQAWuDMU0ThYaKTAik2Ro umi6UoFfrKCdNSdipQXrwtn ukfSmNVRyimDUOfNYK7xFGv wgQklPUFNZOlxwYXIgICAgL CNNC0eDQleGBH6YX96TCKYH TCCHYZOTCTAGGKEKZskrB6B OAKKfQITHU1HTB5OEXTASFy wFTTXCBiNLMVESF9KVXcFPM YGWJMEQN4XTAJ5ASHodrXZi ICAgICAgIEFORCBJTkNSRUF MAUWzCMfGHFlWWDqQL99TQ2 oEOIXlTW8SHOVIOTQCXI9ML EgWGIsYZQtCLLOIHe9GHbuG OHKFE04AHEUORO4SCQdGTFl gXHBhciAgICAgICBDSFJPTk gJDKAZSDqDERJcI3xNXBIFD 4ZACqWAETCUE4HWLmzZNQvb YXIgICAgLSBOTyBEWVNQTEF TSUEgSURFTlRJRklFRFxwYX WssXWztUbsuoPtJIxju5ZgU 2YyMjAwMFxhbnNpXGRlZmxh fkngBEPdFIR0heNuFZBpBKf qSUMmGWnzCx9zhXQiuDviLw LcCCSdn2gxnrNPMLkoZcVkP 416DQMjRHemd9udy5OyMXXe hLGxh7N7AYZBhqcywWs7a0w aKzVpHcO1qMUvTDvyI7rbfx XkfEDqO2BjqZNugBb6lNjyW 33bl0G5AnibG0wlFAIvDNDj F3QbXV0mOPOuGsa9QPM9KVA 8OFWtMVMvJ5TxAL1fHBXkoG JlJRb3y0jneKwsNETeRMQ7n 5cuERlkygD4QB7vgu2tbNg2 n7boyqBpJIIlZWGooDCEVBT sH8UtmBqbKy2nwBe5wNggRv icPEO2Uhd4CE5zsk95wfh9e MwjTJYrhxlfCeL7DSsyRLIn hyktAPh8UTvqEOIbiUW6RFW dwOSfN4KmDRTdGL0ugqt0TA D0JYumBWVsYmB0KOXmaKFwW WXoaNukKPetc334ORJ0TuFw II3uW0Jdg2R1cY1ofZIbXIS qyYFkJdRaODSmps2woVAtNT krd1ZiUEQ4gmU0fKUdbMDvE GDbJG09Uuaid2TlLjjzKGZ9 MUMufoHja9Zsj7dxEgLybsN uT0nkV9McOFGtAISnPPZpCa HjxtJbj9Jat1MxvLJbdHi1i 6hdTLWcTMEioLfjx9nzFUS2 QZMkC4X9wWBnl6ndZVdwQRH arPB4seG4QIJpbMFrK7JdhG 6lJBDbET1ieja6q3xsAER4J BjkCYCnMcL8wpD2FXWyaQBo OFCkpWidWVieb362OSJ4TmT mDQNqw2OkN0NpaEyqX42tvQ wrQ98yVKQbiPbvrO4ieZqsj Z2hVcMoArInFRxlnDkozLRq blxmMVxmczIwXGxhbmcxMDM vDAjoY1szClLaRLPtcDahED xek1RiUCRiMYGoAuexqcUpO NMckxCEPXlfmeHwgSNsz01t YWxseSByZXZpZXdlZCBhbGw cm2LpW2tqWK4nN5GweSLayj QcurOcMVyuJHNii0f5wPFte Jlci9WlxDYwZT11gpAdANYa GVK3WQKpw1tpIV34xaksCvI gpE79otIrosThTIXsr8ynW4 tfdSTqy2Xun6QupeNgCQttb 0QbIJ5ktNVucrdsvME7FINp aSXjxxKqlyL8dHkrAUEamP8 tpM4dfJiyoV8xCnLuBvEnMO ssGW2eZJVkD5atxOHtWBKtB SKbF8xvAlAjvC8djDvgKpwn egL9ESBwmf69 Clinical Information (test code = 8316449487) Pa Sultana Janett is a 22 year old male1. Colon BX eval for IBD Gross Description (test code = 2182290380) a9rjmYJqTNIbjNHGYOFcGDZ qEY3sfOnlqPv6gOolUJIjdg R0yCVvTFeha4quMSA1m8uak fYDGctzCYKxXD9wOOfnEZEe MM7iNfPiSEJdJwKkGBWjrER ukbJhSsChIWZttAGutGC5DY NpTM4yjkoyMVvxUArgCTZza yU1VKUkdKAsZ1KjFJFwBY9q xoicPEG6BYSSFoqdTw7fjCN ibHtcZjFcZmNoYXJzZXQwXG ApcFfsHONrPUb8cO8VRcbrS GL0WRKREzswUakazHxlp1Ow dCBcXHNnIFxcaWQgNTEwMDA pOAqkFyWXJiDfFsE8RQQ6CX AxOzO8VSg1NVEPAHKlKnc9K YRkPLU9VGi0FSHjHK0vHFim fIAbWQvcBxcyBQbfH311FXn hEXJdR6McB0NqQYctHwEwDX pgZECxPBPnSVlvFMMuH3XQU ELiBnS7SpW2LqBnGOf6TMen R2OQQLPqNVXvMeVnMWO6CzZ 5NBc9UNWDYs6cUOxvSNXoWK I7WIH4BMufGWCuEVLvGyBwA TQvJYVeTKxtqWCpJZ6wsJpd RQKzAE8RFCTmINgfKHNrMpX yY9AED4wZDD8cQSapYFFwZT pccGFyZCANClxwbGFpblxmc fTvQFm2fqWwFIXaRjZtMJSz S57td6JVz6DgSH2NSKp8iaF jdtnldL7zMMQtqbToHPnAbS YkyM9nfyZPHJguJJPuI1Xhx mQcJXunMLUyqu0xjBauBUZz KKWxdXMwNIrvtTnchYV5wSP zqMIzHX3nBPSSKEGvkR7kVL TyIVWeJZQoE33mh41aQFYae O0kJIOCXMA0JLjlPp8eAOfP XKSnVO3hTEQewjRea4FtUQ9 lEQ82vKHfkYdaLIllB1r6HR YlkqGtheTfC7WjMQKalFnli 2AkZEMvYRohIA78qtSbEP1f LTAuNCBjbSBpbiBncmVhdGV lnEIagD1fovNun17gTWEaDL R8GEUfFXW5HETkKaZuoSRpf tNjF4pbIOhzpQUgGePwOJhn IHNwZWNpbWVuIGlzIGZpbHR upbAoDDCfmr09B2geFSBzgX 5cr6hkWrPwVBYlXJFtcEZit FY3SAGtfV5byF38pcSiijVK LL6lnVWyNI9COXGntpHBScR tbXlsZWUgWmFuZywgUEEgc3 Q6YYGgjKyoUIDiBCfLpTlbL SPTZ0ntsHTcIHajXOADONPY P9PpHRQsbpNUIxcrPOUmXJl we7GyMUxdrHbfFJAxVgPdRL fbLOBbN90mz8IGg3Kkb9nib Zmrw5UbiRFkXQ10PBSmaAYk XYN9WK9fnRylJAVpELdrvKJ yZCANCn0= Disclaimer (test code = 1936716254) z9zzzHXmQLScg7cwJWGoiDI uZzEwMzNcZnRuYmpcdWMxIH chtpDjVKcie5WvT1AvUwLhT FxhbnNpXGRlZmxhbmcxMDMz UJY3zsJrAHElTNbnJQFnGJv rBl4wkYSwmLxoAqCvAGUxz1 urcmGHODhpWoRiW009MDOuG Mpyo8pnw5MyWOIhwSMav2C0 YJPBmgusnRz0kFsuX83iz9B 4TnuzA8bpYBLpMHOgD5BwTF 9dTLMqNyq5XMH7FXC3HIXpL JAfJ1UaRT7hQTVkiAIlZOd8 e4wymHixULIbZBU3t7paGRx ckcKgOJ4avq9zjHw5o8htcu SfSMQjCOCyiFBEKJQoG5Bni QhmVe4xeGo3jFzxPuzqHZH7 Wke9IE3fus18ukc4yAadPUG mdrmfWhI9CNtxLMMtaekiWD f5BXooCRVbhFM5BFPnkEJgF 0MhLJWoWZ6poae8VHB6GTlm XMNaPaN8EMPvtHHeQNUccDu nWLiom313GAA0FiIsDS7lW6 Zgz5D1wW2ljHQeHFCqfRLdM bGeEDUhsu0wiKEoNFfmz0Vl OKM6xmB6kQAupMGoCUTqUP9 2Rlxle9EmCkwhd7ItN10xuV Z2LDjzn3kcHG2oFiT7tjDpS Vzrd1ggvC5dQxX7WCggNX0m KU0zDXLqlK7iivuvJFKpAjN dugvvIDHshBdvniUvCl3txA gcGAJ5VEtjF6kmwC8lPoY4R AlcD8yxhT8iBKd5IVrcsAJ5 LUOzdU8pVC6nqngjn5qhESf zRHqdWTYhjsP4faM3KXButV WyZ9GpdT5kYNVcQP1fyalos 1qhNUT0QNxiGKLcINT8DnFy QNWul9Btuuc3YbZhu1WlqEA iCRjfP75ka366WCBbavMcX9 xwbGFpblxwbGFpblxmMFxmc oO0PMTvlkErg6SqIJAjUFA2 ICtzGWvkeMUxJBNjnPrdr6v fV1XulSFgYGJgZDjyUHPrGE ZzMjBcbGFuZzEwMzNcaGlja PsoIOjuLbWnNMAoEFohK8qd JmIeP7PoSSHgRbMzyZNsX6u gEPsqfcIvGEJldpBokYE1WJ cwU9l3LUTfhoGmpOr5pkOoC jNmSTFnVLY6UYeqiDEpDTQa r0NdmmwypDUkCi1wqTWfPGL jtH4dOKTlHWIzQTteDC5btG y6NFDFmPSmhDSeQyVZAAAhR G92ocVaGYMQczihc6V0XQnh XMElb3VztMErL5uid6JvVIZ cs65jKW8tk6V7t5scYNM3GQ 0nw0EuRUYloNHcbYCxVTMpy 0Meejewv8LpAMZkfyRyb5Ip ZCBhbmQgaXRzIHBlcmZvcm1 qwtKaMAUfIRBlR6NqerxviF blbbTnFOCxvw2eqoEzGVN3Z YFXPNFpBUUcj2XiwP5usGQX REQ2rMOlwx6lplHQcFYfNNJ aby44NAMeQH7vU7cxHWLrUX HczzOnwZXrl0OtRCRltHZ6i EYkCG4DIpKBi84dEXOfTJGK esJjPYXhyAonmEC1ypF8oU9 uIChGREEpLlx+IFRoZSBGRE RqHJ4okcRkd4KorfCtaHmfP KFezMRul6CiqHYot1HejEcv a4QvaQTqtUCzNW2oIQQckbk lOBHtXCQBDvTKKGAqtnR4a2 QqQAQxZFUjDTB6xVsdtwn0U IGyhQ3uDQSbA8hsyxbtSAfj SQHta3DboA0mrIBGmTRkw5F nbEXccNMVqBPoWQ8rtuWbIL hWHUpCBOS1lzLjDNEce6GbQ QbbN9edQ15vvPijpOh7zPH8 ERG8sF1xIvv+IFxwYXJccGF yIEFwcHJvcHJpYXRlbHkgcm HfT3VunlAfvQ3zyMQvewEuO E1bRK4aQ4W9wRTcSEVvvoOg l3ijUScwjlVsUnUlxeVuEJD sVLqiOAWmn2EwEEvyEJU1VW lucyBpbmNsdWRpbmcgSCZFL NJRjHMuxRNiZKA3VQdhtwMp itCeYL6xaJ6hyJcykQ8caBL olSA4pbpaDPJiIURmqNicIW NwEP9wnGGmYLBoftUQhCpsr NZsdQ0uR5CqLDWwEDXjfk3x WXJvcB4xKVqry9JtukmjTBO eFZLjYBRdjyIjlq4hWWSozN TMXT2ZSBwsmQDwh0EzbgWnT 2pPSOA9WUNgPoCmPlrfFDDk kSTulMTeOKQafa70NLHfxC7 idXxxBDCbwP0xgM5hrZaqlJ 9gWzXiWiBtSQnkLF6jWRIdQ 1mdgGLuWSKvEPWmQ1muTyTw zX0pdOldPJwuRbRdRaIpBMh fBUV9mS== Embedded Images (test code = 9212070574) [facility] [id number] 14:35:43* Test Item Value Reference Range Interpretation Comme nts Extra Tube (test code = 2961493711) Received in Lab [facility] [id number] 10:45:28* Test Item Value Reference Range Interpretation [...] g/dL 31.2-35.0 H RDW-SD (test code = 11964-2) 37.9 fL 38.5-51.6 L RDW-CV (test code = 788-0) 12.4 % 12.1-15.4 PLT (test code = 777-3) 403 See_Comment H [Automated message] The system which generated this result transmitted reference range: 150 - 328 10*3/?L. The reference range was not used to interpret this result as normal/abnormal. MPV (test code = 29782-6) 8.8 fL 9.8-13.0 L NRBC/100 WBC (test code = 3896193170) 0.0 See_Comment [Automated message] The system which generated this result transmitted reference range: 0.0 - 10.0 /100 WBCs. The reference range was not used to interpret this result as normal/abnormal. NRBC x10^3 (test code = 1701526857) See_Comment [Automated message] The system which generated this result transmitted reference range: 10*3/?L. The reference range was not used to interpret this result as normal/abnormal. GRAN MAT (NEUT) % (test code = 770-8) 90.9 % IMM GRAN % (test code = 4926376729) 1.60 % LYMPH % (test code = 736-9) 4.3 % MONO % (test code = 5905-5) 2.9 % EOS % (test code = 713-8) 0.0 % BASO % (test code = 706-2) 0.3 % GRAN MAT x10^3(ANC) (test code = 1194447955) 20.14 10*3/uL 1.99-6.95 H IMM GRAN x10^3 (test code = 3723973978) 0.36 10*3/uL 0.00-0.06 H LYMPH x10^3 (test code = 731-0) 0.95 10*3/uL 1.09-3.23 L MONO x10^3 (test code = 742-7) 0.65 10*3/uL 0.36-1.02 EOS x10^3 (test code = 711-2) 0.06-0.53 L BASO x10^3 (test code = 704-7) 0.06 10*3/uL 0.01-0.09 BANDS (test code = 4625540232) MARKED INCREASED A Lab Interpretation (test code = 99579-4) [facility] Test Item Value Reference Range Interpretation Comme nts MAGNESIUM (test code = 0544932303) 2.1 mg/dL 1.7-2.4 Lab Interpretation (test cod e = 48613-1) [facility] (NA, K, CL, CO2, GLUCOSE, BUN, CREATININE, CA)2023-04-05 09:58:18* Test Item Value Reference Range Interpretation Comme nts NA (test code = 6669070763) 133 mmol/L 135-145 L K (test code = 5346467044) 4.0 mmol/L 3.5-5.0 Slight hemolysis CL (test code = 8470014900) 100 mmol/L 98-108 CO2 TOTAL (test code = 1294974236) 26 mmol/L 23-31 AGAP (test code = 0515058249) 7 2-16 BUN (test code = 8423180239) 3 mg/dL 7-23 L Slight hemolysis GLUCOSE (test code = 1159775608) 178 mg/dL 70-110 H CREATININE (test code = 2448724278) 0.58 mg/dL 0.60-1.25 L CALCIUM (test code = 7094104827) 8.1 mg/dL 8.6-10.6 L eGFR (test code = 4471472933) 172.1 mL/min/1.73m2 GEOVANI (test code = GEOVANI) [...] imaging tests). Lab Interpretation (test code = 19506-7) Abnormal [facility] B SURFACE [id number] 22:55:30* Test Item Value Reference Range Interpretation Comme [facility] HBsAB (test code = 1391844502) Negative HBsAb Semi-Quantitative (test code = 7687535768) 0.10 mIU/mL GEOVANI (test code = GEOVANI) Interpretation: ?Hepatitis B Surface Antibody ? Negative - Patient is considered to be not immune to infection with HBV. ? ? Positive - Anti-HBs detected at greater than or equal to 12 mIU/mL. ?Patient is considered to be immune to infection with HBV. ? [facility] 22:55:30* Test Item Value Reference Range Interpretation Comme [facility] HBC (test code = 5445409999) Negative HBC Semi-Quantitative (test code = 2879599643) 3.15 [facility] B SURFACE [id number] 15:42:58 * Test Item Value Reference Range Interpretation Comme [facility] HBsAg Semi-Quantitative (melvin t code = 5195-3) 0.05 Negative [facility] B SURFACE [id number] 15:42:58 * Test Item Value Reference Range Interpretation Comme [facility] HBsAg Semi-Quantitative (melvin t code = 5195-3) 0.[address] [facility] METABOLIC PANEL (NA, K, CL, CO2, GLUCOSE, BUN, CREATININE, CA)2023-04-04 11:32:42* Test Item Value Reference Range Interpretation Comme [facility] NA (test code = 7682844372) 132 mmol/L 135-145 L K (test code = 1126488482) 3.5 mmol/L 3.5-5.0 Slight hemolysis CL (test code = 2882151146) 100 mmol/L 98-108 CO2 TOTAL (test code = 9783713612) 24 mmol/L 23-31 AGAP (test code = 9505727076) 8 2-16 BUN (test code = 0790037099) 7-23 L Slight hemolysis GLUCOSE (test code = 9641930108) 88 mg/dL 70-110 CREATININE (test code = 4714462842) 0.73 mg/dL 0.60-1.25 CALCIUM (test code = 4989859503) 7.7 mg/dL 8.6-10.6 L eGFR (test code = 7788269064) 132.0 mL/min/1.73m2 GEOVANI (test code = GEOVANI) [...] imaging tests). Lab Interpretation (test code = 42561-9) Abnormal [facility] METABOLIC PANEL (NA, K, CL, CO2, GLUCOSE, BUN, CREATININE, CA)2023-04-04 11:32:42* Test Item Value Reference Range Interpretation Comme nts NA (test code = 9863793924) 132 mmol/L 135-145 L K (test code = 7785449544) 3.5 mmol/L 3.5-5.0 Slight hemolysis CL (test code = 6327398505) 100 mmol/L 98-108 CO2 TOTAL (test code = 8100432277) 24 mmol/L 23-31 AGAP (test code = 9595676515) 8 2-16 BUN (test code = 4101014896) 7-23 L Slight hemolysis GLUCOSE (test code = 7010233244) 88 mg/dL 70-110 CREATININE (test code = 7519717172) 0.73 mg/dL 0.60-1.25 CALCIUM (test code = 9665519524) 7.7 mg/dL 8.6-10.6 L eGFR (test code = 7291148244) 132.0 mL/min/1.73m2 GEOVANI (test code = GEOVANI) [...] imaging tests). Lab Interpretation (test code = 68642-1) [facility]* Test Item Value Reference Range Interpretation Comme nts MAGNESIUM (test code = 3034018352) 1.7 mg/dL 1.7-2.4 Lab Interpretation (test cod e = 23702-9) [facility]:23:35* Test Item Value Reference Range Interpretation Comme nts MAGNESIUM (test code = 7531107925) 1.7 mg/dL 1.7-2.4 Lab Interpretation (test cod e = 90342-3) Normal [facility] WITH [id number] 10:55:07* Test Item Value Reference Range Interpretation [...] g/dL 31.2-35.0 H RDW-SD (test code = 36717-0) 37.7 fL 38.5-51.6 L RDW-CV (test code = 788-0) 12.5 % 12.1-15.4 PLT (test code = 777-3) 329 See_Comment H [Automated message] The system which generated this result transmitted reference range: 150 - 328 10*3/?L. The reference range was not used to interpret this result as normal/abnormal. MPV (test code = 44642-8) 8.6 fL 9.8-13.0 L NRBC/100 WBC (test code = 0188613217) 0.0 See_Comment [Automated message] The system which generated this result transmitted reference range: 0.0 - 10.0 /100 WBCs. The reference range was not used to interpret this result as normal/abnormal. NRBC x10^3 (test code = 5559510643) See_Comment [Automated message] The system which generated this result transmitted reference range: 10*3/?L. The reference range was not used to interpret this result as normal/abnormal. GRAN MAT (NEUT) % (test code = 770-8) 72.5 % IMM GRAN % (test code = 8986789747) 1.60 % LYMPH % (test code = 736-9) 11.5 % MONO % (test code = 5905-5) 6.8 % EOS % (test code = 713-8) 6.9 % BASO % (test code = 706-2) 0.7 % GRAN MAT x10^3(ANC) (test code = 5779086462) 13.10 10*3/uL 1.99-6.95 H IMM GRAN x10^3 (test code = 7698237383) 0.29 10*3/uL 0.00-0.06 H LYMPH x10^3 (test code = 731-0) 2.08 10*3/uL 1.09-3.23 MONO x10^3 (test code = 742-7) 1.23 10*3/uL 0.36-1.02 H EOS x10^3 (test code = 711-2) 1.25 10*3/uL 0.06-0.53 H BASO x10^3 (test code = 704-7) 0.13 10*3/uL 0.01-0.09 H Lab Interpretation (test code = 84947-0) Abnormal [facility] WITH [id number] 10:55:07* Test Item Value Reference Range Interpretation [...] g/dL 31.2-35.0 H RDW-SD (test code = 55849-9) 37.7 fL 38.5-51.6 L RDW-CV (test code = 788-0) 12.5 % 12.1-15.4 PLT (test code = 777-3) 329 See_Comment H [Automated message] The system which generated this result transmitted reference range: 150 - 328 10*3/?L. The reference range was not used to interpret this result as normal/abnormal. MPV (test code = 45976-5) 8.6 fL 9.8-13.0 L NRBC/100 WBC (test code = 5041330235) 0.0 See_Comment [Automated message] The system which generated this result transmitted reference range: 0.0 - 10.0 /100 WBCs. The reference range was not used to interpret this result as normal/abnormal. NRBC x10^3 (test code = 3031978480) See_Comment [Automated message] The system which generated this result transmitted reference range: 10*3/?L. The reference range was not used to interpret this result as normal/abnormal. GRAN MAT (NEUT) % (test code = 770-8) 72.5 % IMM GRAN % (test code = 7474196992) 1.60 % LYMPH % (test code = 736-9) 11.5 % MONO % (test code = 5905-5) 6.8 % EOS % (test code = 713-8) 6.9 % BASO % (test code = 706-2) 0.7 % GRAN MAT x10^3(ANC) (test code = 3786577716) 13.10 10*3/uL 1.99-6.95 H IMM GRAN x10^3 (test code = 0554370086) 0.29 10*3/uL 0.00-0.06 H LYMPH x10^3 (test code = 731-0) 2.08 10*3/uL 1.09-3.23 MONO x10^3 (test code = 742-7) 1.23 10*3/uL 0.36-1.02 H EOS x10^3 (test code = 711-2) 1.25 10*3/uL 0.06-0.53 H BASO x10^3 (test code = 704-7) 0.13 10*3/uL 0.01-0.09 H Lab Interpretation (test code = 50039-7) Abnormal [facility] METABOLIC PANEL (NA, K, CL, CO2, GLUCOSE, BUN, CREATININE, CA)2023-04-03 10:31:41* Test Item Value Reference Range Interpretation Comme nts NA (test code = 3254249753) 136 mmol/L 135-145 K (test code = 0630821116) 3.5 mmol/L 3.5-5.0 CL (test code = 6711975143) 104 mmol/L 98-108 CO2 TOTAL (test code = 8928249839) 22 mmol/L 23-31 L AGAP (test code = 8031563077) 10 2-16 BUN (test code = 7907764117) 7-23 L GLUCOSE (test code = 5414895717) 101 mg/dL 70-110 CREATININE (test code = 5349392207) 0.77 mg/dL 0.60-1.25 CALCIUM (test code = 4774694417) 8.4 mg/dL 8.6-10.6 L eGFR (test code = 4891534377) 124.1 mL/min/1.73m2 GEOVANI (test code = GEOVANI) [...] imaging tests). Lab Interpretation (test code = 44470-5) Abnormal [facility] METABOLIC PANEL (NA, K, CL, CO2, GLUCOSE, BUN, CREATININE, CA)2023-04-03 10:31:41* Test Item Value Reference Range Interpretation Comme nts NA (test code = 9637915538) 136 mmol/L 135-145 K (test code = 5678083791) 3.5 mmol/L 3.5-5.0 CL (test code = 6267104529) 104 mmol/L 98-108 CO2 TOTAL (test code = 3472283186) 22 mmol/L 23-31 L AGAP (test code = 3971443686) 10 2-16 BUN (test code = 8407236863) 7-23 L GLUCOSE (test code = 0002276176) 101 mg/dL 70-110 CREATININE (test code = 4707810625) 0.77 mg/dL 0.60-1.25 CALCIUM (test code = 6190921191) 8.4 mg/dL 8.6-10.6 L eGFR (test code = 3917294100) 124.1 mL/min/1.73m2 GEOVANI (test code = GEOVANI) [...] imaging tests). Lab Interpretation (test code = 77817-7) Abnormal [facility] WITH GNPL6996-49-41 10:27:32* Test Item Value Reference Range Interpretation [...] 34.9 g/dL 31.2-35.0 RDW-SD (test code = 00317-6) 37.5 fL 38.5-51.6 L RDW-CV (test code = 788-0) 12.3 % 12.1-15.4 PLT (test code = 777-3) 406 See_Comment H [Automated message] The system which generated this result transmitted reference range: 150 - 328 10*3/?L. The reference range was not used to interpret this result as normal/abnormal. MPV (test code = 97855-6) 8.6 fL 9.8-13.0 L NRBC/100 WBC (test code = 3168868442) 0.0 See_Comment [Automated message] The system which generated this result transmitted reference range: 0.0 - 10.0 /100 WBCs. The reference range was not used to interpret this result as normal/abnormal. NRBC x10^3 (test code = 6155056508) See_Comment [Automated message] The system which generated this result transmitted reference range: 10*3/?L. The reference range was not used to interpret this result as normal/abnormal. GRAN MAT (NEUT) % (test code = 770-8) 72.4 % IMM GRAN % (test code = 1799231357) 1.70 % LYMPH % (test code = 736-9) 13.6 % MONO % (test code = 5905-5) 6.5 % EOS % (test code = 713-8) 5.3 % BASO % (test code = 706-2) 0.5 % GRAN MAT x10^3(ANC) (test code = 9990466232) 18.08 10*3/uL 1.99-6.95 H IMM GRAN x10^3 (test code = 2375602679) 0.42 10*3/uL 0.00-0.06 H LYMPH x10^3 (test code = 731-0) 3.39 10*3/uL 1.09-3.23 H MONO x10^3 (test code = 742-7) 1.61 10*3/uL 0.36-1.02 H EOS x10^3 (test code = 711-2) 1.31 10*3/uL 0.06-0.53 H BASO x10^3 (test code = 704-7) 0.13 10*3/uL 0.01-0.09 H BANDS (test code = 3416581050) Increased A Lab Interpretation (test code = 11250-3) Abnormal [facility] WITH SACG0358-90-40 10:27:32* Test Item Value Reference Range Interpretation [...] 34.9 g/dL 31.2-35.0 RDW-SD (test code = 12599-6) 37.5 fL 38.5-51.6 L RDW-CV (test code = 788-0) 12.3 % 12.1-15.4 PLT (test code = 777-3) 406 See_Comment H [Automated message] The system which generated this result transmitted reference range: 150 - 328 10*3/?L. The reference range was not used to interpret this result as normal/abnormal. MPV (test code = 23085-4) 8.6 fL 9.8-13.0 L NRBC/100 WBC (test code = 4683260606) 0.0 See_Comment [Automated message] The system which generated this result transmitted reference range: 0.0 - 10.0 /100 WBCs. The reference range was not used to interpret this result as normal/abnormal. NRBC x10^3 (test code = 3642526710) See_Comment [Automated message] The system which generated this result transmitted reference range: 10*3/?L. The reference range was not used to interpret this result as normal/abnormal. GRAN MAT (NEUT) % (test code = 770-8) 72.4 % IMM GRAN % (test code = 1941245459) 1.70 % LYMPH % (test code = 736-9) 13.6 % MONO % (test code = 5905-5) 6.5 % EOS % (test code = 713-8) 5.3 % BASO % (test code = 706-2) 0.5 % GRAN MAT x10^3(ANC) (test code = 6610601833) 18.08 10*3/uL 1.99-6.95 H IMM GRAN x10^3 (test code = 3783948154) 0.42 10*3/uL 0.00-0.06 H LYMPH x10^3 (test code = 731-0) 3.39 10*3/uL 1.09-3.23 H MONO x10^3 (test code = 742-7) 1.61 10*3/uL 0.36-1.02 H EOS x10^3 (test code = 711-2) 1.31 10*3/uL 0.06-0.53 H BASO x10^3 (test code = 704-7) 0.13 10*3/uL 0.01-0.09 H BANDS (test code = 9356649649) Increased A Lab Interpretation (test code = 96221-3) [facility]:27* Test Item Value Reference Range Interpretation Comme nts MAGNESIUM (test code = 9672779948) 1.7 mg/dL 1.7-2.4 Lab Interpretation (test cod e = 61754-5) [facility] 10:27:27* Test Item Value Reference Range Interpretation Comme nts MAGNESIUM (test code = 4274596849) 1.7 mg/dL 1.7-2.4 Lab Interpretation (test cod e = 13609-5) [facility] NIYV1081-19-67 11:14:08* Test Item Value Reference Range Interpretation [...] 34.0 g/dL 31.2-35.0 RDW-SD (test code = 37002-8) 38.0 fL 38.5-51.6 L RDW-CV (test code = 788-0) 12.5 % 12.1-15.4 PLT (test code = 777-3) 328 See_Comment [Automated messa ge] The system which generated this result transmitted reference range: 150 - 328 10*3/?L. The reference range was not used to interpret this result as normal/abnormal. MPV (test code = 08922-8) 9.2 fL 9.8-13.0 L NRBC/100 WBC (test code = 7080828286) 0.0 See_Comment [Automated me ssage] The system which generated this result transmitted reference range: 0.0 - 10.0 /100 WBCs. The reference range was not used to interpret this result as normal/abnormal. NRBC x10^3 (test code = 7552198874) See_Comment [Automated messa ge] The system which generated this result transmitted reference range: 10*3/?L. The reference range was not used to interpret this result as normal/abnormal. GRAN MAT (NEUT) % (test code = 770-8) 58.9 % IMM GRAN % (test code = 4169411390) 1.90 % LYMPH % (test code = 736-9) 20.1 % MONO % (test code = 5905-5) 8.8 % EOS % (test code = 713-8) 9.6 % BASO % (test code = 706-2) 0.7 % GRAN MAT x10^3(ANC) (test code = 0603556371) 7.34 10*3/uL 1.99-6.95 H IMM GRAN x10^3 (test code = 3382506172) 0.24 10*3/uL 0.00-0.06 H LYMPH x10^3 (test code = 731-0) 2.51 10*3/uL 1.09-3.23 MONO x10^3 (test code = 742-7) 1.10 10*3/uL 0.36-1.02 H EOS x10^3 (test code = 711-2) 1.20 10*3/uL 0.06-0.53 H BASO x10^3 (test code = 704-7) 0.09 10*3/uL 0.01-0.09 Lab Interpretation (test code = 26898-2) Abnormal [facility] WITH XCMO2206-71-12 11:14:08* Test Item Value Reference Range Interpretation [...] 34.0 g/dL 31.2-35.0 RDW-SD (test code = 58714-4) 38.0 fL 38.5-51.6 L RDW-CV (test code = 788-0) 12.5 % 12.1-15.4 PLT (test code = 777-3) 328 See_Comment [Automated messa ge] The system which generated this result transmitted reference range: 150 - 328 10*3/?L. The reference range was not used to interpret this result as normal/abnormal. MPV (test code = 57214-3) 9.2 fL 9.8-13.0 L NRBC/100 WBC (test code = 4520911287) 0.0 See_Comment [Automated Kiddie Kist ssage] The system which generated this result transmitted reference range: 0.0 - 10.0 /100 WBCs. The reference range was not used to interpret this result as normal/abnormal. NRBC x10^3 (test code = 0980169495) See_Comment [Automated [employer] ge] The system which generated this result transmitted reference range: 10*3/?L. The reference range was not used to interpret this result as normal/abnormal. GRAN MAT (NEUT) % (test code = 770-8) 58.9 % IMM GRAN % (test code = 8846593768) 1.90 % LYMPH % (test code = 736-9) 20.1 % MONO % (test code = 5905-5) 8.8 % EOS % (test code = 713-8) 9.6 % BASO % (test code = 706-2) 0.7 % GRAN MAT x10^3(ANC) (test code = 4862009425) 7.34 10*3/uL 1.99-6.95 H IMM GRAN x10^3 (test code = 3746644726) 0.24 10*3/uL 0.00-0.06 H LYMPH x10^3 (test code = 731-0) 2.51 10*3/uL 1.09-3.23 MONO x10^3 (test code = 742-7) 1.10 10*3/uL 0.36-1.02 H EOS x10^3 (test code = 711-2) 1.20 10*3/uL 0.06-0.53 H BASO x10^3 (test code = 704-7) 0.09 10*3/uL 0.01-0.09 Lab Interpretation (test code = 05779-1) [facility] BJPHWVI7958-81-31 17:11:35* Test Item Value Reference Range Interpretation Comme nts CRP (test code = 5783173363) 2.1 mg/dL <=0.8 H Lab Interpretation (test cod e = 30697-2) Abnormal [facility]-REACTIVE UUQKTGH7521-87-73 17:11:35* Test Item Value Reference Range Interpretation Comme nts CRP (test code = 4130093549) 2.1 mg/dL <=0.8 H Lab Interpretation (test cod e = 69515-7) [facility] Ubuft3179-00-27 14:44:35* Test Item Value Reference Range Interpretation Comme nts FERRITIN (test code = 8963577632) 47.1 ng/mL 18.0-464.0 GEOVANI (test code = GEOVANI) Biotin has been reported to cause a negative bias, interpret results relative to patient's use of biotin. Lab Interpretation (test code = 32332-9) [facility] Alffq9921-78-41 14:44:35* Test Item Value Reference Range Interpretation Comme nts FERRITIN (test code = 6927869203) 47.1 ng/mL 18.0-464.0 GEOVANI (test code = GEOVANI) Biotin has been reported to cause a negative bias, interpret results relative to patient's use of biotin. Lab Interpretation (test code = 88719-0) Normal [facility] Confirmation (Lab Only)2023-04-01 11:38:00* Test Item Value Reference Range Interpretation Comme nts ABO & RH (test code = 20) O Positive [facility] Only)2023-04-01 11:38:00* Test Item Value Reference Range Interpretation Comme nts ABO & RH (test code = 20) O Positive [facility] Myqpf7254-82-79 11:22:35* Test Item Value Reference Range Interpretation Comme nts IRON (test code = 5075284504) 27 ug/dL 50-160 L TIBC (test code = 2811208950) 267 ug/dL 250-410 % FE SAT (test code = 4750354220) 10 % 20-50 L Lab Interpretation (test cod e = 08109-1) Abnormal [facility] Eenen2656-42-23 11:22:35* Test Item Value Reference Range Interpretation Comme nts IRON (test code = 1257848500) 27 ug/dL 50-160 L TIBC (test code = 8443646698) 267 ug/dL 250-410 % FE SAT (test code = 5796075328) 10 % 20-50 L Lab Interpretation (test cod e = 60984-9) Abnormal [facility] Metabolic Panel (NA, K, CL, CO2, GLUCOSE, BUN, CREATININE, CA)2023-04-01 11:01:54* Test Item Value Reference Range Interpretation Comme nts NA (test code = 8461224266) 136 mmol/L 135-145 K (test code = 8567523023) 3.5 mmol/L 3.5-5.0 CL (test code = 0400407011) 102 mmol/L 98-108 CO2 TOTAL (test code = 2263870182) 28 mmol/L 23-31 AGAP (test code = 8774152902) 6 2-16 BUN (test code = 0424991787) 3 mg/dL 7-23 L GLUCOSE (test code = 5106067435) 100 mg/dL 70-110 CREATININE (test code = 5718971316) 0.83 mg/dL 0.60-1.25 CALCIUM (test code = 4401431175) 7.9 mg/dL 8.6-10.6 L eGFR (test code = 7461963668) 113.8 mL/min/1.73m2 GEOVANI (test code = GEOVANI) [...] imaging tests). Lab Interpretation (test code = 46321-4) [facility]99[facility] (ALB,T.PRO,BILI T,BU/BC,ALT,AST,ALK PHOS)2023-04-01 11:01:54* Test Item Value Reference Range Interpretation Comme nts TOTAL BILI (test code = 7365009807) 0.4 mg/dL 0.1-1.1 BILI UNCON (test code = 7803213537) 0.4 mg/dL 0.1-1.1 BILI CONJ (test code = 9225572214) 0.0 mg/dL 0.0-0.3 T PROTEIN (test code = 1489059796) 6.0 g/dL 6.3-8.2 L ALBUMIN (test code = 3105314733) 3.2 g/dL 3.5-5.0 L ALK PHOS (test code = 1945784702) 54 U/L 34-122 ALTv (test code = 1742-6) 12 U/L 5-50 AST(SGOT) (test code = 0233932166) 24 U/L 13-40 Lab Interpretation (test cod e = 61278-5) [facility]normal [facility] Msxbt1714-42-82 11:01:54* Test Item Value Reference Range Interpretation Comme nts MAGNESIUM (test code = 0331379681) 2.0 mg/dL 1.7-2.4 Lab Interpretation (test cod e = 41535-1) [facility] (NA, K, CL, CO2, GLUCOSE, BUN, CREATININE, CA)2023-04-01 11:01:54* Test Item Value Reference Range Interpretation Comme nts NA (test code = 0109221227) 136 mmol/L 135-145 K (test code = 7871621929) 3.5 mmol/L 3.5-5.0 CL (test code = 3274465499) 102 mmol/L 98-108 CO2 TOTAL (test code = 7528533388) 28 mmol/L 23-31 AGAP (test code = 9060778450) 6 2-16 BUN (test code = 1081861326) 3 mg/dL 7-23 L GLUCOSE (test code = 1144141072) 100 mg/dL 70-110 CREATININE (test code = 9361922033) 0.83 mg/dL 0.60-1.25 CALCIUM (test code = 0488176590) 7.9 mg/dL 8.6-10.6 L eGFR (test code = 1669882545) 113.8 mL/min/1.73m2 GEOVANI (test code = GEOVANI) [...] imaging tests). Lab Interpretation (test code = 12676-6) [facility] (72196[facility] (ALB,T.PRO,BILI T,BU/BC,ALT,AST,ALK PHOS)2023-04-01 11:01:54* Test Item Value Reference Range Interpretation Comme nts TOTAL BILI (test code = 7569305642) 0.4 mg/dL 0.1-1.1 BILI UNCON (test code = 5841634978) 0.4 mg/dL 0.1-1.1 BILI CONJ (test code = 2918440655) 0.0 mg/dL 0.0-0.3 T PROTEIN (test code = 3975892225) 6.0 g/dL 6.3-8.2 L ALBUMIN (test code = 7818286384) 3.2 g/dL 3.5-5.0 L ALK PHOS (test code = 4713513294) 54 U/L 34-122 ALTv (test code = 1742-6) 12 U/L 5-50 AST(SGOT) (test code = 7294065176) 24 U/L 13-40 Lab Interpretation (test cod e = 23877-5) [facility]normal [facility] Glfld0868-72-75 11:01:54* Test Item Value Reference Range Interpretation Comme nts MAGNESIUM (test code = 3951428069) 2.0 mg/dL 1.7-2.4 Lab Interpretation (test cod e = 96285-3) Normal [facility] with Mdttcdjqnqzp8053-01-85 10:39:49* Test Item Value Reference Range Interpretation [...] g/dL 31.2-35.0 H RDW-SD (test code = 57237-2) 37.3 fL 38.5-51.6 L RDW-CV (test code = 788-0) 12.3 % 12.1-15.4 PLT (test code = 777-3) 332 See_Comment H [Automated message] The system which generated this result transmitted reference range: 150 - 328 10*3/?L. The reference range was not used to interpret this result as normal/abnormal. MPV (test code = 50871-2) 8.8 fL 9.8-13.0 L NRBC/100 WBC (test code = 6721801653) 0.0 See_Comment [Automated message] The system which generated this result transmitted reference range: 0.0 - 10.0 /100 WBCs. The reference range was not used to interpret this result as normal/abnormal. NRBC x10^3 (test code = 0347861106) See_Comment [Automated message] The system which generated this result transmitted reference range: 10*3/?L. The reference range was not used to interpret this result as normal/abnormal. GRAN MAT (NEUT) % (test code = 770-8) 69.2 % IMM GRAN % (test code = 1174909137) 1.20 % LYMPH % (test code = 736-9) 14.9 % MONO % (test code = 5905-5) 8.5 % EOS % (test code = 713-8) 5.7 % BASO % (test code = 706-2) 0.5 % GRAN MAT x10^3(ANC) (test code = 8811410097) 11.97 10*3/uL 1.99-6.95 H IMM GRAN x10^3 (test code = 0848783201) 0.21 10*3/uL 0.00-0.06 H LYMPH x10^3 (test code = 731-0) 2.58 10*3/uL 1.09-3.23 MONO x10^3 (test code = 742-7) 1.47 10*3/uL 0.36-1.02 H EOS x10^3 (test code = 711-2) 0.99 10*3/uL 0.06-0.53 H BASO x10^3 (test code = 704-7) 0.09 10*3/uL 0.01-0.09 Lab Interpretation (test code = 37060-6) Abnormal [facility] with Fwfrnahrmxle3695-47-85 10:39:49* Test Item Value Reference Range Interpretation [...] g/dL 31.2-35.0 H RDW-SD (test code = 10907-5) 37.3 fL 38.5-51.6 L RDW-CV (test code = 788-0) 12.3 % 12.1-15.4 PLT (test code = 777-3) 332 See_Comment H [Automated message] The system which generated this result transmitted reference range: 150 - 328 10*3/?L. The reference range was not used to interpret this result as normal/abnormal. MPV (test code = 44062-8) 8.8 fL 9.8-13.0 L NRBC/100 WBC (test code = 8713901663) 0.0 See_Comment [Automated message] The system which generated this result transmitted reference range: 0.0 - 10.0 /100 WBCs. The reference range was not used to interpret this result as normal/abnormal. NRBC x10^3 (test code = 1741805180) See_Comment [Automated message] The system which generated this result transmitted reference range: 10*3/?L. The reference range was not used to interpret this result as normal/abnormal. GRAN MAT (NEUT) % (test code = 770-8) 69.2 % IMM GRAN % (test code = 6595551523) 1.20 % LYMPH % (test code = 736-9) 14.9 % MONO % (test code = 5905-5) 8.5 % EOS % (test code = 713-8) 5.7 % BASO % (test code = 706-2) 0.5 % GRAN MAT x10^3(ANC) (test code = 5343165199) 11.97 10*3/uL 1.99-6.95 H IMM GRAN x10^3 (test code = 1427630665) 0.21 10*3/uL 0.00-0.06 H LYMPH x10^3 (test code = 731-0) 2.58 10*3/uL 1.09-3.23 MONO x10^3 (test code = 742-7) 1.47 10*3/uL 0.36-1.02 H EOS x10^3 (test code = 711-2) 0.99 10*3/uL 0.06-0.53 H BASO x10^3 (test code = 704-7) 0.09 10*3/uL 0.01-0.09 Lab Interpretation (test code = 10082-5) [facility] Mzqexbh9234-87-66 10:28:00* Test Item Value Reference Range Interpretation Comme nts ABO & RH (test code = 20) O POSITIVE IAT (test code = 1185) Negative [facility] Gqjdbia1236-52-11 10:28:00* Test Item Value Reference Range Interpretation Comme nts ABO & RH (test code = 20) O POSITIVE IAT (test code = 1185) Negative [facility] SINGLE (PORTABLE)2020 09:39:00[place] [address] PatientName: PA LAWRENCE MR #: [id number] : 2000 Age/Sex: 20/M Req #: [id number] Adm Physician: Ordered by: Sp Cazares MD Report #: [id number] Location: ER Room/Bed: Procedure: [id number] DX/CHEST SINGLE (PORTABLE) Exam Date: 09/01/20 Exam Time: 900 REPORT STATUS: Signed EXAMINATION: CHEST SINGLE (PORTABLE) INDICATION: Shortness of breath COMPARISON: None FINDINGS: LINES/TUBES:None LUNGS:The lungs are well-inflated. No focal consolidation or pulmonary edema. PLEURA:No pleural effusion or pneumothorax. MEDIASTINUM:The cardiomediastinal silhouette appears normal in size and shape. BONES/SOFT TISSUES:No acute osseous injury. ABDOMEN:No free airunder the diaphragm. IMPRESSION: No focal pneumonia or pulmonary edema. Signed by: Ele Dhaliwal MD on 2020 9:39 AM Dictated By: ELE DHALIWAL MD 8 Transcribed By: VETO on 09/01/20938 COPY TO: SP CAZARES MDInfluenza virus A and B antigen identification by sirdaohvryhcqtlhlx4742-99-39 08:30:00* Test Item Value Reference Range Interpretation Comme nts Influenza Virus Types A,B An tigen (test code = 26543-0) NEGATIVE NEGATIVE [facility] Notes Date/Time Note Provider Source 2023-07-20 09:07:42 9083-50-75C76:07:42F ormatting of this note might be different from the original.Patient is needing a 30 day supply of Mesalamine due to a discrepancy on the script provided to the Patient assistance program. Script was corrected and resubmitted with corrections. BCIP approved patient to receive a refill from provider. Ishmael Damian 09351-8Eotfkfcaq encounter LszlNY2599-93-23K33:10:58Telephone encounter NoteTXT1.2.840.019916.1.13.104.2.7 .2.728741|[id number] for patient uvnj03134-7AuvkCIZVLAGEVC[address] MgysFiqfrwpkhMgyborowgPLNF05771450 24UOWRZYSDKFKOXXOVAQNIGX5780-96-73 T09:10:581.2.840.211390.1.72.3.15| 1.2.840.356941.1.13.104.2.7.2.7278 [id number] [facility] 2023-07-10 09:57:20 1813-78-87S42:57:20F ormatting of this note is different from the original.Received 07/05/2023 refill request for: Medication:Requested Prescriptions Pending Prescriptions Disp Refills mesalamine 1.2 gram EC tablet 60 tablet 0 Sig: Take 2 tablets by mouth daily with breakfast. Last filled:06/15/2023Follow up scheduled for : 08/15/2023Last office visit:07/05/2023Refilled approval sent to: Pharmacy: [id number] - [place], [place] - [address] [facility] [address] [place] [address]Zkjih: [phone] Bcdaqiax per ID Guidelines 63536-0Bsusajflv encounter HshaMO8823-19-37V08:58:26Telephone encounter NoteTXT1.2.840.447925.1.13.104.2.7 .2.366271|[id number] for patient qeme49124-2HmrxWT041711129Llwky N Sustman [address] TgznXlivdqfzqGfvqlehifQZBA51025248 00QHNXOPYXDPMUEZOIQRKAIZ0006-48-77 T09:58:261.2.840.781218.1.72.3.15| 1.2.840.619920.1.13.104.2.7.2.7278 [id number] Julia Madera [facility] 2023-07-05 18:29:21 1887-56-70N52:29:21F ormatting of this note might be different from the original.Pa Anayaalyssa is a 22 year old malePatient had to cancel his appt because there is an insurance issue.It couldn't be rescheduled until September 07, but his medication is running out.Please refill the mesalamine 1.2 gram EC tablet so that he can make it until his next appointment.[id number] [place] [facility] [address] [facility] [address] [place] [address]Yptfn: [phone] Bcjzhwzwkrshtc signed by Cass Gilmore at 07/05/2023 6:32 PM ZEN78197-7Sjbkapfbt encounter MpmaSK6747-62-31Y39:32:00Telephone encounter NoteTXT1.2.840.405091.1.13.104.2.7 .2.212902|[id number] for patient evhg95477-0CectEXYVGVHFVX[address]vestonTXTX[address] 35PRFYJFLGITVKXUOIDZJTVJ5153-85-33 T18:32:001.2.840.857401.1.72.3.15| 1.2.840.770394.1.13.104.2.7.2.7278 [id number] [facility] 2023-05-11 14:30:00 5854-97-75O81:30:00 Addended by: BESSIE SALGADO DNP-ORALIA ARZATE on: 06/15/2023 05:04 PM Modules accepted: Orders [id number] BkvyqmogSF7736-38-37B43:04:27Adden dum DocumentTXT1.2.840.989263.1.13.104 .2.7.2.753583|[id number] e for patient [address]onGal[place]on[place]TX[address] 94MCGAYCTODUVXFIPFDIBZDX4192-49-64 T17:04:271.2.840.752280.1.72.3.15| 1.2.840.004236.1.13.104.2.7.2.7278 [id number] [facility]
--- NOTE | 2024-04-27 19:22 | EDPHYS ---
Physician Documentation [facility] Name: Orlando Rowland Age: 23 yrs Sex: Male : 2000 Arrival Date: 04/27/2024 Time: 17:48 Bed 11 Private MD: ED Physician Rene Metzger HPI: 04/27 18:30 This 23 yrs old Male presents to ER via Ambulatory with complaints of Sore Throat - cp x1week. 18:30 The patient presents with sore throat. cp 18:30 The patient describes throat pain as constant. Onset: The symptoms/episode cp began/occurred 5 day(s) ago. Severity of symptoms: in the emergency department the symptoms are unchanged, despite home interventions. Associated signs and symptoms: Pertinent negatives cough, fever, flu-like symptoms, headache. Historical: - Allergies: 18:16 No Known Allergies; cm10 - PMHx: 18:16 ulcerative colitis; cm10 - Immunization history:: Adult Immunizations up to date. - Infectious Disease History:: Denies. - Social history:: Smoking status: Patient denies any tobacco usage or history of. ROS: 18:35 Constitutional: Negative for fever, poor PO intake, cp 18:35 Eyes: Negative for injury, pain, redness, and discharge, cp 18:35 ENT: Positive for sore throat, Negative for drainage from ear(s), ear pain, difficulty swallowing, difficulty handling secretions, 18:35 Respiratory: Negative for cough, shortness of breath, wheezing, 18:35 Abdomen/GI: Negative for vomiting, diarrhea, constipation, 18:35 Neuro: Negative for altered mental status, dizziness, headache, weakness, 18:35 All other systems are negative, Exam: 18:40 Constitutional: The patient appears in no acute distress, alert, awake, non-toxic, well cp developed, well nourished, 18:40 Head/Face: Normocephalic, atraumatic. cp 18:40 Eyes: Periorbital structures: appear normal, Conjunctiva: normal, no exudate, no injection, Sclera: no appreciated abnormality, Lids and lashes: appear normal, bilaterally, 18:40 ENT: External ear(s): are unremarkable, Ear canal(s): are normal, clear, TM's: dullness, bilaterally, Nose: is normal, Mouth: Lips: moist, Oral mucosa: moist, Tongue: is normal, Posterior pharynx: Airway: no evidence of obstruction, patent, Tonsils: bilaterally enlarged, with erythema, large ulcer noted right tonsil, no exudate, Uvula: midline, erythema, that is moderate, Voice: is normal, 18:40 Neck: ROM/movement: Meningeal signs: are not present, nuchal rigidity, is not appreciated, 18:40 Chest/axilla: Inspection: normal, 18:40 Cardiovascular: Rate: normal, 18:40 Respiratory: the patient does not display signs of respiratory distress, Respirations: normal, no use of accessory muscles, no retractions, labored breathing, is not present, Breath sounds: are clear throughout, no decreased breath sounds, no stridor, no wheezing, 18:40 Skin: no rash present. Vital Signs: 18:14 BP 104 / 70; Pulse 80; Resp 18; Temp 97.3; Pulse Ox 99% on R/A; Weight 56.7 kg; Height cm10 5 ft. 7 in. ; Pain 3/10; 18:14 Body Mass Index 19.58 (56.70 kg, 170.18 cm) cm10 18:14 Pain Scale: Adult cm10 MDM: 18:18 Patient medically screened. cp 19:21 Data reviewed: vital signs, nurses notes, lab test result(s), and as a result, I will cp discharge patient. 19:21 Differential diagnosis: apthous stomatitis, apthous ulcer, group A strep tonsillitis, cp mononucleosis, peritonsillar abscess retropharyngeal abcess. Counseling: I had a detailed discussion with the patient and/or guardian regarding the historical points, exam findings, and any diagnostic results supporting the discharge/admit diagnosis, lab results, to return to the emergency department if symptoms worsen or persist or if there are any questions or concerns that arise at home. 04/27 18:26 Order name: Strep cp 04/27 19:22 Order name: Throat Culture EDMS Administered Medications: No medications were administered Disposition Summary: 04/27/24 19:21 Discharge Ordered Notes: Location: Home cp Problem: new cp Symptoms: are unchanged cp Condition: Stable cp Diagnosis - Acute tonsillitis, unspecified cp Followup: cp - With: Private Physician - When: 2 - 3 days - Reason: Worsening of condition Discharge Instructions: - Discharge Summary Sheet cp - Tonsillitis cp Forms: - Medication Reconciliation Form cp - Antibiotic Education cp - Prescription Opioid Use cp - Patient Portal Instructions cp - Leadership Thank You Letter cp - Work release form mb9 Prescriptions: - Lidocaine Viscous - take 5 milliliter ORAL route every 4-6 hours; 246 milliliter; Refills: 0, cp Product Selection Permitted - Augmentin 875-125 mg Oral Tablet - take 1 tablet ORAL route every 12 hours for 10 days; 20 tablet; Refills: 0, cp Product Selection Permitted - Ibuprofen 600 mg Oral tablet - take 1 tablet ORAL route every 8 hours As needed take with food; 30 tablet; cp Refills: 0, Product Selection Permitted Signatures: Dispatcher [employer] EDRene Valencia PA PA cp Martinez, Clarissa RN RN cm10
--- NOTE | 2024-04-27 19:22 | ER ---
Nurse's Notes [facility] Name: Orlando Rowland Age: 23 yrs Sex: Male : 2000 Arrival Date: 04/27/2024 Time: 17:48 Bed 11 Private MD: Diagnosis: Acute tonsillitis, unspecified Presentation: 04/27 18:14 Chief complaint: Patient states: Canker sore to right tonsil onset 5 days ago. Pt cm10 states that usually gets them every other month. Coronavirus screen: Client denies travel out of the [place] in the last 14 days. At this time, the client does not indicate any symptoms associated with coronavirus-19. Ebola Screen: Patient denies travel to an Ebola-affected area in the 21 days before illness onset. No symptoms or risks identified at this time. Initial Sepsis Screen: Does the patient meet any 2 criteria? No. Patient's initial sepsis screen is negative. Does the patient have a suspected source of infection? No. Patient's initial sepsis screen is negative. Risk Assessment: Do you want to hurt yourself or someone else? Patient reports no desire to harm self or others. Onset of symptoms was April 22, 2024. 18:14 Method Of Arrival: Ambulatory cm10 18:14 Acuity: KO 4 cm10 Triage Assessment: 18:17 General: Appears in no apparent distress. comfortable, Behavior is calm, cooperative. cm10 Pain: Complains of pain in Throat. EENT: Throat has patchy exudate on right. Neuro: No deficits noted. Level of Consciousness is awake, alert, obeys commands, Oriented to person, place, time, situation, Appropriate for age. Respiratory: No deficits noted. Airway is patent Respiratory effort is even, unlabored, Respiratory pattern is regular, symmetrical. Derm: No deficits noted. Skin is intact, Skin is pink, warm \T\ dry. Musculoskeletal: No deficits noted. Range of motion: intact in all extremities. Historical: - Allergies: 18:16 No Known Allergies; cm10 - PMHx: 18:16 ulcerative colitis; cm10 - Immunization history:: Adult Immunizations up to date. - Infectious Disease History:: Denies. - Social history:: Smoking status: Patient denies any tobacco usage or history of. Screenin:18 [facility] ED Fall Risk Assessment (Adult) History of falling in the last 3 months, cm10 including since admission No falls in past 3 months (0 pts) Confusion or Disorientation No (0 pts) Intoxicated or Sedated No (0 pts) Impaired Gait No (0 pts) Mobility Assist Device Used No (0 pt) Altered Elimination No (0 pt) Score/Fall Risk Level 0 - 2 = Low Risk Oriented to surroundings, Maintained a safe environment, Hourly rounding (assess needs \T\ fall precautionary measures) done. Abuse screen: Denies threats or abuse. Denies injuries from another. Nutritional screening: No deficits noted. Tuberculosis screening: No symptoms or risk factors identified. Assessment: 18:43 General: Appears in no apparent distress. Behavior is calm, cooperative. Pain: mb9 Complains of pain in THROAT Pain does not radiate. Quality of pain is described as throbbing, Pain began suddenly. Neuro: Vaz Agitation-Sedation Scale (RASS): 0 - Alert and Calm Level of Consciousness is awake, alert, obeys commands, Oriented to person, place, time, situation, Appropriate for age. Cardiovascular: Patient's skin is warm and dry. Respiratory: Airway is patent Respiratory effort is even, unlabored, Respiratory pattern is regular, symmetrical, Breath sounds are clear bilaterally. GI: No signs and/or symptoms were reported involving the gastrointestinal system. : No signs and/or symptoms were reported regarding the genitourinary system. EENT: No signs and/or symptoms were reported regarding the EENT system. EENT: Throat is reddened. Derm: Skin is pink, warm \T\ dry. Musculoskeletal: Range of motion: intact in all extremities. Vital Signs: 18:14 BP 104 / 70; Pulse 80; Resp 18; Temp 97.3; Pulse Ox 99% on R/A; Weight 56.7 kg; Height cm10 5 ft. 7 in. ; Pain 3/10; 18:14 Body Mass Index 19.58 (56.70 kg, 170.18 cm) cm10 18:14 Pain Scale: Adult cm10 ED Course: 17:52 Patient arrived in ED. ra3 17:53 Rene Cameron PA is PHCP. cp 17:53 Rene Metzger MD is Attending Physician. cp 18:16 Triage completed. cm10 18:16 Arm band placed on Patient placed in an exam room, on a stretcher. cm10 18:18 Patient has correct armband on for positive identification. Call light in reach. cm10 Provided Education on: ER process and procedures.. 18:19 Charlene Perez, RN is Primary Nurse. mb9 18:42 Strep Sent. mb9 18:44 No provider procedures requiring assistance completed. Patient did not have IV access elena during this emergency room visit. Administered Medications: No medications were administered Medication: 18:18 VIS not applicable for this client. cm10 Outcome: 19:21 Discharge ordered by . tricia 19:30 Discharged to home ambulatory, with family, mbBrayden 19:30 Condition: stable 19:30 Discharge instructions given to patient, family, Instructed on discharge instructions, follow up and referral plans. Demonstrated understanding of instructions, follow-up care, medications, Prescriptions given X 3, 19:30 Patient left the ED. mb9 Signatures: Rene Cameron PA PA cp Breneman, Mary Beth, RN RN [id number] Ida Schaefer RN RN cm10 Rosa Florentino ra3
[2024-04-27 19:42] VITALS: BP 104/70; TEMP 97.3; O2SAT 99
== END 2024-04-27 19:30 | disposition home or self-care (01) ==
LOC: ER 17:48
DX: J03.90 Acute tonsillitis, unspecified (principal)
CPT/HCPCS: 87070; 87081; 99283

== ENCOUNTER 2024-05-09 20:16 | Emergency (ER) | payer OTHER ==
--- OUTSIDE RECORDS SUMMARY | 2024-05-09 20:24 | XMS REPORT | Continuity of Care Document ---
Author Name Unknown Address [address] [facility]. [address] [place] [address] [facility] thconnect Address [address] [facility] [address] [place] [address] Care Team Providers Care Acting Section Chief Name Role Phone NO, PCP Primary Care Physician Unavailab ORALIA Albrecht Attending Clinician Unavailable Osvaldo Chiang MD Attending Clinicia n Oralia Paz Attending Clinician [phone] Roger Wagner Attending Clinician [phone] Thania, Ang - Db Attending Clinician Unavailable Doctor Unassigned, [place] Attending Clinician U susana Sheets RN, Orquidea Roberts Attending Clinician Unavail Hernan Belle MD Attending Clinician [phone] Pa Ramsey MD Attending Clinician [phone] PA RAMSEY Attending Clinician Unavailleon Hendricks MD, Ria Attending Clinician [phone] Sp Cazares Attending Clinician Pa Paez MD Admitting Clinician [phone] PA RAMSEY Admitting Clinician Shalini hinson Payers Payer Name Policy Type Policy Number Effective Date Expirati on Date Source [place] [id number] 2023 00:00:00 2023 00:00:00 Problems Condition Name Condition Details Condition Category Status Onset Date Resolution Date Last Treatment Date Treating Clinician Comments Source Rectal bleeding Rectal bleeding Disease Active 03-31 00:00: 00 General acute hospital Colitis with rectal bleeding Colitis with rectal bleeding Disease Active 03-31 00:00: 00 Overview: Formattin g of this note might be different from the original. Added automatic ally from request for surgery [id number] General acute hospital Shortness of breath Problem Active [facility] Allergies, Adverse Reactions, Alerts Allergy Name Allergy Type Status Severity Reaction(s) Onset Date Inactive Date Treating Clinician Comments Source No Known Allergie s DA Active [facility] NO KNOWN ALLERGIE S Drug Class Active [facility] acute hospital Social History Social Habit Start Date Stop Date Quantity Comments Source History SDOH Alcohol Std Drinks [facility] History SDOH Alcohol Binge [facility] History SDOH Social Connections Get Together [facility] History SDOH Social Connections Judaism [facility] History SDOH Social Connections Membership [facility] History SDOH Social Connections Meetings [facility] History SDOH Food Scarcity [facility] Gender identity [facility] Sexual orientation U [facility] Alcohol intake 2023-06-15 00:00:00 2023-06-15 00:00:00 3 /d [facility] History SDOH Alcohol Frequency 2023-04-04 00:00:00 2023-04-04 00:00:00 1 [facility] History SDOH Social Connections Phone 2023-04-04 00:00:00 2023-04-04 00:00:00 5 [facility] History SDOH Social Connections Living 2023-04-04 00:00:00 2023-04-04 00:00:00 7 [facility] History SDOH Physical Activity DPW 2023-04-04 00:00:00 2023-04-04 00:00:00 3 [facility] History SDOH Physical Activity MPS 2023-04-04 00:00:00 2023-04-04 00:00:00 3 [facility] History SDOH Financial 2023-04-04 00:00:00 2023-04-04 00:00:00 5 [facility] History SDOH Food Worry 2023-04-04 00:00:00 2023-04-04 00:00:00 1 [facility] History SDOH Transport Med 2023-04-04 00:00:00 2023-04-04 00:00:00 2 [facility] History SDOH Transport Non-Med 2023-04-04 00:00:00 2023-04-04 00:00:00 2 [facility] History SDOH Housing Unable to Pay 2023-04-04 00:00:00 2023-04-04 00:00:00 2 [facility] History SDOH Housing Places Lived 2023-04-04 00:00:00 2023-04-04 00:00:00 1 [facility] History SDOH Housing Homeless Last Year 2023-04-04 00:00:00 2023-04-04 00:00:00 2 [facility] Exposure to SARS-CoV-2 (event) 2023-03-24 00:00:00 2023-04-03 12:55:00 Not sure [facility] History of Social function 2023-04-03 00:00:00 2023-04-03 00:00:00 [facility] Tobacco use and exposure 2023-03-31 00:00:00 2023-03-31 00:00:00 Smokeless tobacco non-user [facility] Sex Assigned At 2000 00:00:00 2000 00:00:00 [facility] Smoking Status Start Date Stop Date Source Never smoked tobacco [facility] acute hospital Medications Ordered Medication Name Filled Medication Name Start Date Stop Date Current Medication? Ordering Clinician Indication Dosage Frequency Signature (SIG) Comments Components Source mesalamine 1.2 gram EC tablet 2022-11 00:00: 00 Yes [id number] 2.4g Take 2 tablets by mouth daily with breakfast. [facility] acute hospital mesalamine 1.2 gram EC tablet - 00:00: 00 10-16 00:00 :00 No [id number] 2.4g Take 2 tablets by mouth daily with breakfast. [facility] acute hospital mesalamine 1.2 gram EC tablet 8-24 00:00: 00 Yes [id number] 2.4g Take 2 tablets by mouth daily with breakfast. [facility] acute hospital mesalamine 1.2 gram EC tablet 8-14 00:00: 00 Yes [id number] 2.4g Take 2 tablets by mouth daily with breakfast. [facility] acute hospital mesalamine 1.2 gram EC tablet 7-20 00:00: 00 Yes [id number] 2.4g Take 2 tablets by mouth daily with breakfast. [facility] acute hospital pantoprazol e 40 mg EC tablet 04-09 00:00: 00 06-09 04:59 :00 No [id number] 40mg Take 1 tablet by mouth in the morning for 60 days. [facility] acute hospital predniSONE (DELTASONE) tablet 60 mg 04-08 14:00: 00 04-20 13:59 :00 No 60mg 60 mg, Oral, DAILY, 12 doses, First dose on Mon04/08/23 at 0900, Last dose on Mon04/19/23 at 0900, Routine [facility] acute hospital predniSONE 20 mg tablet 04-08 00:00: 00 06-20 04:59 :00 No [id number] Take 3 tablets by mouth daily for 7 days, THEN 2 tablets daily for 30 days, THEN 1.5 tablets daily for 7 days, THEN 1 tablet daily for 28 days. [facility] acute hospital mesalamine 1.2 gram EC tablet 04-08 00:00: 00 06-15 00:00 :00 No [id number] 2.4g Take 2 tablets by mouth daily with breakfast. [facility] acute hospital melatonin (MELATIN) tablet 3 mg 12 02:00: 00 Yes 3mg 3 mg, Oral, QHS, First dose (after last modificati on) on Mon04/06/23 at 2100, Until Discontinu ed, Routine [facility] acute hospital methylpredn isolone sod succ (SOLU-MEDRO L) injection 60 mg 04-04 21:00: 00 04-06 20:43 :00 No 60mg 60 mg, Intravenou s, Q24H, 3 doses, First dose on Mon04/04/23 at 1600, Last dose on Mon04/06/23 at 1600, 2 mL [facility] acute hospital pantoprazol e (PROTONIX) EC tablet 40 mg 04-04 16:00: 00 Yes 40mg 40 mg, Oral, DAILY, First dose on Mon04/04/23 at 1100, Until Discontinu ed, Routine [facility] enoxaparin (LOVENOX) injection 40 mg 04-04 05:00: 00 Yes 40mg 40 mg, Subcutaneo us, Q24H, First dose (after last modificati on) on Mon04/04/23 at 0000, Until Discontinu ed, Routine [facility] simethicone (GAS RELIEF (SIMETHICON E)) 40 mg/0.6 mL drops 04-03 22:12: 00 04-03 23:40 :00 No PRN, Starting on Mon04/03/23 at 1712, Until Mon04/03/23 at 1840, Routine, Intra-op [facility] bisacodyL (DULCOLAX) tablet 10 mg 04-02 18:00: 00 04-02 18:03 :00 No 10mg 10 mg, Oral, PRE-PROCED URE ONCE, 1 dose, Starting on Mon04/02/23 at 1300, Until Discontinu ed, Routine, Bowel Prep, Colonoscop y [facility] ondansetron (ZOFRAN (PF)) injection 4 mg 04-02 12:40: 42 04-04 12:17 :10 No 4mg 4 mg, Slow IV Push, Q6HPRN, Starting on Mon04/02/23 at 0740, Until Mon04/04/23 at 0717, Routine, Nausea and Vomiting (N/V) [facility] ciprofloxac in HCl (CIPRO) tablet 500 mg 04-01 23:00: 00 04-04 15:51 :55 No 500mg 500 mg, Oral, Q12HA2, 20 doses, First dose on Mon04/01/23 at 1800, Last dose on Mon04/11/23 at 0600, BREN
Re ason for Anti-Infec tive: Documented Infection< br>Documen james Infection Site: Abdominal< br>Duratio n of Therapy: 10 days [facility] acute hospital enoxaparin (LOVENOX) injection 40 mg 04-01 20:15: 00 04-02 20:56 :13 No 40mg 40 mg, Subcutaneo us, Q24H, First dose on Mon04/01/23 at 1515, Until Discontinu ed, Routine [facility] acute hospital metroNIDAZO LE (FLAGYL) tablet 500 mg 04-01 19:00: 00 04-04 15:51 :55 No 500mg 500 mg, Oral, Q8H, 30 doses, First dose on Mon04/01/23 at 1400, Last dose on Mon04/11/23 at 0600, Routine
Reason for Anti-Infec tive: Documented Infection< br>Documen james Infection Site: Abdominal< br>Duratio n of Therapy: 10 days [facility] acute hospital lactated ringers IV infusion 1,000 mL 04-01 13:30: 00 04-02 01:00 :00 No 1000mL at 999 mL/hr, 1,000 mL, Intravenou s, ONCE, 1 dose, On Mon04/01/23 at 0830, Routine [facility] acute hospital ciprofloxac in in 5 % dextrose (CIPRO) [...] Abdominal< br>Duratio n of therapy: 5 days [facility] acute hospital metroNIDAZO LE in NaCl (iso-os) (FLAGYL I.V.) [...] Abdominal< br>Duratio n of therapy: 5 days [facility] acute hospital lactated ringers IV infusion 1,000 mL 04-01 04:30: 00 04-01 08:10 :00 No 1000mL at 999 mL/hr, 1,000 mL, Intravenou s, ONCE, 1 dose, On Mon03/31/23 at 2330, Routine [facility] acute hospital acetaminoph en (TYLENOL) tablet 650 mg 04-01 03:33: 45 Yes 650mg 650 mg, Oral, Q6HPRN, Starting on Mon03/31/23 at 2233, Until Discontinu ed, Routine, Pain (scale 1-3) [facility] acute hospital NaCl 0.9% (NS) IV infusion 1,000 mL 03-31 22:45: 00 04-04 12:16 :26 No 1000mL at 150 mL/hr, IV Infusion, CONTINUOUS , Starting on Mon03/31/23 at 1745, Until Mon04/04/23 at 0716, Routine [facility] acute hospital lactobacill us acidophilus tablet 1 mg 03-31 22:45: 00 03-31 22:49 :00 No 1mg 1 mg, Oral, ONCE NOW, 1 dose, On Mon03/31/23 at 1745, BREN [facility] acute hospital ciprofloxac in in 5 % dextrose (CIPRO) piggyback 400 mg 03-31 22:30: 00 04-01 01:02 :00 No 400mg 400 mg, IV Piggyback, ONCE, 1 dose, On Mon03/31/23 at 1730, Administer over 60 Minutes, 200 mL
Reas on for Anti-Infec tive: Empiric Therapy for Suspected Infection< br>Empiric Therapy Site: Abdominal< br>Duratio n of therapy: 72 hours [facility] acute hospital metroNIDAZO LE (FLAGYL) tablet 500 mg 03-31 21:45: 00 03-31 22:49 :00 No 500mg 500 mg, Oral, ONCE, 1 dose, On Mon03/31/23 at 1645, BREN
Re ason for Anti-Infec tive: Empiric Therapy for Suspected Infection< br>Empiric Therapy Site: Abdominal< br>Duratio n of therapy: 72 hours [facility] acute hospital iopamidol (ISOVUE 370-500 mL) injection 75 mL 03-31 21:45: 00 03-31 21:45 :00 No [id number] 75mL 75 mL, Intravenou s, ONCE, 1 dose, On Mon03/31/23 at 1645, Routine [facility] acute hospital NaCl 0.9% (NS) bolus infusion 1,000 mL 03-31 20:30: 00 03-31 22:50 :00 No 1000mL at 999 mL/hr, 1,000 mL, IV Piggyback, ONCE, 1 dose, On Mon03/31/23 at 1530, STAT [facility] acute hospital Immunizations Ordered Immunization Name Filled Immunization Name Date Status Comments Source DTAP 2018-05-09 00:00:00 Completed [facility] DTAP 2018-05-09 00:00:00 Completed [facility] DTAP 2018-05-09 00:00:00 Completed [facility] DTAP 2018-05-09 00:00:00 Completed [facility] DTAP 2018-05-09 00:00:00 Completed [facility] DTAP 2018-05-09 00:00:00 Completed [facility] DTAP 2018-05-09 00:00:00 Completed [facility] DTAP Unknown Completed [facility] DTAP Unknown Completed [facility] DTAP Unknown Completed [facility] DTAP Unknown Completed [facility] DTAP Unknown Completed [facility] DTAP Unknown Completed [facility] DTAP Unknown Completed [facility] Vital Signs Vital Name Observation Time Observation Value Comments S ource Systolic blood pressure 2023-05-11 19:48:00 126 mm[Hg] [facility] Diastolic blood pressure 2023-05-11 19:48:00 68 mm[Hg] [facility] Heart rate 2023-05-11 19:48:00 73 /min [facility] Body temperature 2023-05-11 19:48:00 36.78 Megha [facility] Respiratory rate 2023-05-11 19:48:00 16 /min [facility] Body height 2023-05-11 19:48:00 173.7 cm [facility] Body weight 2023-05-11 19:48:00 55.43 kg [facility] BMI 2023-05-11 19:48:00 18.36 kg/m2 [facility] Oxygen saturation in Arterial blood by Pulse oximetry 2023-05-11 19:48:00 99 /min [facility] Systolic blood pressure 2023-04-08 17:11:00 100 mm[Hg] [facility] Diastolic blood pressure 2023-04-08 17:11:00 59 mm[Hg] [facility] Heart rate 2023-04-08 17:11:00 88 /min [facility] Body temperature 2023-04-08 17:11:00 36.56 Megha [facility] Respiratory rate 2023-04-08 17:11:00 18 /min [facility] Oxygen saturation in Arterial blood by Pulse oximetry 2023-04-08 17:11:00 96 /min [facility] Body height 2023-04-01 02:43:00 170.2 cm [facility] Body weight 2023-04-01 02:43:00 55.339 kg [facility] BMI 2023-04-01 02:43:00 19.11 kg/m2 [facility] Systolic blood pressure 2023-04-03 16:09:00 102 mm[Hg] [facility] Diastolic blood pressure 2023-04-03 16:09:00 66 mm[Hg] [facility] Heart rate 2023-04-03 16:09:00 94 /min [facility] Body temperature 2023-04-03 16:09:00 36.67 Megha [facility] Respiratory rate 2023-04-03 16:09:00 18 /min [facility] Oxygen saturation in Arterial blood by Pulse oximetry 2023-04-03 16:09:00 98 /min [place] [facility] Body height 2023-04-01 02:43:00 170.2 cm [facility] Body weight 2023-04-01 02:43:00 55.339 kg [facility] BMI 2023-04-01 02:43:00 19.11 kg/m2 [facility] BMI (Body Mass Index) 2020 08:22:00 21.0 kg/m2 [facility] Weight 2020 08:22:00 130 [lb_av] [facility] Procedures Procedure Date / Time Performed Performing Clinician Source COMP. METABOLIC PANEL (26512) 2023-05-11 21:01:00 [facility]FF 2023-05-11 21:01:00 [facility] ASSIGNMENT OF BENEFITS 2023-05-11 19:27:07 Docto r Unassigned, [place] [facility] MAGNESIUM 2023-04-08 10:10:00 Jeny Pena [facility] BASIC METABOLIC PANEL (NA, K, CL, CO2, GLUCOSE, BUN, CREATININE, CA) 2023-04-08 10:10:00 Jeny Pena [facility] CBC WITH DIFF 2023-04-08 10:10:00 Jeny Pena [facility] MAGNESIUM 2023-04-06 09:13:00 Moises [facility] HEPATIC FUNCTION PANEL ([id number]) (ALB,T.PRO,BILI T,BU/BC,ALT,AST,ALK PHOS) 2023-04-06 09:13:00 Moises [facility] BASIC METABOLIC PANEL (NA, K, CL, CO2, GLUCOSE, BUN, CREATININE, CA) 2023-04-06 09:13:00 Moises [facility] CBC WITH DIFF 2023-04-06 09:13:00 Moises [facility] CBC WITH DIFF 2023-04-05 09:33:00 De Leon [facility] MAGNESIUM 2023-04-05 09:14:00 [facility] (NA, K, CL, CO2, GLUCOSE, BUN, CREATININE, CA) 2023-04-05 09:14:00 Moises [facility] HEPATITIS B SURFACE ANTIBODY 2023-04-04 16:43:00 Moises [facility] HBC ANTIBODY (IGM & IGG) 2023-04-04 16:43:00 Moises [facility] HEPATITIS C VIRUS (HCV) BY QUANTITATIVE NAAT 2023-04-04 16:43[facility] 2023-04-04 16:43:00 Moises [facility] QFT TB2 MINUS NIL 2023-04-04 16:43:00 Moises [facility] MAGNESIUM 2023-04-04 10:29:[facility] (NA, K, CL, CO2, GLUCOSE, BUN, CREATININE, CA) 2023-04-04 10:29:00 Moises [facility] CBC WITH DIFF 2023-04-04 10:29:00 Moises [facility] HEPATITIS B SURFACE ANTIGEN 2023-04-04 10:29:00 Moises [facility] MAGNESIUM 2023-04-04 10:29:00 Moises [facility] BASIC METABOLIC PANEL (NA, K, CL, CO2, GLUCOSE, BUN, CREATININE, CA) 2023-04-04 10:29:00 Moises [facility] CBC WITH DIFF 2023-04-04 10:29[facility]TIGEN 2023-04-04 10:29:00 Moises [facility] SURGICAL PATHOLOGY EXAM 2023-04-03 22:36:00 EladioRafaelakua perdue [facility] COLONOSCOPY 2023-04-03 21:47:00 Eladio [facility] COLONOSCOPY 2023-04-03 21:47:00 [facility] COLONOSCOPY (ENDO) 2023-04-03 20:43:38 Jose M Valera [facility] COLONOSCOPY (ENDO) 2023-04-03 20:43:38 Jose M Valera [facility] MAGNESIUM 2023-04-03 09:33:00 Moises [facility] BASIC METABOLIC PANEL (NA, K, CL, CO2, GLUCOSE, BUN, CREATININE, CA) 2023-04-03 09:33:00 Moises [facility] CBC WITH DIFF 2023-04-03 09:33:00 Moises [facility] MAGNESIUM 2023-04-03 09:33:00 Moises [facility] BASIC METABOLIC PANEL (NA, K, CL, CO2, GLUCOSE, BUN, CREATININE, CA) 2023-04-03 09:33:00 Moises [facility] CBC WITH DIFF 2023-04-03 09:33:00 Moises [facility] CBC WITH DIFF 2023-04-02 10:56:00 Jean [facility] CBC WITH DIFF 2023-04-02 10:56:00 Jean [facility] CELIAC SCREEN 2023-04-01 16:47:00 Jean [facility] LAB ONLY CELIAC SCREEN IGA 2023-04-01 16:47:00 Jean [facility] CELIAC SCREEN 2023-04-01 16:47:00 Jean [facility] LAB ONLY CELIAC SCREEN IGA 2023-04-01 16:47:00 Jean [facility] BLOOD CULTURE SCREEN 2023-04-01 16:21:00 Jean [facility] BLOOD CULTURE SCREEN 2023-04-01 16:21:00 Jean [facility] ABORH CONFIRMATION (LAB ONLY) 2023-04-01 11:31:00 [facility] ABORH CONFIRMATION (LAB ONLY) 2023-04-01 11:31:00 [facility] 2023-04-01 10:21:00 Dann Sepulveda [facility] FERRITIN SERUM 2023-04-01 10:21:00 Dann Sepulveda [facility] C-REACTIVE PROTEIN 2023-04-01 10:21:00 Dann Sepulveda [facility] HEPATIC FUNCTION PANEL ([id number]) (ALB,T.PRO,BILI T,BU/BC,ALT,AST,ALK PHOS) 2023-04-01 10:21:00 Derick [facility] BASIC METABOLIC PANEL (NA, K, CL, CO2, GLUCOSE, BUN, CREATININE, CA) 2023-04-01 10:21:00 Dann Sepulveda [facility] IRON PANEL 2023-04-01 10:21:00 Dann Sepulveda [facility] CBC WITH DIFF 2023-04-01 10:21:00 Dann Sepulveda [facility] HB ABO GROUPING 2023-04-01 10:21:00 Dann Sepulveda [facility] MAGNESIUM 2023-04-01 10:21:00 Dann Sepulveda [facility] FERRITIN SERUM 2023-04-01 10:21:00 Dann Sepulveda [facility] C-REACTIVE PROTEIN 2023-04-01 10:21:00 Dann Sepulveda [facility] HEPATIC FUNCTION PANEL ([id number]) (ALB,T.PRO,BILI T,BU/BC,ALT,AST,ALK PHOS) 2023-04-01 10:21:00 Derick [facility] BASIC METABOLIC PANEL (NA, K, CL, CO2, GLUCOSE, BUN, CREATININE, CA) 2023-04-01 10:21:00 Derick [facility] IRON PANEL 2023-04-01 10:21:00 Derick[facility] 2023-04-01 10:21:00 Dann Sepulveda [facility] HB ABO GROUPING 2023-04-01 10:21:00 Dann Sepulveda [facility] CLOSTRIDIUM DIFFICILE TOXIN 2023-04-01 04:15:00 Dann Sepulveda [facility] OVA AND PARASITE EXAM FECAL 2023-04-01 04:15:00 Dann Sepulveda [facility] GIARDIA CRYPTOSPORIDIUM AG SCR 2023-04-01 04:15:00 Derick [facility] CALPROTECTIN, FECAL 2023-04-01 04:15:00 Dann Sepulveda [facility] acute hospital FECAL PATHOGENS BY PCR 2023-04-01 04:15:00 Oswald Sepulveda [facility] CLOSTRIDIUM DIFFICILE TOXIN 2023-04-01 04:15:00 Derick [facility] GIARDIA CRYPTOSPORIDIUM AG SCR 2023-04-01 04:15:00 Dann Sepulveda [facility] FECAL PATHOGENS BY PCR 2023-04-01 04:15:00 Oswald Sepulveda [facility] CT ABDOMEN PELVIS W CONTRAST 2023-03-31 20:54:24 Hernan Mcneill [facility] CT ABDOMEN PELVIS W CONTRAST 2023-03-31 20:54:24 Hernan Mcneill [facility] COMP. METABOLIC PANEL ([id number]) 2023-03-31 20:19:00 Hernan Mnceill [facility] SEDIMENTATION RATE 2023-03-31 20:19:00 Nehemias Mcneill [facility] CBC WITH DIFF 2023-03-31 20:19:00 Hernan [facility]neill [facility] PROTHROMBIN TIME / INR 2023-03-31 20:19:00 Symone Mcneill [facility] HIV 1/2 AG-AB WITH REFLEX 2023-03-31 20:19:00 Nasir Sepulveda [facility] COMP. METABOLIC PANEL ([id number]) 2023-03-31 20:19:00 Hernan Mcneill [facility] SEDIMENTATION RATE 2023-03-31 20:19:00 Nehemias Mcneill [facility] CBC WITH DIFF 2023-03-31 20:19[facility] 2023-03-31 20:19:00 Symone Mcneill [facility] HIV 1/2 AG-AB WITH REFLEX 2023-03-31 20:19:00 Nasir Sepulveda [facility] NOTICE OF PRIVACY PRACTICES 2023-03-31 18:47:15 Doctor Unassigned, [place] [facility] NOTICE OF PRIVACY PRACTICES 2023-03-31 18:47:15 Doctor Unassigned, [place] [facility] CONSENT/REFUSAL FOR DIAGNOSIS AND TREATMENT 2023-03-31 18:46:20 Doctor Unassigned, [place] [facility] CONSENT/REFUSAL FOR DIAGNOSIS AND TREATMENT 2023-03-31 18:46:20 Doctor Unassigned, [place] [facility] HOSPITAL ADMISSION 2023-03-31 05:01:00 Doctor Un assigned, [place] [facility] ENDOSCOPY PROCEDURE DOCUMENTATION 2023-03-31 05:01:00 Doctor Unassigned, [place] [facility] Plan of Care Planned Activity Planned Date Details Comments Source Instructions Dyspnea [facility] Encounters Start Date/Time End Date/Time Encounter Type Admission Type Attending Clinicians Care Facility Care Department Encounter ID Source 2020 08:19:00 Inpatient [facility] [id number] [facility] 2023-11-16 14:30:00 2023-11-16 14:30:00 Outpatient ORALIA JEWELL [facility] [id number] General acute hospital 2023-10-26 08:00:00 2023-10-26 08:00:00 Outpatient [facility] [id number] General acute hospital 2023-10-16 00:00:00 2023-10-16 00:00:[address] [facility] 1.2.840.114 350.1.13.10 4.2.7.2.686 [id number] [id number] General acute hospital 2023-10-16 00:00:00 2023-10-16 00:00:00 [facility] 1.840.114 350.1.13.10 4.2.7.2.686 [id number] 071 [id number] General acute hospital 2023-10-16 00:00:00 2023-10-16 00:00[facility] 1.2840.114 350.1.13.10 4.2.7.2.686 [id number] 071 [id number] General acute hospital 2023-10-16 00:00:00 2023-10-16 00:00:00 Refjodie Salgado [facility] 1..840.114 350.1.13.10 4.2.7.2.686 [id number] General acute hospital 2023-10-06 00:00:00 2023-10-06 00:00:00 [facility] 1.840.114 350.1.13.10 4.2.7.2.686 [id number] 071 [id number] General acute hospital 2023-09-07 09:00:00 2023-09-07 09:00:00 Outpatient [facility] [id number] General acute hospital 2023-08-18 00:00:00 2023-08-18 00:00:00 Telephone Naomi [facility] 1..840.114 350.1.13.10 4.2.7.2.686 [id number] 044 [id number] General acute hospital 2023-08-15 11:00:00 2023-08-15 11:00:00 Outpatient [facility] [id number] General acute hospital 2023-08-14 00:00:00 2023-08-14 00:00:00 Refill Anene, [facility] CAROL[facility] 1..840.114 350.1.13.10 4.2.7.2.686 [id number] General acute hospital 2023-07-20 00:00:00 2023-07-20 00:00:00 [facility] 1.840.114 350.1.13.10 4.2.7.2.686 [id number] [id number] General acute hospital 2023-07-06 09:00:00 2023-07-06 09:00:00 Outpatient [facility] [id number] General acute hospital 2023-07-05 00:00:00 2023-07-05 [facility]:00[facility].114 350.1.13.10 4.2.7.2.686 [id number] 071 [id number] General acute hospital 2023-05-18 00:00:00 2023-05-18 00:00:00 [facility] 1..840.114 350.1.13.10 4.2.7.2.686 [id number] 044 [id number] General acute hospital 2023-05-11 16:00:00 2023-05-11 16:15:00 [employer] Visit Lab, Ronan Eid Naomi [facility] CAROL?BRUCE [facility] 1..840.114 350.1.13.10 4.2.7.2.686 [id number] General acute hospital 2023-05-11 14:30:00 2023-05-11 15:43:12 [id number] 2023-05-11 14:30:00 2023-05-11 15:43:12 Office Visit Oralia Salgado [facility] GENIA MEDINA?[facility] 1.2.840.114 350.1.13.10 4.2.7.2.686 [id number] 044 [id number] General acute hospital 2023-05-11 00:00:00 2023-05-11 00:00:00 Orders Only Doctor Unassigned, [place] [facility] 1.2.840.114 350.1.13.10 4.2.7.2.686 [id number] [id number] General acute hospital 2023-04-10 00:00:00 2023-04-10 00:00:00 Transition of Care Orquidea Sheets ERIKA CASTRO 1.2.840.114 350.1.13.10 4.2.7.2.686 [id number] General acute hospital 2023-03-31 14:08:00 2023-04-08 18:18:00 Hospital Encounter Hernan Mcneill Michael [facility] 1.2840.114 350.1.13.10 4.2.7.2.686 [id number] General acute hospital 2023-03-31 14:08:00 2023-04-08 18:18:00 Inpatient PA [facility] [id number] General acute hospital 2023-04-03 16:09:00 2023-04-03 17:21:00 Surgery Ria Hendricks [facility] 1.2840.114 350.1.13.10 4.2.7.2.686 [id number] [id number] General acute hospital 2020 08:50:00 2020 09:50:00 Departed Emergency Room 1 Sp [facility] [id number] [facility] Results Test Description Test Time Test Comments Results Result Co mments Source [facility] WITH [id number] 06:57:57* Test Item Value Reference Range Interpretation [...] 33.3 g/dL 31.2-35.0 RDW-SD (test code = 86405-1) 47.6 fL 38.5-51.6 RDW-CV (test code = 788-0) 14.4 % 12.1-15.4 PLT (test code = 777-3) 323 See_Comment [Automated message] The system which generated this result transmitted reference range: 150 - 328 10*3/?L. The reference range was not used to interpret this result as normal/abnormal. MPV (test code = 28894-4) 9.4 fL 9.8-13.0 L NRBC/100 WBC (test code = 1998833723) 0.0 See_Comment [Automated message] The system which generated this result transmitted reference range: 0.0 - 10.0 /100 WBCs. The reference range was not used to interpret this result as normal/abnormal. NRBC x10^3 (test code = 4138839666) See_Comment [Automated message] The system which generated this result transmitted reference range: 10*3/?L. The reference range was not used to interpret this result as normal/abnormal. GRAN MAT (NEUT) % (test code = 770-8) 86.2 % IMM GRAN % (test code = 8448737711) 1.10 % LYMPH % (test code = 736-9) 9.4 % MONO % (test code = 5905-5) 3.0 % EOS % (test code = 713-8) 0.1 % BASO % (test code = 706-2) 0.2 % GRAN MAT x10^3(ANC) (test code = 8267301504) 10.96 10*3/uL 1.99-6.95 H IMM GRAN x10^3 (test code = 1682931714) 0.14 10*3/uL 0.00-0.06 H LYMPH x10^3 (test code = 731-0) 1.20 10*3/uL 1.09-3.23 MONO x10^3 (test code = 742-7) 0.38 10*3/uL 0.36-1.02 EOS x10^3 (test code = 711-2) 0.06-0.53 L BASO x10^3 (test code = 704-7) 0.01-0.09 Lab Interpretation (test code = 89455-6) Abnormal [facility] [id number] 15:05:59* Test Item Value Reference Range Interpretation Comme nts QFT Gold Plus Result (test code = 03659-6) Negative Negative GEOVANI (test code = GEOVANI) [...] advised. For further information, refer to http://www.cdc.gov/mmw r/pdf/rr/lb8116.pdf and https://doi.org/10.109 3/rema/feu516. Lab Interpretation (test code = 39393-5) Normal [facility] WITH [id number] 10:03:34* Test Item Value Reference Range Interpretation [...] 34.4 g/dL 31.2-35.0 RDW-SD (test code = 92265-8) 37.8 fL 38.5-51.6 L RDW-CV (test code = 788-0) 12.5 % 12.1-15.4 PLT (test code = 777-3) 403 See_Comment H [Automated message] The system which generated this result transmitted reference range: 150 - 328 10*3/?L. The reference range was not used to interpret this result as normal/abnormal. MPV (test code = 54180-1) 8.7 fL 9.8-13.0 L NRBC/100 WBC (test code = 8824572240) 0.0 See_Comment [Automated message] The system which generated this result transmitted reference range: 0.0 - 10.0 /100 WBCs. The reference range was not used to interpret this result as normal/abnormal. NRBC x10^3 (test code = 2542229876) See_Comment [Automated message] The system which generated this result transmitted reference range: 10*3/?L. The reference range was not used to interpret this result as normal/abnormal. GRAN MAT (NEUT) % (test code = 770-8) 85.7 % IMM GRAN % (test code = 4444813216) 3.00 % LYMPH % (test code = 736-9) 6.7 % MONO % (test code = 5905-5) 4.0 % EOS % (test code = 713-8) 0.1 % BASO % (test code = 706-2) 0.5 % GRAN MAT x10^3(ANC) (test code = 1931691420) 12.93 10*3/uL 1.99-6.95 H IMM GRAN x10^3 (test code = 0744375393) 0.46 10*3/uL 0.00-0.06 H LYMPH x10^3 (test code = 731-0) 1.01 10*3/uL 1.09-3.23 L MONO x10^3 (test code = 742-7) 0.61 10*3/uL 0.36-1.02 EOS x10^3 (test code = 711-2) 0.06-0.53 L BASO x10^3 (test code = 704-7) 0.07 10*3/uL 0.01-0.09 BANDS (test code = 1090411036) MARKED INCREASED A Lab Interpretation (test code = 22539-5) Abnormal [facility]40028[facility] (ALB,T.PRO,BILI T,BU/BC,ALT,AST,ALK PHOS)2023-04-06 09:54:25* Test Item Value Reference Range Interpretation Comme nts TOTAL BILI (test code = 0031238839) 0.3 mg/dL 0.1-1.1 BILI UNCON (test code = 2800418489) 0.2 mg/dL 0.1-1.1 BILI CONJ (test code = 1962283696) 0.0 mg/dL 0.0-0.3 T PROTEIN (test code = 2596890066) 6.2 g/dL 6.3-8.2 L ALBUMIN (test code = 5877776848) 3.4 g/dL 3.5-5.0 L ALK PHOS (test code = 6756146311) 54 U/L 34-122 ALTv (test code = 1742-6) 20 U/L 5-50 AST(SGOT) (test code = 9183883983) 33 U/L 13-40 Lab Interpretation (test cod e = 52937-5) Abnormal [facility]2023-[facility]-11 09:54:25* Test Item Value Reference Range Interpretation Comme nts MAGNESIUM (test code = 0211357635) 2.1 mg/dL 1.7-2.4 Lab Interpretation (test cod e = 63316-6) Normal [facility] (NA, K, CL, CO2, GLUCOSE, BUN, CREATININE, CA)2023-04-06 09:54:25* Test Item Value Reference Range Interpretation Comme nts NA (test code = 8219632654) 135 mmol/L 135-145 K (test code = 6126636951) 3.8 mmol/L 3.5-5.0 CL (test code = 2789397467) 98 mmol/L 98-108 CO2 TOTAL (test code = 9747035905) 28 mmol/L 23-31 AGAP (test code = 4161175546) 9 2-16 BUN (test code = 6388829562) 6 mg/dL 7-23 L GLUCOSE (test code = 9857467096) 165 mg/dL 70-110 H CREATININE (test code = 7012050448) 0.63 mg/dL 0.60-1.25 CALCIUM (test code = 8302168448) 8.1 mg/dL 8.6-10.6 L eGFR (test code = 3358167260) 156.5 mL/min/1.73m2 GEOVANI (test code = GEOVANI) [...] imaging tests). Lab Interpretation (test code = 20920-5) Abnormal [facility] VIR[facility] (HCV) BY QUANTITATIVE NAAT 2023-04-05 19:02:52* Test Item Value Reference Range Interpretation Comme nts HCV Quantitative Interpretation (test code = 9926337926) Not Detected Not Detected GEOVANI (test code = GEOVANI) The Aptima HCV Dwight nt Dx assay is an FDA-approved real-time penetration tester-mediated amplification (TMA) test used for both detection [...] clinically indicated. Lab Interpretation (test code = 27162-0) Normal [facility] [id number] 14:37:42* Test Item Value Reference Range Interpretation Comme nts Case Report (test code = 0681859552) Surgical Pathology ?Case: [id number] ? Authorizing Provider: ?Ria Hendricks MD ? Collected: ? 04/03/2023 1736 ?Ordering Location: ? ? GI Endoscopy OR Department Received: ?04/04/2023 1257 ?Pathologist: ? Sofy Vernoica MD ? Specimen: ? ?COLON, Colon BX eval for IBD ? Final Diagnosis (test code = 0750291649) q7thcHUvCFCwf6rhQDGliUA uZzEwMzNcZnRuYmpcdWMxIH tccnRmMVxlcGljMTAyMDZcY Y7cbNoaxTz0vQppYRPaqiR6 iPWjCWtwg9hnYIZ2q7vdjtl pOXFgCAnsDo9nrTWwlOzzCd TyGWWpPEy2mE76XRHjyW2jj VRqEFd3KFMspAFxayWbAoDn JDJyrNXgkXV2SRGfUA5ilmh sXFmdPVfkCAUfohL5SBYyzT IeN1OoTCAsIH1ccrhiERJ3G CmvPRBwETK5BbMiQDDdz5Cq qdw4DaNwwBYzXOjedUAzadl vbjMuIINpbwJFDjIFZ9uGLc wgQklPUFNZOlxwYXIgICAgL YCIW2vUHsnRYG5GP59JDANT DHXJKQKCCNJUXLDRPekuP8Q RNYImPXNGM5STM1PJQIKJIo hIGPOQJdLBVOMJO9AHInHFA HXHKGBAF4ZYWL4HQQmbnRWu ICAgICAgIEFORCBJTkNSRUF STINvPHcYXJxZINqNE73SP1 qSACHqHX4TXGRREIWPGU4YM LxMWMsNKWjQETUUQn9UNlwE BVFIW66FDZQKHI0OZBzSQQh gXHBhciAgICAgICBDSFJPTk rGFTYYYRkDENQoN2iGXNRCQ 0JZNaKJFYYOX8BHTkkGABxw YXIgICAgLSBOTyBEWVNQTEF TSUEgSURFTlRJRklFRFxwYX XusRQunVifblKzGZceg8ScR 2YyMjAwMFxhbnNpXGRlZmxh rlmkVRFiMSE2cyBgBHEeWRe cMFRnVNebNa6riZMqcOwwUs RaAPHbk1tvnmLGWNopAhFaZ 629UEOcPPtwm4lvi1OtOBFs dSJwj8N8DUVFfuyzdMg8h0i oRaOcYsE9vJSfESklM4nqra MnqHBmF1SjzUEoyGp8gGhjY 19hq7Y0OumlB2hfDHGiOMAw J3ZrKG3wHLOiMue6KWM2YLH 1MEQeVFJnA0OgHS6yUNQboR GeUFh5i7wtkNnmUGLrZAV8g 7bvGGutlhG7CW6ede7wtUj5 n3hhzsAdJBQbTZNceCIXJOR fL3JzaDnoVv9cbKl1wOfoMw adCUA5Xgh3GD9owe39uad3a KdwZIVqhjhaZjK2SIlkYZCt ofltRHk3XJdfBYXeuRR6CJP rlBTjK5XuMGGkWF5slgt3YI I8JWmhPLAnIpK9GOQwiWBpZ RJkdEfrVKuda778OWI1ObBv DD3nS9Tgq0I8bO4zpFArCQM ysQAbEbAlHFZble7psWGbKJ osw7SnDZF2ppU3iJOetBCyU NWfCG10Orodc2QfTpgzKYH2 WTAcsgXha2Fdf9gaQzSttyM oF4tcD2NgEUBiKPUkPOOaRh AgrgVqi2Ljv2RwvIRrbQt2a 4zyKMPlWYWbtNvbe9cjZUA2 MCGpH1N1qXDog3vrFNxfHLY oqZE6jxP9ASOzvCVyP1UpfN 9eTHMzMQ7sahy7d3zoTZK4Q VvkJINwAjF7lrI9OFXufNHe JTTkvNudATmjs626ZKA1SiZ qIQCnb0TcX2WhnMznJ51wnB rmN56pLUJfpEdkyQ4qiMaat Z7iMrBzOuYoTUbosMbkbEVn blxmMVxmczIwXGxhbmcxMDM pTAllM7mzRvZxKWJalCfhSM bmt1JkIVOtWZOdXqrauvGlY UAljwIHYDlyuxUjoRIre53o YWxseSByZXZpZXdlZCBhbGw kq6KnL8bxQX6wT6JgjVBaue CwvhCrHFywWGQef9h6lKLon Ousa6LghCByPZ12noOmIYAt QBZ1VOJnz9edUF33gspaEgQ xcM10saEbkzXhSAGsu0mlD6 jsyMFjz5Itu8DnaaYzMRnau 3OxKR2ciJHqwergoYF0GOYn gCLafvInqiB8dQzmNQLbwC6 thA2mvJncuS2nSzHcMgWiUU dqAG3wMHSfW7cduTDnGMPfG YNwL1okIkOvvO7fyUgiAwit tgB3SPCcrz89 Clinical Information (test code = 7999509168) Pa Sultana Janett is a 22 year old male1. Colon BX eval for IBD Gross Description (test code = 6938419883) s9tdyXNiMFUonHBOABSoHXU oEX5hyKgsuNu1aQxwZQFmuc N0kLSqLWzco4kdHQO5b6fkg lVFDrswMTMhPX3yVQleCURx ZY5cVvXuPMUdXnTsDOLevXK pqhRjNkJvBGNlqWFexIV2YX QeYU1bulwuUBfzFFexMDTjp lF5XRBpjEBnA2DmLBUoJR9b jkaoOIG0OHJLNakaUp3mcKJ ibHtcZjFcZmNoYXJzZXQwXG XwtQaxIZYkVMe6zM1NCrwaH NX3VSQXSvleSaskcZidz2Zz dCBcXHNnIFxcaWQgNTEwMDA bXRxcHgLHHlNxSjI1MMU9AP YbCmX1NZy4QPCRYRDwCck1M XZcZCF6CBx9JUXaBO2hIRmt eUCkULlrGkcpTQhkX302HAb tKMXsR0QaN1FiDDmjFdOwGG lbBKAeKQCcDYtkQUXlE8CVB TEdCqI5NqZ4RuIaQMk1XTsc F3VXGIKcBJMfAyYmVSB0DsM 6SQe3UTHOIn0qYNabPAFcUV T9GSF8UNuyCGSgDUEeAlUcS JTaJGXmZVjouECwKF8flIsh OVNkPM6WZGVzHUucWYPlZaD xV4JJK3mDCD9wFTzmEBSxXX pccGFyZCANClxwbGFpblxmc nLqGMp0vmKyIYWiKdGkTESi B14bc9TGd5EcOQ0HGRz4nhF ecmrozT5nBUNfekHkJQxOnZ TwrY8sfoALOFjsCACcQ2Pdq wFfMEfdSHWxtl1jyCexBUZr KGFxmBPvPSbfpUulnRI3fGQ zxHOfDP0dAHCVMMNcwV3jIJ FaTGYfLJKiM29fg94fNRSmf M9cTPJIQGC6CCwqUr3kEVnB OXSjRW1oXPSzlhQbu2LbPO8 hVW93kXBxuCqzMWapY9w6NV RhlwHlnhDgH0XiPNJbnIizo 0LnDGEbPAbyNR47ukGbPP7u LTAuNCBjbSBpbiBncmVhdGV zzASnnM2ltpUli42rLWDuAB Z0AGMtTLH7ZFXyZbPkjYObi jNeS4vwIMlfaRPxRyUmJGty IHNwZWNpbWVuIGlzIGZpbHR whoNyFTSuec99P4ihCKIzxP 3hq9hpPhRmIBFzVGGgvJJbk TF8ASOzrZ7pbI80zrMlcrCI PK5ujFBwJI0YNNUyvuPWYjU tbXlsZWUgWmFuZywgUEEgc3 X4FHTmbZjmUYKsIGgQpXqmD SSVV8awsRXrWWljZQRRALSH V0QsKQNhvtXIFxlgXDMwBAq qe2KjBInlsYihYFHcXeWoQW ztTPNpP06lv6UMs3Lmy3izl Ctgr0FnyKXhAG49XROiyJNa RNZ3IE5prPovETJpOTiizWZ yZCANCn0= Disclaimer (test code = 2226258924) u6qgoLYuHOOqy6ucTTRezIO uZzEwMzNcZnRuYmpcdWMxIH sasuNoXAtlh4AsE7XeGtMnN FxhbnNpXGRlZmxhbmcxMDMz BSX0yrWcXOFkVEvrPZTsAKq qKu5xxTWyyAcfAjCwJAMnk1 wufzDSKFutVtOdM777PCDdV Orog1ozy9ErIMAmaXPis1U7 ZMOWutfwwSl9fKiwW13wx3Q 1IsfrZ1tkAFXlYJNeZ2FeYR 4jMHBzRbz4DIH9WTC7RQPjB QKlO1BwUT6eZVIglRDqENk7 e6pojEhdYDSdAZG8n4gfITx tfnUkLD5aza7swMs6x3yizx YeMCKuRVPmoGMHPGCbZ4Nzp CysXg5iyFr4fHelUswfESU5 Oxd3TV3ppe89hyf6dAgmVTA rdkfuCaS2RVtfAHAjignyTQ j6YGzhTABdgNT8ILVztTBmS 8DxJVAaZR0fhow5FQC0VDaq PXRzXcU1VQIhwGVwBKRwcId sANblc544XFL6VvPoPX7qD0 Bco7Z6yI9jdXDoWTSxqYQnS qVfZJTfae9qsXZkEDtop5Ou WWQ3ypW6pWMqiFPlOUGhTP1 3Ubabw6AuSzbom1WpF65epT O7QQgml0hrUG4bOxF3keQqS Gaty9wqeT1cCaG7HObbRO1n RS3nBWNfaD6zzdwsZXBuGpR grpbePWSqoWzsceJuOn3nlB ugBIP7HZzsK5kozD2tWbY9A JowT8pgyP2uIKr1XOqyuJN0 VOTihJ1qUZ9tcjwru6sgINj iDLogYDDdzmO1rnB9LJHubL KzN3UrmW5vIXCbGH7pgrlqf 4shBTZ0FKdqLMLtHVC9WwKr IHRxa3Nkhpk2QfDct1TbtHB dTComG81aj292IPWhjfQfL1 xwbGFpblxwbGFpblxmMFxmc kB0TMXdyoDbg5HlFUIiVQW3 KNalAUqseDDhKJIihFmbn1g oU6QmvTFkPYHbJSrsWDGaIG ZzMjBcbGFuZzEwMzNcaGlja LvyOAmlZgXjBHNzUUilC5cf EzBfY5VgPVTiWcDjiKFnV5y hVDlpjiDiJZQqhnEtmIP2OA wxB2q3RTLhizIfpSr4nuClW iMsPWCtKIX4FRkexZCsVELi x9YuyfonoHYlLd5coMLtHUU ekV5iOWCiLMQaEWbxEM1niI s7GVGRvFLfxQBfRaFGZYUvP V31fmReJPNVcryux1A9JRil HTCjb0PvyJBbZ8bwy1EsMLJ me99cAP1fv4K3o2giXDI8AQ 2qr8JnFJJjrIVvnOXwVMMcs 9Zxxqikz6UbJYUuahUuz3Bs ZCBhbmQgaXRzIHBlcmZvcm1 zybYdRCUpHJApI0GbytllyY zualZcUVCzjt9oiyVxLEG2H CSXMNTeMRVbe5LnxI4liWAN RFB0fDGifu3fkjRBxTOtMBY sue45EEZlEI0aD8eyXSZtBP GhyjWsuFBsx5YyTPXedLD0a COjPO5EUhJOg42hHJCiNPAZ xbUkSTQslOrobFC2jjZ1rK1 uIChGREEpLlx+IFRoZSBGRE BlTH8qybRim5McpmJluZqnH QTunFJrh2UefCXgp7OynJcq q8SdqVCtbZUtYK6tJHRgwqf rAMPqMFPZBoEHRALkwnY3y9 GeLFQsAFBwTFH4mJjknqd6G MMjiQ0rAEKxU5gqfvmtSFgb SDSqp5WblJ1nvFNEyASne2Q nnVFwaVBVxLZnMT4valOjIS qAVNaMHYT3okMzRDNpi3OqX AzrZ1naX76lqBzdcKk7eVG1 UEF9nM4rRwj+IFxwYXJccGF yIEFwcHJvcHJpYXRlbHkgcm SpF8MpxzAzpT2aiGBwpvCzM B1nVG2xL2Y6iCIvMPYncdNz e5ezOCjtjaWbNyEyahBsNAD gQXazQKZpl4EfJDkeQVQ6NX lucyBpbmNsdWRpbmcgSCZFL YAYwHOjjNCjLNE8GCcqlmNs xpBwIX9kjP6aoHztpG1enWS esNV2wcviKLMdJFLyvWmiGV OqWY6yfFLgNVSzqoGQyKikg ZFpkZ0mF9NzYSPnDGQsfj1o UFWkiS7uBGgyv5OtmzxaROW kSAKlLSIqnwWjei7lRNGrzZ CSQO4FTCfdvWTbj3BarjRrU 6qGMDV7VWMcCfXkCyjkHALr rEVvuISjJQGqox86CSEwrZ6 kcGbrWQKbiE0dpP4myBjyjB 4yGiMyLzHaIApiLZ0jSSAeX 4lueHGyEJMnIJGdI6hwSoKx zH1hnAmwLSrvOoKhIlNyHKh nTOG1zT== Embedded Images (test code = 8678281879) [facility] [id number] 14:35:43* Test Item Value Reference Range Interpretation Comme nts Extra Tube (test code = 3557510292) Received in Lab [facility] WITH [id number] 10:45:28* Test Item Value Reference Range Interpretation [...] g/dL 31.2-35.0 H RDW-SD (test code = 53425-2) 37.9 fL 38.5-51.6 L RDW-CV (test code = 788-0) 12.4 % 12.1-15.4 PLT (test code = 777-3) 403 See_Comment H [Automated message] The system which generated this result transmitted reference range: 150 - 328 10*3/?L. The reference range was not used to interpret this result as normal/abnormal. MPV (test code = 92519-6) 8.8 fL 9.8-13.0 L NRBC/100 WBC (test code = 4642153124) 0.0 See_Comment [Automated message] The system which generated this result transmitted reference range: 0.0 - 10.0 /100 WBCs. The reference range was not used to interpret this result as normal/abnormal. NRBC x10^3 (test code = 2743042053) See_Comment [Automated message] The system which generated this result transmitted reference range: 10*3/?L. The reference range was not used to interpret this result as normal/abnormal. GRAN MAT (NEUT) % (test code = 770-8) 90.9 % IMM GRAN % (test code = 8523290142) 1.60 % LYMPH % (test code = 736-9) 4.3 % MONO % (test code = 5905-5) 2.9 % EOS % (test code = 713-8) 0.0 % BASO % (test code = 706-2) 0.3 % GRAN MAT x10^3(ANC) (test code = 6716703309) 20.14 10*3/uL 1.99-6.95 H IMM GRAN x10^3 (test code = 6886360882) 0.36 10*3/uL 0.00-0.06 H LYMPH x10^3 (test code = 731-0) 0.95 10*3/uL 1.09-3.23 L MONO x10^3 (test code = 742-7) 0.65 10*3/uL 0.36-1.02 EOS x10^3 (test code = 711-2) 0.06-0.53 L BASO x10^3 (test code = 704-7) 0.06 10*3/uL 0.01-0.09 BANDS (test code = 3161298308) MARKED INCREASED A Lab Interpretation (test code = 48655-3) [facility] Test Item Value Reference Range Interpretation Comme nts MAGNESIUM (test code = 3070238216) 2.1 mg/dL 1.7-2.4 Lab Interpretation (test cod e = 25343-3) [facility] (NA, K, CL, CO2, GLUCOSE, BUN, CREATININE, CA)2023-04-05 09:58:18* Test Item Value Reference Range Interpretation Comme nts NA (test code = 8329199108) 133 mmol/L 135-145 L K (test code = 0237345315) 4.0 mmol/L 3.5-5.0 Slight hemolysis CL (test code = 7602144701) 100 mmol/L 98-108 CO2 TOTAL (test code = 2345663715) 26 mmol/L 23-31 AGAP (test code = 9703384687) 7 2-16 BUN (test code = 0454990993) 3 mg/dL 7-23 L Slight hemolysis GLUCOSE (test code = 8661467662) 178 mg/dL 70-110 H CREATININE (test code = 8713735085) 0.58 mg/dL 0.60-1.25 L CALCIUM (test code = 1861657855) 8.1 mg/dL 8.6-10.6 L eGFR (test code = 8984888982) 172.1 mL/min/1.73m2 GEOVANI (test code = GEOVANI) [...] imaging tests). Lab Interpretation (test code = 06194-6) Abnormal [facility] B SURFACE [id number] 22:55:30* Test Item Value Reference Range Interpretation Comme [facility] HBsAB (test code = 7721062773) Negative HBsAb Semi-Quantitative (test code = 8168657352) 0.10 mIU/mL GEOVANI (test code = GEOVANI) Interpretation: ?Hepatitis B Surface Antibody ? Negative - Patient is considered to be not immune to infection with HBV. ? ? Positive - Anti-HBs detected at greater than or equal to 12 mIU/mL. ?Patient is considered to be immune to infection with HBV. ? [facility] (IGM & IGG)2023-04-04 22:55:30* Test Item Value Reference Range Interpretation Comme [facility] HBC (test code = 0644494814) Negative HBC Semi-Quantitative (test code = 8527618807) 3.15 [facility] B SURFACE [id number] 15:42:58 * Test Item Value Reference Range Interpretation Comme [facility] HBsAg Semi-Quantitative (melvin t code = 5195-3) 0.05 Negative [facility] B SURFACE [id number] 15:42:58 * Test Item Value Reference Range Interpretation Comme [facility] HBsAg Semi-Quantitative (melvin t code = 5195-3) 0.05 Negative [facility] METABOLIC PANEL (NA, K, CL, CO2, GLUCOSE, BUN, CREATININE, CA)2023-04-04 11:32:42* Test Item Value Reference Range Interpretation Comme [facility] NA (test code = 2744309564) 132 mmol/L 135-145 L K (test code = 2889958711) 3.5 mmol/L 3.5-5.0 Slight hemolysis CL (test code = 3343113126) 100 mmol/L 98-108 CO2 TOTAL (test code = 2903303187) 24 mmol/L 23-31 AGAP (test code = 5672382571) 8 2-16 BUN (test code = 9555603677) 7-23 L Slight hemolysis GLUCOSE (test code = 3599160216) 88 mg/dL 70-110 CREATININE (test code = 2759742271) 0.73 mg/dL 0.60-1.25 CALCIUM (test code = 2034647904) 7.7 mg/dL 8.6-10.6 L eGFR (test code = 3124524914) 132.0 mL/min/1.73m2 GEOVANI (test code = GEOVANI) [...] imaging tests). Lab Interpretation (test code = 03274-6) Abnormal [facility] METABOLIC PANEL (NA, K, CL, CO2, GLUCOSE, BUN, CREATININE, CA)2023-04-04 11:32:42* Test Item Value Reference Range Interpretation Comme nts NA (test code = 1819466788) 132 mmol/L 135-145 L K (test code = 1127361769) 3.5 mmol/L 3.5-5.0 Slight hemolysis CL (test code = 0380191789) 100 mmol/L 98-108 CO2 TOTAL (test code = 5578518162) 24 mmol/L 23-31 AGAP (test code = 5821843349) 8 2-16 BUN (test code = 3384211954) 7-23 L Slight hemolysis GLUCOSE (test code = 6634902694) 88 mg/dL 70-110 CREATININE (test code = 9374545594) 0.73 mg/dL 0.60-1.25 CALCIUM (test code = 7249776668) 7.7 mg/dL 8.6-10.6 L eGFR (test code = 7667075465) 132.0 mL/min/1.73m2 GEOVANI (test code = GEOVANI) [...] imaging tests). Lab Interpretation (test code = 44835-3) [facility] 11:23:35* Test Item Value Reference Range Interpretation Comme nts MAGNESIUM (test code = 1458473788) 1.7 mg/dL 1.7-2.4 Lab Interpretation (test cod e = 87302-6) Normal [facility] 11:23:35* Test Item Value Reference Range Interpretation Comme nts MAGNESIUM (test code = 6239121248) 1.7 mg/dL 1.7-2.4 Lab Interpretation (test cod e = 77562-0) Normal [facility] WITH [id number] 10:55:07* Test Item Value Reference Range Interpretation [...] g/dL 31.2-35.0 H RDW-SD (test code = 83054-4) 37.7 fL 38.5-51.6 L RDW-CV (test code = 788-0) 12.5 % 12.1-15.4 PLT (test code = 777-3) 329 See_Comment H [Automated message] The system which generated this result transmitted reference range: 150 - 328 10*3/?L. The reference range was not used to interpret this result as normal/abnormal. MPV (test code = 55525-8) 8.6 fL 9.8-13.0 L NRBC/100 WBC (test code = 3284077772) 0.0 See_Comment [Automated message] The system which generated this result transmitted reference range: 0.0 - 10.0 /100 WBCs. The reference range was not used to interpret this result as normal/abnormal. NRBC x10^3 (test code = 4615104884) See_Comment [Automated message] The system which generated this result transmitted reference range: 10*3/?L. The reference range was not used to interpret this result as normal/abnormal. GRAN MAT (NEUT) % (test code = 770-8) 72.5 % IMM GRAN % (test code = 5469953549) 1.60 % LYMPH % (test code = 736-9) 11.5 % MONO % (test code = 5905-5) 6.8 % EOS % (test code = 713-8) 6.9 % BASO % (test code = 706-2) 0.7 % GRAN MAT x10^3(ANC) (test code = 4845271151) 13.10 10*3/uL 1.99-6.95 H IMM GRAN x10^3 (test code = 6362917212) 0.29 10*3/uL 0.00-0.06 H LYMPH x10^3 (test code = 731-0) 2.08 10*3/uL 1.09-3.23 MONO x10^3 (test code = 742-7) 1.23 10*3/uL 0.36-1.02 H EOS x10^3 (test code = 711-2) 1.25 10*3/uL 0.06-0.53 H BASO x10^3 (test code = 704-7) 0.13 10*3/uL 0.01-0.09 H Lab Interpretation (test code = 93668-6) Abnormal [facility] WITH [id number] 10:55:07* Test Item Value Reference Range Interpretation [...] g/dL 31.2-35.0 H RDW-SD (test code = 39864-4) 37.7 fL 38.5-51.6 L RDW-CV (test code = 788-0) 12.5 % 12.1-15.4 PLT (test code = 777-3) 329 See_Comment H [Automated message] The system which generated this result transmitted reference range: 150 - 328 10*3/?L. The reference range was not used to interpret this result as normal/abnormal. MPV (test code = 81645-8) 8.6 fL 9.8-13.0 L NRBC/100 WBC (test code = 3137697061) 0.0 See_Comment [Automated message] The system which generated this result transmitted reference range: 0.0 - 10.0 /100 WBCs. The reference range was not used to interpret this result as normal/abnormal. NRBC x10^3 (test code = 9158007280) See_Comment [Automated message] The system which generated this result transmitted reference range: 10*3/?L. The reference range was not used to interpret this result as normal/abnormal. GRAN MAT (NEUT) % (test code = 770-8) 72.5 % IMM GRAN % (test code = 0170449698) 1.60 % LYMPH % (test code = 736-9) 11.5 % MONO % (test code = 5905-5) 6.8 % EOS % (test code = 713-8) 6.9 % BASO % (test code = 706-2) 0.7 % GRAN MAT x10^3(ANC) (test code = 6786269620) 13.10 10*3/uL 1.99-6.95 H IMM GRAN x10^3 (test code = 0989195369) 0.29 10*3/uL 0.00-0.06 H LYMPH x10^3 (test code = 731-0) 2.08 10*3/uL 1.09-3.23 MONO x10^3 (test code = 742-7) 1.23 10*3/uL 0.36-1.02 H EOS x10^3 (test code = 711-2) 1.25 10*3/uL 0.06-0.53 H BASO x10^3 (test code = 704-7) 0.13 10*3/uL 0.01-0.09 H Lab Interpretation (test code = 54514-3) Abnormal [facility] METABOLIC PANEL (NA, K, CL, CO2, GLUCOSE, BUN, CREATININE, CA)2023-04-03 10:31:41* Test Item Value Reference Range Interpretation Comme nts NA (test code = 7048537459) 136 mmol/L 135-145 K (test code = 5047778528) 3.5 mmol/L 3.5-5.0 CL (test code = 4668760173) 104 mmol/L 98-108 CO2 TOTAL (test code = 7367547942) 22 mmol/L 23-31 L AGAP (test code = 3402411548) 10 2-16 BUN (test code = 9727840816) 7-23 L GLUCOSE (test code = 0527507681) 101 mg/dL 70-110 CREATININE (test code = 6808965984) 0.77 mg/dL 0.60-1.25 CALCIUM (test code = 8367361859) 8.4 mg/dL 8.6-10.6 L eGFR (test code = 1290166570) 124.1 mL/min/1.73m2 GEOVANI (test code = GEOVANI) [...] imaging tests). Lab Interpretation (test code = 49524-8) Abnormal [facility] METABOLIC PANEL (NA, K, CL, CO2, GLUCOSE, BUN, CREATININE, CA)2023-04-03 10:31:41* Test Item Value Reference Range Interpretation Comme nts NA (test code = 0613442927) 136 mmol/L 135-145 K (test code = 0623061117) 3.5 mmol/L 3.5-5.0 CL (test code = 9370551644) 104 mmol/L 98-108 CO2 TOTAL (test code = 7700353227) 22 mmol/L 23-31 L AGAP (test code = 5769669255) 10 2-16 BUN (test code = 4251624620) 7-23 L GLUCOSE (test code = 9779013540) 101 mg/dL 70-110 CREATININE (test code = 1697777908) 0.77 mg/dL 0.60-1.25 CALCIUM (test code = 8329729446) 8.4 mg/dL 8.6-10.6 L eGFR (test code = 2010282430) 124.1 mL/min/1.73m2 GEOVANI (test code = GEOVANI) [...] imaging tests). Lab Interpretation (test code = 70831-0) Abnormal [facility] WITH BPNS6354-06-17 10:27:32* Test Item Value Reference Range Interpretation [...] 34.9 g/dL 31.2-35.0 RDW-SD (test code = 05703-6) 37.5 fL 38.5-51.6 L RDW-CV (test code = 788-0) 12.3 % 12.1-15.4 PLT (test code = 777-3) 406 See_Comment H [Automated message] The system which generated this result transmitted reference range: 150 - 328 10*3/?L. The reference range was not used to interpret this result as normal/abnormal. MPV (test code = 47621-2) 8.6 fL 9.8-13.0 L NRBC/100 WBC (test code = 3425329502) 0.0 See_Comment [Automated message] The system which generated this result transmitted reference range: 0.0 - 10.0 /100 WBCs. The reference range was not used to interpret this result as normal/abnormal. NRBC x10^3 (test code = 8234803060) See_Comment [Automated message] The system which generated this result transmitted reference range: 10*3/?L. The reference range was not used to interpret this result as normal/abnormal. GRAN MAT (NEUT) % (test code = 770-8) 72.4 % IMM GRAN % (test code = 4927952029) 1.70 % LYMPH % (test code = 736-9) 13.6 % MONO % (test code = 5905-5) 6.5 % EOS % (test code = 713-8) 5.3 % BASO % (test code = 706-2) 0.5 % GRAN MAT x10^3(ANC) (test code = 7789882762) 18.08 10*3/uL 1.99-6.95 H IMM GRAN x10^3 (test code = 4359569887) 0.42 10*3/uL 0.00-0.06 H LYMPH x10^3 (test code = 731-0) 3.39 10*3/uL 1.09-3.23 H MONO x10^3 (test code = 742-7) 1.61 10*3/uL 0.36-1.02 H EOS x10^3 (test code = 711-2) 1.31 10*3/uL 0.06-0.53 H BASO x10^3 (test code = 704-7) 0.13 10*3/uL 0.01-0.09 H BANDS (test code = 1565887466) Increased A Lab Interpretation (test code = 95584-2) Abnormal [facility] WITH [id number] 10:27:32* Test Item Value Reference Range Interpretation [...] 34.9 g/dL 31.2-35.0 RDW-SD (test code = 63992-6) 37.5 fL 38.5-51.6 L RDW-CV (test code = 788-0) 12.3 % 12.1-15.4 PLT (test code = 777-3) 406 See_Comment H [Automated message] The system which generated this result transmitted reference range: 150 - 328 10*3/?L. The reference range was not used to interpret this result as normal/abnormal. MPV (test code = 99851-3) 8.6 fL 9.8-13.0 L NRBC/100 WBC (test code = 3649762408) 0.0 See_Comment [Automated message] The system which generated this result transmitted reference range: 0.0 - 10.0 /100 WBCs. The reference range was not used to interpret this result as normal/abnormal. NRBC x10^3 (test code = 9694694654) See_Comment [Automated message] The system which generated this result transmitted reference range: 10*3/?L. The reference range was not used to interpret this result as normal/abnormal. GRAN MAT (NEUT) % (test code = 770-8) 72.4 % IMM GRAN % (test code = 7071877173) 1.70 % LYMPH % (test code = 736-9) 13.6 % MONO % (test code = 5905-5) 6.5 % EOS % (test code = 713-8) 5.3 % BASO % (test code = 706-2) 0.5 % GRAN MAT x10^3(ANC) (test code = 1766851800) 18.08 10*3/uL 1.99-6.95 H IMM GRAN x10^3 (test code = 3313311183) 0.42 10*3/uL 0.00-0.06 H LYMPH x10^3 (test code = 731-0) 3.39 10*3/uL 1.09-3.23 H MONO x10^3 (test code = 742-7) 1.61 10*3/uL 0.36-1.02 H EOS x10^3 (test code = 711-2) 1.31 10*3/uL 0.06-0.53 H BASO x10^3 (test code = 704-7) 0.13 10*3/uL 0.01-0.09 H BANDS (test code = 3432046437) Increased A Lab Interpretation (test code = 81137-8) [facility] 10:27:27* Test Item Value Reference Range Interpretation Comme nts MAGNESIUM (test code = 1778532793) 1.7 mg/dL 1.7-2.4 Lab Interpretation (test cod e = 15515-2) [facility] 10:27:27* Test Item Value Reference Range Interpretation Comme nts MAGNESIUM (test code = 7864068918) 1.7 mg/dL 1.7-2.4 Lab Interpretation (test cod e = 72628-7) [facility] WITH CYKR9990-69-74 11:14:08* Test Item Value Reference Range Interpretation [...] 34.0 g/dL 31.2-35.0 RDW-SD (test code = 44355-9) 38.0 fL 38.5-51.6 L RDW-CV (test code = 788-0) 12.5 % 12.1-15.4 PLT (test code = 777-3) 328 See_Comment [Automated messa ge] The system which generated this result transmitted reference range: 150 - 328 10*3/?L. The reference range was not used to interpret this result as normal/abnormal. MPV (test code = 98560-4) 9.2 fL 9.8-13.0 L NRBC/100 WBC (test code = 5398366697) 0.0 See_Comment [Automated me ssage] The system which generated this result transmitted reference range: 0.0 - 10.0 /100 WBCs. The reference range was not used to interpret this result as normal/abnormal. NRBC x10^3 (test code = 4362145179) See_Comment [Automated messa ge] The system which generated this result transmitted reference range: 10*3/?L. The reference range was not used to interpret this result as normal/abnormal. GRAN MAT (NEUT) % (test code = 770-8) 58.9 % IMM GRAN % (test code = 8841561301) 1.90 % LYMPH % (test code = 736-9) 20.1 % MONO % (test code = 5905-5) 8.8 % EOS % (test code = 713-8) 9.6 % BASO % (test code = 706-2) 0.7 % GRAN MAT x10^3(ANC) (test code = 1968608252) 7.34 10*3/uL 1.99-6.95 H IMM GRAN x10^3 (test code = 8604680104) 0.24 10*3/uL 0.00-0.06 H LYMPH x10^3 (test code = 731-0) 2.51 10*3/uL 1.09-3.23 MONO x10^3 (test code = 742-7) 1.10 10*3/uL 0.36-1.02 H EOS x10^3 (test code = 711-2) 1.20 10*3/uL 0.06-0.53 H BASO x10^3 (test code = 704-7) 0.09 10*3/uL 0.01-0.09 Lab Interpretation (test code = 00656-1) Abnormal [facility] WITH YHNW0678-96-56 11:14:08* Test Item Value Reference Range Interpretation [...] 34.0 g/dL 31.2-35.0 RDW-SD (test code = 88048-4) 38.0 fL 38.5-51.6 L RDW-CV (test code = 788-0) 12.5 % 12.1-15.4 PLT (test code = 777-3) 328 See_Comment [Automated messa ge] The system which generated this result transmitted reference range: 150 - 328 10*3/?L. The reference range was not used to interpret this result as normal/abnormal. MPV (test code = 64157-1) 9.2 fL 9.8-13.0 L NRBC/100 WBC (test code = 2484626778) 0.0 See_Comment [Automated Scholrly ssage] The system which generated this result transmitted reference range: 0.0 - 10.0 /100 WBCs. The reference range was not used to interpret this result as normal/abnormal. NRBC x10^3 (test code = 8514846663) See_Comment [Automated Dental Fix RXa ge] The system which generated this result transmitted reference range: 10*3/?L. The reference range was not used to interpret this result as normal/abnormal. GRAN MAT (NEUT) % (test code = 770-8) 58.9 % IMM GRAN % (test code = 0704355070) 1.90 % LYMPH % (test code = 736-9) 20.1 % MONO % (test code = 5905-5) 8.8 % EOS % (test code = 713-8) 9.6 % BASO % (test code = 706-2) 0.7 % GRAN MAT x10^3(ANC) (test code = 5930200523) 7.34 10*3/uL 1.99-6.95 H IMM GRAN x10^3 (test code = 4695675083) 0.24 10*3/uL 0.00-0.06 H LYMPH x10^3 (test code = 731-0) 2.51 10*3/uL 1.09-3.23 MONO x10^3 (test code = 742-7) 1.10 10*3/uL 0.36-1.02 H EOS x10^3 (test code = 711-2) 1.20 10*3/uL 0.06-0.53 H BASO x10^3 (test code = 704-7) 0.09 10*3/uL 0.01-0.09 Lab Interpretation (test code = 91506-6) [facility]normal [facility] SBNBSDP8976-85-52 17:11:35* Test Item Value Reference Range Interpretation Comme nts CRP (test code = 6217428424) 2.1 mg/dL <=0.8 H Lab Interpretation (test cod e = 15741-5) Abnormal [facility]-REACTIVE FQEDSAY5216-28-87 17:11:35* Test Item Value Reference Range Interpretation Comme nts CRP (test code = 3415723274) 2.1 mg/dL <=0.8 H Lab Interpretation (test cod e = 39807-9) [facility]normal [facility] Dwpah7590-59-19 14:44:35* Test Item Value Reference Range Interpretation Comme nts FERRITIN (test code = 9641875097) 47.1 ng/mL 18.0-464.0 GEOVANI (test code = GEOVANI) Biotin has been reported to cause a negative bias, interpret results relative to patient's use of biotin. Lab Interpretation (test code = 06361-6) Normal [facility] Husgp2081-65-09 14:44:35* Test Item Value Reference Range Interpretation Comme nts FERRITIN (test code = 2451559543) 47.1 ng/mL 18.0-464.0 GEOVANI (test code = GEOVANI) Biotin has been reported to cause a negative bias, interpret results relative to patient's use of biotin. Lab Interpretation (test code = 97100-3) Normal [facility] Confirmation (Lab Only)2023-04-01 11:38:00* Test Item Value Reference Range Interpretation Comme nts ABO & RH (test code = 20) O Positive [facility]irm[facility] (Lab Only)2023-04-01 11:38:00* Test Item Value Reference Range Interpretation Comme nts ABO & RH (test code = 20) O Positive [facility] Rjpyz2026-21-22 11:22:35* Test Item Value Reference Range Interpretation Comme nts IRON (test code = 1174887814) 27 ug/dL 50-160 L TIBC (test code = 3407997376) 267 ug/dL 250-410 % FE SAT (test code = 5039338869) 10 % 20-50 L Lab Interpretation (test cod e = 08551-0) Abnormal [facility] Pgcve6991-67-18 11:22:35* Test Item Value Reference Range Interpretation Comme nts IRON (test code = 1344258380) 27 ug/dL 50-160 L TIBC (test code = 1964907462) 267 ug/dL 250-410 % FE SAT (test code = 0431469270) 10 % 20-50 L Lab Interpretation (test cod e = 92046-2) Abnormal [facility] Metabolic Panel (NA, K, CL, CO2, GLUCOSE, BUN, CREATININE, CA)2023-04-01 11:01:54* Test Item Value Reference Range Interpretation Comme nts NA (test code = 5323738874) 136 mmol/L 135-145 K (test code = 3598640897) 3.5 mmol/L 3.5-5.0 CL (test code = 9949755103) 102 mmol/L 98-108 CO2 TOTAL (test code = 6765637923) 28 mmol/L 23-31 AGAP (test code = 0733336535) 6 2-16 BUN (test code = 9604801649) 3 mg/dL 7-23 L GLUCOSE (test code = 7463745038) 100 mg/dL 70-110 CREATININE (test code = 2553230738) 0.83 mg/dL 0.60-1.25 CALCIUM (test code = 6590168890) 7.9 mg/dL 8.6-10.6 L eGFR (test code = 9361141293) 113.8 mL/min/1.73m2 GEOVANI (test code = GEOVANI) [...] imaging tests). Lab Interpretation (test code = 63056-0) [facility]normal [facility] (75167[facility] (ALB,T.PRO,BILI T,BU/BC,ALT,AST,ALK PHOS)2023-04-01 11:01:54* Test Item Value Reference Range Interpretation Comme nts TOTAL BILI (test code = 3783469648) 0.4 mg/dL 0.1-1.1 BILI UNCON (test code = 1312657389) 0.4 mg/dL 0.1-1.1 BILI CONJ (test code = 8191731692) 0.0 mg/dL 0.0-0.3 T PROTEIN (test code = 6285669282) 6.0 g/dL 6.3-8.2 L ALBUMIN (test code = 5850905841) 3.2 g/dL 3.5-5.0 L ALK PHOS (test code = 1174695589) 54 U/L 34-122 ALTv (test code = 1742-6) 12 U/L 5-50 AST(SGOT) (test code = 8234171524) 24 U/L 13-40 Lab Interpretation (test cod e = 59789-1) Abnormal [facility] Anggt5249-59-38 11:01:54* Test Item Value Reference Range Interpretation Comme nts MAGNESIUM (test code = 8681467925) 2.0 mg/dL 1.7-2.4 Lab Interpretation (test cod e = 74260-8) [facility] (NA, K, CL, CO2, GLUCOSE, BUN, CREATININE, CA)2023-04-01 11:01:54* Test Item Value Reference Range Interpretation Comme nts NA (test code = 7246410928) 136 mmol/L 135-145 K (test code = 6935894516) 3.5 mmol/L 3.5-5.0 CL (test code = 5223667086) 102 mmol/L 98-108 CO2 TOTAL (test code = 7121775258) 28 mmol/L 23-31 AGAP (test code = 0678251413) 6 2-16 BUN (test code = 6527868604) 3 mg/dL 7-23 L GLUCOSE (test code = 1009620666) 100 mg/dL 70-110 CREATININE (test code = 3606407401) 0.83 mg/dL 0.60-1.25 CALCIUM (test code = 9611631055) 7.9 mg/dL 8.6-10.6 L eGFR (test code = 1837655794) 113.8 mL/min/1.73m2 GEOVANI (test code = GEOVANI) [...] imaging tests). Lab Interpretation (test code = 89793-8) [facility] (99660) (ALB,T.PRO,BILI T,BU/BC,ALT,AST,ALK PHOS)2023-04-01 11:01:54* Test Item Value Reference Range Interpretation Comme nts TOTAL BILI (test code = 1595280949) 0.4 mg/dL 0.1-1.1 BILI UNCON (test code = 3213111985) 0.4 mg/dL 0.1-1.1 BILI CONJ (test code = 0092797969) 0.0 mg/dL 0.0-0.3 T PROTEIN (test code = 9642891894) 6.0 g/dL 6.3-8.2 L ALBUMIN (test code = 7366631668) 3.2 g/dL 3.5-5.0 L ALK PHOS (test code = 1311143449) 54 U/L 34-122 ALTv (test code = 1742-6) 12 U/L 5-50 AST(SGOT) (test code = 2811441687) 24 U/L 13-40 Lab Interpretation (test cod e = 32470-6) Abnormal [facility] Vbnzx3017-69-74 11:01:54* Test Item Value Reference Range Interpretation Comme nts MAGNESIUM (test code = 2253281472) 2.0 mg/dL 1.7-2.4 Lab Interpretation (test cod e = 18718-7) Normal [facility] with Pixeofdffgpf2268-60-81 10:39:49* Test Item Value Reference Range Interpretation [...] g/dL 31.2-35.0 H RDW-SD (test code = 70391-0) 37.3 fL 38.5-51.6 L RDW-CV (test code = 788-0) 12.3 % 12.1-15.4 PLT (test code = 777-3) 332 See_Comment H [Automated message] The system which generated this result transmitted reference range: 150 - 328 10*3/?L. The reference range was not used to interpret this result as normal/abnormal. MPV (test code = 23178-9) 8.8 fL 9.8-13.0 L NRBC/100 WBC (test code = 6649129253) 0.0 See_Comment [Automated message] The system which generated this result transmitted reference range: 0.0 - 10.0 /100 WBCs. The reference range was not used to interpret this result as normal/abnormal. NRBC x10^3 (test code = 5900943235) See_Comment [Automated message] The system which generated this result transmitted reference range: 10*3/?L. The reference range was not used to interpret this result as normal/abnormal. GRAN MAT (NEUT) % (test code = 770-8) 69.2 % IMM GRAN % (test code = 2071237890) 1.20 % LYMPH % (test code = 736-9) 14.9 % MONO % (test code = 5905-5) 8.5 % EOS % (test code = 713-8) 5.7 % BASO % (test code = 706-2) 0.5 % GRAN MAT x10^3(ANC) (test code = 2564926453) 11.97 10*3/uL 1.99-6.95 H IMM GRAN x10^3 (test code = 9979458518) 0.21 10*3/uL 0.00-0.06 H LYMPH x10^3 (test code = 731-0) 2.58 10*3/uL 1.09-3.23 MONO x10^3 (test code = 742-7) 1.47 10*3/uL 0.36-1.02 H EOS x10^3 (test code = 711-2) 0.99 10*3/uL 0.06-0.53 H BASO x10^3 (test code = 704-7) 0.09 10*3/uL 0.01-0.09 Lab Interpretation (test code = 45613-6) Abnormal [facility] with Xmafgriorefz5083-69-71 10:39:49* Test Item Value Reference Range Interpretation [...] g/dL 31.2-35.0 H RDW-SD (test code = 00794-3) 37.3 fL 38.5-51.6 L RDW-CV (test code = 788-0) 12.3 % 12.1-15.4 PLT (test code = 777-3) 332 See_Comment H [Automated message] The system which generated this result transmitted reference range: 150 - 328 10*3/?L. The reference range was not used to interpret this result as normal/abnormal. MPV (test code = 06073-7) 8.8 fL 9.8-13.0 L NRBC/100 WBC (test code = 4853751994) 0.0 See_Comment [Automated message] The system which generated this result transmitted reference range: 0.0 - 10.0 /100 WBCs. The reference range was not used to interpret this result as normal/abnormal. NRBC x10^3 (test code = 3383038586) See_Comment [Automated message] The system which generated this result transmitted reference range: 10*3/?L. The reference range was not used to interpret this result as normal/abnormal. GRAN MAT (NEUT) % (test code = 770-8) 69.2 % IMM GRAN % (test code = 8204546841) 1.20 % LYMPH % (test code = 736-9) 14.9 % MONO % (test code = 5905-5) 8.5 % EOS % (test code = 713-8) 5.7 % BASO % (test code = 706-2) 0.5 % GRAN MAT x10^3(ANC) (test code = 9792721067) 11.97 10*3/uL 1.99-6.95 H IMM GRAN x10^3 (test code = 6762586632) 0.21 10*3/uL 0.00-0.06 H LYMPH x10^3 (test code = 731-0) 2.58 10*3/uL 1.09-3.23 MONO x10^3 (test code = 742-7) 1.47 10*3/uL 0.36-1.02 H EOS x10^3 (test code = 711-2) 0.99 10*3/uL 0.06-0.53 H BASO x10^3 (test code = 704-7) 0.09 10*3/uL 0.01-0.09 Lab Interpretation (test code = 49316-8) [facility] - ONCE Fxjgnov5904-28-71 10:28:00* Test Item Value Reference Range Interpretation Comme nts ABO & RH (test code = 20) O POSITIVE IAT (test code = 1185) Negative [facility] - ONCE Hfucpqj0934-12-37 10:28:00* Test Item Value Reference Range Interpretation Comme nts ABO & RH (test code = 20) O POSITIVE IAT (test code = 1185) Negative [facility] SINGLE (PORTABLE)2020 09:39:00[place] [address] PatientName: PA LAWRENCE MR #: [id number] : 2000 Age/Sex: 20/M Req #: [id number] Adm Physician: Ordered by: Sp Cazares MD Report #: [id number] Location: ER Room/Bed: Procedure: [id number] DX/CHEST SINGLE (PORTABLE) Exam Date: 09/01/20 Exam [...] virus A and B antigen identification by ujydkmwsptwqrylojf4351-55-81 08:30:00* Test Item Value Reference Range Interpretation Comme nts Influenza Virus Types A,B An tigen (test code = 17621-9) NEGATIVE NEGATIVE [facility] Notes Date/Time Note Provider Source 2023-07-20 09:07:42 3184-13-71V42:07:42F ormatting of this note might be different from the original.Patient is needing a 30 day supply of Mesalamine due to a discrepancy on the script provided to the Patient assistance program. Script was corrected and resubmitted with corrections. BCIP approved patient to receive a refill from provider. Ishmael Damian 25426-0Bznoweoah encounter TqakNR7184-22-56D06:10:58Telephone encounter NoteTXT1.2.840.206096.1.13.104.2.7 .2.002198|[id number] for patient dvii70174-0BgzhDCJJDJHER[address] GnnbSns[id number] 53PSVEJQZVEYIGJUPSEVXYMD6914-87-99 T09:10:581.2.840.687484.1.72.3.15| 1.2.840.888530.1.13.104.2.7.2.7278 [id number] [facility] 2023-07-10 09:57:20 4561-18-96I75:57:20F ormatting of this note is different from the original.Received 07/05/2023 refill request for: Medication:Requested Prescriptions Pending Prescriptions Disp Refills mesalamine 1.2 gram EC tablet 60 tablet 0 Sig: Take 2 tablets by mouth daily with breakfast. Last filled:06/15/2023Follow up scheduled for : 08/15/2023Last office visit:07/05/2023Refilled approval sent to: Pharmacy: [id number] - [place], [place] - [address] [facility] & [place] [address]Mpwpq: [phone] Qvrdmvoa per ID Guidelines 46083-3Xngwytxpl encounter YhivDV0826-34-08N78:58:26Telephone encounter NoteTXT1.2.840.417401.1.13.104.2.7 .2.606260|[id number] for patient ftjt80783-1RmwbRN222066048Zjndq N [place] [address] Kp[id number] 38MVJWIGKBABSIVGVBYCCLXI9181-95-69 T09:58:261.2.840.903903.1.72.3.15| 1.2.840.873006.1.13.104.2.7.2.7278 [id number] Julia [facility] 2023-07-05 18:29:21 6104-11-05E77:29:21F ormatting of this note might be different from the original.Pa Anayaalyssa is a 22 year old malePatient had to cancel his appt because there is an insurance issue.It couldn't be rescheduled until September 07, but his medication is running out.Please refill the mesalamine 1.2 gram EC tablet so that he can make it until his next appointment.[id number] - [address] [facility] [address] [place] [address]Fxlra: [phone] Vsufzyrrfqxbgg signed by Cass Gilmore at 07/05/2023 6:32 PM BBK40800-3Rfdwqtelk encounter EvryEE6317-07-62I35:32:00Telephone encounter NoteTXT1.2.840.383168.1.13.104.2.7 .2.716687|[id number] for patient dibz94322-5HkerYTWQILHBZY[id number] 68JNAZTXTBBIAOPQHKDQGDHV1263-28-12 T18:32:001.2.840.148319.1.72.3.15| 1.2.840.190003.1.13.104.2.7.2.7278 [id number] [facility] 2023-05-11 14:30:00 1262-97-62F88:30:00 Addended by: BESSIE SALGADO DNP-ORALIA ARZATE on: 06/15/2023 05:04 PM Modules accepted: Orders 24697-5Xrgmgtmx CjhpuvjnOX7495-43-50W12:04:27Adden dum DocumentTXT1.2.840.402388.1.13.104 .2.7.2.294769|[id number] e for patient [id number] 81SRPCKMOVAYQBXUBKXZEWGM0957-55-74 T17:04:271.2.840.865117.1.72.3.15| 1.2.840.539851.1.13.104.2.7.2.7278 [id number] [facility]
--- NOTE | 2024-05-09 21:05 | ER ---
Nurse's Notes [facility] Name: Orlando Rowland Age: 23 yrs Sex: Male : 2000 Arrival Date: 05/09/2024 Time: 20:16 Bed 12 Private MD: Diagnosis: Sprain of other parts of lumbar spine and pelvis;Sprain of ligaments of lumbar spine Presentation: 05/09 20:49 Chief complaint: Patient states: I am having left hip pain that started 3-4 hours ago. jb4 Coronavirus screen: At this time, the client does not indicate any symptoms associated with coronavirus-19. Ebola Screen: No symptoms or risks identified at this time. Initial Sepsis Screen: Does the patient meet any 2 criteria? No. Patient's initial sepsis screen is negative. Does the patient have a suspected source of infection? No. Patient's initial sepsis screen is negative. Risk Assessment: Do you want to hurt yourself or someone else? Patient reports no desire to harm self or others. Onset of symptoms was May 09, 2024. Transition of care: patient was not received from another setting of care. 20:49 Method Of Arrival: Ambulatory jb4 20:49 Acuity: KO 4 jb4 Historical: - Allergies: 20:51 No Known Allergies; jb4 - PMHx: 20:51 ulcerative colitis; jb4 - PSHx: 20:51 None; jb4 - Immunization history:: Adult Immunizations up to date. - Infectious Disease History:: Denies. - Social history:: Smoking status: Patient denies any tobacco usage or history of. - Family history:: not pertinent. Screenin:52 [facility] ED Fall Risk Assessment (Adult) History of falling in the last 3 months, mb9 including since admission No falls in past 3 months (0 pts) Confusion or Disorientation No (0 pts) Intoxicated or Sedated No (0 pts) Impaired Gait No (0 pts) Mobility Assist Device Used No (0 pt) Altered Elimination No (0 pt) Score/Fall Risk Level 0 - 2 = Low Risk Oriented to surroundings, Maintained a safe environment, Educated pt \T\ family on fall prevention, incl call for assistance when getting out of bed. Abuse screen: Denies threats or abuse. Nutritional screening: No deficits noted. Tuberculosis screening: No symptoms or risk factors identified. Assessment: 21:00 General: Appears in no apparent distress. Behavior is calm, cooperative. Pain: mb9 Complains of pain in hip Pain radiates to left sided of back. Neuro: Vaz Agitation-Sedation Scale (RASS): 0 - Alert and Calm Level of Consciousness is awake, alert, obeys commands, Oriented to person, place, time, situation, Appropriate for age. Cardiovascular: Patient's skin is warm and dry. Respiratory: Airway is patent Respiratory effort is even, unlabored, Respiratory pattern is regular, symmetrical. GI: No signs and/or symptoms were reported involving the gastrointestinal system. : No signs and/or symptoms were reported regarding the genitourinary system. EENT: No signs and/or symptoms were reported regarding the EENT system. Derm: Skin is pink, warm \T\ dry. Musculoskeletal: Range of motion: intact in all extremities. Vital Signs: 20:49 BP 112 / 66; Pulse 82; Resp 16; Temp 97.2(TE); Pulse Ox 100% on R/A; Weight 54.43 kg; jb4 Height 5 ft. 7 in. (R); 20:49 Body Mass Index 18.79 (54.43 kg, 170.18 cm) jb4 [place] Coma Score: 05/10 03:48 Eye Response: spontaneous(4). Motor Response: obeys commands(6). Verbal Response: sp4 oriented(5). Total: 15. ED Course: 05/09 20:34 Patient arrived in ED. gm2 20:50 Triage completed. jb4 20:51 Arm band placed on right wrist. jb4 20:52 Charlene Perez, RN is Primary Nurse. mb9 20:52 Bed in low position. Call light in reach. Side rails up X 1. Adult w/ patient. Provided mb9 Education on: press call light if needing anything. Client placed on continuous cardiac and pulse oximetry monitoring. NIBP monitoring applied. Door closed. Noise minimized. Warm blanket given. Pillow given. 20:53 Danis Stevens MD is Attending Physician. sp4 21:03 Lawrence Jamison DO is Referral Physician. sp4 21:16 No provider procedures requiring assistance completed. Patient did not have IV access mb9 during this emergency room visit. Administered Medications: 21:10 Drug: Methocarbamol PO 1500 mg PO once Route: PO; mb9 21:21 Follow up: Response: No adverse reaction mb9 21:13 Not Given (Patient Refused): [id number] mg PO once mb9 Medication: 20:52 VIS not applicable for this client. mb9 Outcome: 21:04 Discharge ordered by . sp4 21:16 Discharged to home ambulatory, with family, mb9 21:16 Condition: stable 21:16 Discharge instructions given to patient, Instructed on discharge instructions, follow up and referral plans. Demonstrated understanding of instructions, follow-up care, medications, Prescriptions given X 2, 21:22 Patient left the ED. mb9 Signatures: Dann Bey RN RN jb4 Chris, Charlene Rodríguez RN RN mb9 Danis Stevens MD MD sp4 Maryuri Zafar [facility]
--- NOTE | 2024-05-09 21:05 | EDPHYS ---
Physician Documentation [facility] Name: Orlando Rowland Age: 23 yrs Sex: Male : 2000 Arrival Date: 05/09/2024 Time: 20:16 Bed 12 Private MD: ED Physician Danis Stevens HPI: 05/09 20:53 This 23 yrs old Male presents to ER via Ambulatory with complaints of Hip sp4 Pain. 05/10 03:48 23-year-old male presents with acute onset left lower back pain after lifting heavy sp4 battery at work.. Historical: - Allergies: 05/09 20:51 No Known Allergies; jb4 - PMHx: 20:51 ulcerative colitis; jb4 - PSHx: 20:51 None; jb4 - Immunization history:: Adult Immunizations up to date. - Infectious Disease History:: Denies. - Social history:: Smoking status: Patient denies any tobacco usage or history of. - Family history:: not pertinent. ROS: 05/10 03:48 Constitutional: Negative for fever, chills, and weight loss, positive acute left lower sp4 back pain. All other systems are negative, Exam: 03:48 Constitutional: This is a well developed, well nourished patient who is awake, alert, sp4 and in no acute distress. Head/Face: Normocephalic, atraumatic. Eyes: Pupils equal round and reactive to light, extra-ocular motions intact. Lids and lashes normal. Conjunctiva and sclera are not injected. Cornea within normal limits. Periorbital areas with no swelling, redness, or edema. ENT: Nares patent. No nasal discharge, no septal abnormalities noted. Tympanic membranes are normal and external auditory canals are clear. Oropharynx with no redness, swelling, or masses, exudates, or evidence of obstruction, uvula midline. Mucous membranes moist. Neck: Trachea midline, no thyromegaly or masses palpated, and no cervical lymphadenopathy. Supple, full range of motion without nuchal rigidity, or vertebral point tenderness. Chest/axilla: Normal chest wall appearance and motion. Nontender with no deformity. No lesions are appreciated. Cardiovascular: Regular rate and rhythm with a normal S1 and S2. No gallops, murmurs, or rubs. Normal PMI, no JVD. No pulse deficits. Respiratory: Lungs have equal breath sounds bilaterally, clear to auscultation and percussion. No rales, rhonchi or wheezes noted. No increased work of breathing, no retractions or nasal flaring. Abdomen/GI: Soft, with normal bowel sounds. No distension or tympany. No guarding or rebound. No evidence of tenderness throughout. Back: No spinal tenderness. No costovertebral tenderness. Skin: Warm, dry with normal turgor. Normal color with no rashes, no lesions, and no evidence of cellulitis. MS/ Extremity: Pulses equal, no cyanosis. Neurovascular intact. Full, normal range of motion. Neuro: Awake and alert, GCS 15, oriented to person, place, time, and situation. Cranial nerves II-XII grossly intact. Motor strength 5/5 in all extremities. Sensory grossly intact. Psych: Awake, alert, with orientation to person, place and time. Behavior, mood, and affect are within normal limits Vital Signs: 05/09 20:49 BP 112 / 66; Pulse 82; Resp 16; Temp 97.2(TE); Pulse Ox 100% on R/A; Weight 54.43 kg; jb4 Height 5 ft. 7 in. (R); 20:49 Body Mass Index 18.79 (54.43 kg, 170.18 cm) jb4 [place] Coma Score: 05/10 03:48 Eye Response: spontaneous(4). Motor Response: obeys commands(6). Verbal Response: sp4 oriented(5). Total: 15. MDM: 05/09 21:04 Patient medically screened. sp4 05/10 03:52 Differential diagnosis: bursitis, arthritis, strain. Data reviewed: vital signs, nurses sp4 notes. ED course: Patient basically has exam consistent with left lower paraspinal muscular tenderness left lower erector spinal tenderness. Stable for discharge home with 3 days of bedrest as needed Robaxin.. Administered Medications: 05/09 21:10 Drug: Methocarbamol PO 1500 mg PO once Route: PO; mb9 21:21 Follow up: Response: No adverse reaction mb9 21:13 Not Given (Patient Refused): [id number] mg PO once mb9 Disposition Summary: 05/09/24 21:04 Discharge Ordered Notes: Location: Home sp4 Problem: new sp4 Symptoms: have improved sp4 Condition: Stable sp4 Diagnosis - Sprain of other parts of lumbar spine and pelvis sp4 - Sprain of ligaments of lumbar spine sp4 Followup: sp4 - With: Lawrence Jamison DO - When: 7 - 10 days - Reason: Recheck today's complaints Discharge Instructions: - Discharge Summary Sheet sp4 - Acute Back Pain, Adult sp4 Forms: - Work release form sp4 - Patient Portal Instructions sp4 Prescriptions: - Ibuprofen 800 mg Oral Tablet - take 1 tablet ORAL route every 8 hours As needed take with food; 30 tablet; sp4 Refills: 0, Product Selection Permitted - methocarbamol 750 mg Oral tablet - take 2 tablets ORAL route every 8 hours for 3 days PRN pain; 60 tablet; sp4 Refills: 0, Product Selection Permitted Signatures: Dann Bey RN RN jb4 Charlene Perez RN RN mb9 Danis Stevens MD MD sp4
[2024-05-09] MEDS ORDERED: IBUPROFEN 400 MG TAB ONE (21:09)
[2024-05-09] MEDS ORDERED: methocarbamoL 500 MG TAB ONE (21:11)
[2024-05-09 21:47] VITALS: BP 112/66; TEMP 97.2; O2SAT 100
== END 2024-05-09 21:22 | disposition home or self-care (01) ==
LOC: ER 20:16
DX: S33.8XXA Sprain of other parts of lumbar spine and pelvis, initial encounter (principal)
CPT/HCPCS: 99283

== ENCOUNTER 2025-01-24 08:17 | Emergency (ER) | payer OTHER ==
--- OUTSIDE RECORDS SUMMARY | 2025-01-24 08:25 | XMS REPORT | Continuity of Care Document ---
Author Name Unknown Address [address] [place] [address] [facility] thconnect Address [address] [place] [address] Care Team Providers Care Cloak Room Attendant Name Role Phone NO, PCP Primary Care Physician Unavailab LAURYN Albrecht Attending Clinician Unavailable Doctor Unassigned, [place] Attending Clinician U susana Monteiro, Ronan - Stanton Attending Clinician Unavailable Lauryn Paz Attending Clinician + [phone] Checo Marks MD Attending Clinician + [phone] LAURYN YADAV Attending Clinician Unavailab RAMONA Hoskins Attending Clinician UnavailOsvaldo Escobedo MD Attending Clinicia n Laurny Paz Attending Clinician + [phone] Roger Wagner Attending Clinician [phone] Ronan Monteiro Attending Clinician Unavailable Doctor Unassigned, [place] Attending Clinician U susana Sheets RN, Orquidea Roberts Attending Clinician Unavail Hernan Belle MD Attending Clinician [phone] Erika CHUN, Pa Attending Clinician [phone] PA RAMSEY Attending Clinician Unavailleon Hendricks MD, Ria Attending Clinician [phone] Sp Cazares Attending Clinician Unavailsymone Ramsey MD, Pa Admitting Clinician [phone] PA RAMSEY Admitting Clinician Unavailabl e Payers Payer Name Policy Type Policy Number Effective Date Expirati on Date Source [facility] MARÍA SHANKS COPAIMEE FOCUS 9 [id number] 2023 00:00:00 [place] Op[place] Venkatesh [id number] 2023 00:00:00 2023 00:00:00 Problems Condition Name Condition Details Condition Category Status Onset Date Resolution Date Last Treatment Date Treating Clinician Comments Source Rectal bleeding Rectal bleeding Disease Active 03-31 00:00: 00 [facility] Colitis with rectal bleeding Colitis with rectal bleeding Disease Active 03-31 00:00: 00 Overview: Formattin g of this note might be different from the original. Added automatic ally from request for surgery [id number] [facility] Shortness of breath Problem Active [facility] Allergies, Adverse Reactions, Alerts Allergy Name Allergy Type Status Severity Reaction(s) Onset Date Inactive Date Treating Clinician Comments Source No Known Allergie s DA Active [facility] NO KNOWN ALLERGIE S Drug Class Active [facility] Social History Social Habit Start Date Stop Date Quantity Comments Source History SDOH Alcohol Std Drinks [facility] History SDOH Alcohol Binge [facility] History SDOH Social Connections Get Together [facility] History SDOH Social Connections Worship [facility] History SDOH Social Connections Membership [facility] History SDOH Social Connections Meetings [facility] History SDOH Food Scarcity [facility] Gender identity Univ [facility] of Social function 2024-10-17 00:00:00 2024-10-17 00:00:00 [facility] Alcoholic beverage intake 2024-10-17 00:00:00 2024-10-17 00:00:00 3 /d [facility] Alcohol intake 2023-06-15 00:00:00 2023-06-15 00:00:00 3 /d [facility] History SDOH Alcohol Frequency 2023-04-04 00:00:00 2023-04-04 00:00:00 1 [facility] History SDOH Social Connections Phone 2023-04-04 00:00:00 2023-04-04 00:00:00 5 [facility] History SDOH Social Connections Living 2023-04-04 00:00:00 2023-04-04 00:00:00 7 [facility] History SDOH Physical Activity DPW 2023-04-04 00:00:00 2023-04-04 00:00:00 3 [facility] History SDOH Physical Activity MPS 2023-04-04 00:00:00 2023-04-04 00:00:00 3 [facility] History SDOH Financial 2023-04-04 00:00:00 2023-04-04 00:00:00 5 [facility] History SDOH Food Worry 2023-04-04 00:00:00 2023-04-04 00:00:00 1 [facility] History SDOH Transport Med 2023-04-04 00:00:00 2023-04-04 00:00:00 2 [facility] History SDOH Transport Non-Med 2023-04-04 00:00:00 2023-04-04 00:00:00 2 [facility] History SDOH Housing Unable to Pay 2023-04-04 00:00:00 2023-04-04 00:00:00 2 [facility] History SDOH Housing Places Lived 2023-04-04 00:00:00 2023-04-04 00:00:00 1 [facility] History SDOH Housing Homeless Last Year 2023-04-04 00:00:00 2023-04-04 00:00:00 2 [facility] Exposure to SARS-CoV-2 (event) 2023-03-24 00:00:00 2023-04-03 12:55:00 Not sure [facility] Tobacco use and exposure 2023-03-31 00:00:00 2023-03-31 00:00:00 Smokeless tobacco non-user [facility] Sex assigned at 2000 00:00:00 2000 00:00:00 [facility] Smoking Status Start Date Stop Date Source Never smoked tobacco [facility] Medications Ordered Medication Name Filled Medication Name Start Date Stop Date Current Medication? Ordering Clinician Indication Dosage Frequency Signature (SIG) Comments Components Source mesalamine 1.2 gram EC tablet 2023-11 00:00: 00 Yes [id number] 2.4g Take 2 tablets by mouth daily with breakfast. [facility] mesalamine 1.2 gram EC tablet 2022-11 00:00: 00 10-17 00:00 :00 No [id number] 2.4g Take 2 tablets by mouth daily with breakfast. [facility] mesalamine 1.2 gram EC tablet -20 00:00: 00 10-16 00:00 :00 No [id number] 2.4g Take 2 tablets by mouth daily with breakfast. [facility] mesalamine 1.2 gram EC tablet 24 00:00: 00 Yes [id number] 2.4g Take 2 tablets by mouth daily with breakfast. [facility] mesalamine 1.2 gram EC tablet 14 00:00: 00 Yes [id number] 2.4g Take 2 tablets by mouth daily with breakfast. [facility] mesalamine 1.2 gram EC tablet 20 00:00: 00 Yes [id number] 2.4g Take 2 tablets by mouth daily with breakfast. [facility] pantoprazol e 40 mg EC tablet 04-09 00:00: 00 06-09 04:59 :00 No [id number] 40mg Take 1 tablet by mouth in the morning for 60 days. [facility] predniSONE (DELTASONE) tablet 60 mg 04-08 14:00: 00 04-20 13:59 :00 No 60mg 60 mg, Oral, DAILY, 12 doses, First dose on Mon04/08/23 at 0900, Last dose on Mon04/19/23 at 0900, Routine [facility] predniSONE 20 mg tablet 04-08 00:00: 00 06-20 04:59 :00 No [id number] Take 3 tablets by mouth daily for 7 days, THEN 2 tablets daily for 30 days, THEN 1.5 tablets daily for 7 days, THEN 1 tablet daily for 28 days. [facility] mesalamine 1.2 gram EC tablet 04-08 00:00: 00 06-15 00:00 :00 No [id number] 2.4g Take 2 tablets by mouth daily with breakfast. [facility] melatonin (MELATIN) tablet 3 mg 04-07 02:00: 00 Yes 3mg 3 mg, Oral, QHS, First dose (after last modificati on) on Mon04/06/23 at 2100, Until Discontinu ed, Routine [facility] methylpredn isolone sod succ (SOLU-MEDRO L) injection 60 mg 04-04 21:00: 00 04-06 20:43 :00 No 60mg 60 mg, Intravenou s, Q24H, 3 doses, First dose on Mon04/04/23 at 1600, Last dose on Mon04/06/23 at 1600, 2 mL [facility] pantoprazol e (PROTONIX) EC tablet 40 mg 04-04 16:00: 00 Yes 40mg 40 mg, Oral, DAILY, First dose on Mon04/04/23 at 1100, Until Discontinu ed, Routine [facility] enoxaparin (LOVENOX) injection 40 mg 04-04 05:00: 00 Yes 40mg 40 mg, Subcutaneo us, Q24H, First dose (after last modificati on) on Mon04/04/23 at 0000, Until Discontinu ed, Routine [facility] simethicone (GAS RELIEF (SIMETHICON E)) 40 mg/0.6 mL drops 04-03 22:12: 00 04-03 23:40 :00 No PRN, Starting on Mon04/03/23 at 1712, Until Mon04/03/23 at 1840, Routine, Intra-op [facility] bisacodyL (DULCOLAX) tablet 10 mg 04-02 18:00: 00 04-02 18:03 :00 No 10mg 10 mg, Oral, PRE-PROCED URE ONCE, 1 dose, Starting on Mon04/02/23 at 1300, Until Discontinu ed, Routine, Bowel Prep, Colonoscop y [facility] ondansetron (ZOFRAN (PF)) injection 4 mg 04-02 12:40: 42 04-04 12:17 :10 No 4mg 4 mg, Slow IV Push, Q6HPRN, Starting on Mon04/02/23 at 0740, Until Mon04/04/23 at 0717, Routine, Nausea and Vomiting (N/V) [facility] ciprofloxac in HCl (CIPRO) tablet 500 mg 04-01 23:00: 00 04-04 15:51 :55 No 500mg 500 mg, Oral, Q12HA2, 20 doses, First dose on Mon04/01/23 at 1800, Last dose on Mon04/11/23 at 0600, BREN
Re ason for Anti-Infec tive: Documented Infection< br>Documen james Infection Site: Abdominal< br>Duratio n of Therapy: 10 days [facility] enoxaparin (LOVENOX) injection 40 mg 04-01 20:15: 00 04-02 20:56 :13 No 40mg 40 mg, Subcutaneo us, Q24H, First dose on Mon04/01/23 at 1515, Until Discontinu ed, Routine [facility] metroNIDAZO LE (FLAGYL) tablet 500 mg 04-01 19:00: 00 04-04 15:51 :55 No 500mg 500 mg, Oral, Q8H, 30 doses, First dose on Mon04/01/23 at 1400, Last dose on Mon04/11/23 at 0600, Routine
Reason for Anti-Infec tive: Documented Infection< br>Documen james Infection Site: Abdominal< br>Duratio n of Therapy: 10 days [facility] lactated ringers IV infusion 1,000 mL 04-01 13:30: 00 04-02 01:00 :00 No 1000mL at 999 mL/hr, 1,000 mL, Intravenou s, ONCE, 1 dose, On Mon04/01/23 at 0830, Routine [facility] ciprofloxac in in 5 % dextrose (CIPRO) [...] Abdominal< br>Duratio n of therapy: 5 days [facility] metroNIDAZO LE in NaCl (iso-os) (FLAGYL I.V.) [...] Abdominal< br>Duratio n of therapy: 5 days [facility] lactated ringers IV infusion 1,000 mL 04-01 04:30: 00 04-01 08:10 :00 No 1000mL at 999 mL/hr, 1,000 mL, Intravenou s, ONCE, 1 dose, On Mon03/31/23 at 2330, Routine [facility] acetaminoph en (TYLENOL) tablet 650 mg 04-01 03:33: 45 Yes 650mg 650 mg, Oral, Q6HPRN, Starting on Mon03/31/23 at 2233, Until Discontinu ed, Routine, Pain (scale 1-3) [facility] NaCl 0.9% (NS) IV infusion 1,000 mL 03-31 22:45: 00 04-04 12:16 :26 No 1000mL at 150 mL/hr, IV Infusion, CONTINUOUS , Starting on Mon03/31/23 at 1745, Until Mon04/04/23 at 0716, Routine [facility] lactobacill us acidophilus tablet 1 mg 03-31 22:45: 00 03-31 22:49 :00 No 1mg 1 mg, Oral, ONCE NOW, 1 dose, On Mon03/31/23 at 1745, BREN [facility] ciprofloxac in in 5 % dextrose (CIPRO) piggyback 400 mg 03-31 22:30: 00 04-01 01:02 :00 No 400mg 400 mg, IV Piggyback, ONCE, 1 dose, On Mon03/31/23 at 1730, Administer over 60 Minutes, 200 mL
Reas on for Anti-Infec tive: Empiric Therapy for Suspected Infection< br>Empiric Therapy Site: Abdominal< br>Duratio n of therapy: 72 hours [facility] metroNIDAZO LE (FLAGYL) tablet 500 mg 03-31 21:45: 00 03-31 22:49 :00 No 500mg 500 mg, Oral, ONCE, 1 dose, On Mon03/31/23 at 1645, BREN
Re ason for Anti-Infec tive: Empiric Therapy for Suspected Infection< br>Empiric Therapy Site: Abdominal< br>Duratio n of therapy: 72 hours [facility] iopamidol (ISOVUE 370-500 mL) injection 75 mL 03-31 21:45: 00 03-31 21:45 :00 No [id number] 75mL 75 mL, Intravenou s, ONCE, 1 dose, On Mon03/31/23 at 1645, Routine [facility] NaCl 0.9% (NS) bolus infusion 1,000 mL 03-31 20:30: 00 03-31 22:50 :00 No 1000mL at 999 mL/hr, 1,000 mL, IV Piggyback, ONCE, 1 dose, On Mon03/31/23 at 1530, STAT [facility] Immunizations Ordered Immunization Name Filled Immunization Name Date Status Comments Source DTAP 2018-05-09 00:00:00 Completed [facility] DTAP 2018-05-09 00:00:00 Completed [facility] DTAP 2018-05-09 00:00:00 Completed [facility] DTAP 2018-05-09 00:00:00 Completed [facility] DTAP 2018-05-09 00:00:00 Completed [facility] DTAP 2018-05-09 00:00:00 Completed [facility] DTAP Unknown Completed [facility] DTAP Unknown Completed [facility] DTAP Unknown Completed [facility] DTAP Unknown Completed [facility] DTAP Unknown Completed [facility] DTAP Unknown Completed [facility] DTAP Unknown Completed [facility] Vital Signs Vital Name Observation Time Observation Value Comments S ource Systolic blood pressure 2024-10-17 21:25:00 114 mm[Hg] [facility] Diastolic blood pressure 2024-10-17 21:25:00 69 mm[Hg] [facility] Heart rate 2024-10-17 21:25:00 84 /min Unive [facility] Body height 2024-10-17 21:25:00 170.2 cm [facility] Body weight 2024-10-17 21:25:00 55.157 kg [facility] BMI 2024-10-17 21:25:00 19.05 kg/m2 [facility] Oxygen saturation in Arterial blood by Pulse oximetry 2024-10-17 21:25:00 99 /min [facility] Systolic blood pressure 2023-05-11 19:48:00 126 mm[Hg] [facility] Diastolic blood pressure 2023-05-11 19:48:00 68 mm[Hg] [facility] Heart rate 2023-05-11 19:48:00 73 /min [facility] Body temperature 2023-05-11 19:48:00 36.78 Megha [facility] Respiratory rate 2023-05-11 19:48:00 16 /min [facility] Body height 2023-05-11 19:48:[address] [facility] Body weight 2023-05-11 19:48:[address] [facility] BMI 2023-05-11 19:48:00 18.36 kg/m2 [facility] Oxygen saturation in Arterial blood by Pulse oximetry 2023-05-11 19:48:00 99 /min [facility] Systolic blood pressure 2023-04-08 17:11:00 100 mm[Hg] [facility] Diastolic blood pressure 2023-04-08 17:11:00 59 mm[Hg] [facility] Heart rate 2023-04-08 17:11:00 88 /min Unive [facility] Body temperature 2023-04-08 17:11:00 36.56 Megha [facility] Respiratory rate 2023-04-08 17:11:00 18 /min [facility] Oxygen saturation in Arterial blood by Pulse oximetry 2023-04-08 17:11:00 96 /min [facility] Body height 2023-04-01 02:43:00 170.2 cm [facility] Body weight 2023-04-01 02:43:00 55.339 kg [facility] BMI 2023-04-01 02:43:00 19.11 kg/m2 [facility] Systolic blood pressure 2023-04-03 16:09:00 102 mm[Hg] [facility] Diastolic blood pressure 2023-04-03 16:09:00 66 mm[Hg] [facility] Heart rate 2023-04-03 16:09:00 94 /min Unive [facility] Body temperature 2023-04-03 16:09:00 36.67 Megha [facility] Respiratory rate 2023-04-03 16:09:00 18 /min [facility] Oxygen saturation in Arterial blood by Pulse oximetry 2023-04-03 16:09:00 98 /min [facility] Body height 2023-04-01 02:43:[address] [facility] Body weight 2023-04-01 02:43:00 55.339 kg [facility] BMI 2023-04-01 02:43:00 19.11 kg/m2 [facility] BMI (Body Mass Index) 2020 08:22:00 21.0 kg/m2 [facility] Weight 2020 08:22:00 130 [lb_av] [facility] Procedures Procedure Date / Time Performed Performing Clinician Source COMP. METABOLIC PANEL ([id number]) 2023-05-11 21:01:00 Lauryn Salgado [facility] CBC WITH DIFF 2023-05-11 21:01:00 Lauryn Salgado [facility] ASSIGNMENT OF BENEFITS 2023-05-11 19:27:07 Docto r Unassigned, [place] [facility] MAGNESIUM 2023-04-08 10:10:00 Jeny Pena [facility] BASIC METABOLIC PANEL (NA, K, CL, CO2, GLUCOSE, BUN, CREATININE, CA) 2023-04-08 10:10:00 Jean [facility] CBC WITH DIFF 2023-04-08 10:10:00 Jeny Pena [facility] MAGNESIUM 2023-04-06 09:13[facility] ([id number][facility] (ALB,T.PRO,BILI T,BU/BC,ALT,AST,ALK PHOS) 2023-04-06 09:13:00 Moises [facility] BASIC METABOLIC PANEL (NA, K, CL, CO2, GLUCOSE, BUN, CREATININE, CA) 2023-04-06 09:13:00 Moises [facility] CBC WITH DIFF 2023-04-06 09:13:00 [facility] 2023-04-05 09:33:00 [facility] 2023-04-05 09:14[facility]00 [facility] (NA, K, CL, CO2, GLUCOSE, BUN, CREATININE, CA) 2023-04-05 09:14:00 Moises [facility] HEPATITIS B SURFACE ANTIBODY 2023-04-04 16:43:00 Moises [facility] HBC ANTIBODY (IGM & IGG) 2023-04-04 16:43:00 Elva De Leon [facility] HEPATITIS C VIRUS (HCV) BY QUANTITATIVE NAAT 2023-04-04 16:43:00 Moises [facility] QUANTIFERON-TB ASSAY 2023-04-04 16:43:00 Moises [facility] QFT TB2 MINUS NIL 2023-04-04 16:43:00 Moises [facility] MAGNESIUM 2023-04-04 10:29:00 De Leon [facility] BASIC METABOLIC PANEL (NA, K, CL, CO2, GLUCOSE, BUN, CREATININE, CA) 2023-04-04 10:29:00 Moises [facility] CBC WITH DIFF 2023-04-04 10:29:[address] [facility] HEPATITIS B SURFACE ANTIGEN 2023-04-04 10:29:00 Moises [facility] MAGNESIUM 2023-04-04 10:29:00 De Leon, [facility] BASIC METABOLIC PANEL (NA, K, CL, CO2, GLUCOSE, BUN, CREATININE, CA) 2023-04-04 10:29:00 Moises [facility] CBC WITH DIFF 2023-04-04 10:29:[address] [facility] HEPATITIS B SURFACE ANTIGEN 2023-04-04 10:29:00 Moises [facility] SURGICAL PATHOLOGY EXAM 2023-04-03 22:36:00 Geoff Hendricks [facility] COLONOSCOPY 2023-04-03 21:47:00 [facility] COL[facility] 2023-04-03 21:47:00 Eladio [facility] COLONOSCOPY (ENDO) 2023-04-03 20:43:38 Jose M Valera [facility] COLONOSCOPY (ENDO) 2023-04-03 20:43:38 Jose M Valera [facility] MAGNESIUM 2023-04-03 09:33:00 Moises [facility] BASIC METABOLIC PANEL (NA, K, CL, CO2, GLUCOSE, BUN, CREATININE, CA) 2023-04-03 09:33:00 Moises [facility] CBC WITH DIFF 2023-04-03 09:33:[address] [facility] MAGNESIUM 2023-04-03 09:33:00 Moises [facility] BASIC METABOLIC PANEL (NA, K, CL, CO2, GLUCOSE, BUN, CREATININE, CA) 2023-04-03 09:33:00 Moises [facility] CBC WITH DIFF 2023-04-03 09:33:[address] [facility] CBC WITH DIFF 2023-04-02 10:56:00 Jean [facility] CBC WITH DIFF 2023-04-02 10:56:00 Jean [facility] CELIAC SCREEN 2023-04-01 16:47:00 Jean [facility] LAB ONLY CELIAC SCREEN IGA 2023-04-01 16:47:00 Jean, [facility] CELIAC SCREEN 2023-04-01 16:47:00 Jean [facility] LAB ONLY CELIAC SCREEN IGA 2023-04-01 16:47:00 Jean [facility] BLOOD CULTURE SCREEN 2023-04-01 16:21:00 Jean [facility] BLOOD CULTURE SCREEN 2023-04-01 16:21:00 Jean [facility] ABORH CONFIRMATION (LAB ONLY) 2023-04-01 11:31:00 Good Mendoza [facility] ABORH CONFIRMATION (LAB ONLY) 2023-04-01 11:31:00 [facility] 2023-04-01 10:21:00 Dann Sepulveda [facility] FERRITIN SERUM 2023-04-01 10:21:00 Dann Sepulveda [facility] C-REACTIVE PROTEIN 2023-04-01 10:21:00 Dann Sepulveda [facility] HEPATIC FUNCTION PANEL ([id number]) (ALB,T.PRO,BILI T,BU/BC,ALT,AST,ALK PHOS) 2023-04-01 10:21:00 Derick [facility] BASIC METABOLIC PANEL (NA, K, CL, CO2, GLUCOSE, BUN, CREATININE, CA) 2023-04-01 10:21:00 Dann Sepulveda [facility] IRON PANEL 2023-04-01 10:21:00 Dann Sepulveda [facility] CBC WITH DIFF 2023-04-01 10:21:00 Dann Sepulveda [facility] HB ABO GROUPING 2023-04-01 10:21:00 Dann Sepulveda [facility] MAGNESIUM 2023-04-01 10:21:00 Dann Sepulveda [facility] FERRITIN SERUM 2023-04-01 10:21:00 Dann Sepulveda [facility] C-REACTIVE PROTEIN 2023-04-01 10:21:00 Dann Sepulveda [facility] HEPATIC FUNCTION PANEL ([id number]) (ALB,T.PRO,BILI T,BU/BC,ALT,AST,ALK PHOS) 2023-04-01 10:21:00 eDrick [facility] BASIC METABOLIC PANEL (NA, K, CL, CO2, GLUCOSE, BUN, CREATININE, CA) 2023-04-01 10:21:00 Derick [facility] IRON PANEL 2023-04-01 10:21:00 Dann Sepulveda [facility] CBC WITH DIFF 2023-04-01 10:21:00 Dann Sepulveda [facility] HB ABO GROUPING 2023-04-01 10:21:00 Dann Sepulveda [facility] CLOSTRIDIUM DIFFICILE TOXIN 2023-04-01 04:15:00 Derick [facility] OVA AND PARASITE EXAM FECAL 2023-04-01 04:15:00 Derick [facility] GIARDIA CRYPTOSPORIDIUM AG SCR 2023-04-01 04:15:00 Derick [facility] CALPROTECTIN, FECAL 2023-04-01 04:15:00 Dann Sepulveda [facility] FECAL PATHOGENS BY PCR 2023-04-01 04:15:00 Oswald Sepulveda [facility] CLOSTRIDIUM DIFFICILE TOXIN 2023-04-01 04:15:00 Dann Sepulveda [facility] GIARDIA CRYPTOSPORIDIUM AG SCR 2023-04-01 04:15:00 Dann Sepulveda [facility] FECAL PATHOGENS BY PCR 2023-04-01 04:15:00 Oswald Sepulveda [facility] CT ABDOMEN PELVIS W CONTRAST 2023-03-31 20:54:24 Hernan Mcneill [facility] CT ABDOMEN PELVIS W CONTRAST 2023-03-31 20:54:24 [facility] COMP. METABOLIC PANEL ([id number]) 2023-03-31 20:19:00 Hernan Mcneill [facility] SEDIMENTATION RATE 2023-03-31 20:19:00 Nehemias Mcneill [facility] CBC WITH DIFF 2023-03-31 20:19:00 Hernan Mcneill [facility] PROTHROMBIN TIME / INR 2023-03-31 20:19[facility]00 [facility]-AB WITH REFLEX 2023-03-31 20:19:00 Nasir Sepulveda [facility] COMP. METABOLIC PANEL ([id number]) 2023-03-31 20:19:00 Hernan Mcneill [facility] SEDIMENTATION RATE 2023-03-31 20:19:00 Nehemias Mcneill [facility] CBC WITH DIFF 2023-03-31 20:19:00 Hernan Mcneill [facility] PROTHROMBIN TIME / INR 2023-03-31 20:19:00 [facility]/2 AG-AB WITH REFLEX 2023-03-31 20:19:00 Nasir Sepulveda [facility] NOTICE OF PRIVACY PRACTICES 2023-03-31 18:47:15 Doctor Unassigned, [place] [facility] NOTICE OF PRIVACY PRACTICES 2023-03-31 18:47:15 Doctor Unassigned, [place] [facility] CONSENT/REFUSAL FOR DIAGNOSIS AND TREATMENT 2023-03-31 18:46:20 Doctor Unassigned, [place] [facility] CONSENT/REFUSAL FOR DIAGNOSIS AND TREATMENT 2023-03-31 18:46:20 Doctor Unassigned, [place] [facility] HOSPITAL ADMISSION 2023-03-31 05:01:00 Doctor Un assigned, [place] [facility] ENDOSCOPY PROCEDURE DOCUMENTATION 2023-03-31 05:01:00 Doctor Unassigned, [place] [facility] Plan of Care Planned Activity Planned Date Details Comments Source Instructions Dyspnea [facility] Encounters Start Date/Time End Date/Time Encounter Type Admission Type Attending Clinicians Care Facility Care Department Encounter ID Source 2020 08:19:00 Inpatient [facility] [facility] [id number] [facility] 2024-10-22 00:00:00 2024-10-22 09:45:35 Patient Secure Msg Doctor Unassigned, [place] Doctor Unassigned, [place] [facility] 1.2.840.114 350.1.13.10 4.2.7.2.686 [id number] 044 [id number] [facility] 2024-10-17 16:00:00 2024-10-17 16:15:00 Candy Attendant Visit Lab, Ang - Lauryn Norton Lab, Ang - Db [facility] 1.2.840.114 350.1.13.10 4.2.7.2.686 [id number] [facility] 2024-10-17 15:30:00 2024-10-17 15:35:47 Outpatient R LAURYN SALGADO [facility] [id number] [facility] 2024-10-17 15:30:00 2024-10-17 15:35:47 Office Visit Lauryn Salgado [facility] 1.2.840.114 350.1.13.10 4.2.7.2.686 [id number] [id number] [facility] 2024-10-07 00:00:00 2024-10-09 10:11:55 Checo Upton [facility] 1.84.114 350.1.13.10 4.2.7.2.686 [id number] [facility] 2024-06-11 15:00:00 2024-06-11 15:00:00 Outpatient LAURYN YADAV [id number] [facility] 2024-05-20 10:20:00 2024-05-20 10:20:00 Outpatient RAMONA SCHMIDT [id number] [facility] 2023-11-16 14:30:00 2023-11-16 14:30:00 Outpatient LAURYN JEWELL [facility] [id number] [facility] 2023-10-26 08:00:00 2023-10-26 08:00:00 Outpatient R [facility] [id number] [facility] 2023-10-16 00:00:00 2023-10-16 00:00:00 [facility] ..114 350.1.13.10 4.2.7.2.686 [id number] [id number] [facility] 2023-10-16 00:00:00 2023-10-16 00:00:[address] [facility] ..114 350.1.13.10 4.2.7.2.686 [id number] 071 [id number] [facility] 2023-10-16 00:00:00 2023-10-16 00:00:[address] [facility] ..114 350.1.13.10 4.2.7.2.686 [id number] 071 [id number] [facility] 2023-10-16 00:00:00 2023-10-16 00:00:00 [facility] 1.84.114 350.1.13.10 4.2.7.2.686 [id number] 044 [id number] [facility] 2023-10-06 00:00:00 2023-10-06 00:00:[address] [facility] 1.84.114 350.1.13.10 4.2.7.2.686 [id number] 071 [id number] [facility] 2023-09-07 09:00:00 2023-09-07 09:00:00 Outpatient R [facility] [id number] [facility] 2023-08-18 00:00:00 2023-08-18 00:00:00 Telephone Francoiseponce [facility] 1.840.114 350.1.13.10 4.2.7.2.686 [id number] [facility] 2023-08-15 11:00:00 2023-08-15 11:00:00 Outpatient R [facility] [id number] [facility] 2023-08-14 00:00:00 2023-08-14 00:00:00 Refill Naomi [facility] 1.840.114 350.1.13.10 4.2.7.2.686 [id number] [facility] 2023-07-20 00:00:00 2023-07-20 00:00:00 [facility]phone [facility] 1.840.114 350.1.13.10 4.2.7.2.686 [id number] 044 [id number] [facility] 2023-07-06 09:00:00 2023-07-06 09:00:00 Outpatient R [facility] [id number] [facility] 2023-07-05 00:00:00 2023-07-05 00:00:00 [facility] 1.0.114 350.1.13.10 4.2.7.2.686 [id number] [facility] 2023-05-18 00:00:00 2023-05-18 00:00:00 Telephone Naomi [facility] 1..114 350.1.13.10 4.2.7.2.686 [id number] 044 [id number] [facility] 2023-05-11 16:00:00 2023-05-11 16:15:00 Candy Attendant Visit Lab, Ronan Eid Naomi [facility] 1..114 350.1.13.10 4.2.7.2.686 [id number] [facility] 2023-05-11 14:30:00 2023-05-11 15:43:12 [facility] [id number] [facility] 2023-05-11 14:30:00 2023-05-11 15:43:12 Office Visit Naomi [facility] 1.84.114 350.1.13.10 4.2.7.2.686 [id number] 044 [id number] [facility] 2023-05-11 00:00:00 2023-05-11 00:00:00 Orders Only Doctor Unassigned, [place] [facility] 1.0.114 350.1.13.10 4.2.7.2.686 [id number] [facility] 2023-04-10 00:00:00 2023-04-10 00:00:00 Transition of Care Orquidea Sheets 1.2.840.114 350.1.13.10 4.2.7.2.686 [id number] [facility] 2023-03-31 14:08:00 2023-04-08 18:18:00 Hospital Encounter Hernan Mcneill Michael [facility] 1.2840.114 350.1.13.10 4.2.7.2.686 [id number] [facility] 2023-03-31 14:08:00 2023-04-08 18:18:00 Inpatient U [facility] [id number] [facility] 2023-04-03 16:09:00 2023-04-03 17:21:00 Surgery Ria Hendricks [facility] 1.2.840.114 350.1.13.10 4.2.7.2.686 [id number] [facility] 2020 08:50:00 2020 09:50:00 Departed Emergency Room [address] [facility] [id number] [facility] Results Test Description Test Time Test Comments Results Result Co mments Source [facility] WITH [id number] 06:57:57* Test Item Value Reference Range Interpretation [...] 33.3 g/dL 31.2-35.0 RDW-SD (test code = 44829-9) 47.6 fL 38.5-51.6 RDW-CV (test code = 788-0) 14.4 % 12.1-15.4 PLT (test code = 777-3) 323 See_Comment [Automated message] The system which generated this result transmitted reference range: 150 - 328 10*3/?L. The reference range was not used to interpret this result as normal/abnormal. MPV (test code = 57088-7) 9.4 fL 9.8-13.0 L NRBC/100 WBC (test code = 5319537173) 0.0 See_Comment [Automated message] The system which generated this result transmitted reference range: 0.0 - 10.0 /100 WBCs. The reference range was not used to interpret this result as normal/abnormal. NRBC x10^3 (test code = 3617243868) See_Comment [Automated message] The system which generated this result transmitted reference range: 10*3/?L. The reference range was not used to interpret this result as normal/abnormal. GRAN MAT (NEUT) % (test code = 770-8) 86.2 % IMM GRAN % (test code = 2372040189) 1.10 % LYMPH % (test code = 736-9) 9.4 % MONO % (test code = 5905-5) 3.0 % EOS % (test code = 713-8) 0.1 % BASO % (test code = 706-2) 0.2 % GRAN MAT x10^3(ANC) (test code = 5218494461) 10.96 10*3/uL 1.99-6.95 H IMM GRAN x10^3 (test code = 5151910407) 0.14 10*3/uL 0.00-0.06 H LYMPH x10^3 (test code = 731-0) 1.20 10*3/uL 1.09-3.23 MONO x10^3 (test code = 742-7) 0.38 10*3/uL 0.36-1.02 EOS x10^3 (test code = 711-2) 0.06-0.53 L BASO x10^3 (test code = 704-7) 0.01-0.09 Lab Interpretation (test code = 82537-7) Abnormal [facility] Hospital[facility]ANTIF[facility]ON TB ASSAY [id number] 15:05:59* Test Item Value Reference Range Interpretation Comme nts QFT Gold Plus Result (test code = 55141-5) Negative Negative GEOVANI (test code = GEOVANI) [...] advised. For further information, refer to http://www.cdc.gov/mmw r/pdf/rr/rv2720.pdf and https://doi.org/10.109 3/rema/xhb839. Lab Interpretation (test code = 56137-9) Normal [facility] WITH [id number] 10:03:34* Test Item Value Reference Range Interpretation [...] 34.4 g/dL 31.2-35.0 RDW-SD (test code = 50031-2) 37.8 fL 38.5-51.6 L RDW-CV (test code = 788-0) 12.5 % 12.1-15.4 PLT (test code = 777-3) 403 See_Comment H [Automated message] The system which generated this result transmitted reference range: 150 - 328 10*3/?L. The reference range was not used to interpret this result as normal/abnormal. MPV (test code = 54366-3) 8.7 fL 9.8-13.0 L NRBC/100 WBC (test code = 8729631203) 0.0 See_Comment [Automated message] The system which generated this result transmitted reference range: 0.0 - 10.0 /100 WBCs. The reference range was not used to interpret this result as normal/abnormal. NRBC x10^3 (test code = 0865783172) See_Comment [Automated message] The system which generated this result transmitted reference range: 10*3/?L. The reference range was not used to interpret this result as normal/abnormal. GRAN MAT (NEUT) % (test code = 770-8) 85.7 % IMM GRAN % (test code = 1379029750) 3.00 % LYMPH % (test code = 736-9) 6.7 % MONO % (test code = 5905-5) 4.0 % EOS % (test code = 713-8) 0.1 % BASO % (test code = 706-2) 0.5 % GRAN MAT x10^3(ANC) (test code = 5444331193) 12.93 10*3/uL 1.99-6.95 H IMM GRAN x10^3 (test code = 9780449641) 0.46 10*3/uL 0.00-0.06 H LYMPH x10^3 (test code = 731-0) 1.01 10*3/uL 1.09-3.23 L MONO x10^3 (test code = 742-7) 0.61 10*3/uL 0.36-1.02 EOS x10^3 (test code = 711-2) 0.06-0.53 L BASO x10^3 (test code = 704-7) 0.07 10*3/uL 0.01-0.09 BANDS (test code = 4450347228) MARKED INCREASED A Lab Interpretation (test code = 16484-1) Abnormal [facility] Hospital[facility] FUNCTION PANEL (27419) (ALB,T.PRO,BILI T,BU/BC,ALT,AST,ALK PHOS)2023-04-06 09:54:25* Test Item Value Reference Range Interpretation Comme nts TOTAL BILI (test code = 1342429340) 0.3 mg/dL 0.1-1.1 BILI UNCON (test code = 9294328020) 0.2 mg/dL 0.1-1.1 BILI CONJ (test code = 3130588693) 0.0 mg/dL 0.0-0.3 T PROTEIN (test code = 6977787797) 6.2 g/dL 6.3-8.2 L ALBUMIN (test code = 4792092951) 3.4 g/dL 3.5-5.0 L ALK PHOS (test code = 4781878710) 54 U/L 34-122 ALTv (test code = 1742-6) 20 U/L 5-50 AST(SGOT) (test code = 3091694044) 33 U/L 13-40 Lab Interpretation (test cod e = 93212-5) Abnormal [facility]2023-05-11 09:54:25* Test Item Value Reference Range Interpretation Comme nts MAGNESIUM (test code = 3047752111) 2.1 mg/dL 1.7-2.4 Lab Interpretation (test cod e = 90182-2) Normal [facility]OL[facility] (NA, K, CL, CO2, GLUCOSE, BUN, CREATININE, CA)2023-04-06 09:54:25* Test Item Value Reference Range Interpretation Comme nts NA (test code = 9228330871) 135 mmol/L 135-145 K (test code = 5007757458) 3.8 mmol/L 3.5-5.0 CL (test code = 7585812642) 98 mmol/L 98-108 CO2 TOTAL (test code = 9962466761) 28 mmol/L 23-31 AGAP (test code = 9350741222) 9 2-16 BUN (test code = 7446110159) 6 mg/dL 7-23 L GLUCOSE (test code = 2971674109) 165 mg/dL 70-110 H CREATININE (test code = 1881068085) 0.63 mg/dL 0.60-1.25 CALCIUM (test code = 3704419957) 8.1 mg/dL 8.6-10.6 L eGFR (test code = 1830847957) 156.5 mL/min/1.73m2 GEOVANI (test code = GEOVANI) [...] imaging tests). Lab Interpretation (test code = 11807-0) Abnormal [facility] C VIRUS (HCV) BY QUANTITATIVE NAAT 2023-04-05 19:02:52* Test Item Value Reference Range Interpretation Comme nts HCV Quantitative Interpretation (test code = 5206570444) Not Detected Not Detected GEOVANI (test code = GEOVANI) The Aptima HCV Dwight nt Dx assay is an FDA-approved real-time corporate development associate-mediated amplification (TMA) test used for both detection [...] clinically indicated. Lab Interpretation (test code = 41950-7) Normal [facility] [id number] 14:37:42* Test Item Value Reference Range Interpretation Comme nts Case Report (test code = 6010538196) Surgical Pathology ?Case: [id number] ? Authorizing Provider: ?Ria Hendricks MD ? Collected: ? 04/03/2023 1736 ?Ordering Location: ? ? GI Endoscopy OR Department Received: ?04/04/2023 1257 ?Pathologist: ? Sofy Veronica MD ? Specimen: ? ?COLON, Colon BX eval for IBD ? Final Diagnosis (test code = 7272871048) j3dwsHViMHMxi5cwLPWuwNJ uZzEwMzNcZnRuYmpcdWMxIH tccnRmMVxlcGljMTAyMDZcY X6udGqzyRu0wPheYGKoqcK0 uBKnETerb2xoRTL9k2vjqti jKHEfJKiyDr3kxBEzyRpkMv AxFDZoCWd4aL52MTHdiT2cl BYnJLv3NEVriQMrqjYuMyUg CSAvkMUrpHE0MLDzAV7zbqt mCPekQOwpQYEztyF8XXIulC NnI9BtGNZrXY4ccdbsIBR5B SahGXQaHAB6NnPmFGUvq4Jk rhv2BcFrpCRlDGwofOVmxex asoZcPPZpceBIZuGPY0eDLv wgQklPUFNZOlxwYXIgICAgL PRVZ1qMJokRKJ4NJ89UYKVF LXKHMDPFVUJZRLISNiypT9W ROFGrHETXF4BNP3IGEMSGUy cFJZCYSlGLMRSSY7UPTgCJI CMFHJPVY5LGLM2QPHancBFu ICAgICAgIEFORCBJTkNSRUF JZSThWMeALWsCBRnIN52BW4 mHHHDrSL1ZIDUSCYWMQI9OE TiADNbDGKeUTGTWHc2NSxkI VJEAJ75LVYYEGD0SCSuFQQk gXHBhciAgICAgICBDSFJPTk dHZVFBMNrXYCSyY5yHNXQDO 2CVNvKDCIOFM5IRMxtPUMdg YXIgICAgLSBOTyBEWVNQTEF TSUEgSURFTlRJRklFRFxwYX IdsEWfxRpqrgOnZZtjq7KpJ 2YyMjAwMFxhbnNpXGRlZmxh rctqOBYtGOA0ciAoHCXxFJf aZZMiLYwjQp9tsNOnzNfdBo CqRQRzg7jhxmGNUBytMpZsD 856ROHeWRyra9iil0UrCHZi yWYsm7O7UULChrvqaJs6g0e bDfHpNbW5lQThFGbyO0wbwx XncDKiU5HznJCqbCe2sWlsN 12xp9N3NhtaB2yaAPTdMVPy S3CsPA6uMBMrUcd6MNQ3CCS 4BFIsEKSnV0MnAP2fTYCxiR NaHCn1q8pbxZfaABImKPH9j 6tgYKvfuzJ3QX4vfx2jsNt5 r9dgghCeBJMwOONluFUBZVM iZ9GucSfwZn8kvBe4nKwaFz ldLYI8Spb6IG4eyb96kro2w WmyDPHqqcplJlZ8ZOxcPCQa enxqFAt1GJreQUVdmTA0UDC rdERmE3ZnIQUcXV0mvzj6LC A4RAwhOTAjYnE6IHNhnLHeP YDuzPcuRXhlu339VFL0NtNp DJ4dV9Rvl4T6jH4irKDsCUU cxKPlFrZkAWZbyl6xeKDsKP nld9QiAVO0kpF7sUAfoLVxD TWpXI76Yjvjl5DxOvrgKKU0 DJPiytCxn0Gdi0kmZsWrqjQ yN4uzN4GtQFWhPTEgWBXgWl HfziWcg0Lvn9SwbFJseCs6p 2vrFDRoJNDldFxae7rwYRS9 FKBqL9R1lXTrm2zrWCbjCJJ pdHV2vlU3ADYrqGMyQ3LvzR 0kPSIyTP2ksdt4a1siKWB3I HpxBWLeMlX5piT5LIQziWYq GYGniUvyWXgba027HRU3IdO qAMBey1JoB9WewJndR48uhB vlU04mUUFsqDpewY7qqBvon Q8yMaPrFgKgQBnqqIlnfNMo blxmMVxmczIwXGxhbmcxMDM zCOtcC2cfYySbXMJcnIcyYA ldp7BaUDAoVEPvKfwpilUcC UHunqVVDDllnrGzgYTbx28r YWxseSByZXZpZXdlZCBhbGw xl4VeE6anTC5gH3ZviMGbms SxwoBaTJezRFYxo1h1aUHso Nvdj7SuaUHkVJ36hvOaBMFf PNI0EBPix4etTN23hacmMgO ynH99nfXdxlXyJZCqo6muY5 jwnNHfe1Auo8SbteKmDOcnn 4VoHI9isFXxfaxvpEE1ESBv xMBgyaCkafL2aTrkKZBsbV6 zsP7uhLwrhG6aWrIgRnAwFC rcWQ5gKBUaJ9rqnOMkOSOiU DSsJ5ybKtWmuM5uwYneZkid oeC1DRIkec72 Clinical Information (test code = 5555809188) Pa Lawrence is a 22 year old male1. Colon BX eval for IBD Gross Description (test code = 2352101947) n3ubtWChNEObtSIYNOGzSSX aSO4guMbdrQv3oBsaNQYfpf B3gDWzMVsgi9dtXQN6u1cya oCHDazrQXMlUP4iBSyiTQHg UN2oGbNwWFBuPeVmTARomUS dqnHfKuKhJXEwwZBilJK7XK BjIF6hwwafOUgcDZugDVFln vR0WSKiaURoZ2RbXTYbOF7e fqnlVID7HTTUKcvoZq7juRQ ibHtcZjFcZmNoYXJzZXQwXG IsqGplELYmLIm4oT5EFjmqQ TO2KQCYUczjHskrhJftg7Nw dCBcXHNnIFxcaWQgNTEwMDA iZWnnDlOQZvHdPmH6RWN2PX WzRsW2LVl6VTEMTKYtEaw3Y IKqVUZ0FAg8NTTeTD9sMOpv zOSyEDyrCyfxPRwlK253PUe aBAJdH6XfO8ZrRAjkWrXnWI vvZPNrYJEwRZkaKDVqQ3CCC DWcDlY4JiF2AiRgGWv1YZjz W1KGVMUlIVZuFwErRLN4OcR 3NKg4KPNVLk4fAKelFCVwSO O0PYR6UFnrTGYzXCSiCrLiD PEvUJZpHXrdbRSsUI6nrKtp FIHzTM7TFWQhAIntVHGlZxX gM8WKX5dQFI3lAMfpSTYbET pccGFyZCANClxwbGFpblxmc oZiFLt2cyIiZNKcLxWzZROr C83ic1QAj2QfDW6UIJv1noF fhvaqmP3qLLGwepXlMOfYiZ SgxX4zkyTEZSpfEDGqZ5Nou kTeOAcmKZEpty3kqBzzBIQz SCTnzDQwNEcxpDcdvUF0oZH riZQrGC6eLAFDSPMsqW1fBI HnJDBdANMcL11nq97rHYMlp Y3lFRWWKVE4GModQm6gLNcY JAKrAJ9hJOZbcqPef1SrLN4 wQQ17cBZfzZhsTLbvP0q5BH WezeDeolRzZ6WeCIBtxZysk 3CuJYWeBItpTE46pdJgSN1e LTAuNCBjbSBpbiBncmVhdGV zhPMpoA1tmjBiu38mIIOkFT M7ZQHdXFW5YLQxVoUubJGjr qYnA4esFNwshKMmZmRwNOrf IHNwZWNpbWVuIGlzIGZpbHR mcrGkPITjqe37P8txBLDqlC 7ye9mxAnUbKPSnUMPrjDKkj XU2XGXpeD6rgO70aiFemiVK QO2tfBWfEG6TCREryfTQPtF tbXlsZWUgWmFuZywgUEEgc3 G1ZWMbqBedIOTxFIrNsCcjI LDSS1aslSNhEUhqMDTWXLRN T0AzWONkgbXNNclbEEUhDLm lz8TrTTbcsNgyAZLyGfDrWR wdQLMqL95ju4RUs3Vnp9hff Tkfz6UbeVQoQB32WQSpnRQp YJC8DZ5agXngSKQwCTpqwKF yZCANCn0= Disclaimer (test code = 6856130593) x1jciHWuUUHvw6hdSSDryAT uZzEwMzNcZnRuYmpcdWMxIH cfmyObAWbja5DeH3BqTzHjF FxhbnNpXGRlZmxhbmcxMDMz DRJ6meOlDAKwQIdkUROyQZp bLq4boTLfgSsxWhWzLPKfo4 vfnkESSAtqFaFaR161HSAnU Lmgx6hqx1RfZYKxzUPcs8M7 MXLMdnjmgHb1qVleL43gs0M 7TsigA5aeCEXsCKIbX7PhJR 3tYPMeZgn9ZJU0MNI3ETFuH HZmK4BnQX1oIKPedDGoOSi4 w3smbTfsVYOyVSM2n1gtZTx pqaPcDW1arf9uwFl6v8roeo BxMKDyMIBtrJYCHRJmE5Fha AdqAz4idJa1zPizDdhbZDA9 Szm2QV0zbe10qky8sBdpNXZ zgwcoIgZ4WIciJNFwjvfkGS b4JVznDYCojIC2RIErzMCfP 2TxUFZxMU3dvfg0EDF1YVkc TFHfPeK2ICYzjDBkLGEgfEm nCHrec004UBY8VcCwJC8dL4 Zut6W1nQ0kkPGiNIPwrNHyR tCoSSVbvm5dyOHfLYxwv1Tj IXO9npC9xEFgiWVnVBCxQD4 6Jzkof2HuSwggb5CzP94ddP Q5EHkdd5ljEC0rXlT9xzQuQ Uhpu8znyA3jKdK5ZHesVE1d XS1hVDHdhS2ohljcZBVnSrR wsjewLVLygRxvkuReHg5hoQ ylWHW2OMpkZ3wjcT9kYvG6K PigR2ewuM2eIBx0NFtnkPA9 NAZiiH5nOS9nhnemb0bwURi zRAogQLIaxkD5jdA1YBMalY WzU1JimV8wQEJrDY9yoouby 0owYNF0QBsfRFPrFAM4UxPa DMMra3Ekann4MqDbr8QhwCR dXIwzA89ti427HTKmghLkW5 xwbGFpblxwbGFpblxmMFxmc jW1ZHRitzAtz1ZhUESzZIG3 AZgnFVelkUXyYPIalEsph7j pY4XcrTVpROWoIOaaCHUdIQ ZzMjBcbGFuZzEwMzNcaGlja KdwKQmpIsJcZVYtSPvxT5hk RvLuY0NtBVOgXlDihKAyD6y yYYamalBbEPFtzmWpzFS7HJ ylP3t6CVCuihBvoBv9pfCbM iPlUVYkQUS7EQqtlZJiTGBv i3MhmcqztCTvAt8vuEMgPEF brO6rQGSqTWDxMMyaTT2pnO j3WRDCoVAouIGsOaIYLYFqX M49khCaMXOOnmdpj4S6TMrv BVTat0OqvDJcS8ekf8MgHKC nc86rJV0wk4B3g2smWZT4PE 7fi0AnDMGteDOsaSTcFCRwd 7Cnvzlig2SwJOHvkkXul1Eh ZCBhbmQgaXRzIHBlcmZvcm1 cyeDuTAPdNDUwS2RiglmcgG xkigDrQLVuot5ycvYvSFH8Q IQLFTEbHBTzx2SpyF0xjPVG NZR5zBSwgj0nylANmWYfYUZ zbe15XZByFY8mC5imVGUvDS FhcrQibGOtj0NiGEXfsLF5f QArSB8EWgFGu44zBXDlTEFD fkQuISShkSucnYT2lyK5tF9 uIChGREEpLlx+IFRoZSBGRE NpJO7xwxFpo9LccrRhbMqxE XOayTBip6OmtALjf1ZycGfl s7GocSSmeLDaPQ9eZBGivxk sZCSfARBFWuJDXUFwfjQ3y1 SsKTMdUGOdHLI1iVigqco2L JUieS2gWOZfN0shhinjPUxd VBUit3KmqB4arOONeCHwi0P bpZXppXXWyZJbMN1pkjJsMN pRBKnSPOY1bwKqZHXtu2MqT DgeV1ljA34qqUpqhNh5wDV8 DVB9nC5jQiz+IFxwYXJccGF yIEFwcHJvcHJpYXRlbHkgcm ZeI8SrtqJpfO7nuCEeznTxV D2wVW3aB1G0pUHxMVCqczRz j1xxRQvjwmNgYkZnuzXxQRG tVGiiXJSjm3KlDGxqRMZ7IK lucyBpbmNsdWRpbmcgSCZFL IBUfIUoiRNaLVK4GUsalmVm jrRtAQ4uaA9mhUmtsH9goCK qgXI4ggasPOZrCASqzBohRJ RiJF4mpOVaQPIthcPGdHqhg MShpD5rF5EcAUYsRZCgtw7g FXYmnB9yKYwuf6MkpqscPSR pWMSfELSfsqSvnf9zCYNkmO MMQS5CQCphmYOvp1IavcPsE 3lQRUB2PIYvJuIfUprlONJu gSOifFIkGNZcry09WLLczJ3 tbWfhSGFmsE5bfW5shMhdyX 4fUuIjNuViKZgkCY3pTWHlY 7vxhZRnMOUuHMXyT1erAnIg kG7ptMqcFOswDsSyTbUlWGm qANW3wE== Embedded Images (test code = 4367704768) [facility] [id number] 14:35:43* Test Item Value Reference Range Interpretation Comme nts Extra Tube (test code = 0917209199) Received in Lab [facility] WITH [id number] 10:45:28* Test Item Value Reference Range Interpretation [...] g/dL 31.2-35.0 H RDW-SD (test code = 62600-5) 37.9 fL 38.5-51.6 L RDW-CV (test code = 788-0) 12.4 % 12.1-15.4 PLT (test code = 777-3) 403 See_Comment H [Automated message] The system which generated this result transmitted reference range: 150 - 328 10*3/?L. The reference range was not used to interpret this result as normal/abnormal. MPV (test code = 15795-7) 8.8 fL 9.8-13.0 L NRBC/100 WBC (test code = 9649682935) 0.0 See_Comment [Automated message] The system which generated this result transmitted reference range: 0.0 - 10.0 /100 WBCs. The reference range was not used to interpret this result as normal/abnormal. NRBC x10^3 (test code = 0083928915) See_Comment [Automated message] The system which generated this result transmitted reference range: 10*3/?L. The reference range was not used to interpret this result as normal/abnormal. GRAN MAT (NEUT) % (test code = 770-8) 90.9 % IMM GRAN % (test code = 4610125440) 1.60 % LYMPH % (test code = 736-9) 4.3 % MONO % (test code = 5905-5) 2.9 % EOS % (test code = 713-8) 0.0 % BASO % (test code = 706-2) 0.3 % GRAN MAT x10^3(ANC) (test code = 4657070198) 20.14 10*3/uL 1.99-6.95 H IMM GRAN x10^3 (test code = 3692552010) 0.36 10*3/uL 0.00-0.06 H LYMPH x10^3 (test code = 731-0) 0.95 10*3/uL 1.09-3.23 L MONO x10^3 (test code = 742-7) 0.65 10*3/uL 0.36-1.02 EOS x10^3 (test code = 711-2) 0.06-0.53 L BASO x10^3 (test code = 704-7) 0.06 10*3/uL 0.01-0.09 BANDS (test code = 6957965349) MARKED INCREASED A Lab Interpretation (test code = 85392-5) [facility]normal [facility] 09:58:18* Test Item Value Reference Range Interpretation Comme nts MAGNESIUM (test code = 3978432763) 2.1 mg/dL 1.7-2.4 Lab Interpretation (test cod e = 40427-7) Normal [facility] (NA, K, CL, CO2, GLUCOSE, BUN, CREATININE, CA)2023-04-05 09:58:18* Test Item Value Reference Range Interpretation Comme nts NA (test code = 6558171663) 133 mmol/L 135-145 L K (test code = 7297369254) 4.0 mmol/L 3.5-5.0 Slight hemolysis CL (test code = 1896752405) 100 mmol/L 98-108 CO2 TOTAL (test code = 9108720053) 26 mmol/L 23-31 AGAP (test code = 8710140006) 7 2-16 BUN (test code = 2570351916) 3 mg/dL 7-23 L Slight hemolysis GLUCOSE (test code = 1380797230) 178 mg/dL 70-110 H CREATININE (test code = 8040358641) 0.58 mg/dL 0.60-1.25 L CALCIUM (test code = 7629053076) 8.1 mg/dL 8.6-10.6 L eGFR (test code = 1037454325) 172.1 mL/min/1.73m2 GEOVANI (test code = GEOVANI) [...] imaging tests). Lab Interpretation (test code = 59059-9) [facility]normal [facility] SURFACE [id number] 22:55:30* Test Item Value Reference Range Interpretation Comme nts HBsAB (test code = 5620926402) Negative HBsAb Semi-Quantitative (test code = 8370024899) 0.10 mIU/mL GEOVANI (test code = GEOVANI) Interpretation: ?Hepatitis B Surface Antibody ? Negative - Patient is considered to be not immune to infection with HBV. ? ? Positive - Anti-HBs detected at greater than or equal to 12 mIU/mL. ?Patient is considered to be immune to infection with HBV. ? [facility] (IGM & IGG)2023-04-04 22:55:30* Test Item Value Reference Range Interpretation Comme nts HBC (test code = 4587284492) Negative HBC Semi-Quantitative (test code = 7712533222) 3.15 [facility] B SURFACE [id number] 15:42:58 * Test Item Value Reference Range Interpretation Comme nts HBsAg Semi-Quantitative (melvin t code = 5195-3) 0.05 Negative [facility] B SURFACE [id number] 15:42:58 * Test Item Value Reference Range Interpretation Comme nts HBsAg Semi-Quantitative (melvin t code = 5195-3) 0.05 Negative [facility] METABOLIC PANEL (NA, K, CL, CO2, GLUCOSE, BUN, CREATININE, CA)2023-04-04 11:32:42* Test Item Value Reference Range Interpretation Comme nts NA (test code = 0864378955) 132 mmol/L 135-145 L K (test code = 0803392881) 3.5 mmol/L 3.5-5.0 Slight hemolysis CL (test code = 6938407946) 100 mmol/L 98-108 CO2 TOTAL (test code = 1771841652) 24 mmol/L 23-31 AGAP (test code = 0389982051) 8 2-16 BUN (test code = 3810849944) 7-23 L Slight hemolysis GLUCOSE (test code = 0334932234) 88 mg/dL 70-110 CREATININE (test code = 3651901460) 0.73 mg/dL 0.60-1.25 CALCIUM (test code = 5871363617) 7.7 mg/dL 8.6-10.6 L eGFR (test code = 9725537604) 132.0 mL/min/1.73m2 GEOVANI (test code = GEOVANI) [...] imaging tests). Lab Interpretation (test code = 48976-6) Abnormal [facility] METABOLIC PANEL (NA, K, CL, CO2, GLUCOSE, BUN, CREATININE, CA)2023-04-04 11:32:42* Test Item Value Reference Range Interpretation Comme nts NA (test code = 1466621630) 132 mmol/L 135-145 L K (test code = 8777632361) 3.5 mmol/L 3.5-5.0 Slight hemolysis CL (test code = 6447393029) 100 mmol/L 98-108 CO2 TOTAL (test code = 4455530139) 24 mmol/L 23-31 AGAP (test code = 7607678257) 8 2-16 BUN (test code = 8057649557) 7-23 L Slight hemolysis GLUCOSE (test code = 6555442428) 88 mg/dL 70-110 CREATININE (test code = 7855341557) 0.73 mg/dL 0.60-1.25 CALCIUM (test code = 9325183361) 7.7 mg/dL 8.6-10.6 L eGFR (test code = 9709985932) 132.0 mL/min/1.73m2 GEOVANI (test code = GEOVANI) [...] imaging tests). Lab Interpretation (test code = 67066-2) [facility] 11:23:35* Test Item Value Reference Range Interpretation Comme nts MAGNESIUM (test code = 8489004455) 1.7 mg/dL 1.7-2.4 Lab Interpretation (test cod e = 43068-6) [facility]:23[facility] Test Item Value Reference Range Interpretation Comme nts MAGNESIUM (test code = 4539134902) 1.7 mg/dL 1.7-2.4 Lab Interpretation (test cod e = 51822-1) Normal [facility] WITH [id number] 10:55:07* Test Item Value Reference Range Interpretation [...] g/dL 31.2-35.0 H RDW-SD (test code = 45116-8) 37.7 fL 38.5-51.6 L RDW-CV (test code = 788-0) 12.5 % 12.1-15.4 PLT (test code = 777-3) 329 See_Comment H [Automated message] The system which generated this result transmitted reference range: 150 - 328 10*3/?L. The reference range was not used to interpret this result as normal/abnormal. MPV (test code = 39512-5) 8.6 fL 9.8-13.0 L NRBC/100 WBC (test code = 3411297297) 0.0 See_Comment [Automated message] The system which generated this result transmitted reference range: 0.0 - 10.0 /100 WBCs. The reference range was not used to interpret this result as normal/abnormal. NRBC x10^3 (test code = 1833437077) See_Comment [Automated message] The system which generated this result transmitted reference range: 10*3/?L. The reference range was not used to interpret this result as normal/abnormal. GRAN MAT (NEUT) % (test code = 770-8) 72.5 % IMM GRAN % (test code = 1874567096) 1.60 % LYMPH % (test code = 736-9) 11.5 % MONO % (test code = 5905-5) 6.8 % EOS % (test code = 713-8) 6.9 % BASO % (test code = 706-2) 0.7 % GRAN MAT x10^3(ANC) (test code = 0395493287) 13.10 10*3/uL 1.99-6.95 H IMM GRAN x10^3 (test code = 1828944100) 0.29 10*3/uL 0.00-0.06 H LYMPH x10^3 (test code = 731-0) 2.08 10*3/uL 1.09-3.23 MONO x10^3 (test code = 742-7) 1.23 10*3/uL 0.36-1.02 H EOS x10^3 (test code = 711-2) 1.25 10*3/uL 0.06-0.53 H BASO x10^3 (test code = 704-7) 0.13 10*3/uL 0.01-0.09 H Lab Interpretation (test code = 14903-8) Abnormal [facility] WITH [id number] 10:55:07* Test Item Value Reference Range Interpretation [...] g/dL 31.2-35.0 H RDW-SD (test code = 39798-2) 37.7 fL 38.5-51.6 L RDW-CV (test code = 788-0) 12.5 % 12.1-15.4 PLT (test code = 777-3) 329 See_Comment H [Automated message] The system which generated this result transmitted reference range: 150 - 328 10*3/?L. The reference range was not used to interpret this result as normal/abnormal. MPV (test code = 57048-1) 8.6 fL 9.8-13.0 L NRBC/100 WBC (test code = 9456403142) 0.0 See_Comment [Automated message] The system which generated this result transmitted reference range: 0.0 - 10.0 /100 WBCs. The reference range was not used to interpret this result as normal/abnormal. NRBC x10^3 (test code = 5775199471) See_Comment [Automated message] The system which generated this result transmitted reference range: 10*3/?L. The reference range was not used to interpret this result as normal/abnormal. GRAN MAT (NEUT) % (test code = 770-8) 72.5 % IMM GRAN % (test code = 3492210793) 1.60 % LYMPH % (test code = 736-9) 11.5 % MONO % (test code = 5905-5) 6.8 % EOS % (test code = 713-8) 6.9 % BASO % (test code = 706-2) 0.7 % GRAN MAT x10^3(ANC) (test code = 5127213670) 13.10 10*3/uL 1.99-6.95 H IMM GRAN x10^3 (test code = 7043578010) 0.29 10*3/uL 0.00-0.06 H LYMPH x10^3 (test code = 731-0) 2.08 10*3/uL 1.09-3.23 MONO x10^3 (test code = 742-7) 1.23 10*3/uL 0.36-1.02 H EOS x10^3 (test code = 711-2) 1.25 10*3/uL 0.06-0.53 H BASO x10^3 (test code = 704-7) 0.13 10*3/uL 0.01-0.09 H Lab Interpretation (test code = 04419-7) Abnormal [facility] METABOLIC PANEL (NA, K, CL, CO2, GLUCOSE, BUN, CREATININE, CA)2023-04-03 10:31:41* Test Item Value Reference Range Interpretation Comme nts NA (test code = 5694499562) 136 mmol/L 135-145 K (test code = 5237952398) 3.5 mmol/L 3.5-5.0 CL (test code = 2311799748) 104 mmol/L 98-108 CO2 TOTAL (test code = 4923852785) 22 mmol/L 23-31 L AGAP (test code = 0988961566) 10 2-16 BUN (test code = 6270222243) 7-23 L GLUCOSE (test code = 8113427010) 101 mg/dL 70-110 CREATININE (test code = 0016361453) 0.77 mg/dL 0.60-1.25 CALCIUM (test code = 8170958882) 8.4 mg/dL 8.6-10.6 L eGFR (test code = 2230646102) 124.1 mL/min/1.73m2 GEOVANI (test code = GEOVANI) [...] imaging tests). Lab Interpretation (test code = 19332-4) Abnormal [facility] METABOLIC PANEL (NA, K, CL, CO2, GLUCOSE, BUN, CREATININE, CA)2023-04-03 10:31:41* Test Item Value Reference Range Interpretation Comme nts NA (test code = 8735227926) 136 mmol/L 135-145 K (test code = 2143437961) 3.5 mmol/L 3.5-5.0 CL (test code = 3602900276) 104 mmol/L 98-108 CO2 TOTAL (test code = 5253178069) 22 mmol/L 23-31 L AGAP (test code = 9477251032) 10 2-16 BUN (test code = 7006489101) 7-23 L GLUCOSE (test code = 7561160007) 101 mg/dL 70-110 CREATININE (test code = 5996047706) 0.77 mg/dL 0.60-1.25 CALCIUM (test code = 6788703322) 8.4 mg/dL 8.6-10.6 L eGFR (test code = 6419064587) 124.1 mL/min/1.73m2 GEOVANI (test code = GEOVANI) [...] imaging tests). Lab Interpretation (test code = 12121-3) Abnormal [facility] WITH [id number] 10:27:32* Test Item Value Reference Range Interpretation [...] 34.9 g/dL 31.2-35.0 RDW-SD (test code = 53426-8) 37.5 fL 38.5-51.6 L RDW-CV (test code = 788-0) 12.3 % 12.1-15.4 PLT (test code = 777-3) 406 See_Comment H [Automated message] The system which generated this result transmitted reference range: 150 - 328 10*3/?L. The reference range was not used to interpret this result as normal/abnormal. MPV (test code = 36208-2) 8.6 fL 9.8-13.0 L NRBC/100 WBC (test code = 8391309879) 0.0 See_Comment [Automated message] The system which generated this result transmitted reference range: 0.0 - 10.0 /100 WBCs. The reference range was not used to interpret this result as normal/abnormal. NRBC x10^3 (test code = 9245835487) See_Comment [Automated message] The system which generated this result transmitted reference range: 10*3/?L. The reference range was not used to interpret this result as normal/abnormal. GRAN MAT (NEUT) % (test code = 770-8) 72.4 % IMM GRAN % (test code = 6329032228) 1.70 % LYMPH % (test code = 736-9) 13.6 % MONO % (test code = 5905-5) 6.5 % EOS % (test code = 713-8) 5.3 % BASO % (test code = 706-2) 0.5 % GRAN MAT x10^3(ANC) (test code = 5580895414) 18.08 10*3/uL 1.99-6.95 H IMM GRAN x10^3 (test code = 7418844900) 0.42 10*3/uL 0.00-0.06 H LYMPH x10^3 (test code = 731-0) 3.39 10*3/uL 1.09-3.23 H MONO x10^3 (test code = 742-7) 1.61 10*3/uL 0.36-1.02 H EOS x10^3 (test code = 711-2) 1.31 10*3/uL 0.06-0.53 H BASO x10^3 (test code = 704-7) 0.13 10*3/uL 0.01-0.09 H BANDS (test code = 3929135028) Increased A Lab Interpretation (test code = 77797-9) Abnormal [facility] WITH [id number] 10:27:32* Test Item Value Reference Range Interpretation [...] 34.9 g/dL 31.2-35.0 RDW-SD (test code = 65092-9) 37.5 fL 38.5-51.6 L RDW-CV (test code = 788-0) 12.3 % 12.1-15.4 PLT (test code = 777-3) 406 See_Comment H [Automated message] The system which generated this result transmitted reference range: 150 - 328 10*3/?L. The reference range was not used to interpret this result as normal/abnormal. MPV (test code = 00293-2) 8.6 fL 9.8-13.0 L NRBC/100 WBC (test code = 7077415526) 0.0 See_Comment [Automated message] The system which generated this result transmitted reference range: 0.0 - 10.0 /100 WBCs. The reference range was not used to interpret this result as normal/abnormal. NRBC x10^3 (test code = 7585308589) See_Comment [Automated message] The system which generated this result transmitted reference range: 10*3/?L. The reference range was not used to interpret this result as normal/abnormal. GRAN MAT (NEUT) % (test code = 770-8) 72.4 % IMM GRAN % (test code = 4197413626) 1.70 % LYMPH % (test code = 736-9) 13.6 % MONO % (test code = 5905-5) 6.5 % EOS % (test code = 713-8) 5.3 % BASO % (test code = 706-2) 0.5 % GRAN MAT x10^3(ANC) (test code = 8755457252) 18.08 10*3/uL 1.99-6.95 H IMM GRAN x10^3 (test code = 7306577747) 0.42 10*3/uL 0.00-0.06 H LYMPH x10^3 (test code = 731-0) 3.39 10*3/uL 1.09-3.23 H MONO x10^3 (test code = 742-7) 1.61 10*3/uL 0.36-1.02 H EOS x10^3 (test code = 711-2) 1.31 10*3/uL 0.06-0.53 H BASO x10^3 (test code = 704-7) 0.13 10*3/uL 0.01-0.09 H BANDS (test code = 8088106554) Increased A Lab Interpretation (test code = 01266-4) [facility] Test Item Value Reference Range Interpretation Comme nts MAGNESIUM (test code = 9502727230) 1.7 mg/dL 1.7-2.4 Lab Interpretation (test cod e = 50701-9) [facility] 10:27:27* Test Item Value Reference Range Interpretation Comme nts MAGNESIUM (test code = 4618267898) 1.7 mg/dL 1.7-2.4 Lab Interpretation (test cod e = 09886-8) Normal [facility] WITH [id number] 11:14:08* Test Item Value Reference Range Interpretation [...] 34.0 g/dL 31.2-35.0 RDW-SD (test code = 96481-8) 38.0 fL 38.5-51.6 L RDW-CV (test code = 788-0) 12.5 % 12.1-15.4 PLT (test code = 777-3) 328 See_Comment [Automated messa ge] The system which generated this result transmitted reference range: 150 - 328 10*3/?L. The reference range was not used to interpret this result as normal/abnormal. MPV (test code = 55984-5) 9.2 fL 9.8-13.0 L NRBC/100 WBC (test code = 3259289268) 0.0 See_Comment [Automated [employer] ssage] The system which generated this result transmitted reference range: 0.0 - 10.0 /100 WBCs. The reference range was not used to interpret this result as normal/abnormal. NRBC x10^3 (test code = 1458425752) See_Comment [Automated messa ge] The system which generated this result transmitted reference range: 10*3/?L. The reference range was not used to interpret this result as normal/abnormal. GRAN MAT (NEUT) % (test code = 770-8) 58.9 % IMM GRAN % (test code = 3319263596) 1.90 % LYMPH % (test code = 736-9) 20.1 % MONO % (test code = 5905-5) 8.8 % EOS % (test code = 713-8) 9.6 % BASO % (test code = 706-2) 0.7 % GRAN MAT x10^3(ANC) (test code = 4246645064) 7.34 10*3/uL 1.99-6.95 H IMM GRAN x10^3 (test code = 8558581075) 0.24 10*3/uL 0.00-0.06 H LYMPH x10^3 (test code = 731-0) 2.51 10*3/uL 1.09-3.23 MONO x10^3 (test code = 742-7) 1.10 10*3/uL 0.36-1.02 H EOS x10^3 (test code = 711-2) 1.20 10*3/uL 0.06-0.53 H BASO x10^3 (test code = 704-7) 0.09 10*3/uL 0.01-0.09 Lab Interpretation (test code = 50033-9) Abnormal [facility] WITH [id number] 11:14:08* Test Item Value Reference Range Interpretation [...] 34.0 g/dL 31.2-35.0 RDW-SD (test code = 08056-8) 38.0 fL 38.5-51.6 L RDW-CV (test code = 788-0) 12.5 % 12.1-15.4 PLT (test code = 777-3) 328 See_Comment [Automated messa ge] The system which generated this result transmitted reference range: 150 - 328 10*3/?L. The reference range was not used to interpret this result as normal/abnormal. MPV (test code = 80781-3) 9.2 fL 9.8-13.0 L NRBC/100 WBC (test code = 0036658523) 0.0 See_Comment [Automated me ssage] The system which generated this result transmitted reference range: 0.0 - 10.0 /100 WBCs. The reference range was not used to interpret this result as normal/abnormal. NRBC x10^3 (test code = 1150809492) See_Comment [Automated messa ge] The system which generated this result transmitted reference range: 10*3/?L. The reference range was not used to interpret this result as normal/abnormal. GRAN MAT (NEUT) % (test code = 770-8) 58.9 % IMM GRAN % (test code = 5567875790) 1.90 % LYMPH % (test code = 736-9) 20.1 % MONO % (test code = 5905-5) 8.8 % EOS % (test code = 713-8) 9.6 % BASO % (test code = 706-2) 0.7 % GRAN MAT x10^3(ANC) (test code = 8205262345) 7.34 10*3/uL 1.99-6.95 H IMM GRAN x10^3 (test code = 9573456598) 0.24 10*3/uL 0.00-0.06 H LYMPH x10^3 (test code = 731-0) 2.51 10*3/uL 1.09-3.23 MONO x10^3 (test code = 742-7) 1.10 10*3/uL 0.36-1.02 H EOS x10^3 (test code = 711-2) 1.20 10*3/uL 0.06-0.53 H BASO x10^3 (test code = 704-7) 0.09 10*3/uL 0.01-0.09 Lab Interpretation (test code = 77402-5) [facility] [id number] 17:11:35* Test Item Value Reference Range Interpretation Comme nts CRP (test code = 6215890492) 2.1 mg/dL <=0.8 H Lab Interpretation (test cod e = 74182-3) [facility] [id number] 17:11:35* Test Item Value Reference Range Interpretation Comme nts CRP (test code = 2019703385) 2.1 mg/dL <=0.8 H Lab Interpretation (test cod e = 17908-4) [facility]normal [facility] HospitalFerritin [id number] 14:44:35* Test Item Value Reference Range Interpretation Comme nts FERRITIN (test code = 9665082129) 47.1 ng/mL 18.0-464.0 GEOVANI (test code = GEOVANI) Biotin has been reported to cause a negative bias, interpret results relative to patient's use of biotin. Lab Interpretation (test code = 67262-5) Normal [facility] Omxby1176-30-47 14:44:35* Test Item Value Reference Range Interpretation Comme nts FERRITIN (test code = 4720831298) 47.1 ng/mL 18.0-464.0 GEOVANI (test code = GEOVANI) Biotin has been reported to cause a negative bias, interpret results relative to patient's use of biotin. Lab Interpretation (test code = 63680-5) Normal [facility] Confirmation (Lab Only)2023-04-01 11:38:00* Test Item Value Reference Range Interpretation Comme nts ABO & RH (test code = 20) O Positive [facility] (Lab Only)2023-04-01 11:38:00* Test Item Value Reference Range Interpretation Comme nts ABO & RH (test code = 20) O Positive [facility]Iron Debol1564-70-35 11:22:35* Test Item Value Reference Range Interpretation Comme nts IRON (test code = 5507219621) 27 ug/dL 50-160 L TIBC (test code = 4667905464) 267 ug/dL 250-410 % FE SAT (test code = 7240216651) 10 % 20-50 L Lab Interpretation (test cod e = 04093-8) [facility] Tnfgh5613-85-11 11:22:35* Test Item Value Reference Range Interpretation Comme nts IRON (test code = 7574588399) 27 ug/dL 50-160 L TIBC (test code = 4744067677) 267 ug/dL 250-410 % FE SAT (test code = 8350355138) 10 % 20-50 L Lab Interpretation (test cod e = 36247-9) Abnormal [facility] Metabolic Panel (NA, K, CL, CO2, GLUCOSE, BUN, CREATININE, CA)2023-04-01 11:01:54* Test Item Value Reference Range Interpretation Comme nts NA (test code = 8636341906) 136 mmol/L 135-145 K (test code = 6865925281) 3.5 mmol/L 3.5-5.0 CL (test code = 6361152162) 102 mmol/L 98-108 CO2 TOTAL (test code = 8477741537) 28 mmol/L 23-31 AGAP (test code = 6221743632) 6 2-16 BUN (test code = 4323711011) 3 mg/dL 7-23 L GLUCOSE (test code = 1436789608) 100 mg/dL 70-110 CREATININE (test code = 2159720518) 0.83 mg/dL 0.60-1.25 CALCIUM (test code = 2027403261) 7.9 mg/dL 8.6-10.6 L eGFR (test code = 8383028169) 113.8 mL/min/1.73m2 GEOVANI (test code = GEOVANI) [...] imaging tests). Lab Interpretation (test code = 62424-0) [facility]normal [facility] (10809) (ALB,T.PRO,BILI T,BU/BC,ALT,AST,ALK PHOS)2023-04-01 11:01:54* Test Item Value Reference Range Interpretation Comme nts TOTAL BILI (test code = 8930490239) 0.4 mg/dL 0.1-1.1 BILI UNCON (test code = 0600229655) 0.4 mg/dL 0.1-1.1 BILI CONJ (test code = 7116391210) 0.0 mg/dL 0.0-0.3 T PROTEIN (test code = 2739168206) 6.0 g/dL 6.3-8.2 L ALBUMIN (test code = 2496376089) 3.2 g/dL 3.5-5.0 L ALK PHOS (test code = 2881035323) 54 U/L 34-122 ALTv (test code = 1742-6) 12 U/L 5-50 AST(SGOT) (test code = 3363463751) 24 U/L 13-40 Lab Interpretation (test cod e = 29184-6) Abnormal [facility] HospitalMagnesium Xqrbo1992-79-66 11:01:54* Test Item Value Reference Range Interpretation Comme nts MAGNESIUM (test code = 9432690429) 2.0 mg/dL 1.7-2.4 Lab Interpretation (test cod e = 89614-4) Normal [facility] Metabolic Panel (NA, K, CL, CO2, GLUCOSE, BUN, CREATININE, CA)2023-04-01 11:01:54* Test Item Value Reference Range Interpretation Comme nts NA (test code = 2294651735) 136 mmol/L 135-145 K (test code = 9925872036) 3.5 mmol/L 3.5-5.0 CL (test code = 1271556765) 102 mmol/L 98-108 CO2 TOTAL (test code = 1606788245) 28 mmol/L 23-31 AGAP (test code = 7878563984) 6 2-16 BUN (test code = 4685055616) 3 mg/dL 7-23 L GLUCOSE (test code = 8914893391) 100 mg/dL 70-110 CREATININE (test code = 0128257120) 0.83 mg/dL 0.60-1.25 CALCIUM (test code = 7051291237) 7.9 mg/dL 8.6-10.6 L eGFR (test code = 7557792261) 113.8 mL/min/1.73m2 GEOVANI (test code = GEOVANI) [...] imaging tests). Lab Interpretation (test code = 64168-3) Abnormal [facility] (78324) (ALB,T.PRO,BILI T,BU/BC,ALT,AST,ALK PHOS)2023-04-01 11:01:54* Test Item Value Reference Range Interpretation Comme nts TOTAL BILI (test code = 3296446693) 0.4 mg/dL 0.1-1.1 BILI UNCON (test code = 2401949219) 0.4 mg/dL 0.1-1.1 BILI CONJ (test code = 7786023691) 0.0 mg/dL 0.0-0.3 T PROTEIN (test code = 8823778227) 6.0 g/dL 6.3-8.2 L ALBUMIN (test code = 4974588873) 3.2 g/dL 3.5-5.0 L ALK PHOS (test code = 6858403381) 54 U/L 34-122 ALTv (test code = 1742-6) 12 U/L 5-50 AST(SGOT) (test code = 0625412394) 24 U/L 13-40 Lab Interpretation (test cod e = 27975-3) Abnormal [facility] HospitalMagnesium [id number] 11:01:54* Test Item Value Reference Range Interpretation Comme nts MAGNESIUM (test code = 6590830028) 2.0 mg/dL 1.7-2.4 Lab Interpretation (test cod e = 67605-6) Normal [facility] HospitalCBC with Wicncyyxhmze4828-19-48 10:39:49* Test Item Value Reference Range Interpretation [...] g/dL 31.2-35.0 H RDW-SD (test code = 60917-2) 37.3 fL 38.5-51.6 L RDW-CV (test code = 788-0) 12.3 % 12.1-15.4 PLT (test code = 777-3) 332 See_Comment H [Automated message] The system which generated this result transmitted reference range: 150 - 328 10*3/?L. The reference range was not used to interpret this result as normal/abnormal. MPV (test code = 66213-7) 8.8 fL 9.8-13.0 L NRBC/100 WBC (test code = 2013585678) 0.0 See_Comment [Automated message] The system which generated this result transmitted reference range: 0.0 - 10.0 /100 WBCs. The reference range was not used to interpret this result as normal/abnormal. NRBC x10^3 (test code = 2297158190) See_Comment [Automated message] The system which generated this result transmitted reference range: 10*3/?L. The reference range was not used to interpret this result as normal/abnormal. GRAN MAT (NEUT) % (test code = 770-8) 69.2 % IMM GRAN % (test code = 4181237580) 1.20 % LYMPH % (test code = 736-9) 14.9 % MONO % (test code = 5905-5) 8.5 % EOS % (test code = 713-8) 5.7 % BASO % (test code = 706-2) 0.5 % GRAN MAT x10^3(ANC) (test code = 1506250584) 11.97 10*3/uL 1.99-6.95 H IMM GRAN x10^3 (test code = 7857083603) 0.21 10*3/uL 0.00-0.06 H LYMPH x10^3 (test code = 731-0) 2.58 10*3/uL 1.09-3.23 MONO x10^3 (test code = 742-7) 1.47 10*3/uL 0.36-1.02 H EOS x10^3 (test code = 711-2) 0.99 10*3/uL 0.06-0.53 H BASO x10^3 (test code = 704-7) 0.09 10*3/uL 0.01-0.09 Lab Interpretation (test code = 63554-9) Abnormal [facility] with Otoevvllsjlj2066-57-60 10:39:49* Test Item Value Reference Range Interpretation [...] g/dL 31.2-35.0 H RDW-SD (test code = 76091-6) 37.3 fL 38.5-51.6 L RDW-CV (test code = 788-0) 12.3 % 12.1-15.4 PLT (test code = 777-3) 332 See_Comment H [Automated message] The system which generated this result transmitted reference range: 150 - 328 10*3/?L. The reference range was not used to interpret this result as normal/abnormal. MPV (test code = 21354-6) 8.8 fL 9.8-13.0 L NRBC/100 WBC (test code = 0277047641) 0.0 See_Comment [Automated message] The system which generated this result transmitted reference range: 0.0 - 10.0 /100 WBCs. The reference range was not used to interpret this result as normal/abnormal. NRBC x10^3 (test code = 5067978692) See_Comment [Automated message] The system which generated this result transmitted reference range: 10*3/?L. The reference range was not used to interpret this result as normal/abnormal. GRAN MAT (NEUT) % (test code = 770-8) 69.2 % IMM GRAN % (test code = 7622043878) 1.20 % LYMPH % (test code = 736-9) 14.9 % MONO % (test code = 5905-5) 8.5 % EOS % (test code = 713-8) 5.7 % BASO % (test code = 706-2) 0.5 % GRAN MAT x10^3(ANC) (test code = 3432929674) 11.97 10*3/uL 1.99-6.95 H IMM GRAN x10^3 (test code = 4972480256) 0.21 10*3/uL 0.00-0.06 H LYMPH x10^3 (test code = 731-0) 2.58 10*3/uL 1.09-3.23 MONO x10^3 (test code = 742-7) 1.47 10*3/uL 0.36-1.02 H EOS x10^3 (test code = 711-2) 0.99 10*3/uL 0.06-0.53 H BASO x10^3 (test code = 704-7) 0.09 10*3/uL 0.01-0.09 Lab Interpretation (test code = 00766-1) [facility] Hospital[facility] - ONCE Ikioloz4449-96-55 10:28:00* Test Item Value Reference Range Interpretation Comme nts ABO & RH (test code = 20) O POSITIVE IAT (test code = 1185) Negative [facility] - ONCE Uyascaa3854-10-41 10:28:00* Test Item Value Reference Range Interpretation Comme nts ABO & RH (test code = 20) O POSITIVE IAT (test code = 1185) Negative [facility] SINGLE (PORTABLE)2020 09:39:00[place] [address] PatientName: PA LAWRENCE MR #: [id number] : 2000 Age/Sex: 20/M Req #: [id number] Adm Physician: Ordered by: Sp Cazares MD Report #: [id number] Location:ER Room/Bed: Procedure: [id number] DX/CHEST SINGLE (PORTABLE) Exam Date: 09/01/20 Exam [...] virus A and B antigen identification by lazblbiwnyplhssdta4350-80-66 08:30:00* Test Item Value Reference Range Interpretation Comme nts Influenza Virus Types A,B Viviane white (test code = 61341-4) NEGATIVE NEGATIVE [facility] Notes Date/Time Note Provider Source 2024-10-17 16:00:00 Images from the original note were not included. Venipuncture collection performed by clean technique on the right anticubitus. Total of 1 attempts were made. Slight pressure and a bandage/dressing were applied to the site(s). The patient experienced no complications. The following specimens were processed according to instructions and sent to [facility] laboratories per lab order on 10/17/2024 : LT BLUE SST 1 RED LAV 1 PPT DK GREEN (LiHep) DK GREEN (SodH) [place] DK BLUE (K2) DK BLUE (S) ACD Blood Culture NIPT/NTD [facility] 2024-10-09 10:11:21 Patient scheduled on 10/17/24. NCE ENGINEER Lalita Baker [facility] 2024-10-08 11:27:04 Images from the original note were not included. Patient needs appt Notes: 10/18/23 Last Refilled: [id number] - [place], [place] - [address] [facility] [place] Recent Visits Date Type Provider Dept 05/11/23 Office Visit Lauryn Salgado, BESSIE [facility] Showing recent visits within past 540 days with a meds authorizing provider and meeting all other requirements Future Appointments No visits were found meeting these conditions. Showing future appointments within next 150 days with a meds authorizing provider and meeting all other requirements Name from pharmacy: [facility] 1.2GM TABLETS Will file in chart as: MESALAMINE 1.2 gram EC tablet Sig: Take 2 tablets by mouth daily with breakfast. Original sig: TAKE 2 TABLETS BY MOUTH DAILY WITH BREAKFAST Disp: 60 tablet Refills: 0 (Pharmacy requested: Not specified) Start: 10/07/2024 Class: eRX Non-formulary For: Rectal bleeding, Ulcerative pancolitis with rectal bleeding Last ordered: 11 months ago (10/18/2023) by Checo Marks MD Last refill: 09/02/2024 Rx #: [id number]|1|0|1 IBD Medication Nppoue1610/07/2024 04:47 PM Protocol Details Valid encounter within last 12 months Cr in normal range and within 360 days HCT in normal range and within 360 days HGB in normal range and within 360 days PLT in normal range and within 360 days eGFR in normal range and within 360 days WBC in normal range and within 360 days RBC in normal range and within 360 days To be filled at: [facility] #[id number] - [place] - [address] AT [facility] Adocia NA Pardo MA [facility] 2023-07-20 09:07:42 Formatting of this n ote might be different from the original. Patient is needing a 30 day supply of Mesalamine due to a discrepancy on the script provided to the Patient assistance program. Script was corrected and resubmitted with corrections. [facility] approved patient to receive a refill from provider. [facility] 2023-07-10 09:57:20 Formatting of this n ote is different from the original. Received 07/05/2023 refill request for: Medication: Requested Prescriptions Pending Prescriptions Disp Refills mesalamine 1.2 gram EC tablet 60 tablet 0 Sig: Take 2 tablets by mouth daily with breakfast. Last filled: 06/15/2023 Follow up scheduled for : 08/15/2023 Last office visit: 07/05/2023 Refilled approval sent to: Pharmacy: [facility] #[id number] - [address] [facility] [address] [id number] Refilled per ID Guidelines Julia Madera MA [facility] 2023-07-05 18:29:21 Formatting of this n ote might be different from the original. Pa Lawrence is a 22 year old male Patient had to cancel his appt because there is an insurance issue. It couldn't be rescheduled until September 07, but his medication is running out. Please refill the mesalamine 1.2 gram EC tablet so that he can make it until his next appointment. [id number] [place] - [address] [facility] [address] [place] [address] [facility] 2023-05-11 14:30:00 Addended by: NAOMI Ho NP, BESSIE-LAURYN ARZATE on: 06/15/2023 05:04 PM Modules accepted: Orders [facility]
--- NOTE | 2025-01-24 09:11 | RAD REPORT ---
Exam:Pelvis CLINICAL HISTORY: Pelvic pain FINDINGS: No fracture or dislocation seen No significant bone or joint abnormality visualized
--- NOTE | 2025-01-24 09:12 | RAD REPORT ---
Exam:Hip Left 2 View HISTORY: Left hip pain FINDINGS: No fracture or dislocation seen No significant bone or joint abnormality visualized
[2025-01-24] MEDS ORDERED: dexAMETHasone 4 MG TAB ONE (09:53)
[2025-01-24] MEDS ORDERED: LORAZEPAM 1 MG TABLET ONE (09:53)
[2025-01-24] MEDS ORDERED: HYDROCODONE/APAP 10/325 TAB ONE (09:53)
--- NOTE | 2025-01-24 10:24 | EDPHYS ---
Physician Documentation [facility] Name: Orlando Rowland Age: 24 yrs Sex: Male : 2000 Arrival Date: 01/24/2025 Time: 08:17 Bed 15 Private MD: FÁTIMA Physician Rene Metzger HPI: 01/24 10:19 This 24 yrs old Male presents to ER via Ambulatory with complaints of Hip naseem Pain. 10:19 The patient or guardian reports pain. that occurred at an unknown site. The complaints naseem affect the coccyx. Onset: The symptoms/episode began/occurred 2 day(s) ago. Modifying factors: The symptoms are alleviated by remaining still, the symptoms are aggravated by any movement. Associated signs and symptoms: Loss of consciousness: the patient experienced no loss of consciousness. The patient has not experienced similar symptoms in the past. Historical: - Allergies: 08:48 Ibuprofen; jl7 - Home Meds: 08:48 mesalamine 1.2 gram Oral tablet twice a day [Active]; jl7 - PMHx: 08:48 ulcerative colitis; jl7 - PSHx: 08:48 None; jl7 - Immunization history:: Adult Immunizations unknown. - Infectious Disease History:: Denies. - Social history:: Smoking status: Patient denies any tobacco usage or history of. - Family history:: not pertinent. ROS: 10:19 Constitutional: Negative for fever, chills, and weight loss, Eyes: Negative for injury, naseem pain, redness, and discharge, ENT: Negative for injury, pain, and discharge, Neck: Negative for injury, pain, and swelling, Cardiovascular: Negative for chest pain, palpitations, and edema, Respiratory: Negative for shortness of breath, cough, wheezing, and pleuritic chest pain, Abdomen/GI: Negative for abdominal pain, nausea, vomiting, diarrhea, and constipation, Back: Negative for injury and pain, : Negative for injury, bleeding, discharge, and swelling, Skin: Negative for injury, rash, and discoloration, Neuro: Negative for headache, weakness, numbness, tingling, and seizure, Psych: Negative for depression, anxiety, suicide ideation, homicidal ideation, and hallucinations, Allergy/Immunology: Negative for hives, rash, and allergies, Endocrine: Negative for neck swelling, polydipsia, polyuria, polyphagia, and marked weight changes, Hematologic/Lymphatic: Negative for swollen nodes, abnormal bleeding, and unusual bruising, 10:19 MS/extremity: Positive for decreased range of motion, pain, of the coccyx, Exam: 10:19 Constitutional: This is a well developed, well nourished patient who is awake, alert, naseem and in no acute distress. Head/Face: Normocephalic, atraumatic. Eyes: Pupils equal round and reactive to light, extra-ocular motions intact. Lids and lashes normal. Conjunctiva and sclera are non-icteric and not injected. Cornea within normal limits. Periorbital areas with no swelling, redness, or edema. ENT: Nares patent. No nasal discharge, no septal abnormalities noted. Tympanic membranes are normal and external auditory canals are clear. Oropharynx with no redness, swelling, or masses, exudates, or evidence of obstruction, uvula midline. Mucous membranes moist. Neck: Trachea midline, no thyromegaly or masses palpated, and no cervical lymphadenopathy. Supple, full range of motion without nuchal rigidity, or vertebral point tenderness. No Meningismus. Chest/axilla: Normal chest wall appearance and motion. Nontender with no deformity. No lesions are appreciated. Cardiovascular: Regular rate and rhythm with a normal S1 and S2. No gallops, murmurs, or rubs. Normal PMI, no JVD. No pulse deficits. Respiratory: Lungs have equal breath sounds bilaterally, clear to auscultation and percussion. No rales, rhonchi or wheezes noted. No increased work of breathing, no retractions or nasal flaring. Abdomen/GI: Soft, non-tender, with normal bowel sounds. No distension or tympany. No guarding or rebound. No evidence of tenderness throughout. Male : Normal genitalia with no discharge or lesions. Skin: Warm, dry with normal turgor. Normal color with no rashes, no lesions, and no evidence of cellulitis. MS/ Extremity: Pulses equal, no cyanosis. Neurovascular intact. Full, normal range of motion., bilateral aka Neuro: Awake and alert, GCS 15, oriented to person, place, time, and situation. Cranial nerves II-XII grossly intact. Motor strength 5/5 in all extremities. Sensory grossly intact. Cerebellar exam normal. Normal gait. Psych: Awake, alert, with orientation to person, place and time. Behavior, mood, and affect are within normal limits. 10:19 Back: pain, that is mild, that is moderate, ROM is painful, with flexion, with extension, normal spinal alignment noted, CVA tenderness, is absent, muscle spasm, is not present, Straight leg raises: of both lower extremities does not illicit pain, Vital Signs: 08:45 BP 119 / 74; Pulse 78; Resp 17; Temp 97; Pulse Ox 98% ; Weight 58.97 kg; Height 5 ft. 7 jl7 in. ; Pain 06/05; 08:45 Body Mass Index 20.36 (58.97 kg, 170.18 cm) [facility] 08:45 Pain Scale: Adult 7 MDM: 08:24 Medical Screening Exam initiated [facility] 10:22 Differential diagnosis: bursitis, arthritis, strain. Data reviewed: vital signs, nurses [facility] notes, radiologic studies, plain films. Consideration of Admission/Observation Escalation of care including admission/observation considered. I considered the following discharge prescriptions or medication management in the emergency department Medications were administered in the Emergency Department. See MAR. Independent interpretation of the following test(s) in the Emergency Department X-Ray: My interpretation is hip, pelvis. Test considered but Not performed: Labs: NO LABS , PT REFUSED. Historians other than the Patient: Parent: MOM WELL INFORMED. Care significantly affected by the following chronic conditions: UC. Counseling: I had a detailed discussion with the patient and/or guardian regarding the historical points, exam findings, and any diagnostic results supporting the discharge/admit diagnosis, radiology results, the need for outpatient follow up, for definitive care, a family practitioner, a match up person, a orthopedic surgeon. 01/24 08:28 Order name: Pelvis XRAY; Complete Time: 10:11 [facility] 01/24 08:28 Order name: Hip Left 2 View XRAY; Complete Time: 10:11 [facility] Administered Medications: 09:54 Not Given (Other Intervention Used): ns 0.9% 1000 ml IV at 1000 ml once; to be given as iw a bolus over 60 minutes 09:54 Not Given (Other Intervention Used): [id number] mg IVP once iw 09:54 Not Given (Other Intervention Used): Decadron - [id number] mg IVP once iw 09:54 Not Given (Other Intervention Used): ondansetron 4 mg IVP once; over 2 minutes iw 10:00 Drug: Dexamethasone PO 10 mg PO once Route: PO; iw 10:00 Drug: HYDROcodone-acetaminophen PO 10 mg-325 mg 1 tabs PO once Route: PO; iw Disposition Summary: 01/24/25 10:24 Discharge Ordered Notes: Location: Home naseem Problem: new naseem Symptoms: have improved naseem Condition: Stable naseem Diagnosis - Sprain of sacroiliac joint naseem - Sacroiliitis, not elsewhere classified naseem Followup: naseem - With: Private Physician - When: 1 - 2 days - Reason: Recheck today's complaints, Continuance of care, Re-evaluation by your physician Followup: naseem - With: Letha Weston MD - When: 2 - 3 days - Reason: Recheck today's complaints, Re-evaluation by your physician Discharge Instructions: - Discharge Summary Sheet naseem - Musculoskeletal Pain naseem - Sacroiliac Joint Dysfunction [facility] Forms: - Medication Reconciliation Form naseem - Antibiotic Education naseem - Prescription Opioid Use naseem - Patient Portal Instructions [facility] - Leadership Thank You Letter [facility] - Work release form jl7 Prescriptions: - Tylenol 325 mg Oral tablet - take 2 tablets ORAL route every 6 hours as needed; 40 tablet; Refills: 0, [facility] Product Selection Permitted - Medrol (Jae) 4 mg Oral Tablets, Dose Pack - take 1 tablet ORAL route as directed - follow package instructions; 1 packet; [facility] Refills: 0, Product Selection Permitted Signatures: Dispatcher [employer] EDRene Bowles MD MD cha Williams, Irene, RN RN iw Faraz Magallanes RN RN jl7 Corrections: (The following items were deleted from the chart) 08: 08:28 C-REACTIVE PROTEIN+C.LAB.BRZ ordered. EDMS EDMS 08: 08:28 CBC+H.LAB.BRZ ordered. EDMS EDMS 08: 08:28 COMPREHENSIVE METABOLIC PANEL+C.LAB.BRZ ordered. EDMS EDMS
--- NOTE | 2025-01-24 10:24 | ER ---
Nurse's Notes [facility] Name: Orlando Rowland Age: 24 yrs Sex: Male : 2000 Arrival Date: 01/24/2025 Time: 08:17 Bed 15 Private MD: Diagnosis: Sprain of sacroiliac joint;Sacroiliitis, not elsewhere classified Presentation: 01/24 08:45 Chief complaint: Parent and/or Guardian states: "He has UC and this is the second time jl7 he has sacroilliac pain due to it. His PCP told him that is what it is." Pt denies any abdominal pain, denies N/V/D at this time. Reports pain to "mid-back pelvis area" since last night. Coronavirus screen: At this time, the client does not indicate any symptoms associated with coronavirus-19. Ebola Screen: No symptoms or risks identified at this time. Initial Sepsis Screen: Does the patient meet any 2 criteria? No. Patient's initial sepsis screen is negative. Does the patient have a suspected source of infection? No. Patient's initial sepsis screen is negative. Risk Assessment: Do you want to hurt yourself or someone else? Patient reports no desire to harm self or others. Onset of symptoms was January 23, 2025. 08:45 Method Of Arrival: Ambulatory [facility] 08:45 Acuity: KO 3 jl7 Triage Assessment: 08:48 General: Appears in no apparent distress. uncomfortable, Behavior is calm, cooperative, jl7 appropriate for age. Pain: Complains of pain in low back area and left low back Pain currently is 7 out of 10 on a pain scale. Historical: - Allergies: 08:48 Ibuprofen; jl7 - Home Meds: 08:48 mesalamine 1.2 gram Oral tablet twice a day [Active]; jl7 - PMHx: 08:48 ulcerative colitis; jl7 - PSHx: 08:48 None; jl7 - Immunization history:: Adult Immunizations unknown. - Infectious Disease History:: Denies. - Social history:: Smoking status: Patient denies any tobacco usage or history of. - Family history:: not pertinent. Screenin:09 [facility] ED Fall Risk Assessment (Adult) History of falling in the last 3 months, iw including since admission Yes- single mechanical fall (1 pt) Confusion or Disorientation No (0 pts) Intoxicated or Sedated No (0 pts) Impaired Gait No (0 pts) Mobility Assist Device Used No (0 pt) Altered Elimination No (0 pt) Score/Fall Risk Level 0 - 2 = Low Risk Oriented to surroundings, Maintained a safe environment. Abuse screen: Denies threats or abuse. Nutritional screening: No deficits noted. Tuberculosis screening: No symptoms or risk factors identified. Assessment: 10:00 Reassessment: pt refused another IV stick , requested to have meds changed to PO, Dr. jose Metzger notified, orders changed in JAN. Vital Signs: 08:45 BP 119 / 74; Pulse 78; Resp 17; Temp 97; Pulse Ox 98% ; Weight 58.97 kg; Height 5 ft. 7 jl7 in. ; Pain 710; 08:45 Body Mass Index 20.36 (58.97 kg, 170.18 cm) jl7 08:45 Pain Scale: Adult jl7 ED Course: 08:22 Patient arrived in ED. cj3 08:24 Rene Metzger MD is Attending Physician. naseem 08:47 Triage completed. jl7 08:48 Arm band placed on right wrist. Patient placed in an exam room. jl7 09:06 Pelvis XRAY In Process Unspecified. EDMS 09:06 Hip Left 2 View XRAY In Process Unspecified. EDMS 09:32 Tiffanie Mcfarlane, RN is Primary Nurse. iw 10:24 Letha Weston MD is Referral Physician. naseem Administered Medications: 09:54 Not Given (Other Intervention Used): ns 0.9% 1000 ml IV at 1000 ml once; to be given as iw a bolus over 60 minutes 09:54 Not Given (Other Intervention Used): [id number] mg IVP once iw 09:54 Not Given (Other Intervention Used): Decadron - [id number] mg IVP once iw 09:54 Not Given (Other Intervention Used): ondansetron 4 mg IVP once; over 2 minutes iw 10:00 Drug: Dexamethasone PO 10 mg PO once Route: PO; iw 10:00 Drug: HYDROcodone-acetaminophen PO 10 mg-325 mg 1 tabs PO once Route: PO; iw Medication: 10:09 VIS not applicable for this client. iw Outcome: 10:24 Discharge ordered by . naseem 10:50 Patient left the ED. iw Signatures: Dispatcher [employer] Rene Hickey MD MD cha Williams, Irene, RN RN Faraz Soto RN RN jl7 Haylee Zhang 3
[2025-01-24 10:55] VITALS: BP 119/74; TEMP 97; O2SAT 98
== END 2025-01-24 10:50 | disposition home or self-care (01) ==
LOC: ER 08:17
DX: S33.6XXA Sprain of sacroiliac joint, initial encounter (principal); M46.1 Sacroiliitis, not elsewhere classified
CPT/HCPCS: 72170; 73502; 99282; J8540

== ENCOUNTER 2025-04-05 16:16 | Emergency (ER) | payer OTHER ==
--- OUTSIDE RECORDS SUMMARY | 2025-04-05 16:22 | XMS REPORT | Continuity of Care Document ---
Author Name Unknown Address [address] [facility] [place] [address] [facility] Address [address] [facility] [place] [address] Care Team Providers Care Raw Hide Trimmer Name Role Phone NO, PCP Primary Care Physician Unavailab LAURYN Albrecht Attending Clinician Unavailable RAMONA SCHMIDT Attending Clinician UnavailDanielle Porter MD Attending Clinician [phone] DANIELLE URBANO Attending Clinician Unavailable DANIELLE URBANO Attending Clinician Unavailable Lauryn Paz Attending Clinician [phone] Doctor Unassigned, [place] Attending Clinician U [place] Lab, Ang - Db Attending Clinician Unavailable Checo Marks MD Attending Clinician [phone] LAURYN YADAV Attending Clinician Unavailab Osvaldo Ross MD Attending Clinicia n Lauryn Paz Attending Clinician + [phone] Roger Wagner Attending Clinician [phone] Lab, Ang - Db Attending Clinician Unavailable Doctor Unassigned, [place] Attending Clinician U Orquidea Suarez RN Attending Clinician Unavail able Hernan Mcneill MD Attending Clinician [phone] Pa Ramsey MD Attending Clinician [phone] PA RAMSEY Attending Clinician Unavailleon Hendricks MD, Ria Attending Clinician [phone] Sp Cazares Attending Clinician Preston Ramsey MD, Pa Admitting Clinician PA RAMSEY Admitting Clinician Shalini hinson Payers Payer Name Policy Type Policy Number Effective Date Expirati on Date Source [facility] MARÍA RIMMA COPAY FOCUS 9 [id number] 2024 00:00:00 [facility] W/ FAWN SEMARGRETMISAEL KING [id number] 2024 00:00:00 [place] [id number] 1 00:00:00 2023 00:00:00 Problems Condition Name Condition Details Condition Category Status Onset Date Resolution Date Last Treatment Date Treating Clinician Comments Source Rectal bleeding Rectal bleeding Disease Active 03-31 00:00: 00 [facility] Colitis with rectal bleeding Colitis with rectal bleeding Disease Active 03-31 00:00: 00 Overview: Formattin g of this note might be different from the original. Added automatic ally from request for surgery [id number] [facility] Shortness of breath Problem Active [facility] Allergies, Adverse Reactions, Alerts Allergy Name Allergy Type Status Severity Reaction(s) Onset Date Inactive Date Treating Clinician Comments Source NO KNOWN ALLERGIE S Drug Class Active [facility] No Known Allergie s DA Active [facility] Social History Social Habit Start Date Stop Date Quantity Comments Source History SDOH Alcohol Std Drinks [facility] History SDOH Alcohol Binge [facility] History SDOH Social Connections Get Together [facility] History SDOH Social Connections Pentecostalism [facility] History SDOH Social Connections Membership [facility] History SDOH Social Connections Meetings [facility] History SDOH Food Scarcity [facility] Gender identity [facility] of Social function 2024-10-17 00:00:00 2024-10-17 00:00:00 [facility] Alcoholic beverage intake 2024-10-17 00:00:00 2024-10-17 00:00:00 3 /d [facility] Alcohol intake 2023-06-15 00:00:00 2023-06-15 00:00:00 3 /d [facility] History SDOH Alcohol Frequency 2023-04-04 00:00:00 2023-04-04 00:00:00 1 [facility] History SDOH Social Connections Phone 2023-04-04 00:00:00 2023-04-04 00:00:00 5 [facility] History SDOH Social Connections Living 2023-04-04 00:00:00 2023-04-04 00:00:00 7 [facility] History SDOH Physical Activity DPW 2023-04-04 00:00:00 2023-04-04 00:00:00 3 [facility] History SDOH Physical Activity MPS 2023-04-04 00:00:00 2023-04-04 00:00:00 3 [facility] History SDOH Financial 2023-04-04 00:00:00 2023-04-04 00:00:00 5 [facility] History SDOH Food Worry 2023-04-04 00:00:00 2023-04-04 00:00:00 1 [facility] History SDOH Transport Med 2023-04-04 00:00:00 2023-04-04 00:00:00 2 [facility] History SDOH Transport Non-Med 2023-04-04 00:00:00 2023-04-04 00:00:00 2 [facility] History SDOH Housing Unable to Pay 2023-04-04 00:00:00 2023-04-04 00:00:00 2 [facility] History SDOH Housing Places Lived 2023-04-04 00:00:00 2023-04-04 00:00:00 1 [facility] History SDOH Housing Homeless Last Year 2023-04-04 00:00:00 2023-04-04 00:00:00 2 [facility] Exposure to SARS-CoV-2 (event) 2023-03-24 00:00:00 2023-04-03 12:55:00 Not sure [facility] Tobacco use and exposure 2023-03-31 00:00:00 2023-03-31 00:00:00 Smokeless tobacco non-user [facility] Sex assigned at 2000 00:00:00 2000 00:00:00 [facility] Smoking Status Start Date Stop Date Source Never smoked tobacco [facility] Medications Ordered Medication Name Filled Medication Name Start Date Stop Date Current Medication? Ordering Clinician Indication Dosage Frequency Signature (SIG) Comments Components Source mesalamine 1.2 gram EC tablet 5 00:00: 00 Yes [id number] 2.4g Take 2 tablets by mouth daily with breakfast. [facility] predniSONE 20 mg tablet 03-28 00:00: 00 04-03 04:59 :00 Yes [id number] 40mg Take 2 tablets by mouth in the morning for 5 days. [facility] mesalamine 1.2 gram EC tablet 3-27 00:00: 00 03-28 00:00 :00 No [id number] 2.4g Take 2 tablets by mouth daily with breakfast. [facility] mesalamine 1.2 gram EC tablet 2023-11 1- 00:00: 00 02-19 00:00 :00 No [id number] 2.4g Take 2 tablets by mouth daily with breakfast. [facility] mesalamine 1.2 gram EC tablet 2022-11 1- 00:00: 00 10-17 00:00 :00 No [id number] 2.4g Take 2 tablets by mouth daily with breakfast. [facility] mesalamine 1.2 gram EC tablet 0 9-20 00:00: 00 10-16 00:00 :00 No [id number] 2.4g Take 2 tablets by mouth daily with breakfast. [facility] mesalamine 1.2 gram EC tablet 0 8-24 00:00: 00 Yes [id number] 2.4g Take 2 tablets by mouth daily with breakfast. [facility] mesalamine 1.2 gram EC tablet 2022-0 8-14 00:00: 00 Yes [id number] 2.4g Take 2 tablets by mouth daily with breakfast. [facility] mesalamine 1.2 gram EC tablet 20 00:00: 00 Yes [id number] 2.4g Take 2 tablets by mouth daily with breakfast. [facility] pantoprazol e 40 mg EC tablet 04-09 00:00: 00 06-09 04:59 :00 No [id number] 40mg Take 1 tablet by mouth in the morning for 60 days. [facility] predniSONE (DELTASONE) tablet 60 mg 04-08 14:00: 00 04-20 13:59 :00 No 60mg 60 mg, Oral, DAILY, 12 doses, First dose on Mon04/08/23 at 0900, Last dose on Mon04/19/23 at 0900, Routine [facility] predniSONE 20 mg tablet 04-08 00:00: 00 06-20 04:59 :00 No [id number] Take 3 tablets by mouth daily for 7 days, THEN 2 tablets daily for 30 days, THEN 1.5 tablets daily for 7 days, THEN 1 tablet daily for 28 days. [facility] mesalamine 1.2 gram EC tablet 04-08 00:00: 00 06-15 00:00 :00 No [id number] 2.4g Take 2 tablets by mouth daily with breakfast. [facility] melatonin (MELATIN) tablet 3 mg 04-07 02:00: 00 Yes 3mg 3 mg, Oral, QHS, First dose (after last modificati on) on Mon04/06/23 at 2100, Until Discontinu ed, Routine [facility] methylpredn isolone sod succ (SOLU-MEDRO L) injection 60 mg 04-04 21:00: 00 04-06 20:43 :00 No 60mg 60 mg, Intravenou s, Q24H, 3 doses, First dose on Mon04/04/23 at 1600, Last dose on Mon04/06/23 at 1600, 2 mL [facility] pantoprazol e (PROTONIX) EC tablet 40 mg 04-04 16:00: 00 Yes 40mg 40 mg, Oral, DAILY, First dose on Mon04/04/23 at 1100, Until Discontinu ed, Routine [facility] enoxaparin (LOVENOX) injection 40 mg 04-04 05:00: 00 Yes 40mg 40 mg, Subcutaneo us, Q24H, First dose (after last modificati on) on Mon04/04/23 at 0000, Until Discontinu ed, Routine [facility] simethicone (GAS RELIEF (SIMETHICON E)) 40 mg/0.6 mL drops 04-03 22:12: 00 04-03 23:40 :00 No PRN, Starting on Mon04/03/23 at 1712, Until Mon04/03/23 at 1840, Routine, Intra-op [facility] bisacodyL (DULCOLAX) tablet 10 mg 04-02 18:00: 00 04-02 18:03 :00 No 10mg 10 mg, Oral, PRE-PROCED URE ONCE, 1 dose, Starting on Mon04/02/23 at 1300, Until Discontinu ed, Routine, Bowel Prep, Colonoscop y [facility] ondansetron (ZOFRAN (PF)) injection 4 mg 04-02 12:40: 42 04-04 12:17 :10 No 4mg 4 mg, Slow IV Push, Q6HPRN, Starting on Mon04/02/23 at 0740, Until Mon04/04/23 at 0717, Routine, Nausea and Vomiting (N/V) [facility] ciprofloxac in HCl (CIPRO) tablet 500 mg 04-01 23:00: 00 04-04 15:51 :55 No 500mg 500 mg, Oral, Q12HA2, 20 doses, First dose on Mon04/01/23 at 1800, Last dose on Mon04/11/23 at 0600, BREN
Re ason for Anti-Infec tive: Documented Infection< br>Documen james Infection Site: Abdominal< br>Duratio n of Therapy: 10 days [facility] enoxaparin (LOVENOX) injection 40 mg 04-01 20:15: 00 04-02 20:56 :13 No 40mg 40 mg, Subcutaneo us, Q24H, First dose on Mon04/01/23 at 1515, Until Discontinu ed, Routine [facility] metroNIDAZO LE (FLAGYL) tablet 500 mg 04-01 19:00: 00 04-04 15:51 :55 No 500mg 500 mg, Oral, Q8H, 30 doses, First dose on Mon04/01/23 at 1400, Last dose on Mon04/11/23 at 0600, Routine
Reason for Anti-Infec tive: Documented Infection< br>Documen james Infection Site: Abdominal< br>Duratio n of Therapy: 10 days [facility] lactated ringers IV infusion 1,000 mL 04-01 13:30: 00 04-02 01:00 :00 No 1000mL at 999 mL/hr, 1,000 mL, Intravenou s, ONCE, 1 dose, On Mon04/01/23 at 0830, Routine [facility] ciprofloxac in in 5 % [...] Abdominal< br>Duratio n of therapy: 5 days [facility] metroNIDAZO LE in NaCl (iso-os) (FLAGYL [...] Abdominal< br>Duratio n of therapy: 5 days [facility] lactated ringers IV infusion 1,000 mL 04-01 04:30: 00 04-01 08:10 :00 No 1000mL at 999 mL/hr, 1,000 mL, Intravenou s, ONCE, 1 dose, On Mon03/31/23 at 2330, Routine [facility] acetaminoph en (TYLENOL) tablet 650 mg 04-01 03:33: 45 Yes 650mg 650 mg, Oral, Q6HPRN, Starting on Mon03/31/23 at 2233, Until Discontinu ed, Routine, Pain (scale 1-3) [facility] NaCl 0.9% (NS) IV infusion 1,000 mL 03-31 22:45: 00 04-04 12:16 :26 No 1000mL at 150 mL/hr, IV Infusion, CONTINUOUS , Starting on Mon03/31/23 at 1745, Until Mon04/04/23 at 0716, Routine [facility] lactobacill us acidophilus tablet 1 mg 03-31 22:45: 00 03-31 22:49 :00 No 1mg 1 mg, Oral, ONCE NOW, 1 dose, On Mon03/31/23 at 1745, BREN [facility] ciprofloxac in in 5 % dextrose (CIPRO) piggyback 400 mg 03-31 22:30: 00 04-01 01:02 :00 No 400mg 400 mg, IV Piggyback, ONCE, 1 dose, On Mon03/31/23 at 1730, Administer over 60 Minutes, 200 mL
Reas on for Anti-Infec tive: Empiric Therapy for Suspected Infection< br>Empiric Therapy Site: Abdominal< br>Duratio n of therapy: 72 hours [facility] metroNIDAZO LE (FLAGYL) tablet 500 mg 03-31 21:45: 00 03-31 22:49 :00 No 500mg 500 mg, Oral, ONCE, 1 dose, On Mon03/31/23 at 1645, BREN
Re ason for Anti-Infec tive: Empiric Therapy for Suspected Infection< br>Empiric Therapy Site: Abdominal< br>Duratio n of therapy: 72 hours [facility] iopamidol (ISOVUE 370-500 mL) injection 75 mL 03-31 21:45: 00 03-31 21:45 :00 No [id number] 75mL 75 mL, Intravenou s, ONCE, 1 dose, On Mon03/31/23 at 1645, Routine [facility] NaCl 0.9% (NS) bolus infusion 1,000 mL 03-31 20:30: 00 03-31 22:50 :00 No 1000mL at 999 mL/hr, 1,000 mL, IV Piggyback, ONCE, 1 dose, On Mon03/31/23 at 1530, STAT [facility] Immunizations Ordered Immunization Name Filled Immunization Name Date Status Comments Source DTAP 2018-05-09 00:00:00 Completed [facility] DTAP 2018-05-09 00:00:00 Completed [facility] DTAP 2018-05-09 00:00:00 Completed [facility] DTAP 2018-05-09 00:00:00 Completed [facility] DTAP 2018-05-09 00:00:00 Completed [facility] DTAP 2018-05-09 00:00:00 Completed [facility] DTAP Unknown Completed [facility] DTAP Unknown Completed [facility] DTAP Unknown Completed [facility] DTAP Unknown Completed [facility] DTAP Unknown Completed [facility] DTAP Unknown Completed [facility] DTAP Unknown Completed [facility] Vital Signs Vital Name Observation Time Observation Value Comments S ource Systolic blood pressure 2025-03-28 21:24:00 119 mm[Hg] [facility] Diastolic blood pressure 2025-03-28 21:24:00 78 mm[Hg] [facility] Heart rate 2025-03-28 21:24:00 77 /min [facility] Body height 2025-03-28 21:24:00 170.2 cm [facility] Body weight 2025-03-28 21:24:00 54.023 kg [facility] BMI 2025-03-28 21:24:00 18.65 kg/m2 [facility] Oxygen saturation in Arterial blood by Pulse oximetry 2025-03-28 21:24:00 98 /min [facility] Systolic blood pressure 2024-10-17 21:25:00 114 mm[Hg] [facility] Diastolic blood pressure 2024-10-17 21:25:00 69 mm[Hg] [facility] Heart rate 2024-10-17 21:25:00 84 /min [facility] Body height 2024-10-17 21:25:00 170.2 cm [facility] Body weight 2024-10-17 21:25:00 55.157 kg [facility] BMI 2024-10-17 21:25:00 19.05 kg/m2 [facility] Oxygen saturation in Arterial blood by Pulse oximetry 2024-10-17 21:25:00 99 /min [facility] Systolic blood pressure 2023-05-11 19:48:00 126 mm[Hg] [facility] Diastolic blood pressure 2023-05-11 19:48:00 68 mm[Hg] [facility] Heart rate 2023-05-11 19:48:00 73 /min Unive [facility] Body temperature 2023-05-11 19:48:00 36.78 Megha [facility] Respiratory rate 2023-05-11 19:48:00 16 /min [facility] Body height 2023-05-11 19:48:00 173.7 cm [facility] Body weight 2023-05-11 19:48:00 55.43 kg [facility] BMI 2023-05-11 19:48:00 18.36 kg/m2 [facility] Oxygen saturation in Arterial blood by Pulse oximetry 2023-05-11 19:48:00 99 /min [facility] Systolic blood pressure 2023-04-08 17:11:00 100 mm[Hg] [facility] Diastolic blood pressure 2023-04-08 17:11:00 59 mm[Hg] [facility] Heart rate 2023-04-08 17:11:00 88 /min Unive [facility] Body temperature 2023-04-08 17:11:00 36.56 Megha [facility] Respiratory rate 2023-04-08 17:11:00 18 /min [facility] Oxygen saturation in Arterial blood by Pulse oximetry 2023-04-08 17:11:00 96 /min [facility] Body height 2023-04-01 02:43:00 170.2 cm [facility] Body weight 2023-04-01 02:43:00 55.339 kg [facility] BMI 2023-04-01 02:43:00 19.11 kg/m2 [facility] Systolic blood pressure 2023-04-03 16:09:00 102 mm[Hg] [facility] Diastolic blood pressure 2023-04-03 16:09:00 66 mm[Hg] [facility] Heart rate 2023-04-03 16:09:00 94 /min Unive [facility] Body temperature 2023-04-03 16:09:00 36.67 Megha [facility] Respiratory rate 2023-04-03 16:09:00 18 /min [facility] Oxygen saturation in Arterial blood by Pulse oximetry 2023-04-03 16:09:00 98 /min [facility] Body height 2023-04-01 02:43:00 170.2 cm [facility] Body weight 2023-04-01 02:43:00 55.339 kg [facility] BMI 2023-04-01 02:43:00 19.11 kg/m2 [facility] Weight 2020 08:22:00 130 [lb_av] [facility] BMI (Body Mass Index) 2020 08:22:00 21.0 kg/m2 [facility] Procedures Procedure Date / Time Performed Performing Clinician Source COMP. METABOLIC PANEL ([id number]) 2023-05-11 21:01:00 Lauryn Salgado [facility] CBC WITH DIFF 2023-05-11 21:01:00 Lauryn Salgado [facility] ASSIGNMENT OF BENEFITS 2023-05-11 19:27:07 Docto r Unassigned, [place]u [place] [facility] MAGNESIUM 2023-04-08 10:10:00 Jean [facility] BASIC METABOLIC PANEL (NA, K, CL, CO2, GLUCOSE, BUN, CREATININE, CA) 2023-04-08 10:10:00 Jean [facility] CBC WITH DIFF 2023-04-08 10:10:00 Jean [facility] MAGNESIUM 2023-04-06 09:13:00 [facility] HE[facility] FUN[facility] PAN[facility] ([id number]) (ALB,T.PRO,BILI T,BU/BC,ALT,AST,ALK PHOS) 2023-04-06 09:13:00 [facility]OLIC PANEL (NA, K, CL, CO2, GLUCOSE, BUN, CREATININE, CA) 2023-04-06 09:13:00 Moises [facility] CBC WITH DIFF 2023-04-06 09:13:00 [facility] 2023-04-05 09:33:00 [facility] 2023-04-05 09:14:00 [facility] BASIC METABOLIC PANEL (NA, K, CL, CO2, GLUCOSE, BUN, CREATININE, CA) 2023-04-05 09:14:00 Moises [facility] HEPATITIS B SURFACE ANTIBODY 2023-04-04 16:43:00 [facility] ANTIBODY (IGM & IGG) 2023-04-04 16:43:00 Moises [facility] HEPATITIS C VIRUS (HCV) BY QUANTITATIVE NAAT 2023-04-04 16:43:00 [facility]ANTIFERON-TB ASSAY 2023-04-04 16:43:00 De Leon, [facility] QFT TB2 MINUS NIL 2023-04-04 16:43:00 De LeonDeanna cooley [facility] MAGNESIUM 2023-04-04 10:29:00 [facility] BASIC METABOLIC PANEL (NA, K, CL, CO2, GLUCOSE, BUN, CREATININE, CA) 2023-04-04 10:29:00 Moises [facility] CBC WITH DIFF 2023-04-04 10:29:00 [facility]PAT[facility] SURFACE ANTIGEN 2023-04-04 10:29:00 Moises [facility] MAGNESIUM 2023-04-04 10:29:00 [facility] BASIC METABOLIC PANEL (NA, K, CL, CO2, GLUCOSE, BUN, CREATININE, CA) 2023-04-04 10:29:00 Moises [facility] CBC WITH DIFF 2023-04-04 10:29:00 [facility] HEPATITIS B SURFACE ANTIGEN 2023-04-04 10:29:00 [facility]OLOGY EXAM 2023-04-03 22:36:00 Geoff Hendricks [facility] COLONOSCOPY 2023-04-03 21:47:00 [facility] COLONOSCOPY 2023-04-03 21:47:00 Eladio [facility] COLONOSCOPY (ENDO) 2023-04-03 20:43:38 Jose M Valera [facility] COLONOSCOPY (ENDO) 2023-04-03 20:43:38 Jose M Valera [facility] MAGNESIUM 2023-04-03 09:33:00 [facility] BASIC METABOLIC PANEL (NA, K, CL, CO2, GLUCOSE, BUN, CREATININE, CA) 2023-04-03 09:33:00 [facility] WITH DIFF 2023-04-03 09:33:00 De Leon, [facility] MAGNESIUM 2023-04-03 09:33:00 Moises [facility] BASIC METABOLIC PANEL (NA, K, CL, CO2, GLUCOSE, BUN, CREATININE, CA) 2023-04-03 09:33:00 Moises [facility] CBC WITH DIFF 2023-04-03 09:33:[address] [facility] CBC WITH DIFF 2023-04-02 10:56:00 Jean, [facility] CBC WITH DIFF 2023-04-02 10:56:00 Jean, [facility] CELIAC SCREEN 2023-04-01 16:47:00 Jean [facility] LAB ONLY CELIAC SCREEN IGA 2023-04-01 16:47:00 Jean, [facility] CELIAC SCREEN 2023-04-01 16:47:00 Jean [facility] LAB ONLY CELIAC SCREEN IGA 2023-04-01 16:47:00 Jean, [facility] BLOOD CULTURE SCREEN 2023-04-01 16:21:00 Jean, [facility] BLOOD CULTURE SCREEN 2023-04-01 16:21:00 Jean [facility] ABORH CONFIRMATION (LAB ONLY) 2023-04-01 11:31:00 Good [facility] ABORH CONFIRMATION (LAB ONLY) 2023-04-01 11:31:00 Good MendozaJacky [facility] MAGNESIUM 2023-04-01 10:21:00 Dann Sepulveda [facility] FERRITIN SERUM 2023-04-01 10:21:00 Dann Sepulveda [facility] C-REACTIVE PROTEIN 2023-04-01 10:21:00 Dann Sepulveda [facility] HEPATIC FUNCTION PANEL ([id number]) (ALB,T.PRO,BILI T,BU/BC,ALT,AST,ALK PHOS) 2023-04-01 10:21:00 Dann Sepulveda [facility] BASIC METABOLIC PANEL (NA, K, CL, CO2, GLUCOSE, BUN, CREATININE, CA) 2023-04-01 10:21:00 Dann Sepulveda [facility] IRON PANEL 2023-04-01 10:21:00 Dann Sepulveda [facility] CBC WITH DIFF 2023-04-01 10:21:00 Dann Sepulveda [facility] HB ABO GROUPING 2023-04-01 10:21:00 Dann Sepulveda [facility] MAGNESIUM 2023-04-01 10:21:00 Dann Sepulveda [facility] FERRITIN SERUM 2023-04-01 10:21:00 Dann Sepulveda [facility] C-REACTIVE PROTEIN 2023-04-01 10:21:00 Dann Sepulveda [facility] HEPATIC FUNCTION PANEL ([id number]) (ALB,T.PRO,BILI T,BU/BC,ALT,AST,ALK PHOS) 2023-04-01 10:21:00 Dann Sepulveda [facility] BASIC METABOLIC PANEL (NA, K, CL, CO2, GLUCOSE, BUN, CREATININE, CA) 2023-04-01 10:21:00 Dann Sepulveda [facility] IRON PANEL 2023-04-01 10:21:00 Dann Sepulveda [facility] CBC WITH DIFF 2023-04-01 10:21:00 Dann Sepulveda [facility] HB ABO GROUPING 2023-04-01 10:21:00 Dann Sepulveda [facility] CLOSTRIDIUM DIFFICILE TOXIN 2023-04-01 04:15:00 Dann Sepulveda [facility] OVA AND PARASITE EXAM FECAL 2023-04-01 04:15:00 Dann Sepulveda [facility] GIARDIA CRYPTOSPORIDIUM AG SCR 2023-04-01 04:15:00 Dann Sepulveda [facility] CALPROTECTIN, FECAL 2023-04-01 04:15:00 Dann Sepulveda [facility] FECAL PATHOGENS BY PCR 2023-04-01 04:15:00 Oswald Sepulveda [facility] CLOSTRIDIUM DIFFICILE TOXIN 2023-04-01 04:15:00 Dann Sepulveda [facility] GIARDIA CRYPTOSPORIDIUM AG SCR 2023-04-01 04:15:00 Dann Sepulveda [facility] FECAL PATHOGENS BY PCR 2023-04-01 04:15:00 Oswald Sepulveda [facility] CT ABDOMEN PELVIS W CONTRAST 2023-03-31 20:54:24 Hernan Mcneill [facility] CT ABDOMEN PELVIS W CONTRAST 2023-03-31 20:54:24 Hernan Mcneill [facility] COMP. METABOLIC PANEL ([id number]) 2023-03-31 20:19:00 Hernan Mcneill [facility] SEDIMENTATION RATE 2023-03-31 20:19:00 Nehemias Mcneill [facility] [facility] CBC WITH DIFF 2023-03-31 20:19:00 Hernan Mcneill [facility] PROTHROMBIN TIME / INR 2023-03-31 20:19:00 [facility]/2 AG-AB WITH REFLEX 2023-03-31 20:19:00 Nasir Sepulveda [facility] COMP. METABOLIC PANEL (53162) 2023-03-31 20:19:00 Hernan Mcneill [facility] SEDIMENTATION RATE 2023-03-31 20:19:00 Nehemias Mcneill [facility] CBC WITH DIFF 2023-03-31 20:19:00 Hernan Mcneill [facility] PROTHROMBIN TIME / INR 2023-03-31 20:19:00 [facility]ito, [facility] HIV 1/2 AG-AB WITH REFLEX 2023-03-31 20:19:00 Nasir Sepulveda [facility] NOTICE OF PRIVACY PRACTICES 2023-03-31 18:47:15 Doctor Unassigned, [place] [facility] NOTICE OF PRIVACY PRACTICES 2023-03-31 18:47:15 Doctor Unassigned, [place] [facility] CONSENT/REFUSAL FOR DIAGNOSIS AND TREATMENT 2023-03-31 18:46:20 Doctor Unassigned, [place] [facility] CONSENT/REFUSAL FOR DIAGNOSIS AND TREATMENT 2023-03-31 18:46:20 Doctor Unassigned, [place] [facility] HOSPITAL ADMISSION 2023-03-31 05:01:00 Doctor Un assigned, [place] [facility] ENDOSCOPY PROCEDURE DOCUMENTATION 2023-03-31 05:01:00 Doctor Unassigned, [place] [facility] Plan of Care Planned Activity Planned Date Details Comments Source Instructions Dyspnea [facility] Encounters Start Date/Time End Date/Time Encounter Type Admission Type Attending Clinicians Care Facility Care Department Encounter ID Source 2020 08:19:00 Inpatient [facility] [id number] [facility] 2025-06-23 13:40:00 2025-06-23 13:40:00 Outpatient RAMONA SCHMIDT [id number] Fawn Figueroa 2025-03-29 00:00:00 2025-04-01 08:05:08 [facility] 1.2.840.114 350.1.13.10 4.2.7.2.686 [id number] [facility] 2025-03-28 00:00:00 2025-03-28 16:58:35 Letter (Out) Sundeep [facility] CAROL?[facility] 1.2.840.114 350.1.13.10 4.2.7.2.686 [id number] [facility] 2025-03-28 16:20:00 2025-03-28 16:49:13 Outpatient R SUNDEEP MAXIMSymone [facility] [id number] [facility] 2025-03-28 16:20:00 2025-03-28 16:49:13 Office Visit Sundeep [facility] 1.2.840.114 350.1.13.10 4.2.7.2.686 [id number] [facility] 2025-02-19 00:00:00 2025-02-20 19:01:25 Refill Lauryn Salgado [facility] CAROL?[facility] 1.2.840.114 350.1.13.10 4.2.7.2.686 [id number] [facility] 2024-10-22 00:00:00 2024-10-22 09:45:35 Patient Secure Msg Doctor Unassigned, [place] Doctor Unassigned, [place] [facility] CAROL?[facility] 1.840.114 350.1.13.10 4.2.7.2.686 [id number] [facility] 2024-10-17 16:00:00 2024-10-17 16:15:00 Placement Specialist Visit Lab, Lauryn Oliveira, Ronan Eid [facility] CAROL?[facility] 1..840.114 350.1.13.10 4.2.7.2.686 [id number] [facility] 2024-10-17 15:30:00 2024-10-17 15:35:47 Outpatient R LAURYN SALGADO [facility] [id number] [facility] 2024-10-17 15:30:00 2024-10-17 15:35:47 Office Visit Leida Salgadothia [facility] CAROL?[facility] 1.840.114 350.1.13.10 4.2.7.2.686 [id number] [facility] 2024-10-07 00:00:00 2024-10-09 10:11:55 Checo Upton [facility] CAROL?[facility] 1..840.114 350.1.13.10 4.2.7.2.686 [id number] [facility] 2024-06-11 15:00:00 2024-06-11 15:00:00 Outpatient LAURYN YADAV [id number] Fawn Figueroa 2024-05-20 10:20:00 2024-05-20 10:20:00 Outpatient RASHEEDA SCHMIDTINI FAWN BLANCO [id number] Fawn Figueroa 2023-11-16 14:30:00 2023-11-16 14:30:00 Outpatient LAURYN JEWELL [facility] [id number] [facility] 2023-10-26 08:00:00 2023-10-26 08:00:00 Outpatient R [facility] [id number] [facility] 2023-10-16 00:00:00 2023-10-16 00:00:00 [facility] 1.0.114 350.1.13.10 4.2.7.2.686 [id number] [facility] 2023-10-16 00:00:00 2023-10-16 00:00:00 [facility] 1.0.114 350.1.13.10 4.2.7.2.686 [id number] [facility] 2023-10-16 00:00:00 2023-10-16 00:00:00 [facility] 1.0.114 350.1.13.10 4.2.7.2.686 [id number] [facility] 2023-10-16 00:00:00 2023-10-16 00:00:00 [facility]Le[facility] 1..114 350.1.13.10 4.2.7.2.686 [id number] [facility] 2023-10-06 00:00:00 2023-10-06 00:00:00 [facility]phone [facility] 1..114 350.1.13.10 4.2.7.2.686 [id number] [facility] 2023-09-07 09:00:00 2023-09-07 09:00:00 Outpatient R [facility] [id number] [facility] 2023-08-18 00:00:00 2023-08-18 00:00:00 Telephone [facility]Leida [facility] 1.2.840.114 350.1.13.10 4.2.7.2.686 [id number] [facility] 2023-08-15 11:00:00 2023-08-15 11:00:00 Outpatient R [facility] [id number] [facility] 2023-08-14 00:00:00 2023-08-14 00:00:00 [facility]ill [facility] 1..840.114 350.1.13.10 4.2.7.2.686 [id number] [facility] 2023-07-20 00:00:00 2023-07-20 00:00:00 Telephone FrancoiseLeida [facility] 1.2.840.114 350.1.13.10 4.2.7.2.686 [id number] [facility] 2023-07-06 09:00:00 2023-07-06 09:00:00 Outpatient R [facility] [id number] [facility] 2023-07-05 00:00:00 2023-07-05 00:00:00 RefRoger Zayas [facility] 1..840.114 350.1.13.10 4.2.7.2.686 [id number] [facility] 2023-05-18 00:00:00 2023-05-18 00:00:00 Telephone Anene, [facility] 1.2840.114 350.1.13.10 4.2.7.2.686 [id number] [facility] 2023-05-11 16:00:00 2023-05-11 16:15:00 Placement Specialist Visit Lab, Ronan - Stanton Naomi [facility] 1.2840.114 350.1.13.10 4.2.7.2.686 [id number] [facility] 2023-05-11 14:30:00 2023-05-11 15:43:12 Outpatient R [facility] [id number] [facility] 2023-05-11 14:30:00 2023-05-11 15:43:12 Office Visit Naomi [facility] 1.2840.114 350.1.13.10 4.2.7.2.686 [id number] [facility] 2023-05-11 00:00:00 2023-05-11 00:00:00 Orders Only Doctor Unassigned, Cantu Addition [facility] 1.2840.114 350.1.13.10 4.2.7.2.686 [id number] [facility] 2023-04-10 00:00:00 2023-04-10 00:00:00 Transition of Care Orquidea Sheets 1.2840.114 350.1.13.10 4.2.7.2.686 [id number] [facility] 2023-03-31 14:08:00 2023-04-08 18:18:00 Hospital Encounter Hernan Mcneill Michael [facility] 1.2840.114 350.1.13.10 4.2.7.2.686 [id number] [facility] 2023-03-31 14:08:00 2023-04-08 18:18:00 Inpatient PA OCHOA [facility] [id number] [facility] 2023-04-03 16:09:00 2023-04-03 17:21:00 Surgery Ria Hendricks [facility] 1.2.840.114 350.1.13.10 4.2.7.2.686 [id number] [facility] 2020 08:50:00 2020 09:50:00 Departed Emergency Room 1 Sp Cazares [facility] [id number] [facility] Results Test Description Test Time Test Comments Results Result Co mments Source [facility] WITH [id number] 06:57:57* Test Item Value Reference Range Interpretation [...] 33.3 g/dL 31.2-35.0 RDW-SD (test code = 30150-0) 47.6 fL 38.5-51.6 RDW-CV (test code = 788-0) 14.4 % 12.1-15.4 PLT (test code = 777-3) 323 See_Comment [Automated message] The system which generated this result transmitted reference range: 150 - 328 10*3/?L. The reference range was not used to interpret this result as normal/abnormal. MPV (test code = 62587-0) 9.4 fL 9.8-13.0 L NRBC/100 WBC (test code = 6142010914) 0.0 See_Comment [Automated message] The system which generated this result transmitted reference range: 0.0 - 10.0 /100 WBCs. The reference range was not used to interpret this result as normal/abnormal. NRBC x10^3 (test code = 3297596603) See_Comment [Automated message] The system which generated this result transmitted reference range: 10*3/?L. The reference range was not used to interpret this result as normal/abnormal. GRAN MAT (NEUT) % (test code = 770-8) 86.2 % IMM GRAN % (test code = 8887008006) 1.10 % LYMPH % (test code = 736-9) 9.4 % MONO % (test code = 5905-5) 3.0 % EOS % (test code = 713-8) 0.1 % BASO % (test code = 706-2) 0.2 % GRAN MAT x10^3(ANC) (test code = 4764243609) 10.96 10*3/uL 1.99-6.95 H IMM GRAN x10^3 (test code = 0898128749) 0.14 10*3/uL 0.00-0.06 H LYMPH x10^3 (test code = 731-0) 1.20 10*3/uL 1.09-3.23 MONO x10^3 (test code = 742-7) 0.38 10*3/uL 0.36-1.02 EOS x10^3 (test code = 711-2) 0.06-0.53 L BASO x10^3 (test code = 704-7) 0.01-0.09 Lab Interpretation (test code = 55857-3) [facility] [id number] 15:05:59* Test Item Value Reference Range Interpretation Comme nts QFT Gold Plus Result (test code = 77028-7) Negative Negative GEOVANI (test code = GEOVANI) [...] advised. For further information, refer to http://www.cdc.gov/mmw r/pdf/rr/vd6604.pdf and https://doi.org/10.109 3/rema/dpb468. Lab Interpretation (test code = 64212-1) Normal [facility] WITH [id number] 10:03:34* Test Item Value Reference Range Interpretation [...] 34.4 g/dL 31.2-35.0 RDW-SD (test code = 81767-8) 37.8 fL 38.5-51.6 L RDW-CV (test code = 788-0) 12.5 % 12.1-15.4 PLT (test code = 777-3) 403 See_Comment H [Automated message] The system which generated this result transmitted reference range: 150 - 328 10*3/?L. The reference range was not used to interpret this result as normal/abnormal. MPV (test code = 89900-3) 8.7 fL 9.8-13.0 L NRBC/100 WBC (test code = 3509489914) 0.0 See_Comment [Automated message] The system which generated this result transmitted reference range: 0.0 - 10.0 /100 WBCs. The reference range was not used to interpret this result as normal/abnormal. NRBC x10^3 (test code = 7127635441) See_Comment [Automated message] The system which generated this result transmitted reference range: 10*3/?L. The reference range was not used to interpret this result as normal/abnormal. GRAN MAT (NEUT) % (test code = 770-8) 85.7 % IMM GRAN % (test code = 7531809818) 3.00 % LYMPH % (test code = 736-9) 6.7 % MONO % (test code = 5905-5) 4.0 % EOS % (test code = 713-8) 0.1 % BASO % (test code = 706-2) 0.5 % GRAN MAT x10^3(ANC) (test code = 5467876038) 12.93 10*3/uL 1.99-6.95 H IMM GRAN x10^3 (test code = 2326809945) 0.46 10*3/uL 0.00-0.06 H LYMPH x10^3 (test code = 731-0) 1.01 10*3/uL 1.09-3.23 L MONO x10^3 (test code = 742-7) 0.61 10*3/uL 0.36-1.02 EOS x10^3 (test code = 711-2) 0.06-0.53 L BASO x10^3 (test code = 704-7) 0.07 10*3/uL 0.01-0.09 BANDS (test code = 7587981073) MARKED INCREASED A Lab Interpretation (test code = 78255-1) [facility] (ALB,T.PRO,BILI T,BU/BC,ALT,AST,ALK PHOS)2023-04-06 09:54:25* Test Item Value Reference Range Interpretation Comme nts TOTAL BILI (test code = 8678662591) 0.3 mg/dL 0.1-1.1 BILI UNCON (test code = 6896701059) 0.2 mg/dL 0.1-1.1 BILI CONJ (test code = 4816909843) 0.0 mg/dL 0.0-0.3 T PROTEIN (test code = 7333334451) 6.2 g/dL 6.3-8.2 L ALBUMIN (test code = 4517379651) 3.4 g/dL 3.5-5.0 L ALK PHOS (test code = 7422636129) 54 U/L 34-122 ALTv (test code = 1742-6) 20 U/L 5-50 AST(SGOT) (test code = 6529249981) 33 U/L 13-40 Lab Interpretation (test cod e = 19564-8) [facility]normal [facility] 09:54:25* Test Item Value Reference Range Interpretation Comme nts MAGNESIUM (test code = 8721630146) 2.1 mg/dL 1.7-2.4 Lab Interpretation (test cod e = 05682-5) Normal [facility] METABOLIC PANEL (NA, K, CL, CO2, GLUCOSE, BUN, CREATININE, CA)2023-04-06 09:54:25* Test Item Value Reference Range Interpretation Comme nts NA (test code = 6053556205) 135 mmol/L 135-145 K (test code = 2145020833) 3.8 mmol/L 3.5-5.0 CL (test code = 1141664272) 98 mmol/L 98-108 CO2 TOTAL (test code = 8532599149) 28 mmol/L 23-31 AGAP (test code = 8126665577) 9 2-16 BUN (test code = 9541736017) 6 mg/dL 7-23 L GLUCOSE (test code = 6639313771) 165 mg/dL 70-110 H CREATININE (test code = 2631800902) 0.63 mg/dL 0.60-1.25 CALCIUM (test code = 7631795390) 8.1 mg/dL 8.6-10.6 L eGFR (test code = 4600472374) 156.5 mL/min/1.73m2 GEOVANI (test code = GEOVANI) [...] imaging tests). Lab Interpretation (test code = 54358-2) Abnormal [facility] (HCV) BY QUANTITATIVE NAAT 2023-04-05 19:02:52* Test Item Value Reference Range Interpretation Comme [facility] HCV Quantitative Interpretation (test code = 6765233517) Not Detected Not Detected GEOVANI (test code = GEOVANI) The Aptima HCV Dwight nt Dx assay is an FDA-approved real-time sheet rock applicator-mediated amplification (TMA) test used for both detection [...] clinically indicated. Lab Interpretation (test code = 64238-1) Normal [facility] [id number] 14:37:42* Test Item Value Reference Range Interpretation Comme [facility] Case Report (test code = 8480440438) Surgical Pathology ?Case: [id number] ? Authorizing Provider: ?Ria Hendricks MD ? Collected: ? 04/03/2023 1736 ?Ordering Location: ? ? GI Endoscopy OR Department Received: ?04/04/2023 1257 ?Pathologist: ? Sofy Veronica MD ? Specimen: ? ?COLON, Colon BX eval for IBD ? Final Diagnosis (test code = 1237587830) p8fwvCHrGZDlp3dlKQKyxGY uZzEwMzNcZnRuYmpcdWMxIH tccnRmMVxlcGljMTAyMDZcY W6ghNfouUy0yRxyVGDwunJ1 yYGnMEydu8qbQRB7g1dmmjn oBXEzMEuxNs2ukSXjuZekMt BdFRWlGDj0aB92RSArlE5ih VLlENh9MKIffGXweaThSoPn GBPwpSGhcBU0XWUgBK9hilr dJShaQCqrBUQmxeP6FHGroH CqZ4FzVVKuRJ6qhdwoPXC5H ShqJHXmYJQ2UiMzWXSbe0Fu ezf1ApUczPThCIajaBBdsiq cynHuSPEsakZTOcHXU7vOOr wgQklPUFNZOlxwYXIgICAgL ZIIQ6oGMwqBNL7UD12VTZGC WEMZZWHDLSBGKKYJIfpuO7X TTHYdXCFYD2XOX5VEHKZSFa hKJDYWKbMSUWCIX1NYKdHLQ RGRFZWDX3EGID1GQNnbyAWn ICAgICAgIEFORCBJTkNSRUF KFOJpONjQRGkRNOfYT12LH3 gXAZWtVG9SUXFMIYKAQM1DW JsPGQwPWQaUQUJUTg7USvqR FSWBS91NNGUJOF1CMLfRZOu gXHBhciAgICAgICBDSFJPTk hSYRYRJVaBXFKaA7mYJGJUH 8ONBmPBKJJLV8XQSrzLZHzy YXIgICAgLSBOTyBEWVNQTEF TSUEgSURFTlRJRklFRFxwYX AecKZdrNbgkgFeWHmlr2QyU 2YyMjAwMFxhbnNpXGRlZmxh stguIWAzPZM8xvWtOQHjIVc oLYYjZOxlWk7njPLchHltOo YkOSJqq4smjwSTNZvnTmHhU 807RWNqDThfs9uxd3XgQUEj cAEil4K5ITHMrqtciJs8i2l yAyQzEaR6nFFhXIruS6qfpa HtbCNyA4ZjrOMmrWw1oPnxI 42df9L4ExuyT3mhMJTgZMQo A6CsZU1eUITuFlt6ATX4GWH 7GJCnRRSeM3RsDX4qSYAhyN UbTDm3z4pxpXrhXZKqWSH8b 6dpBCcqwlQ9CZ0sgp6otIv9 w8zcymZlRPOfEQNhgQZBJIW nT7FyrSbeTn0ehXh9nGowQz yxPEZ8Cad5NZ1joc97fuu3p UzqYEDelwgzPpJ9JJkmSTTp tjjyOUj5JQamRFQivCG0YKN uoSZzI6KmEIPzSL9ytee0WG K7ZEhpCHHbKjE6GVFuxRAxL HNauRhuWZmgb061YKX2JeSe YL8wL3Gvq4P0jE5wgUTvNDK xlSLxPaKyUESoyz3uxQQmIZ sdx4BoJJZ1suO5nCEbmOOcW QSlCP19Curqo6BtApkoRZP6 DKTasxLwj9Eiz8bkNvTozfZ bI2zeR1WyLVNfZIAjEELkPu RnjpDll1Omj0IyqSRtjJd3y 4slUZCkXNCbqKvkf9btYRL5 QIOtS6J2qKJds9tuMRfxBWZ viTW5axR7EQRjkWXoX9RoyX 5rVZEiGF2hdwe2h2anPTK3O GnpPMIjZmM4ymO4LXYxsHEx KWEodZcqIKzai840QYM5ImP aGETso9DgU9IqdYnjA52ihN kpB94zCTBeqMivhG8hyYxxv B0iHuJnDnKiDOoncYcmpNFs blxmMVxmczIwXGxhbmcxMDM bTNlxW8fhOxNnGSYixOjeIX lyr4XzMPLeWAXyRdqiaxUtU FQngdAXDSmpsbXbcPLhr73i YWxseSByZXZpZXdlZCBhbGw nu6EbG5fgOD7xH2NtvAQpgk GumiRmYFofWZCfq9j9kBKig Awjl7ViyOHjBP77sxJtMXMy MUS7DUHen3vnUY72ltlqEgR fdF79wbMimiOwBROse0jjN2 arwKStc6Esj7SimeMwIQwwk 5OmLN1amIKwgwgxoOW2LWIp jSTlsdDlorD5vBxrJLEvwM6 woT8fuXassD0qApDgBhWmKL fqOL9qDCLpR4pzmGDfCVSxZ LReI1lbLcOcbH2pkSliZhyr wxE5JSHuxy64 Clinical Information (test code = 8479375477) Pa Anayayung is a 22 year old male1. Colon BX eval for IBD Gross Description (test code = 1807621898) u7zjdHMdPCPinTQWTUBuXAM kBU3tlStdnAf1bRllALMjyf F4xYAyWTnle2mtSGX3j8mar vLGZaihVTIiNE8eNMlyPZJv LC2pXxZfNFSaRhGiYHOkzXO ovtGmRvNgTEIvoRXxnIN8CG WkKE7ekmolYPccSQrpIIYew sL6FLSosBYdP2LmPATwPA1u lxjcSUG8XWMFEvmeAy1hzVM ibHtcZjFcZmNoYXJzZXQwXG LacQoeFOWmMZd9pJ4UTwpgQ AK9UDWETjceHbjcuHmnt5In dCBcXHNnIFxcaWQgNTEwMDA aHEufAzMKTnAxCjQ7KED3HI ZnOdO3ATv5DQBWXSWkPfv2C LHfGFZ5MIu8CHVpWK2hURwt xYWzVPhuNwqkNRleP451PSl qMNWvF2CmR4KpZAhcPpZrIR ubOAMhZUPuPHayYGOeW1XYH KBwLpF8HhZ0VsEnPHv6DGzc J8MOJIMkMBIoFgCsNXA2CtG 7WSh1KRBJHh2bHLqnXZEmEC B8GGI6ZOrjDHUtFFDnGbAfX MEqGBUcNMbajFRcNI1pxXhu SJHjZJ4ROTOvHLvuFGKvKtJ oD9WJC2xNEC6uNQdnMNFkWV pccGFyZCANClxwbGFpblxmc dIlDTa3svLfUTFhWjWaPMVz X37jl6EMw9HlYG8UQEe9sjO znzugnK7vWWMbioYzGRoJhT HfnB4axoQIDKpnTHKwH9Ydi sTlEBbnIAZrwh7noMxqVKNj ZOZxyHFjYJjpvBiypOA1aSR tbGIxCC0sKPKBTMEurG9pPP PqPDVgITSjP58ce89xHKTyl N2fKQAFEWR0AWsxMp2pHSqI QDTeTM5sBIFiinMnk9HjEK2 cXI04bBAvnQwtICedR0c8HC MiqcIypwDjX8AaFWKsbUhrg 7IhWTEzRWmtJI38ogWzHG8a LTAuNCBjbSBpbiBncmVhdGV ljHQalH8nnyAwx92hXGRtBM K0DESmOCE9YLWgThJdkEXwy dJwW7gmEHpzrFZyFpCmUYlb IHNwZWNpbWVuIGlzIGZpbHR chiBzYNSnwg45G0ntHOAgdB 5ng8vjXoWzYDXjXBXinDLkp BY9YSRqaC7ksU50cxNjzeFG PC0ywNFyXF4NCTSufnSJXrO tbXlsZWUgWmFuZywgUEEgc3 F0EQYoiXtyAOIuFRnFsBytJ FZMI1vvkSOcIQigBWWGFDEF G3LlQURyylBLLbkwZINxDJk wg3UfZTugoHsqSVHxBzMfGH uxUQGwS62ip0DYt6Khx6wbe Lztt9PqnNIjOU80TAHhmIHk EGC1NM8wyKpkWGLoIIknoCS yZCANCn0= Disclaimer (test code = 7908165292) b2uxaNVgTMGbe9ioHLKhwWG uZzEwMzNcZnRuYmpcdWMxIH kyapRxURuli9CkU4UyQcAxN FxhbnNpXGRlZmxhbmcxMDMz HOH8cuIhONWlICdfEZIuWJj wWo1ouOXgfBxgPkImGXEdc5 gvukQNSTsuKnGyL255AKPwN Umms7abv5TnRRDkiELcl6M5 DKRBophewKd3rOepT08cm9Q 0JqenB7piQUKpQVDeR2LgOY 3fLVAnSzp3FLU3ZRC6XCXpH ZSrY1XtEV1qQGVyuYHeRFv2 v4hiwAroPIYvUTJ2i0ygVDe fxyNaGP6hjw0aeRi5y1fyhw KgZYEtIMJqiXAQEVOcA4Pzy FuvXw7agLd7oDkyDjkpDRR1 Nfl4NL1rwk16kik1sTgyZYY widcyHzD1IAghSCUfxvymCX j1TZtpSMItzTQ4AOYzuWDvN 5KoHUDzUX3cjlw1DQV8GFot RQXdQnK1RWKwoNTzBVPldVo mWSsgs911LHF9XlCdEH4lG0 Mra6F7jT6yoOOfXDJroHQeO nFiJQSdvx6evPYrIExar6Lz EPK4ufC6iDKmtFMoROPmQG9 5Chmqe8UxFgdah7VhL03okT F6FOooe5wlWW1iBlQ5wqHhS Zehi9nocG3qMyP7JLgyJN2s TJ5hHWWctW7rzjacCVAbDlI oexctBXRkhIxhdsUhAy4okE vuRDZ3QFqmL9jurH7ySzR2C YimW0ufkD6iUIe7RRwucDH6 DRZvsU2fTG4wcnshv2xzRFz fSZatLQCotsS2wdX4PLShrH TtY2YfeP8bODPnUO9hbxxie 1jyTHW9CTkfZGBcBTR8MyId KTPgw5Nhimb0YbYvt8OvwXK jCZgdT83iq820UTYbqoTqE5 xwbGFpblxwbGFpblxmMFxmc oJ8XVSbwzFos4GqIOEqKAB2 UXprZIdpfVStDLEbfMuza7v oO4WpkWKvCDIiZUphPBDlJB ZzMjBcbGFuZzEwMzNcaGlja MtgHWlxOkBxEHQrPAvjZ5iv FcQuW2AiWRLsVpIdbUNvP8i kTSlxvtQuGRWrpcCcbQB7PP odM5t9VCJqgiTczFg6ezAwC sYiEIKcKGK8HEhxkTRfIEHk l4FbonhjxBHbZg9voZLxEAJ yjL0vUVBxNQRkYLgjJI0efK s6QWYRaEShaTRoWwOPZIMzG A30ohPjRFHPookxo0J2XTfl PBUcy0ZaeEAwB9feh1QzGHL yk73rYI6fo9T3g5kzITY5UW 6jd0NrMIJibMNuuROkAFFmm 4Ucforxd2TqJWTyasYmh2Ec ZCBhbmQgaXRzIHBlcmZvcm1 bgnRfNXVoJDKrY6ZhlauvfQ bwtnYgVKEnhq0yafNcIOQ9R HWEDRFqKHJfz7OowO1wiPPE OAU1tSEytd7yszTDhXFdSEJ qnk39DJEkMR5wZ2ksHHSjCP EflbSpyBKik7IxZUUzjJB0t IKqMB5FNxEEa89yAXXpVVBK faKsBHYfnWqxfPO4wpT0zI9 uIChGREEpLlx+IFRoZSBGRE IxVJ8bngWwh9McfiRttCizD NItiFWbj1DhiYBil1TxuBwg v0TrzAAcjOQbTJ3qQPYewpn iTNXvUKOXYjQNZHNadcL8x4 RzLYUiLQShCAK8rSmdnpd7S GFnhW2nEVDiA2qyadcyTOoz JFToj0AjvQ0kbKWNkINqk7P hvEWuoYHUoKToXQ4bkwPtVZ jCMXuSRLW6diSwUUVch2DqJ AgsA2blJ07bfGcdaNx6fYG4 GGZ5fU5zKgp+IFxwYXJccGF yIEFwcHJvcHJpYXRlbHkgcm BwH6IqmoJbrI2gmXIcxxZmU X4sJQ7uX7U5hBAtWVKabiOj j1abKOahvqPjRvCjmnCnTRH jFXrhVIJga9CaTNbwKYB4DD lucyBpbmNsdWRpbmcgSCZFL WNSfTIedNEnYED8BPjqujYy cwZyPX6imJ3toIbqgV2bcZR vgYJ3ltswHDXwUQEvhFxgVT BhPL0emHKyGRUforAHdYhwj SBlcZ8dG0VdKTPcCXAgyn7f FAUysW0sJFxqh6SrudefCLO lJZSdQCDoiyRwkp3iKQFytE ETRE4WAYyyfGGel8RhxaPcF 7lMRIE4TXLaHhVyYqumQVMs vXWqyQZbTBVecu84XSVpoG7 htUcrPRLhsO1htA6igUyheX 4wCvAaVzOtAGcfGM9qUDGfU 4ersJXoRSBoEKRsW0qrJeCn oQ9qwXxvMBeuEzOyAtIzTIz lTNG5xS== Embedded Images (test code = 4932225553) [facility] [id number] 14:35:43* Test Item Value Reference Range Interpretation Comme nts Extra Tube (test code = 4294863293) Received in Lab [facility] WITH [id number] 10:45:28* Test Item Value Reference Range Interpretation [...] g/dL 31.2-35.0 H RDW-SD (test code = 92005-5) 37.9 fL 38.5-51.6 L RDW-CV (test code = 788-0) 12.4 % 12.1-15.4 PLT (test code = 777-3) 403 See_Comment H [Automated message] The system which generated this result transmitted reference range: 150 - 328 10*3/?L. The reference range was not used to interpret this result as normal/abnormal. MPV (test code = 26148-4) 8.8 fL 9.8-13.0 L NRBC/100 WBC (test code = 3561185604) 0.0 See_Comment [Automated message] The system which generated this result transmitted reference range: 0.0 - 10.0 /100 WBCs. The reference range was not used to interpret this result as normal/abnormal. NRBC x10^3 (test code = 2952925776) See_Comment [Automated message] The system which generated this result transmitted reference range: 10*3/?L. The reference range was not used to interpret this result as normal/abnormal. GRAN MAT (NEUT) % (test code = 770-8) 90.9 % IMM GRAN % (test code = 9617195700) 1.60 % LYMPH % (test code = 736-9) 4.3 % MONO % (test code = 5905-5) 2.9 % EOS % (test code = 713-8) 0.0 % BASO % (test code = 706-2) 0.3 % GRAN MAT x10^3(ANC) (test code = 0269899914) 20.14 10*3/uL 1.99-6.95 H IMM GRAN x10^3 (test code = 7533234095) 0.36 10*3/uL 0.00-0.06 H LYMPH x10^3 (test code = 731-0) 0.95 10*3/uL 1.09-3.23 L MONO x10^3 (test code = 742-7) 0.65 10*3/uL 0.36-1.02 EOS x10^3 (test code = 711-2) 0.06-0.53 L BASO x10^3 (test code = 704-7) 0.06 10*3/uL 0.01-0.09 BANDS (test code = 5380942823) MARKED INCREASED A Lab Interpretation (test code = 47275-1) [facility]normal [facility]:58:18* Test Item Value Reference Range Interpretation Comme nts MAGNESIUM (test code = 6180821790) 2.1 mg/dL 1.7-2.4 Lab Interpretation (test cod e = 56498-9) Normal [facility] (NA, K, CL, CO2, GLUCOSE, BUN, CREATININE, CA)2023-04-05 09:58:18* Test Item Value Reference Range Interpretation Comme nts NA (test code = 0404350010) 133 mmol/L 135-145 L K (test code = 5288392067) 4.0 mmol/L 3.5-5.0 Slight hemolysis CL (test code = 5303617085) 100 mmol/L 98-108 CO2 TOTAL (test code = 3919199373) 26 mmol/L 23-31 AGAP (test code = 1263930118) 7 2-16 BUN (test code = 6719419230) 3 mg/dL 7-23 L Slight hemolysis GLUCOSE (test code = 5677357664) 178 mg/dL 70-110 H CREATININE (test code = 6684002153) 0.58 mg/dL 0.60-1.25 L CALCIUM (test code = 9327460751) 8.1 mg/dL 8.6-10.6 L eGFR (test code = 5904056618) 172.1 mL/min/1.73m2 GEOVANI (test code = GEOVANI) [...] imaging tests). Lab Interpretation (test code = 05080-6) Abnormal [facility] B SURFACE [id number] 22:55:30* Test Item Value Reference Range Interpretation Comme [facility] HBsAB (test code = 9118947200) Negative HBsAb Semi-Quantitative (test code = 1944669505) 0.10 mIU/mL GEOVANI (test code = GEOVANI) Interpretation: ?Hepatitis B Surface Antibody ? Negative - Patient is considered to be not immune to infection with HBV. ? ? Positive - Anti-HBs detected at greater than or equal to 12 mIU/mL. ?Patient is considered to be immune to infection with HBV. ? [facility] 22:55:30* Test Item Value Reference Range Interpretation Comme [facility] HBC (test code = 1497076021) Negative HBC Semi-Quantitative (test code = 3987705192) 3.15 [facility] B SURFACE [id number] 15:42:58 * Test Item Value Reference Range Interpretation Comme nts HBsAg Semi-Quantitative (melvin t code = 5195-3) 0.05 Negative [facility] [id number] 15:42:58 * Test Item Value Reference Range Interpretation Comme nts HBsAg Semi-Quantitative (melvin t code = 5195-3) 0.05 Negative [facility] METABOLIC PANEL (NA, K, CL, CO2, GLUCOSE, BUN, CREATININE, CA)2023-04-04 11:32:42* Test Item Value Reference Range Interpretation Comme nts NA (test code = 7538160640) 132 mmol/L 135-145 L K (test code = 4488623343) 3.5 mmol/L 3.5-5.0 Slight hemolysis CL (test code = 4004569462) 100 mmol/L 98-108 CO2 TOTAL (test code = 9335961613) 24 mmol/L 23-31 AGAP (test code = 3300943633) 8 2-16 BUN (test code = 0803660345) 7-23 L Slight hemolysis GLUCOSE (test code = 9441398680) 88 mg/dL 70-110 CREATININE (test code = 8972885141) 0.73 mg/dL 0.60-1.25 CALCIUM (test code = 8966952607) 7.7 mg/dL 8.6-10.6 L eGFR (test code = 4879594635) 132.0 mL/min/1.73m2 GEOVANI (test code = GEOVANI) [...] imaging tests). Lab Interpretation (test code = 36662-4) Abnormal [facility] METABOLIC PANEL (NA, K, CL, CO2, GLUCOSE, BUN, CREATININE, CA)2023-04-04 11:32:42* Test Item Value Reference Range Interpretation Comme nts NA (test code = 4629062619) 132 mmol/L 135-145 L K (test code = 8219551822) 3.5 mmol/L 3.5-5.0 Slight hemolysis CL (test code = 3556923196) 100 mmol/L 98-108 CO2 TOTAL (test code = 7475775903) 24 mmol/L 23-31 AGAP (test code = 2151533128) 8 2-16 BUN (test code = 1425636706) 7-23 L Slight hemolysis GLUCOSE (test code = 3837513726) 88 mg/dL 70-110 CREATININE (test code = 1576792765) 0.73 mg/dL 0.60-1.25 CALCIUM (test code = 0678418262) 7.7 mg/dL 8.6-10.6 L eGFR (test code = 7105076313) 132.0 mL/min/1.73m2 GEOVANI (test code = GEOVANI) [...] imaging tests). Lab Interpretation (test code = 75942-1) Abnormal [facility]2023-05-09 11:23:35* Test Item Value Reference Range Interpretation Comme nts MAGNESIUM (test code = 1257457469) 1.7 mg/dL 1.7-2.4 Lab Interpretation (test cod e = 03946-6) [facility]* Test Item Value Reference Range Interpretation Comme nts MAGNESIUM (test code = 4762061437) 1.7 mg/dL 1.7-2.4 Lab Interpretation (test cod e = 55341-2) Normal [facility] WITH [id number] 10:55:07* Test Item Value Reference Range Interpretation [...] g/dL 31.2-35.0 H RDW-SD (test code = 39357-7) 37.7 fL 38.5-51.6 L RDW-CV (test code = 788-0) 12.5 % 12.1-15.4 PLT (test code = 777-3) 329 See_Comment H [Automated message] The system which generated this result transmitted reference range: 150 - 328 10*3/?L. The reference range was not used to interpret this result as normal/abnormal. MPV (test code = 63575-3) 8.6 fL 9.8-13.0 L NRBC/100 WBC (test code = 0675484263) 0.0 See_Comment [Automated message] The system which generated this result transmitted reference range: 0.0 - 10.0 /100 WBCs. The reference range was not used to interpret this result as normal/abnormal. NRBC x10^3 (test code = 0734453907) See_Comment [Automated message] The system which generated this result transmitted reference range: 10*3/?L. The reference range was not used to interpret this result as normal/abnormal. GRAN MAT (NEUT) % (test code = 770-8) 72.5 % IMM GRAN % (test code = 7436825163) 1.60 % LYMPH % (test code = 736-9) 11.5 % MONO % (test code = 5905-5) 6.8 % EOS % (test code = 713-8) 6.9 % BASO % (test code = 706-2) 0.7 % GRAN MAT x10^3(ANC) (test code = 4052845768) 13.10 10*3/uL 1.99-6.95 H IMM GRAN x10^3 (test code = 6780735910) 0.29 10*3/uL 0.00-0.06 H LYMPH x10^3 (test code = 731-0) 2.08 10*3/uL 1.09-3.23 MONO x10^3 (test code = 742-7) 1.23 10*3/uL 0.36-1.02 H EOS x10^3 (test code = 711-2) 1.25 10*3/uL 0.06-0.53 H BASO x10^3 (test code = 704-7) 0.13 10*3/uL 0.01-0.09 H Lab Interpretation (test code = 26559-5) Abnormal [facility] WITH [id number] 10:55:07* Test Item Value Reference Range Interpretation [...] g/dL 31.2-35.0 H RDW-SD (test code = 20254-4) 37.7 fL 38.5-51.6 L RDW-CV (test code = 788-0) 12.5 % 12.1-15.4 PLT (test code = 777-3) 329 See_Comment H [Automated message] The system which generated this result transmitted reference range: 150 - 328 10*3/?L. The reference range was not used to interpret this result as normal/abnormal. MPV (test code = 54500-5) 8.6 fL 9.8-13.0 L NRBC/100 WBC (test code = 0945888472) 0.0 See_Comment [Automated message] The system which generated this result transmitted reference range: 0.0 - 10.0 /100 WBCs. The reference range was not used to interpret this result as normal/abnormal. NRBC x10^3 (test code = 2308513462) See_Comment [Automated message] The system which generated this result transmitted reference range: 10*3/?L. The reference range was not used to interpret this result as normal/abnormal. GRAN MAT (NEUT) % (test code = 770-8) 72.5 % IMM GRAN % (test code = 5274319361) 1.60 % LYMPH % (test code = 736-9) 11.5 % MONO % (test code = 5905-5) 6.8 % EOS % (test code = 713-8) 6.9 % BASO % (test code = 706-2) 0.7 % GRAN MAT x10^3(ANC) (test code = 0328614521) 13.10 10*3/uL 1.99-6.95 H IMM GRAN x10^3 (test code = 1461925740) 0.29 10*3/uL 0.00-0.06 H LYMPH x10^3 (test code = 731-0) 2.08 10*3/uL 1.09-3.23 MONO x10^3 (test code = 742-7) 1.23 10*3/uL 0.36-1.02 H EOS x10^3 (test code = 711-2) 1.25 10*3/uL 0.06-0.53 H BASO x10^3 (test code = 704-7) 0.13 10*3/uL 0.01-0.09 H Lab Interpretation (test code = 01209-0) Abnormal [facility] METABOLIC PANEL (NA, K, CL, CO2, GLUCOSE, BUN, CREATININE, CA)2023-04-03 10:31:41* Test Item Value Reference Range Interpretation Comme nts NA (test code = 8992418399) 136 mmol/L 135-145 K (test code = 5999471589) 3.5 mmol/L 3.5-5.0 CL (test code = 8436375535) 104 mmol/L 98-108 CO2 TOTAL (test code = 6059377253) 22 mmol/L 23-31 L AGAP (test code = 6217271227) 10 2-16 BUN (test code = 0433185521) 7-23 L GLUCOSE (test code = 5454514590) 101 mg/dL 70-110 CREATININE (test code = 1583964533) 0.77 mg/dL 0.60-1.25 CALCIUM (test code = 2725100635) 8.4 mg/dL 8.6-10.6 L eGFR (test code = 0413475840) 124.1 mL/min/1.73m2 GEOVANI (test code = GEOVANI) [...] imaging tests). Lab Interpretation (test code = 82418-0) Abnormal [facility] METABOLIC PANEL (NA, K, CL, CO2, GLUCOSE, BUN, CREATININE, CA)2023-04-03 10:31:41* Test Item Value Reference Range Interpretation Comme nts NA (test code = 4278525775) 136 mmol/L 135-145 K (test code = 1741680410) 3.5 mmol/L 3.5-5.0 CL (test code = 5545625458) 104 mmol/L 98-108 CO2 TOTAL (test code = 5933274152) 22 mmol/L 23-31 L AGAP (test code = 5514249873) 10 2-16 BUN (test code = 2199337897) 7-23 L GLUCOSE (test code = 0505461921) 101 mg/dL 70-110 CREATININE (test code = 7343476241) 0.77 mg/dL 0.60-1.25 CALCIUM (test code = 9216293692) 8.4 mg/dL 8.6-10.6 L eGFR (test code = 5884143443) 124.1 mL/min/1.73m2 GEOVANI (test code = GEOVANI) [...] imaging tests). Lab Interpretation (test code = 32699-5) Abnormal [facility] WITH [id number] 10:27:32* Test Item Value Reference Range Interpretation [...] 34.9 g/dL 31.2-35.0 RDW-SD (test code = 51871-4) 37.5 fL 38.5-51.6 L RDW-CV (test code = 788-0) 12.3 % 12.1-15.4 PLT (test code = 777-3) 406 See_Comment H [Automated message] The system which generated this result transmitted reference range: 150 - 328 10*3/?L. The reference range was not used to interpret this result as normal/abnormal. MPV (test code = 76147-3) 8.6 fL 9.8-13.0 L NRBC/100 WBC (test code = 4010464892) 0.0 See_Comment [Automated message] The system which generated this result transmitted reference range: 0.0 - 10.0 /100 WBCs. The reference range was not used to interpret this result as normal/abnormal. NRBC x10^3 (test code = 3548233367) See_Comment [Automated message] The system which generated this result transmitted reference range: 10*3/?L. The reference range was not used to interpret this result as normal/abnormal. GRAN MAT (NEUT) % (test code = 770-8) 72.4 % IMM GRAN % (test code = 6925575945) 1.70 % LYMPH % (test code = 736-9) 13.6 % MONO % (test code = 5905-5) 6.5 % EOS % (test code = 713-8) 5.3 % BASO % (test code = 706-2) 0.5 % GRAN MAT x10^3(ANC) (test code = 1617439676) 18.08 10*3/uL 1.99-6.95 H IMM GRAN x10^3 (test code = 6273213462) 0.42 10*3/uL 0.00-0.06 H LYMPH x10^3 (test code = 731-0) 3.39 10*3/uL 1.09-3.23 H MONO x10^3 (test code = 742-7) 1.61 10*3/uL 0.36-1.02 H EOS x10^3 (test code = 711-2) 1.31 10*3/uL 0.06-0.53 H BASO x10^3 (test code = 704-7) 0.13 10*3/uL 0.01-0.09 H BANDS (test code = 8200295805) Increased A Lab Interpretation (test code = 82544-2) Abnormal [facility] WITH [id number] 10:27:32* Test Item Value Reference Range Interpretation [...] 34.9 g/dL 31.2-35.0 RDW-SD (test code = 21506-6) 37.5 fL 38.5-51.6 L RDW-CV (test code = 788-0) 12.3 % 12.1-15.4 PLT (test code = 777-3) 406 See_Comment H [Automated message] The system which generated this result transmitted reference range: 150 - 328 10*3/?L. The reference range was not used to interpret this result as normal/abnormal. MPV (test code = 69156-6) 8.6 fL 9.8-13.0 L NRBC/100 WBC (test code = 5323080525) 0.0 See_Comment [Automated message] The system which generated this result transmitted reference range: 0.0 - 10.0 /100 WBCs. The reference range was not used to interpret this result as normal/abnormal. NRBC x10^3 (test code = 2524925299) See_Comment [Automated message] The system which generated this result transmitted reference range: 10*3/?L. The reference range was not used to interpret this result as normal/abnormal. GRAN MAT (NEUT) % (test code = 770-8) 72.4 % IMM GRAN % (test code = 3163473206) 1.70 % LYMPH % (test code = 736-9) 13.6 % MONO % (test code = 5905-5) 6.5 % EOS % (test code = 713-8) 5.3 % BASO % (test code = 706-2) 0.5 % GRAN MAT x10^3(ANC) (test code = 8489993010) 18.08 10*3/uL 1.99-6.95 H IMM GRAN x10^3 (test code = 8413566775) 0.42 10*3/uL 0.00-0.06 H LYMPH x10^3 (test code = 731-0) 3.39 10*3/uL 1.09-3.23 H MONO x10^3 (test code = 742-7) 1.61 10*3/uL 0.36-1.02 H EOS x10^3 (test code = 711-2) 1.31 10*3/uL 0.06-0.53 H BASO x10^3 (test code = 704-7) 0.13 10*3/uL 0.01-0.09 H BANDS (test code = 9401194628) Increased A Lab Interpretation (test code = 71283-4) Abnormal [facility]2023-05-08 10:27:27* Test Item Value Reference Range Interpretation Comme nts MAGNESIUM (test code = 0542817965) 1.7 mg/dL 1.7-2.4 Lab Interpretation (test cod e = 13973-3) Normal [facility]2023-05-08 10:27:27* Test Item Value Reference Range Interpretation Comme nts MAGNESIUM (test code = 3690061826) 1.7 mg/dL 1.7-2.4 Lab Interpretation (test cod e = 12628-7) Normal [facility] WITH [id number] 11:14:08* Test Item Value Reference Range Interpretation [...] 34.0 g/dL 31.2-35.0 RDW-SD (test code = 83723-0) 38.0 fL 38.5-51.6 L RDW-CV (test code = 788-0) 12.5 % 12.1-15.4 PLT (test code = 777-3) 328 See_Comment [Automated messa ge] The system which generated this result transmitted reference range: 150 - 328 10*3/?L. The reference range was not used to interpret this result as normal/abnormal. MPV (test code = 88716-0) 9.2 fL 9.8-13.0 L NRBC/100 WBC (test code = 8901319530) 0.0 See_Comment [Automated me ssage] The system which generated this result transmitted reference range: 0.0 - 10.0 /100 WBCs. The reference range was not used to interpret this result as normal/abnormal. NRBC x10^3 (test code = 3739306200) See_Comment [Automated messa ge] The system which generated this result transmitted reference range: 10*3/?L. The reference range was not used to interpret this result as normal/abnormal. GRAN MAT (NEUT) % (test code = 770-8) 58.9 % IMM GRAN % (test code = 8056576469) 1.90 % LYMPH % (test code = 736-9) 20.1 % MONO % (test code = 5905-5) 8.8 % EOS % (test code = 713-8) 9.6 % BASO % (test code = 706-2) 0.7 % GRAN MAT x10^3(ANC) (test code = 5908106896) 7.34 10*3/uL 1.99-6.95 H IMM GRAN x10^3 (test code = 6889386775) 0.24 10*3/uL 0.00-0.06 H LYMPH x10^3 (test code = 731-0) 2.51 10*3/uL 1.09-3.23 MONO x10^3 (test code = 742-7) 1.10 10*3/uL 0.36-1.02 H EOS x10^3 (test code = 711-2) 1.20 10*3/uL 0.06-0.53 H BASO x10^3 (test code = 704-7) 0.09 10*3/uL 0.01-0.09 Lab Interpretation (test code = 28988-4) Abnormal [facility] WITH [id number] 11:14:08* Test Item Value Reference Range Interpretation [...] 34.0 g/dL 31.2-35.0 RDW-SD (test code = 29949-4) 38.0 fL 38.5-51.6 L RDW-CV (test code = 788-0) 12.5 % 12.1-15.4 PLT (test code = 777-3) 328 See_Comment [Automated messa ge] The system which generated this result transmitted reference range: 150 - 328 10*3/?L. The reference range was not used to interpret this result as normal/abnormal. MPV (test code = 65474-2) 9.2 fL 9.8-13.0 L NRBC/100 WBC (test code = 0932224768) 0.0 See_Comment [Automated me ssage] The system which generated this result transmitted reference range: 0.0 - 10.0 /100 WBCs. The reference range was not used to interpret this result as normal/abnormal. NRBC x10^3 (test code = 3940888070) See_Comment [Automated messa ge] The system which generated this result transmitted reference range: 10*3/?L. The reference range was not used to interpret this result as normal/abnormal. GRAN MAT (NEUT) % (test code = 770-8) 58.9 % IMM GRAN % (test code = 7495574315) 1.90 % LYMPH % (test code = 736-9) 20.1 % MONO % (test code = 5905-5) 8.8 % EOS % (test code = 713-8) 9.6 % BASO % (test code = 706-2) 0.7 % GRAN MAT x10^3(ANC) (test code = 3905308207) 7.34 10*3/uL 1.99-6.95 H IMM GRAN x10^3 (test code = 2097694576) 0.24 10*3/uL 0.00-0.06 H LYMPH x10^3 (test code = 731-0) 2.51 10*3/uL 1.09-3.23 MONO x10^3 (test code = 742-7) 1.10 10*3/uL 0.36-1.02 H EOS x10^3 (test code = 711-2) 1.20 10*3/uL 0.06-0.53 H BASO x10^3 (test code = 704-7) 0.09 10*3/uL 0.01-0.09 Lab Interpretation (test code = 09491-2) Abnormal [facility]-REACTIVE [id number] 17:11:35* Test Item Value Reference Range Interpretation Comme nts CRP (test code = 1916520561) 2.1 mg/dL <=0.8 H Lab Interpretation (test cod e = 52249-9) Abnormal [facility]-REACTIVE [id number] 17:11:35* Test Item Value Reference Range Interpretation Comme nts CRP (test code = 1946190441) 2.1 mg/dL <=0.8 H Lab Interpretation (test cod e = 25862-1) [facility] Zrjpa1725-90-46 14:44:35* Test Item Value Reference Range Interpretation Comme nts FERRITIN (test code = 6873695663) 47.1 ng/mL 18.0-464.0 GEOVANI (test code = GEOVANI) Biotin has been reported to cause a negative bias, interpret results relative to patient's use of biotin. Lab Interpretation (test code = 74633-8) [facility] [id number] 14:44:35* Test Item Value Reference Range Interpretation Comme nts FERRITIN (test code = 2189137738) 47.1 ng/mL 18.0-464.0 GEOVANI (test code = GEOVANI) Biotin has been reported to cause a negative bias, interpret results relative to patient's use of biotin. Lab Interpretation (test code = 69504-0) Normal [facility] Confirmation (Lab Only)2023-04-01 11:38:00* Test Item Value Reference Range Interpretation Comme nts ABO & RH (test code = 20) O Positive [facility] Confirmation (Lab Only)2023-04-01 11:38:00* Test Item Value Reference Range Interpretation Comme nts ABO & RH (test code = 20) O Positive [facility] [id number] 11:22:35* Test Item Value Reference Range Interpretation Comme nts IRON (test code = 6874468983) 27 ug/dL 50-160 L TIBC (test code = 6438139281) 267 ug/dL 250-410 % FE SAT (test code = 8792965580) 10 % 20-50 L Lab Interpretation (test cod e = 70755-1) Abnormal [facility] [id number] 11:22:35* Test Item Value Reference Range Interpretation Comme nts IRON (test code = 7933027413) 27 ug/dL 50-160 L TIBC (test code = 2487231096) 267 ug/dL 250-410 % FE SAT (test code = 4961772708) 10 % 20-50 L Lab Interpretation (test cod e = 78002-4) Abnormal [facility] Metabolic Panel (NA, K, CL, CO2, GLUCOSE, BUN, CREATININE, CA)2023-04-01 11:01:54* Test Item Value Reference Range Interpretation Comme nts NA (test code = 3924411782) 136 mmol/L 135-145 K (test code = 2813365264) 3.5 mmol/L 3.5-5.0 CL (test code = 7712542617) 102 mmol/L 98-108 CO2 TOTAL (test code = 7021168870) 28 mmol/L 23-31 AGAP (test code = 7887092678) 6 2-16 BUN (test code = 2900964832) 3 mg/dL 7-23 L GLUCOSE (test code = 4248539479) 100 mg/dL 70-110 CREATININE (test code = 7795970632) 0.83 mg/dL 0.60-1.25 CALCIUM (test code = 3359239055) 7.9 mg/dL 8.6-10.6 L eGFR (test code = 6616705375) 113.8 mL/min/1.73m2 GEOVANI (test code = GEOVANI) [...] imaging tests). Lab Interpretation (test code = 83563-6) [facility] (ALB,T.PRO,BILI T,BU/BC,ALT,AST,ALK PHOS)2023-04-01 11:01:54* Test Item Value Reference Range Interpretation Comme nts TOTAL BILI (test code = 9347286211) 0.4 mg/dL 0.1-1.1 BILI UNCON (test code = 0652569249) 0.4 mg/dL 0.1-1.1 BILI CONJ (test code = 9560310118) 0.0 mg/dL 0.0-0.3 T PROTEIN (test code = 9440759886) 6.0 g/dL 6.3-8.2 L ALBUMIN (test code = 5997991786) 3.2 g/dL 3.5-5.0 L ALK PHOS (test code = 6358552613) 54 U/L 34-122 ALTv (test code = 1742-6) 12 U/L 5-50 AST(SGOT) (test code = 0743676545) 24 U/L 13-40 Lab Interpretation (test cod e = 48043-7) [facility] [id number] 11:01:54* Test Item Value Reference Range Interpretation Comme nts MAGNESIUM (test code = 9421999152) 2.0 mg/dL 1.7-2.4 Lab Interpretation (test cod e = 75026-2) [facility] (NA, K, CL, CO2, GLUCOSE, BUN, CREATININE, CA)2023-04-01 11:01:54* Test Item Value Reference Range Interpretation Comme nts NA (test code = 8626076369) 136 mmol/L 135-145 K (test code = 2332674293) 3.5 mmol/L 3.5-5.0 CL (test code = 4683335442) 102 mmol/L 98-108 CO2 TOTAL (test code = 8881736584) 28 mmol/L 23-31 AGAP (test code = 7496069302) 6 2-16 BUN (test code = 1271172630) 3 mg/dL 7-23 L GLUCOSE (test code = 2265530674) 100 mg/dL 70-110 CREATININE (test code = 7729414763) 0.83 mg/dL 0.60-1.25 CALCIUM (test code = 2894719506) 7.9 mg/dL 8.6-10.6 L eGFR (test code = 7539252857) 113.8 mL/min/1.73m2 GEOVANI (test code = GEOVANI) [...] imaging tests). Lab Interpretation (test code = 84348-3) [facility]48397[facility] (ALB,T.PRO,BILI T,BU/BC,ALT,AST,ALK PHOS)2023-04-01 11:01:54* Test Item Value Reference Range Interpretation Comme nts TOTAL BILI (test code = 8549775672) 0.4 mg/dL 0.1-1.1 BILI UNCON (test code = 9120458085) 0.4 mg/dL 0.1-1.1 BILI CONJ (test code = 6964662805) 0.0 mg/dL 0.0-0.3 T PROTEIN (test code = 4702894630) 6.0 g/dL 6.3-8.2 L ALBUMIN (test code = 0459942693) 3.2 g/dL 3.5-5.0 L ALK PHOS (test code = 3081800891) 54 U/L 34-122 ALTv (test code = 1742-6) 12 U/L 5-50 AST(SGOT) (test code = 3835624696) 24 U/L 13-40 Lab Interpretation (test cod e = 30846-5) [facility]normal [facility] Bkocy1153-63-09 11:01:54* Test Item Value Reference Range Interpretation Comme nts MAGNESIUM (test code = 6873455995) 2.0 mg/dL 1.7-2.4 Lab Interpretation (test cod e = 18124-7) Normal [facility] with Nuqenmyslqyd8142-79-15 10:39:49* Test Item Value Reference Range Interpretation [...] g/dL 31.2-35.0 H RDW-SD (test code = 68070-5) 37.3 fL 38.5-51.6 L RDW-CV (test code = 788-0) 12.3 % 12.1-15.4 PLT (test code = 777-3) 332 See_Comment H [Automated message] The system which generated this result transmitted reference range: 150 - 328 10*3/?L. The reference range was not used to interpret this result as normal/abnormal. MPV (test code = 37970-1) 8.8 fL 9.8-13.0 L NRBC/100 WBC (test code = 1351908711) 0.0 See_Comment [Automated message] The system which generated this result transmitted reference range: 0.0 - 10.0 /100 WBCs. The reference range was not used to interpret this result as normal/abnormal. NRBC x10^3 (test code = 7208758271) See_Comment [Automated message] The system which generated this result transmitted reference range: 10*3/?L. The reference range was not used to interpret this result as normal/abnormal. GRAN MAT (NEUT) % (test code = 770-8) 69.2 % IMM GRAN % (test code = 6895553186) 1.20 % LYMPH % (test code = 736-9) 14.9 % MONO % (test code = 5905-5) 8.5 % EOS % (test code = 713-8) 5.7 % BASO % (test code = 706-2) 0.5 % GRAN MAT x10^3(ANC) (test code = 1014697639) 11.97 10*3/uL 1.99-6.95 H IMM GRAN x10^3 (test code = 9033027463) 0.21 10*3/uL 0.00-0.06 H LYMPH x10^3 (test code = 731-0) 2.58 10*3/uL 1.09-3.23 MONO x10^3 (test code = 742-7) 1.47 10*3/uL 0.36-1.02 H EOS x10^3 (test code = 711-2) 0.99 10*3/uL 0.06-0.53 H BASO x10^3 (test code = 704-7) 0.09 10*3/uL 0.01-0.09 Lab Interpretation (test code = 75302-9) Abnormal [facility] with [id number] 10:39:49* Test Item Value Reference Range Interpretation [...] g/dL 31.2-35.0 H RDW-SD (test code = 48263-0) 37.3 fL 38.5-51.6 L RDW-CV (test code = 788-0) 12.3 % 12.1-15.4 PLT (test code = 777-3) 332 See_Comment H [Automated message] The system which generated this result transmitted reference range: 150 - 328 10*3/?L. The reference range was not used to interpret this result as normal/abnormal. MPV (test code = 81804-8) 8.8 fL 9.8-13.0 L NRBC/100 WBC (test code = 3257350811) 0.0 See_Comment [Automated message] The system which generated this result transmitted reference range: 0.0 - 10.0 /100 WBCs. The reference range was not used to interpret this result as normal/abnormal. NRBC x10^3 (test code = 9450356699) See_Comment [Automated message] The system which generated this result transmitted reference range: 10*3/?L. The reference range was not used to interpret this result as normal/abnormal. GRAN MAT (NEUT) % (test code = 770-8) 69.2 % IMM GRAN % (test code = 7792170875) 1.20 % LYMPH % (test code = 736-9) 14.9 % MONO % (test code = 5905-5) 8.5 % EOS % (test code = 713-8) 5.7 % BASO % (test code = 706-2) 0.5 % GRAN MAT x10^3(ANC) (test code = 1128774156) 11.97 10*3/uL 1.99-6.95 H IMM GRAN x10^3 (test code = 7896264116) 0.21 10*3/uL 0.00-0.06 H LYMPH x10^3 (test code = 731-0) 2.58 10*3/uL 1.09-3.23 MONO x10^3 (test code = 742-7) 1.47 10*3/uL 0.36-1.02 H EOS x10^3 (test code = 711-2) 0.99 10*3/uL 0.06-0.53 H BASO x10^3 (test code = 704-7) 0.09 10*3/uL 0.01-0.09 Lab Interpretation (test code = 04600-5) [facility] [id number] 10:28:00* Test Item Value Reference Range Interpretation Comme nts ABO & RH (test code = 20) O POSITIVE IAT (test code = 1185) [facility] [id number] 10:28:00* Test Item Value Reference Range Interpretation Comme nts ABO & RH (test code = 20) O POSITIVE IAT (test code = 1185) [facility] SINGLE (PORTABLE)2020 09:39:00[place] [address] PatientName: PA LAWRENCE MR #: [id number] : 2000 Age/Sex: 20/M Req #: [id number] Adm Physician: Ordered by: Sp Cazares MD Report #: [id number] Location:ER Room/Bed: Procedure: [id number] DX/CHEST SINGLE (PORTABLE) Exam Date: 09/01/20 Exam Time: 900 REPORT STATUS: Signed EXAMINATION: CHEST SINGLE (PORTABLE) INDICATION: Shortness of breath COMPARISON:None FINDINGS: LINES/TUBES:None LUNGS:The lungs are well-inflated. No focal consolidation or pulmonary edema. PLEURA:No pleural effusion or pneumothorax. MEDIASTINUM:The cardiomediastinal silhouetteappears normal in size and shape. BONES/SOFT TISSUES:No acute osseous injury. ABDOMEN:No free air under the diaphragm. IMPRESSION: No focal pneumonia or pulmonary edema. Signed by: Ele Dhaliwal MD on 2020 9:39 AM Dictated By: ELE DHALIWAL MD 8 Transcribed By: VETO on 09/01/20938 COPY TO: SP CAZARES MDInfluenza virus A and B antigen identification by [id number] 08:30:00* Test Item Value Reference Range Interpretation Comme nts Influenza Virus Types A,B An tigen (test code = 64896-0) NEGATIVE NEGATIVE [facility] Notes Date/Time Note Provider Source 2025-03-29 19:15:38 Please review and advise. BRADLEY 03/28/25 Kaylee Perdue LVN [facility] 2025-03-29 14:06:00 Pa Lawrence is a 24 year old male Patient would like to come in Monday and pick form up Please advise Windy Noriega [facility] 2025-03-29 13:01:49 Patient requesitng to receive a Rerturn to work letter extended on his mychart, states he will need it to cover tomorrow Through the . Please F/u Didier Wilson [facility] 2025-02-19 11:12:51 Images from the original note were not included. Notes: Last Refilled: mesalamine 1.2 gram EC tablet Sig: Take 2 tablets by mouth daily with breakfast. Disp: 60 tablet Refills: 0 Start: 02/19/2025 Class: eRX For: Ulcerative pancolitis with rectal bleeding Last ordered: 4 months ago (10/17/2024) by BESSIE Pena IBD Medication Wuwpem4302/19/2025 10:48 AM Protocol Details Valid encounter within last 12 [...] within 360 days To be filled at: [id number] - [place], [place] - [address] AT [employer] [address] [employer] Recent Visits Date Type Provider Dept 10/17/24 Office Visit Lauryn Salgado FNP [facility] Showing recent visits within past 540 days with a meds authorizing provider and meeting all other requirements Future Appointments Date Type Provider Dept 04/18/25 Appointment Lauryn Salgado FNP [facility] Showing future appointments within next 150 days with a meds authorizing provider and meeting all other requirements [facility] 2024-10-17 16:00:00 Images from the original note were not included. Venipuncture collection performed by clean technique on the right anticubitus. Total of 1 attempts were made. Slight pressure and a bandage/dressing were applied to the site(s). The patient experienced no complications. The following specimens were processed according to instructions and sent to [facility] laboratories per lab order on 10/17/2024 : LT BLUE SST 1 RED LAV 1 PPT DK GREEN (LiHep) DK GREEN (SodH) [place] DK BLUE (K2) DK BLUE (S) ACD Blood Culture NIPT/NTD HT SIMULATOR TEACHER [facility] 2024-10-09 10:11:21 Patient scheduled on 10/17/24. HT SIMULATOR TEACHER Lalita Baker [facility] 2024-10-08 11:27:04 Images from the original note were not included. Patient needs appt Notes: 10/18/23 Last Refilled: [facility][id number] - [place], [place] - [address] AT [facility] Recent Visits Date Type Provider Dept 05/11/23 Office Visit Lauryn Salgado, SENIOR ELECTRONICS DESIGN ENGINEER [facility] Showing recent visits [...] Marks MD Last refill: 09/02/2024 Rx #: [id number] IBD Medication Ifhpsf1410/07/2024 04:47 PM Protocol Details Valid encounter within [...] within 360 days To be filled at: [facility][id number] - [place], [place] - [address] AT [facility] HT SIMULATOR TEACHER Katherine Pardo MA [facility] 2023-07-20 09:07:42 Formatting of this n ote might be different from the original. Patient is needing a 30 day supply of Mesalamine due to a discrepancy on the script provided to the Patient assistance program. Script was corrected and resubmitted with corrections. BCIP approved patient to receive a refill from provider. Ishmael Damian [facility] 2023-07-10 09:57:20 Formatting of this n ote is different from the original. Received 07/05/2023 refill request for: Medication: Requested Prescriptions Pending Prescriptions Disp Refills mesalamine 1.2 gram EC tablet 60 tablet 0 Sig: Take 2 tablets by mouth daily with breakfast. Last filled: 06/15/2023 Follow up scheduled for : 08/15/2023 Last office visit: 07/05/2023 Refilled approval sent to: Pharmacy: [facility] #[id number] - [place] [address] AT [employer] [facility] [facility] [address] [id number] Refilled per ID Guidelines [facility] Julia Madera MA [facility] 2023-07-05 18:29:21 Formatting of this n ote [...] can make it until his next appointment. [id number] - [place] [place] - [address] [facility] [employer] [address] [place] [id number] [facility] 2023-05-11 14:30:00 Addended by: NAOMI Ho NP, BESSIE-LAURYN ARZATE on: 06/15/2023 05:04 PM Modules accepted: Orders [facility]
--- NOTE | 2025-04-05 16:50 | ER ---
Nurse's Notes [facility] Name: Orlando Rowland Age: 24 yrs Sex: Male : 2000 Arrival Date: 04/05/2025 Time: 16:16 Bed DX4 Private MD: Diagnosis: Ulcerative colitis;Abdominal pain, unspecified Presentation: 04/05 16:28 Chief complaint: Patient states: Hx of UC, feels like he is having a flare-up, reports ph bloody stools and lower abdominal pain, saw PCP and was prescribed Prednisone for 1 week but when the steroids where gone symptoms returned. Coronavirus screen: Vaccine status: Patient reports being unvaccinated. Ebola Screen: No symptoms or risks identified at this time. Initial Sepsis Screen: Does the patient meet any 2 criteria? No. Patient's initial sepsis screen is negative. Does the patient have a suspected source of infection? No. Patient's initial sepsis screen is negative. Risk Assessment: Do you want to hurt yourself or someone else? Patient reports no desire to harm self or others. Onset of symptoms was April 05, 2025. 16:28 Method Of Arrival: Ambulatory ph 16:28 Acuity: KO 3 ph Triage Assessment: 16:54 General: Appears in no apparent distress. Behavior is calm, cooperative. Pain: Denies ph pain. Neuro: Level of Consciousness is awake, alert, obeys commands, Oriented to person, place, time, situation. Cardiovascular: Capillary refill < 3 seconds in bilateral fingers Patient's skin is warm and dry. Respiratory: Airway is patent Respiratory effort is even, unlabored. GI: Reports bloody stool. Derm: Skin is pink, warm \T\ dry. Historical: - Allergies: 16:35 Ibuprofen; ph - Home Meds: 16:35 mesalamine 1.2 gram Oral tablet twice a day [Active]; ph - PMHx: 16:35 ulcerative colitis; ph - Immunization history:: Adult Immunizations unknown. - Infectious Disease History:: Denies. - Social history:: Smoking status: Patient denies any tobacco usage or history of. - Family history:: not pertinent. - Hospitalizations: : No recent hospitalization is reported. Screenin:35 [facility] ED Fall Risk Assessment (Adult) History of falling in the last 3 months, ph including since admission No falls in past 3 months (0 pts) Confusion or Disorientation No (0 pts) Intoxicated or Sedated No (0 pts) Impaired Gait No (0 pts) Mobility Assist Device Used No (0 pt) Altered Elimination No (0 pt) Score/Fall Risk Level 0 - 2 = Low Risk Oriented to surroundings, Maintained a safe environment, Hourly rounding (assess needs \T\ fall precautionary measures) done. Abuse screen: Denies threats or abuse. Denies injuries from another. Nutritional screening: No deficits noted. Tuberculosis screening: No symptoms or risk factors identified. Assessment: 17:00 General: SEE TRIAGE ASSESSMENT. ph Vital Signs: 16:28 BP 133 / 70; Pulse 97; Resp 18; Temp 97.9; Pulse Ox 99% on R/A; Weight 53.98 kg; Height ph 5 ft. 7 in. ; 16:28 Body Mass Index 18.64 (53.98 kg, 170.18 cm) ph ED Course: 16:18 Patient arrived in ED. mr 16:26 Meño Epstein MD is Attending Physician. rn 16:35 Triage completed. ph 16:35 Arm band placed on Patient placed in waiting room. ph 16:36 Patient has correct armband on for positive identification. ph 16:37 Holly Hendrix RN is Primary Nurse. ph 16:55 No provider procedures requiring assistance completed. Patient did not have IV access ph during this emergency room visit. Administered Medications: No medications were administered Medication: 16:36 VIS not applicable for this client. ph Outcome: 16:49 Discharge ordered by . rn 16:55 Discharged to home ambulatory, ph 16:55 Condition: good 16:55 Discharge instructions given to patient, Instructed on discharge instructions, follow up and referral plans. medication usage, Demonstrated understanding of instructions, follow-up care, medications, Prescriptions given X 1, 16:56 Patient left the ED. ph Signatures: Charlene Pollock, Reg Reg mr Meño Epstein MD MD rn Hall, Patricia, RN RN ph
--- NOTE | 2025-04-05 16:50 | EDPHYS ---
Physician Documentation [facility] Name: Orlando Rowland Age: 24 yrs Sex: Male : 2000 Arrival Date: 04/05/2025 Time: 16:16 Bed DX4 Private MD: ED Physician Meño Epstein HPI: 04/05 16:45 This 24 yrs old Male presents to ER via Ambulatory with complaints of Abdominal Pain. rn 16:45 The patient presents with abdominal pain. rn 16:46 Onset: The symptoms/episode began/occurred 1 week(s) ago. Patient reports history of rn ulcerative colitis. Was seen last week for an ulcerative colitis flare, placed on 5 days of prednisone. Was feeling much better but then ran out of prednisone. Patient reports lower abdominal cramping and small amount of blood in stool, consistent with his previous ulcerative colitis problems. No vomiting or fever. No trauma. Patient reports does not want blood work, does not feel dehydrated for fluids, does not need imaging and requests only prescription for steroids.. Historical: - Allergies: 16:35 Ibuprofen; ph - Home Meds: 16:35 mesalamine 1.2 gram Oral tablet twice a day [Active]; ph - PMHx: 16:35 ulcerative colitis; ph - Immunization history:: Adult Immunizations unknown. - Infectious Disease History:: Denies. - Social history:: Smoking status: Patient denies any tobacco usage or history of. - Family history:: not pertinent. - Hospitalizations: : No recent hospitalization is reported. ROS: 16:46 Constitutional: Negative for fever, chills, and weight loss, Cardiovascular: Negative rn for chest pain, palpitations, and edema, Respiratory: Negative for shortness of breath, cough, wheezing, and pleuritic chest pain, Abdomen/GI: Positive for abdominal cramping MS/Extremity: Negative for injury and deformity, Exam: 16:46 Constitutional: This is a well developed, well nourished patient who is awake, alert, rn and in no acute distress. Eyes: Normal conjunctiva ENT: Moist mucous membranes Cardiovascular: Regular rate and rhythm. No pulse deficits. Respiratory: No increased work of breathing, no retractions or nasal flaring. Abdomen/GI: Soft, no focal tenderness. No guarding or distention. No peritoneal signs MS/ Extremity: Pulses equal, no cyanosis. Neuro: Awake and alert, GCS 15. Normal gait Vital Signs: 16:28 BP 133 / 70; Pulse 97; Resp 18; Temp 97.9; Pulse Ox 99% on R/A; Weight 53.98 kg; Height ph 5 ft. 7 in. ; 16:28 Body Mass Index 18.64 (53.98 kg, 170.18 cm) ph MDM: 16:26 Medical Screening Exam initiated rn 16:48 Differential diagnosis: Nonspecific abdominal pain, diarrhea, ulcerative colitis. Data rn reviewed: vital signs, nurses notes, and as a result, I will discharge patient. Special discussion: I discussed with the patient/guardian in detail that at this point there is no indication for admission to the hospital. It is understood, however, that if the symptoms persist or worsen the patient needs to return immediately for re-evaluation. ED course: Patient declines blood work or imaging. Declines steroid administration or fluids here. Patient only wants steroid prescription and would like to go home. Patient states has PCP and GI follow-up coming up. Return precautions given and understood.. 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 ENT: Moist mucous membranes Cardiovascular: Regular rate and rhythm. No pulse deficits. Respiratory: No increased work of breathing, no retractions or nasal flaring. Abdomen/GI: Soft, no focal tenderness. No guarding or distention. No peritoneal signs MS/ Extremity: Pulses equal, no cyanosis. Neuro: Awake and alert, GCS 15. Normal gait rn
[2025-04-05 17:07] VITALS: TEMP 97.8
[2025-04-05 17:09] VITALS: BP 156/90; O2SAT 91
== END 2025-04-05 16:56 | disposition home or self-care (01) ==
LOC: ER 16:16
DX: K51.90 Ulcerative colitis, unspecified, without complications (principal)
CPT/HCPCS: 99283

== ENCOUNTER 2025-04-21 16:21 | Emergency (ER) | payer OTHER ==
--- OUTSIDE RECORDS SUMMARY | 2025-04-21 16:27 | XMS REPORT | Continuity of Care Document ---
Author Name Unknown Address [address] [facility] [address] [place] [address] 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 Role Phone NO, PCP Primary Care Physician Unavailab LAURYN Albrecht Attending Clinician Unavailable RAMONA SCHMIDT Attending Clinician UnavailDanielle Porter MD Attending Clinician [phone] DANIELLE URBANO Attending Clinician Unavailable DANIELLE URBANO Attending Clinician Unavailable Lauryn Paz Attending Clinician + [phone] Doctor Unassigned, [place] Attending Clinician U [place] Lab, Ang - Db Attending Clinician Unavailable Checo Marks MD Attending Clinician [phone] LAURYN YADAV Attending Clinician Unavailab Osvaldo Ross MD Attending Clinicia n Lauryn Paz Attending Clinician + [phone] Roger Wagner Attending Clinician [phone] Lab, Ang - Db Attending Clinician Unavailable Doctor Unassigned, [place] Attending Clinician U [place] Sheets RN, Orquidea Roberts Attending Clinician Unavail Hernan Belle MD Attending Clinician [phone] Pa Ramsey MD Attending Clinician [phone] PA RAMSEY Attending Clinician UnavailRia Kent MD Attending Clinician [phone] Sp Cazares Attending Clinician Preston Ramsey MD, Pa Admitting Clinician PA RAMSEY Admitting Clinician Unavailleon e Payers Payer Name Policy Type Policy Number Effective Date Expirati on Date Source [facility] MARÍA ALINRejiVenkatesh COPAY FOCUS 9 [id number] 2024 00:00:00 [facility] W/ FAWN DILLARDMARGRETMARILU KING [id number] 2024 00:00:00 [place] [id number] 1 00:00:00 2023 00:00:00 Problems Condition Name Condition Details Condition Category Status Onset Date Resolution Date Last Treatment Date Treating Clinician Comments Source Rectal bleeding Rectal bleeding Disease Active 03-31 00:00: 00 [facility] Colitis with rectal bleeding Colitis with rectal bleeding Disease Active 03-31 00:00: 00 Overview: Formattin g of this note might be different from the original. Added automatic ally from request for surgery [id number] [facility] Shortness of breath Problem Active [facility] Allergies, Adverse Reactions, Alerts Allergy Name Allergy Type Status Severity Reaction(s) Onset Date Inactive Date Treating Clinician Comments Source NO KNOWN ALLERGIE S Drug Class Active [facility] No Known Allergie s DA Active [facility] Social History Social Habit Start Date Stop Date Quantity Comments Source History SDOH Alcohol Std Drinks [facility] History SDOH Alcohol Binge [facility] History SDOH Social Connections Get Together [facility] History SDOH Social Connections Religious [facility] History SDOH Social Connections Membership [facility] History SDOH Social Connections Meetings [facility] History SDOH Food Scarcity [facility] History of Social function 2024-10-17 00:00:00 2024-10-17 00:00:00 [facility] Alcoholic beverage intake 2024-10-17 00:00:00 2024-10-17 00:00:00 3 /d [facility] Alcohol intake 2023-06-15 00:00:00 2023-06-15 00:00:00 3 /d [facility] History SDOH Alcohol Frequency 2023-04-04 00:00:00 2023-04-04 00:00:00 1 [facility] History SDOH Social Connections Phone 2023-04-04 00:00:00 2023-04-04 00:00:00 5 [facility] History SDOH Social Connections Living 2023-04-04 00:00:00 2023-04-04 00:00:00 7 [facility] History SDOH Physical Activity DPW 2023-04-04 00:00:00 2023-04-04 00:00:00 3 [facility] History SDOH Physical Activity MPS 2023-04-04 00:00:00 2023-04-04 00:00:00 3 [facility] History SDOH Financial 2023-04-04 00:00:00 2023-04-04 00:00:00 5 [facility] History SDOH Food Worry 2023-04-04 00:00:00 2023-04-04 00:00:00 1 [facility] History SDOH Transport Med 2023-04-04 00:00:00 2023-04-04 00:00:00 2 [facility] History SDOH Transport Non-Med 2023-04-04 00:00:00 2023-04-04 00:00:00 2 [facility] History SDOH Housing Unable to Pay 2023-04-04 00:00:00 2023-04-04 00:00:00 2 [facility] History SDOH Housing Places Lived 2023-04-04 00:00:00 2023-04-04 00:00:00 1 [facility] History SDOH Housing Homeless Last Year 2023-04-04 00:00:00 2023-04-04 00:00:00 2 [facility] Exposure to SARS-CoV-2 (event) 2023-03-24 00:00:00 2023-04-03 12:55:00 Not sure [facility] Tobacco use and exposure 2023-03-31 00:00:00 2023-03-31 00:00:00 Smokeless tobacco non-user [facility] Sex assigned at 2000 00:00:00 2000 00:00:00 [facility] Smoking Status Start Date Stop Date Source Never smoked tobacco [facility] Medications Ordered Medication Name Filled Medication Name Start Date Stop Date Current Medication? Ordering Clinician Indication Dosage Frequency Signature (SIG) Comments Components Source mesalamine 1.2 gram EC tablet 03-28 00:00: 00 Yes [id number] 2.4g Take 2 tablets by mouth daily with breakfast. [facility] predniSONE 20 mg tablet 03-28 00:00: 00 04-03 04:59 :00 Yes [id number] 40mg Take 2 tablets by mouth in the morning for 5 days. [facility] mesalamine 1.2 gram EC tablet 3-27 00:00: 00 03-28 00:00 :00 No [id number] 2.4g Take 2 tablets by mouth daily with breakfast. [facility] mesalamine 1.2 gram EC tablet 2023-11 1- 00:00: 00 02-19 00:00 :00 No [id number] 2.4g Take 2 tablets by mouth daily with breakfast. [facility] mesalamine 1.2 gram EC tablet 2022-11 1- 00:00: 00 10-17 00:00 :00 No [id number] 2.4g Take 2 tablets by mouth daily with breakfast. [facility] mesalamine 1.2 gram EC tablet 9-20 00:00: 00 10-16 00:00 :00 No [id number] 2.4g Take 2 tablets by mouth daily with breakfast. [facility] mesalamine 1.2 gram EC tablet 8-24 00:00: 00 Yes [id number] 2.4g Take 2 tablets by mouth daily with breakfast. [facility] mesalamine 1.2 gram EC tablet 8-14 00:00: 00 Yes [id number] 2.4g Take 2 tablets by mouth daily with breakfast. [facility] mesalamine 1.2 gram EC tablet 20 00:00: 00 Yes [id number] 2.4g Take 2 tablets by mouth daily with breakfast. [facility] pantoprazol e 40 mg EC tablet 04-09 00:00: 00 06-09 04:59 :00 No [id number] 40mg Take 1 tablet by mouth in the morning for 60 days. [facility] predniSONE (DELTASONE) tablet 60 mg 04-08 14:00: 00 04-20 13:59 :00 No 60mg 60 mg, Oral, DAILY, 12 doses, First dose on Mon04/08/23 at 0900, Last dose on Mon04/19/23 at 0900, Routine [facility] predniSONE 20 mg tablet 04-08 00:00: 00 06-20 04:59 :00 No [id number] Take 3 tablets by mouth daily for 7 days, THEN 2 tablets daily for 30 days, THEN 1.5 tablets daily for 7 days, THEN 1 tablet daily for 28 days. [facility] mesalamine 1.2 gram EC tablet 04-08 00:00: 00 06-15 00:00 :00 No [id number] 2.4g Take 2 tablets by mouth daily with breakfast. [facility] melatonin (MELATIN) tablet 3 mg 04-07 02:00: 00 Yes 3mg 3 mg, Oral, QHS, First dose (after last modificati on) on Mon04/06/23 at 2100, Until Discontinu ed, Routine [facility] methylpredn isolone sod succ (SOLU-MEDRO L) injection 60 mg 04-04 21:00: 00 04-06 20:43 :00 No 60mg 60 mg, Intravenou s, Q24H, 3 doses, First dose on Mon04/04/23 at 1600, Last dose on Mon04/06/23 at 1600, 2 mL [facility] pantoprazol e (PROTONIX) EC tablet 40 mg 04-04 16:00: 00 Yes 40mg 40 mg, Oral, DAILY, First dose on Mon04/04/23 at 1100, Until Discontinu ed, Routine [facility] enoxaparin (LOVENOX) injection 40 mg 04-04 05:00: 00 Yes 40mg 40 mg, Subcutaneo us, Q24H, First dose (after last modificati on) on Mon04/04/23 at 0000, Until Discontinu ed, Routine [facility] simethicone (GAS RELIEF (SIMETHICON E)) 40 mg/0.6 mL drops 04-03 22:12: 00 04-03 23:40 :00 No PRN, Starting on Mon04/03/23 at 1712, Until Mon04/03/23 at 1840, Routine, Intra-op [facility] bisacodyL (DULCOLAX) tablet 10 mg 04-02 18:00: 00 04-02 18:03 :00 No 10mg 10 mg, Oral, PRE-PROCED URE ONCE, 1 dose, Starting on Mon04/02/23 at 1300, Until Discontinu ed, Routine, Bowel Prep, Colonoscop y [facility] ondansetron (ZOFRAN (PF)) injection 4 mg 04-02 12:40: 42 04-04 12:17 :10 No 4mg 4 mg, Slow IV Push, Q6HPRN, Starting on Mon04/02/23 at 0740, Until Mon04/04/23 at 0717, Routine, Nausea and Vomiting (N/V) [facility] ciprofloxac in HCl (CIPRO) tablet 500 mg 04-01 23:00: 00 04-04 15:51 :55 No 500mg 500 mg, Oral, Q12HA2, 20 doses, First dose on Mon04/01/23 at 1800, Last dose on Mon04/11/23 at 0600, BREN
Re ason for Anti-Infec tive: Documented Infection< br>Documen james Infection Site: Abdominal< br>Duratio n of Therapy: 10 days [facility] enoxaparin (LOVENOX) injection 40 mg 04-01 20:15: 00 04-02 20:56 :13 No 40mg 40 mg, Subcutaneo us, Q24H, First dose on Mon04/01/23 at 1515, Until Discontinu ed, Routine [facility] metroNIDAZO LE (FLAGYL) tablet 500 mg 04-01 19:00: 00 04-04 15:51 :55 No 500mg 500 mg, Oral, Q8H, 30 doses, First dose on Mon04/01/23 at 1400, Last dose on Mon04/11/23 at 0600, Routine
Reason for Anti-Infec tive: Documented Infection< br>Documen james Infection Site: Abdominal< br>Duratio n of Therapy: 10 days [facility] lactated ringers IV infusion 1,000 mL 04-01 13:30: 00 04-02 01:00 :00 No 1000mL at 999 mL/hr, 1,000 mL, Intravenou s, ONCE, 1 dose, On Mon04/01/23 at 0830, Routine [facility] ciprofloxac in in 5 % [...] Abdominal< br>Duratio n of therapy: [address] [facility] metroNIDAZO LE in NaCl (iso-os) (FLAGYL I.V.) [...] Abdominal< br>Duratio n of therapy: 5 days [facility] lactated ringers IV infusion 1,000 mL 04-01 04:30: 00 04-01 08:10 :00 No 1000mL at 999 mL/hr, 1,000 mL, Intravenou s, ONCE, 1 dose, On Mon03/31/23 at 2330, Routine [facility] acetaminoph en (TYLENOL) tablet 650 mg 04-01 03:33: 45 Yes 650mg 650 mg, Oral, Q6HPRN, Starting on Mon03/31/23 at 2233, Until Discontinu ed, Routine, Pain (scale 1-3) [facility] NaCl 0.9% (NS) IV infusion 1,000 mL 03-31 22:45: 00 04-04 12:16 :26 No 1000mL at 150 mL/hr, IV Infusion, CONTINUOUS , Starting on Mon03/31/23 at 1745, Until Mon04/04/23 at 0716, Routine [facility] lactobacill us acidophilus tablet 1 mg 03-31 22:45: 00 03-31 22:49 :00 No 1mg 1 mg, Oral, ONCE NOW, 1 dose, On Mon03/31/23 at 1745, BREN [facility] ciprofloxac in in 5 % dextrose (CIPRO) piggyback 400 mg 03-31 22:30: 00 04-01 01:02 :00 No 400mg 400 mg, IV Piggyback, ONCE, 1 dose, On Mon03/31/23 at 1730, Administer over 60 Minutes, 200 mL
Reas on for Anti-Infec tive: Empiric Therapy for Suspected Infection< br>Empiric Therapy Site: Abdominal< br>Duratio n of therapy: 72 hours [facility] metroNIDAZO LE (FLAGYL) tablet 500 mg 03-31 21:45: 00 03-31 22:49 :00 No 500mg 500 mg, Oral, ONCE, 1 dose, On Mon03/31/23 at 1645, BREN
Re ason for Anti-Infec tive: Empiric Therapy for Suspected Infection< br>Empiric Therapy Site: Abdominal< br>Duratio n of therapy: 72 hours [facility] iopamidol (ISOVUE 370-500 mL) injection 75 mL 03-31 21:45: 00 03-31 21:45 :00 No [id number] 75mL 75 mL, Intravenou s, ONCE, 1 dose, On Mon03/31/23 at 1645, Routine [facility] NaCl 0.9% (NS) bolus infusion 1,000 mL 03-31 20:30: 00 03-31 22:50 :00 No 1000mL at 999 mL/hr, 1,000 mL, IV Piggyback, ONCE, 1 dose, On Mon03/31/23 at 1530, STAT [facility] Immunizations Ordered Immunization Name Filled Immunization Name Date Status Comments Source DTAP 2018-05-09 00:00:00 Completed [facility] DTAP 2018-05-09 00:00:00 Completed [facility] DTAP 2018-05-09 00:00:00 Completed [facility] DTAP 2018-05-09 00:00:00 Completed [facility] DTAP 2018-05-09 00:00:00 Completed [facility] DTAP 2018-05-09 00:00:00 Completed [facility] DTAP Unknown Completed [facility] DTAP Unknown Completed [facility] DTAP Unknown Completed [facility] DTAP Unknown Completed [facility] DTAP Unknown Completed [facility] DTAP Unknown Completed [facility] DTAP Unknown Completed [facility] Vital Signs Vital Name Observation Time Observation Value Comments S ource Systolic blood pressure 2025-03-28 21:24:00 119 mm[Hg] [facility] Diastolic blood pressure 2025-03-28 21:24:00 78 mm[Hg] [facility] Heart rate 2025-03-28 21:24:00 77 /min [facility] Body height 2025-03-28 21:24:00 170.2 cm [facility] Body weight 2025-03-28 21:24:00 54.023 kg [facility] BMI 2025-03-28 21:24:00 18.65 kg/m2 [facility] Oxygen saturation in Arterial blood by Pulse oximetry 2025-03-28 21:24:00 98 /min [facility] Systolic blood pressure 2024-10-17 21:25:00 114 mm[Hg] [facility] Diastolic blood pressure 2024-10-17 21:25:00 69 mm[Hg] [facility] Heart rate 2024-10-17 21:25:00 84 /min [facility] Body height 2024-10-17 21:25:00 170.2 cm [facility] Body weight 2024-10-17 21:25:00 55.157 kg Univ [facility] BMI 2024-10-17 21:25:00 19.05 kg/m2 [facility] Oxygen saturation in Arterial blood by Pulse oximetry 2024-10-17 21:25:00 99 /min [facility] Systolic blood pressure 2023-05-11 19:48:00 126 mm[Hg] [facility] Diastolic blood pressure 2023-05-11 19:48:00 68 mm[Hg] [facility] Heart rate 2023-05-11 19:48:00 73 /min [facility] Body temperature 2023-05-11 19:48:00 36.78 Megha [facility] Respiratory rate 2023-05-11 19:48:00 16 /min [facility] Body height 2023-05-11 19:48:00 173.7 cm [facility] Body weight 2023-05-11 19:48:00 55.43 kg Univ [facility] BMI 2023-05-11 19:48:00 18.36 kg/m2 [facility] Oxygen saturation in Arterial blood by Pulse oximetry 2023-05-11 19:48:00 99 /min [facility] Systolic blood pressure 2023-04-08 17:11:00 100 mm[Hg] [facility] Diastolic blood pressure 2023-04-08 17:11:00 59 mm[Hg] [facility] Heart rate 2023-04-08 17:11:00 88 /min [facility] Body temperature 2023-04-08 17:11:00 36.56 Megha [facility] Respiratory rate 2023-04-08 17:11:00 18 /min [facility] Oxygen saturation in Arterial blood by Pulse oximetry 2023-04-08 17:11:00 96 /min [facility] Body height 2023-04-01 02:43:00 170.2 cm [facility] Body weight 2023-04-01 02:43:00 55.339 kg [facility] BMI 2023-04-01 02:43:00 19.11 kg/m2 [facility] Systolic blood pressure 2023-04-03 16:09:00 102 mm[Hg] [facility] Diastolic blood pressure 2023-04-03 16:09:00 66 mm[Hg] [facility] Heart rate 2023-04-03 16:09:00 94 /min [facility] Body temperature 2023-04-03 16:09:00 36.67 Megha [facility] Respiratory rate 2023-04-03 16:09:00 18 /min [facility] Oxygen saturation in Arterial blood by Pulse oximetry 2023-04-03 16:09:00 98 /min [facility] Body height 2023-04-01 02:43:00 170.2 cm [facility] Body weight 2023-04-01 02:43:00 55.339 kg [facility] BMI 2023-04-01 02:43:00 19.11 kg/m2 [facility] Weight 2020 08:22:00 130 [lb_av] [facility] BMI (Body Mass Index) 2020 08:22:00 21.0 kg/m2 [facility] Procedures Procedure Date / Time Performed Performing Clinician Source COMP. METABOLIC PANEL ([id number]) 2023-05-11 21:01:00 Lauryn Salgado [facility] CBC WITH DIFF 2023-05-11 21:01:[address] [facility] ASSIGNMENT OF BENEFITS 2023-05-11 19:27:07 Docto r Unassigned, [place] [facility] MAGNESIUM 2023-04-08 10:10:00 Jean [facility] BASIC METABOLIC PANEL (NA, K, CL, CO2, GLUCOSE, BUN, CREATININE, CA) 2023-04-08 10:10:00 Jean [facility] CBC WITH DIFF 2023-04-08 10:10:00 Jean [facility] MAGNESIUM 2023-04-06 09:13:00 [facility] FUN[facility] ([id number]) (ALB,T.PRO,BILI T,BU/BC,ALT,AST,ALK PHOS) 2023-04-06 09:13[facility]00 [facility] (NA, K, CL, CO2, GLUCOSE, BUN, CREATININE, CA) 2023-04-06 09:13:00 Moises [facility] CBC WITH DIFF 2023-04-06 09:13[facility]00 [facility] 2023-04-05 09:33:[facility] 2023-04-05 09:14:00 [facility]OLIC [facility] (NA, K, CL, CO2, GLUCOSE, BUN, CREATININE, CA) 2023-04-05 09:14:00 Moises [facility] HEPATITIS B SURFACE ANTIBODY 2023-04-04 16:43:00 Moises [facility] HBC ANTIBODY (IGM & IGG) 2023-04-04 16:43:00 Moises [facility] HEPATITIS C VIRUS (HCV) BY QUANTITATIVE NAAT 2023-04-04 16:43:00 Moises [facility] QUANTIFERON-TB ASSAY 2023-04-04 16:43:00 Moises [facility] QFT TB2 MINUS NIL 2023-04-04 16:43:00 Deanna [facility] MAGNESIUM 2023-04-04 10:29:00 [facility] BASIC METABOLIC PANEL (NA, K, CL, CO2, GLUCOSE, BUN, CREATININE, CA) 2023-04-04 10:29:00 De Leon, [facility] CBC WITH DIFF 2023-04-04 10:29:00 Moises [facility] HEPATITIS B SURFACE ANTIGEN 2023-04-04 10:29:00 [facility] 2023-04-04 10:29:00 [facility] BASIC METABOLIC PANEL (NA, K, CL, CO2, GLUCOSE, BUN, CREATININE, CA) 2023-04-04 10:29:00 De Leon, [facility] CBC WITH DIFF 2023-04-04 10:29:00 Moises [facility] HEPATITIS B SURFACE ANTIGEN 2023-04-04 10:29[facility] 2023-04-03 22:36:00 Geoff Hendricks [facility] COLONOSCOPY 2023-04-03 21:47:00 Mary [facility] COLONOSCOPY 2023-04-03 21:47:[address] [facility] COLONOS[facility] (ENDO) 2023-04-03 20:43:38 Jose M Valera [facility] COLONOSCOPY (ENDO) 2023-04-03 20:43:38 Jose M Valera [facility] MAGNESIUM 2023-04-03 09:33:00 [facility] BASIC METABOLIC PANEL (NA, K, CL, CO2, GLUCOSE, BUN, CREATININE, CA) 2023-04-03 09:33:00 Moises [facility] CBC WITH DIFF 2023-04-03 09:33:00 De Leon, [facility] MAGNESIUM 2023-04-03 09:33:00 Moises [facility] BASIC METABOLIC PANEL (NA, K, CL, CO2, GLUCOSE, BUN, CREATININE, CA) 2023-04-03 09:33:00 Moises [facility] CBC WITH DIFF 2023-04-03 09:33:00 Moises [facility] CBC WITH DIFF 2023-04-02 10:56:00 Jean, [facility] CBC WITH DIFF 2023-04-02 10:56:00 Jean, [facility] CELIAC SCREEN 2023-04-01 16:47:00 Jean, [facility] LAB ONLY CELIAC SCREEN IGA 2023-04-01 16:47:00 Jean, [facility] CELIAC SCREEN 2023-04-01 16:47:00 Jean, [facility] LAB ONLY CELIAC SCREEN IGA 2023-04-01 16:47:00 Jean, [facility] BLOOD CULTURE SCREEN 2023-04-01 16:21:00 Jean, [facility] BLOOD CULTURE SCREEN 2023-04-01 16:21:00 Jean, [facility] ABORH CONFIRMATION (LAB ONLY) 2023-04-01 11:31:00 Good Mendoza [facility] ABORH CONFIRMATION (LAB ONLY) 2023-04-01 11:31:00 [facility] 2023-04-01 10:21:00 Dann Sepulveda [facility] FERRITIN SERUM 2023-04-01 10:21:00 Dann Sepulveda [facility] C-REACTIVE PROTEIN 2023-04-01 10:21:00 Dann [facility] HEPATIC FUNCTION PANEL ([id number]) (ALB,T.PRO,BILI T,BU/BC,ALT,AST,ALK PHOS) 2023-04-01 10:21:00 Dann Sepulveda [facility] BASIC METABOLIC PANEL (NA, K, CL, CO2, GLUCOSE, BUN, CREATININE, CA) 2023-04-01 10:21:00 Dann Sepulveda [facility] IRON PANEL 2023-04-01 10:21:00 Dann Sepulveda [facility] CBC WITH DIFF 2023-04-01 10:21:00 Dann Sepulveda [facility] HB ABO GROUPING 2023-04-01 10:21:00 Dann Sepulveda [facility] MAGNESIUM 2023-04-01 10:21:00 Dann Sepulveda [facility] FERRITIN SERUM 2023-04-01 10:21:00 Dann Sepulveda [facility] C-REACTIVE PROTEIN 2023-04-01 10:21:00 Dann Sepulveda [facility] HEPATIC FUNCTION PANEL ([id number]) (ALB,T.PRO,BILI T,BU/BC,ALT,AST,ALK PHOS) 2023-04-01 10:21:00 Dann Sepulveda [facility] BASIC METABOLIC PANEL (NA, K, CL, CO2, GLUCOSE, BUN, CREATININE, CA) 2023-04-01 10:21:00 Dann Sepulveda [facility] IRON PANEL 2023-04-01 10:21:00 Dann Sepulveda [facility] CBC WITH DIFF 2023-04-01 10:21:00 Dann Sepulveda [facility] HB ABO GROUPING 2023-04-01 10:21:00 Dann Sepulveda [facility] CLOSTRIDIUM DIFFICILE TOXIN 2023-04-01 04:15:00 Dann Sepulveda [facility] OVA AND PARASITE EXAM FECAL 2023-04-01 04:15:00 Dann Sepulveda [facility] GIARDIA CRYPTOSPORIDIUM AG SCR 2023-04-01 04:15:00 Derick [facility] CALPROTECTIN, FECAL 2023-04-01 04:15:00 Dann Sepulveda [facility] FECAL PATHOGENS BY PCR 2023-04-01 04:15:00 Oswald Sepulveda [facility] CLOSTRIDIUM DIFFICILE TOXIN 2023-04-01 04:15:00 Derick [facility] GIARDIA CRYPTOSPORIDIUM AG SCR 2023-04-01 04:15:00 Dann Sepulveda [facility] FECAL PATHOGENS BY PCR 2023-04-01 04:15:00 Oswald Sepulveda [facility] CT ABDOMEN PELVIS W CONTRAST 2023-03-31 20:54:24 Hernan Mcneill [facility] CT ABDOMEN PELVIS W CONTRAST 2023-03-31 20:54:24 Hernan Mcneill [facility] COMP. METABOLIC PANEL ([id number]) 2023-03-31 20:19:00 Hernan Mcneill [facility] SEDIMENTATION RATE 2023-03-31 20:19:00 Nehemias Mcneill [facility] CBC WITH DIFF 2023-03-31 20:19:[address] [facility] PROTHROMBIN TIME / INR 2023-03-31 20:19:00 Charito[facility] HIV 1/2 AG-AB WITH REFLEX 2023-03-31 20:19:00 Nasir Sepulveda [facility] COMP. METABOLIC PANEL (18647) 2023-03-31 20:19:00 Hernan Mcneill [facility] SEDIMENTATION RATE 2023-03-31 20:19:00 Nehemias Mcneill [facility] CBC WITH DIFF 2023-03-31 20:19:[address] [facility] PROTHROMBIN TIME / INR 2023-03-31 20:19:00 Charito[facility] HIV 1/2 AG-AB WITH REFLEX 2023-03-31 20:19:00 Nasir Sepulveda [facility] NOTICE OF PRIVACY PRACTICES 2023-03-31 18:47:15 Doctor Unassigned, [place] [facility] NOTICE OF PRIVACY PRACTICES 2023-03-31 18:47:15 Doctor Unassigned, [place] [facility] CONSENT/REFUSAL FOR DIAGNOSIS AND TREATMENT 2023-03-31 18:46:20 Doctor Unassigned, [place] [facility] CONSENT/REFUSAL FOR DIAGNOSIS AND TREATMENT 2023-03-31 18:46:20 Doctor Unassigned, [place] [facility] HOSPITAL ADMISSION 2023-03-31 05:01:00 Doctor Un assigned, [place] [facility] ENDOSCOPY PROCEDURE DOCUMENTATION 2023-03-31 05:01:00 Doctor Unassigned, [place] [facility] Plan of Care Planned Activity Planned Date Details Comments Source Instructions Dyspnea [facility] Encounters Start Date/Time End Date/Time Encounter Type Admission Type Attending Clinicians Care Facility Care Department Encounter ID Source 2020 08:19:00 Inpatient [facility] [id number] [facility] 2025-06-23 13:40:00 2025-06-23 13:40:00 Outpatient RAMONA SCHMIDT [id number] Fwan Figueroa 2025-05-08 15:00:00 2025-05-08 15:00:00 Outpatient LAURYN JEWELL [facility] [id number] [facility] 2025-03-29 00:00:00 2025-04-01 08:05:08 Telephone Angel [facility] 1.2.840.114 350.1.13.10 4.2.7.2.686 [id number] [facility] 2025-03-28 00:00:00 2025-03-28 16:58:35 Letter (Out) Angel [facility] 1.2.840.114 350.1.13.10 4.2.7.2.686 [id number] [facility] 2025-03-28 16:20:00 2025-03-28 16:49:13 Outpatient R [facility] [id number] [facility] 2025-03-28 16:20:00 2025-03-28 16:49:13 Office Visit Angel [facility] 1.2.840.114 350.1.13.10 4.2.7.2.686 [id number] [facility] 2025-02-19 00:00:00 2025-02-20 19:01:25 RefLauryn Ruff [facility] 1.840.114 350.1.13.10 4.2.7.2.686 [id number] [facility] 2024-10-22 00:00:00 2024-10-22 09:45:35 Patient Secure Msg Doctor Unassigned, [place] Doctor [facility]igned, [place] [facility] 1.840.114 350.1.13.10 4.2.7.2.686 [id number] [facility] 2024-10-17 16:00:00 2024-10-17 16:15:00 Licensed Clinician Visit Lab, Ang - Lauryn Norton Lab, Ang - Stanton [facility] 1.840.114 350.1.13.10 4.2.7.2.686 [id number] [facility] 2024-10-17 15:30:00 2024-10-17 15:35:47 Outpatient R LAURYN SALGADO [facility] [id number] [facility] 2024-10-17 15:30:00 2024-10-17 15:35:47 Office Visit Lauryn Salgado [facility] 1.840.114 350.1.13.10 4.2.7.2.686 [id number] [facility] 2024-10-07 00:00:00 2024-10-09 10:11:55 Checo Upton [facility] 1.840.114 350.1.13.10 4.2.7.2.686 [id number] [facility] 2024-06-11 15:00:00 2024-06-11 15:00:00 Outpatient LAURYN YADAV FAWN [id number] Fawncarlos Figueroa 2024-05-20 10:20:00 2024-05-20 10:20:00 Outpatient RAMONA SCHMIDT [facility] [id number] Fawn Dillardmarilu 2023-11-16 14:30:00 2023-11-16 14:30:00 Outpatient LAURYN JEWELL [facility] [id number] [facility] 2023-10-26 08:00:00 2023-10-26 08:00:00 Outpatient R [facility] [id number] [facility] 2023-10-16 00:00:00 2023-10-16 00:00:00 Telephone Postmarisela renner [facility] 1..114 350.1.13.10 4.2.7.2.686 [id number] [id number] [facility] 2023-10-16 00:00:00 2023-10-16 00:00:00 Telephone Postdanialoree renner [facility] ..114 350.1.13.10 4.2.7.2.686 [id number] [facility] 2023-10-16 00:00:00 2023-10-16 00:00:00 Telephone Postdanialoree renner [facility] .0.114 350.1.13.10 4.2.7.2.686 [id number] [facility] 2023-10-16 00:00:00 2023-10-16 00:00:00 Lauryn Wilkins [facility] 1.84.114 350.1.13.10 4.2.7.2.686 [id number] [facility] 2023-10-06 00:00:00 2023-10-06 00:00:00 Telephone Osvaldo Parker [facility] 1.84.114 350.1.13.10 4.2.7.2.686 [id number] [facility] 2023-09-07 09:00:00 2023-09-07 09:00:00 Outpatient R [facility] [id number] [facility] 2023-08-18 00:00:00 2023-08-18 00:00:00 Telephone Naomi [facility] 1.840.114 350.1.13.10 4.2.7.2.686 [id number] [facility] 2023-08-15 11:00:00 2023-08-15 11:00:00 Outpatient R [facility] [id number] [facility] 2023-08-14 00:00:00 2023-08-14 00:00:00 Refill Naomi [facility] 1.840.114 350.1.13.10 4.2.7.2.686 [id number] [facility] 2023-07-20 00:00:00 2023-07-20 00:00:00 Telephone Naomi [facility] 1.840.114 350.1.13.10 4.2.7.2.686 [id number] [facility] 2023-07-06 09:00:00 2023-07-06 09:00:00 Outpatient R [facility] [id number] [facility] 2023-07-05 00:00:00 2023-07-05 00:00:00 Refill Roger Kinney [facility] 1.84.114 350.1.13.10 4.2.7.2.686 [id number] [facility] 2023-05-18 00:00:00 2023-05-18 00:00:00 [facility] 1.284.114 350.1.13.10 4.2.7.2.686 [id number] [facility] 2023-05-11 16:00:00 2023-05-11 16:15:00 Licensed Clinician Visit Lab, [place]an - Db [facility] 1.84.114 350.1.13.10 4.2.7.2.686 [id number] [facility] 2023-05-11 14:30:00 2023-05-11 15:43:12 Outpatient R NAOMI [facility] [id number] [facility] 2023-05-11 14:30:00 2023-05-11 15:43:12 Office Visit Naomi [facility] 1.84.114 350.1.13.10 4.2.7.2.686 [id number] [facility] 2023-05-11 00:00:00 2023-05-11 00:00:00 Orders Only Doctor Unassigned, [place] [facility] 1..114 350.1.13.10 4.2.7.2.686 [id number] [facility] 2023-04-10 00:00:00 2023-04-10 00:00:00 Transition of Care Orquidea Sheets 1.2.114 350.1.13.10 4.2.7.2.686 [id number] [facility] 2023-03-31 14:08:00 2023-04-08 18:18:00 Hospital Encounter Hernan [place] [facility] 1.2.840.114 350.1.13.10 4.2.7.2.686 [id number] [facility] 2023-03-31 14:08:00 2023-04-08 18:18:00 Inpatient U PA RAMSEY [facility] [id number] [facility] 2023-04-03 16:09:00 2023-04-03 17:21:00 Surgery Ria Hendricks [facility] 1.2.840.114 350.1.13.10 4.2.7.2.686 [id number] [facility] 2020 08:50:00 2020 09:50:00 Departed Emergency Room [address] [facility] [id number] [facility] Results Test Description Test Time Test Comments Results Result Co mments Source [facility] WITH [id number] 06:57:57* Test Item Value Reference Range Interpretation [...] 33.3 g/dL 31.2-35.0 RDW-SD (test code = 11099-2) 47.6 fL 38.5-51.6 RDW-CV (test code = 788-0) 14.4 % 12.1-15.4 PLT (test code = 777-3) 323 See_Comment [Automated message] The system which generated this result transmitted reference range: 150 - 328 10*3/?L. The reference range was not used to interpret this result as normal/abnormal. MPV (test code = 40501-8) 9.4 fL 9.8-13.0 L NRBC/100 WBC (test code = 9963070426) 0.0 See_Comment [Automated message] The system which generated this result transmitted reference range: 0.0 - 10.0 /100 WBCs. The reference range was not used to interpret this result as normal/abnormal. NRBC x10^3 (test code = 4448299516) See_Comment [Automated message] The system which generated this result transmitted reference range: 10*3/?L. The reference range was not used to interpret this result as normal/abnormal. GRAN MAT (NEUT) % (test code = 770-8) 86.2 % IMM GRAN % (test code = 2282504431) 1.10 % LYMPH % (test code = 736-9) 9.4 % MONO % (test code = 5905-5) 3.0 % EOS % (test code = 713-8) 0.1 % BASO % (test code = 706-2) 0.2 % GRAN MAT x10^3(ANC) (test code = 6264434897) 10.96 10*3/uL 1.99-6.95 H IMM GRAN x10^3 (test code = 8893932395) 0.14 10*3/uL 0.00-0.06 H LYMPH x10^3 (test code = 731-0) 1.20 10*3/uL 1.09-3.23 MONO x10^3 (test code = 742-7) 0.38 10*3/uL 0.36-1.02 EOS x10^3 (test code = 711-2) 0.06-0.53 L BASO x10^3 (test code = 704-7) 0.01-0.09 Lab Interpretation (test code = 08994-0) Abnormal [facility] [id number] 15:05:59* Test Item Value Reference Range Interpretation Comme nts QFT Gold Plus Result (test code = 39413-6) Negative Negative GEOVANI (test code = GEOVANI) [...] advised. For further information, refer to http://www.cdc.gov/mmw r/pdf/rr/zb2742.pdf and https://doi.org/10.109 3/rema/ydq449. Lab Interpretation (test code = 53671-0) Normal [facility] [id number] 10:03:34* Test Item Value Reference Range Interpretation [...] 34.4 g/dL 31.2-35.0 RDW-SD (test code = 27584-7) 37.8 fL 38.5-51.6 L RDW-CV (test code = 788-0) 12.5 % 12.1-15.4 PLT (test code = 777-3) 403 See_Comment H [Automated message] The system which generated this result transmitted reference range: 150 - 328 10*3/?L. The reference range was not used to interpret this result as normal/abnormal. MPV (test code = 50386-5) 8.7 fL 9.8-13.0 L NRBC/100 WBC (test code = 7094206829) 0.0 See_Comment [Automated message] The system which generated this result transmitted reference range: 0.0 - 10.0 /100 WBCs. The reference range was not used to interpret this result as normal/abnormal. NRBC x10^3 (test code = 3595043871) See_Comment [Automated message] The system which generated this result transmitted reference range: 10*3/?L. The reference range was not used to interpret this result as normal/abnormal. GRAN MAT (NEUT) % (test code = 770-8) 85.7 % IMM GRAN % (test code = 1669086475) 3.00 % LYMPH % (test code = 736-9) 6.7 % MONO % (test code = 5905-5) 4.0 % EOS % (test code = 713-8) 0.1 % BASO % (test code = 706-2) 0.5 % GRAN MAT x10^3(ANC) (test code = 3741333693) 12.93 10*3/uL 1.99-6.95 H IMM GRAN x10^3 (test code = 6006985791) 0.46 10*3/uL 0.00-0.06 H LYMPH x10^3 (test code = 731-0) 1.01 10*3/uL 1.09-3.23 L MONO x10^3 (test code = 742-7) 0.61 10*3/uL 0.36-1.02 EOS x10^3 (test code = 711-2) 0.06-0.53 L BASO x10^3 (test code = 704-7) 0.07 10*3/uL 0.01-0.09 BANDS (test code = 0967760663) MARKED INCREASED A Lab Interpretation (test code = 61246-1) Abnormal [facility] (39498) (ALB,T.PRO,BILI T,BU/BC,ALT,AST,ALK PHOS)2023-04-06 09:54:25* Test Item Value Reference Range Interpretation Comme nts TOTAL BILI (test code = 4931546835) 0.3 mg/dL 0.1-1.1 BILI UNCON (test code = 2958875306) 0.2 mg/dL 0.1-1.1 BILI CONJ (test code = 6205030284) 0.0 mg/dL 0.0-0.3 T PROTEIN (test code = 4161226341) 6.2 g/dL 6.3-8.2 L ALBUMIN (test code = 2510288599) 3.4 g/dL 3.5-5.0 L ALK PHOS (test code = 5885437812) 54 U/L 34-122 ALTv (test code = 1742-6) 20 U/L 5-50 AST(SGOT) (test code = 7071093107) 33 U/L 13-40 Lab Interpretation (test cod e = 82602-4) Abnormal [facility]2023-[facility]-11 09:54:25* Test Item Value Reference Range Interpretation Comme nts MAGNESIUM (test code = 9071170873) 2.1 mg/dL 1.7-2.4 Lab Interpretation (test cod e = 30280-6) Normal [facility] Center[facility] METABOLIC PANEL (NA, K, CL, CO2, GLUCOSE, BUN, CREATININE, CA)2023-04-06 09:54:25* Test Item Value Reference Range Interpretation Comme nts NA (test code = 3953141903) 135 mmol/L 135-145 K (test code = 0999339149) 3.8 mmol/L 3.5-5.0 CL (test code = 8466606907) 98 mmol/L 98-108 CO2 TOTAL (test code = 1597043850) 28 mmol/L 23-31 AGAP (test code = 6184361656) 9 2-16 BUN (test code = 1015511406) 6 mg/dL 7-23 L GLUCOSE (test code = 0661311114) 165 mg/dL 70-110 H CREATININE (test code = 5232835776) 0.63 mg/dL 0.60-1.25 CALCIUM (test code = 7914712916) 8.1 mg/dL 8.6-10.6 L eGFR (test code = 0830822549) 156.5 mL/min/1.73m2 GEOVANI (test code = GEOVANI) [...] imaging tests). Lab Interpretation (test code = 40231-8) Abnormal [facility] Center[facility] C VIRUS (HCV) BY QUANTITATIVE NAAT 2023-04-05 19:02:52* Test Item Value Reference Range Interpretation Comme [facility] HCV Quantitative Interpretation (test code = 7015577263) Not Detected Not Detected GEOVANI (test code = GEOVANI) The Aptima HCV Dwight nt Dx assay is an FDA-approved real-time yardage tufting machine operator-mediated amplification (TMA) test used for [...] clinically indicated. Lab Interpretation (test code = 48267-5) Normal [facility] [id number] 14:37:42* Test Item Value Reference Range Interpretation Comme [facility] Case Report (test code = 3499908982) Surgical Pathology ?Case: [id number] ? Authorizing Provider: ?Ria Hendricks MD ? Collected: ? 04/03/2023 1736 ?Ordering Location: ? ? GI Endoscopy OR Department Received: ?04/04/2023 1257 ?Pathologist: ? Sofy Veronica MD ? Specimen: ? ?COLON, Colon BX eval for IBD ? Final Diagnosis (test code = 1940554227) k1ikxFZcSYAhc3mtVULxtHS uZzEwMzNcZnRuYmpcdWMxIH tccnRmMVxlcGljMTAyMDZcY R2auBphzYs4zOogPRXimtE6 rSYiUBxlj8csAKO2z7xzccs yTVSfOTxaYh6kcGYqiSrsYe UbYMGzWMb3lQ36SVHxdE5ng BZgWIq1FLLdbDXsvcQrWvYh SFIpvFRgfSZ4SKHsZC2rgbv jPTynHJqePNUnydV9GDMjmP DxQ7PbPYDtCY0mawisHUA0A VqoQLOoXQL6VfXjHOHaf9Sc com3DfQdzSZnSDmlsYYtlsc wllRhBAArsuFDBoSKZ8gPRd wgQklPUFNZOlxwYXIgICAgL HHEV7cCZqcZBP1MG48GKDCB CDZLYPSEVUGPZCDXOnpqM0J NLDPnBDFDV1HZN2YGCNEIMq rYZFPIYvAUXOGGB4GGCbDCT QELCYZWH2ASIP1ZILutbTVi ICAgICAgIEFORCBJTkNSRUF MNSChITyENCyDNLxVW64UV7 yMTSNnLK1DQPZRGKNNZZ4UA XuZIEyTVIsRYAPGPk9LPtlI DBWXC68XHKZNMV9GWVnPMXd gXHBhciAgICAgICBDSFJPTk yEMMFNLTfERPZqG2wGAIXMM 4XIBqCFQPPRC2HROhpAAUtl YXIgICAgLSBOTyBEWVNQTEF TSUEgSURFTlRJRklFRFxwYX FckKFopDfdcqBsAIhiz1KeU 2YyMjAwMFxhbnNpXGRlZmxh sakjYXGxTPF4tdYbRPKtLCh eQCYvGUriIu3jmGBgjOkqOj PuERMbj7vxmnYXZUpeYmNsJ 144NQIrMFtir2haq1AnTJPa cRKnd2A6LPYDtkgpfUi4s0z hIaAqEaB3hHFpFNxkJ4seld IdvPOgL2WlaKJkrWd5jQswC 57vc8R8DlatJ6uvEQLpFSSl I7UzOV3dRLVbFey8HGT9VYT 8WWCwFEHrX2UbHR9gUVCceW XtYVz0o7cwcNnbKWFjDDS8q 3ubXGmhgqB3TZ6vqo1gtAy1 n1gfznTzHEEnLGSwsDEKCYI gY1TmrEolUy4naTr0wOilMu deBYQ5Heb9WE7ova71wng4f EzpAOAleyxyJwK1NTioSMYx sngcAAq3MEkmGKRaeNS1GZV cyJUoK0TmVULoAL1tjsx1KA I5YMdxUUQfJrV4CLScqNSkM JSdhSyqOHkxo774BMJ4SmIn SX2oF0Bgm7W7iG3kcCQtLRU ogGJdYwVuXZJrgv9zeGTpUX osp8FiZIK3ppK1eXJqtYHxL DBpAO03Rqgrk8GbPuesFRD9 BIEymsRys5Evj9mrAcOezkY iC4vkH2JhRBGdZQGuOFPsYa GxhjNqe1Pjn9XxsGTwtOg7f 7ddVYUkBFZliGfow5yjGTP3 FJZnP4Z7vFVkc9deGTwtRGP lpGA5maC7STPryOMuT7GnxJ 2aZEZaGR6znrk9n8kzLMJ6Z QsyFJFcXgW5zhS1QMBgqHAu JGHxpFmcBLnor910AZB3IbM uXTPby5UfF7YkrLimR71dbI ckH61aMAJscZopyP4grGxrc J9vKeWaQwQdTYlkgVoywCBy blxmMVxmczIwXGxhbmcxMDM uKZaqZ6atEgOyXHVycZkeUD dde6MfFRCcPAMkBbitooCdS MXanlICCHyfdfJpsIVol69l YWxseSByZXZpZXdlZCBhbGw za0NaS9moFL2yH7KqzCDlpk NxgbDzYDmtUHTsc9d0fMMqs Ihnm4GtqANuRZ19lfMaBLZn DWQ0QCTpz0dcQX28jqcjCsP aaT18cvIpflOlZYNtq2vpV1 uwtSPqq4Rla4RjldUeVHcfc 3MfEH7xxBNfmsqvmTJ7ORMz mOEhwvWcfmD3wLljSIYsaR0 eyA0keMkecL6gHcAoIcIlOD hsPF2mPCBaH8xkeWUbUIVqB KAjP6lbXrTelR2lzNktSquy dvV2MKJmht58 Clinical Information (test code = 8878647015) Pa Sultana Janett is a 22 year old male1. Colon BX eval for IBD Gross Description (test code = 0811454601) l0eqgGMaWHLmjLHXKQGfTNV yRE2djGpvqSe5yGexFIMzax H6gPOyHFcdb5fsYQM7n7twp vBOJddfBIZxMA9nJHzySWNv ED0tOrTcVJXaWyElKDYwcBK wcxQrQaOrWPYzkVVvlBX5CL IhOK0svzvlFZjhQSuhOITsv fR3OFNlrCJbO3YqRGRlPS7k vkdnMDC4OULTHywfKg9syEC ibHtcZjFcZmNoYXJzZXQwXG KvoStyXNNiOVx6yE7AJpqsG GA8WTWVPfnjAtdjfGmig1We dCBcXHNnIFxcaWQgNTEwMDA nWLqwYaIWSuKwBqA0SIL8ZW JqQvB7CDk7LMAREIStLim7V IBcYDC7EZk2VBAuIZ3nAEij zRBlXKskDphkLUysU054GPs bLVCxH8LdG0YqGBveEmKuVC gyIIOoGLXtKExgCOZiF8VSS CZmGtS2JdR9BkKeSAs6YGpz F6GRWPDmOYZtJcHbXIY9MrV 8NHs6WJQVWi9bAFafPWQrIY K8XOZ3YFcyJKOcVJBjQmHkJ SHsFZUrKKgoqLUoKQ5urCyc LYSqJM7GGEBcHBcoWILiVjR cG6RRS0tXBP6yDHvhZLIoJL pccGFyZCANClxwbGFpblxmc rZbSTu4mbKoUMChKaNcGRGd D38el2RDh3IhVF5HRDk0voC emylecB7xWTKjmiVmEOwQkV DpmX9tmgIOQNaxZJVqA1Bic zYoNCqmAKRxfp5kmRgqKWDa EWNcvELdSPkrlSjhlCM2sEY plSYrXZ2fVRLTXPTooC0hZY AnWHOtCVIgZ07cf24eGCZfn B2cUUQYJFR9CSsbBu8rOGfZ IHOhYZ8pYTFnjgZcy3KcGP8 vGD99kKFajIgjSQysY0v3LN YbufLmrjAaF3ExLXPalVtvn 7BtHPTzTYnyHP84vcBwBX7p LTAuNCBjbSBpbiBncmVhdGV toMJnhV8pxfBbx90bNDRxID O2XPJtLJO5VLChCvForXSqi gGgE3beJLamfAQmJrJqFNwb IHNwZWNpbWVuIGlzIGZpbHR pxrAvDTFtdw05S9znHJJkpJ 7mc0ndVoYnJBMvLEVfhIMgz TT5UGPwmU2wcD02okUhxuRW PY6asLOgSH6XXMSzuxWZBpI tbXlsZWUgWmFuZywgUEEgc3 Q0KEWxfDxbCNIvNCkHjCbgJ HSWG8kpfZZiAHgtEXFPELIP M4IwDQBoyjCUVjjnZXTvLMn yk2XwQMwjtOgzZTKmIoFnPK ctPZEhJ47mk1RZd5Pnx2vhv Wzij7BdiNCvYP89RZFswZSl UGU2SW2weIyhSENsYOxviNB yZCANCn0= Disclaimer (test code = 3790612398) b4lkpZSlTAKmz6gcBDSfqHR uZzEwMzNcZnRuYmpcdWMxIH jftjZsJEcmy8XmH2DiHmFaU FxhbnNpXGRlZmxhbmcxMDMz SEU5iuRyRIGgBNamNJPyJWd vFz8whMAhpKmtHnHgKVRoi9 bmcoAIJChzUbOdI086DWCdM Elgy0ots0LeIXXgvMJcj8H0 SRGBsbfwdWt3vLopI18ly5C 9XslsI3dhDMFzJRNpT5UtKV 9oKBGxTuq1AYY5ILP2TWTlZ OWfV6PoER2qDJPncMUeZEo1 i5wbaSjuTYPpDFN4z0xiXVk ujuLlBN1wdh1dfLp8v9bsdm YkLLHvBAYwuLUVRTNzF2Vdn LcuDf4juGk7vMefWbtzAET4 Tjv9PI6eaz86zmy5lCvmEJZ vqivoZdZ0CVteHFFbwbmuAL i8CSsyEIXfeYW4FOJxtLGrS 9ErKXUsKU1stih1ZDO5LMzj AQLuIzN5WFGrgYCpHXUtyTd sWBjbk933VEH9GzUmZE7yY9 Lyu4T5zX1ozGImXKSnaSAeP fRgKFJzvl3yrPXrARezv6Eb CZD3ktD3yXEimNIkORDmLS8 3Etaux7PvVpnlh7HvW96hvV J6HTavw8ztCF7iIdL3cdUmS Woxk8ghxU9rTxU0WHfdRX7l UH5wSWKfiX7cchskUKIfFcJ rfsrbOOYebIxiqnYwKv8ffM tyQZC4OLvwV2wyoO4bJpE6P LabH3ntpZ1zPTp0PQmqlHO2 FQAexE9fUN8ralnrf6ldPMo lJHslOJBlteV4giM5MCBntU ZiK9CcqC1vYJNqJB6fsqfqn 5ouLKJ4EYhkURKnMHX2WdDj SRFrv2Bebyx8EvPmq1IjsIW wQSwbN59da171FOHtayKgO4 xwbGFpblxwbGFpblxmMFxmc gZ9ODFbltUvf3WlWAPeNLK3 ZRpsWRvywTUlEYDcyNnkc1c aF1ArwQLdPTRjVMibNEIkWG ZzMjBcbGFuZzEwMzNcaGlja TkoXOndVdQfIXKvZSzgI5vp FiUrL2LhUQFhUsFzkJIpZ8v dPCitmyDmVVOyonJlyYA2XU viR4v2NFEopvTspTe8vkDeD zRfUFZrQMA0WHkqtXGkIHTi u1HxphuhrUHxCr5tdHZqIMS zeM5kHMPtEYYyFQsuYY3bmB s0KVNLwKJebJJyTqYQBJOjJ P82tnKzVCQTnlttm9W6PZgz ZZMor8CosCJqX9xho5SaLUT oh11eYU2ai4I7i7qjFBL9XP 9ai4PmTNQgiGMryOXsRZHwe 7Sjsfawy6EwKCRexnAyg5Se ZCBhbmQgaXRzIHBlcmZvcm1 nltDyCBSsJIAvP0EifladzI mjdiWjUXGoyn5zgcYhPZY9V EFONWIcBMQzs3RmgU7diEKV YZM6wABhfo4dscSJyQZpUPY for63EODbLN6jE8zsOTWtGT IqjtGcbYVlj2ObYUBicDL9f TVuJA6YDbUJf04pDKArKMMJ tyZsETVkvQnkrCI3yyP8tB7 uIChGREEpLlx+IFRoZSBGRE MtFH2yfkTbm6GhjsUaaJvgP HCzdZZdg7QusZUmh0GppWam l2JvhCOggGIgQF0wCGIopbz fCYKbGJQFKhBFQPDyquH2r8 GaHKMgROBbOCI8xNstuyt3N ZWffC3dHCVaH0yfywawTDkt LJVvb1MdnL1voLZUyBFsm0R kmKUxcQYZmEHgLG0weeGlSU lSVMkQCDF0lnDcRPQxb0UpY FkqO7phT22jlUbekLp0kUA6 QEM4uV7yGjg+IFxwYXJccGF yIEFwcHJvcHJpYXRlbHkgcm OpN4JmapFfcG4pkHDwllObH G2jEW4wQ9S1vMYvUIRnjdAt s6keUCkxruMnDqJsjcTiAIK vCCorAPDsc3QaHMdpREQ5DS lucyBpbmNsdWRpbmcgSCZFL FVKfUOtoDUeTXS7RXflkzMf xjQvLR6ddW8jmJfaaD4kcVM fjGD3fujwWNUaPHCffZveYC EwZD8erLXcQNJestNCrDcet SHobN0mJ9WjORZlGADfmm3d ZKEaeW5sRXgdi4IzhbulQAJ eOTDfDXOpntUfvs4kURVgsE KYHP9WXWyntLVow1DehzCaC 6lBDZH9MWAkAwHkToeuSJOq qLJzpWNsQACtbz34ALIrxV4 qjNcgDXZuxP8zcB5imHouuJ 3uGlAjPxEwPMwpUF5rLWNbY 1rllXMwOBDiVXIkT1drJpWp qT2ouWglPIeqYfMrXzKpREo gLLK1fS== Embedded Images (test code = 2897615855) [facility] CenterQUANTIFERON-[facility] [id number] 14:35:43* Test Item Value Reference Range Interpretation Comme nts Extra Tube (test code = 6224034691) Received in Lab [facility] WITH [id number] 10:45:28* Test Item Value Reference Range Interpretation [...] g/dL 31.2-35.0 H RDW-SD (test code = 56485-7) 37.9 fL 38.5-51.6 L RDW-CV (test code = 788-0) 12.4 % 12.1-15.4 PLT (test code = 777-3) 403 See_Comment H [Automated message] The system which generated this result transmitted reference range: 150 - 328 10*3/?L. The reference range was not used to interpret this result as normal/abnormal. MPV (test code = 04534-3) 8.8 fL 9.8-13.0 L NRBC/100 WBC (test code = 3140605905) 0.0 See_Comment [Automated message] The system which generated this result transmitted reference range: 0.0 - 10.0 /100 WBCs. The reference range was not used to interpret this result as normal/abnormal. NRBC x10^3 (test code = 5369847222) See_Comment [Automated message] The system which generated this result transmitted reference range: 10*3/?L. The reference range was not used to interpret this result as normal/abnormal. GRAN MAT (NEUT) % (test code = 770-8) 90.9 % IMM GRAN % (test code = 1086565874) 1.60 % LYMPH % (test code = 736-9) 4.3 % MONO % (test code = 5905-5) 2.9 % EOS % (test code = 713-8) 0.0 % BASO % (test code = 706-2) 0.3 % GRAN MAT x10^3(ANC) (test code = 9801309093) 20.14 10*3/uL 1.99-6.95 H IMM GRAN x10^3 (test code = 4882952247) 0.36 10*3/uL 0.00-0.06 H LYMPH x10^3 (test code = 731-0) 0.95 10*3/uL 1.09-3.23 L MONO x10^3 (test code = 742-7) 0.65 10*3/uL 0.36-1.02 EOS x10^3 (test code = 711-2) 0.06-0.53 L BASO x10^3 (test code = 704-7) 0.06 10*3/uL 0.01-0.09 BANDS (test code = 0771064647) MARKED INCREASED A Lab Interpretation (test code = 44596-4) [facility]normal [facility] 09:58:18* Test Item Value Reference Range Interpretation Comme nts MAGNESIUM (test code = 3406455777) 2.1 mg/dL 1.7-2.4 Lab Interpretation (test cod e = 69266-3) Normal [facility] (NA, K, CL, CO2, GLUCOSE, BUN, CREATININE, CA)2023-04-05 09:58:18* Test Item Value Reference Range Interpretation Comme nts NA (test code = 6738671060) 133 mmol/L 135-145 L K (test code = 9041810472) 4.0 mmol/L 3.5-5.0 Slight hemolysis CL (test code = 6762337469) 100 mmol/L 98-108 CO2 TOTAL (test code = 4381959218) 26 mmol/L 23-31 AGAP (test code = 0990086729) 7 2-16 BUN (test code = 8086810998) 3 mg/dL 7-23 L Slight hemolysis GLUCOSE (test code = 7462086898) 178 mg/dL 70-110 H CREATININE (test code = 3763493636) 0.58 mg/dL 0.60-1.25 L CALCIUM (test code = 1498822493) 8.1 mg/dL 8.6-10.6 L eGFR (test code = 7210295837) 172.1 mL/min/1.73m2 GEOVANI (test code = GEOVANI) [...] imaging tests). Lab Interpretation (test code = 89997-7) Abnormal [facility] CenterHEPAT[facility] SURFACE [id number] 22:55:30* Test Item Value Reference Range Interpretation Comme [facility] HBsAB (test code = 0307700805) Negative HBsAb Semi-Quantitative (test code = 1316339337) 0.10 mIU/mL GEOVANI (test code = GEOVANI) Interpretation: ?Hepatitis B Surface Antibody ? Negative - Patient is considered to be not immune to infection with HBV. ? ? Positive - Anti-HBs detected at greater than or equal to 12 mIU/mL. ?Patient is considered to be immune to infection with HBV. ? [facility] 22:55:30* Test Item Value Reference Range Interpretation Comme [facility] HBC (test code = 2195432140) Negative HBC Semi-Quantitative (test code = 7223572713) 3.15 [facility] B SURFACE [id number] 15:42:58 * Test Item Value Reference Range Interpretation Comme nts HBsAg Semi-Quantitative (melvin t code = 5195-3) 0.05 Negative [facility] B SURFACE [id number] 15:42:58 * Test Item Value Reference Range Interpretation Comme nts HBsAg Semi-Quantitative (melvin t code = 5195-3) 0.05 Negative [facility] METABOLIC PANEL (NA, K, CL, CO2, GLUCOSE, BUN, CREATININE, CA)2023-04-04 11:32:42* Test Item Value Reference Range Interpretation Comme nts NA (test code = 7736298359) 132 mmol/L 135-145 L K (test code = 9198530087) 3.5 mmol/L 3.5-5.0 Slight hemolysis CL (test code = 9651924262) 100 mmol/L 98-108 CO2 TOTAL (test code = 1996964243) 24 mmol/L 23-31 AGAP (test code = 5660399807) 8 2-16 BUN (test code = 5862940260) 7-23 L Slight hemolysis GLUCOSE (test code = 6822921629) 88 mg/dL 70-110 CREATININE (test code = 3309730795) 0.73 mg/dL 0.60-1.25 CALCIUM (test code = 8203289295) 7.7 mg/dL 8.6-10.6 L eGFR (test code = 5551261304) 132.0 mL/min/1.73m2 GEOVANI (test code = GEOVANI) [...] imaging tests). Lab Interpretation (test code = 64441-9) Abnormal [facility] METABOLIC PANEL (NA, K, CL, CO2, GLUCOSE, BUN, CREATININE, CA)2023-04-04 11:32:42* Test Item Value Reference Range Interpretation Comme nts NA (test code = 7030691930) 132 mmol/L 135-145 L K (test code = 5931901809) 3.5 mmol/L 3.5-5.0 Slight hemolysis CL (test code = 7615442786) 100 mmol/L 98-108 CO2 TOTAL (test code = 8624069272) 24 mmol/L 23-31 AGAP (test code = 0588135065) 8 2-16 BUN (test code = 4766256700) 7-23 L Slight hemolysis GLUCOSE (test code = 9091761071) 88 mg/dL 70-110 CREATININE (test code = 9008940161) 0.73 mg/dL 0.60-1.25 CALCIUM (test code = 8112598528) 7.7 mg/dL 8.6-10.6 L eGFR (test code = 0325556067) 132.0 mL/min/1.73m2 GEOVANI (test code = GEOVANI) [...] imaging tests). Lab Interpretation (test code = 74510-1) [facility] 11:23:35* Test Item Value Reference Range Interpretation Comme nts MAGNESIUM (test code = 9538983767) 1.7 mg/dL 1.7-2.4 Lab Interpretation (test cod e = 27843-5) Normal [facility] 11:23:35* Test Item Value Reference Range Interpretation Comme nts MAGNESIUM (test code = 9486544640) 1.7 mg/dL 1.7-2.4 Lab Interpretation (test cod e = 40789-0) Normal [facility] [id number] 10:55:07* Test Item Value Reference Range Interpretation [...] g/dL 31.2-35.0 H RDW-SD (test code = 59549-7) 37.7 fL 38.5-51.6 L RDW-CV (test code = 788-0) 12.5 % 12.1-15.4 PLT (test code = 777-3) 329 See_Comment H [Automated message] The system which generated this result transmitted reference range: 150 - 328 10*3/?L. The reference range was not used to interpret this result as normal/abnormal. MPV (test code = 90876-2) 8.6 fL 9.8-13.0 L NRBC/100 WBC (test code = 5915207835) 0.0 See_Comment [Automated message] The system which generated this result transmitted reference range: 0.0 - 10.0 /100 WBCs. The reference range was not used to interpret this result as normal/abnormal. NRBC x10^3 (test code = 4919511796) See_Comment [Automated message] The system which generated this result transmitted reference range: 10*3/?L. The reference range was not used to interpret this result as normal/abnormal. GRAN MAT (NEUT) % (test code = 770-8) 72.5 % IMM GRAN % (test code = 5936652483) 1.60 % LYMPH % (test code = 736-9) 11.5 % MONO % (test code = 5905-5) 6.8 % EOS % (test code = 713-8) 6.9 % BASO % (test code = 706-2) 0.7 % GRAN MAT x10^3(ANC) (test code = 1899841287) 13.10 10*3/uL 1.99-6.95 H IMM GRAN x10^3 (test code = 9831900739) 0.29 10*3/uL 0.00-0.06 H LYMPH x10^3 (test code = 731-0) 2.08 10*3/uL 1.09-3.23 MONO x10^3 (test code = 742-7) 1.23 10*3/uL 0.36-1.02 H EOS x10^3 (test code = 711-2) 1.25 10*3/uL 0.06-0.53 H BASO x10^3 (test code = 704-7) 0.13 10*3/uL 0.01-0.09 H Lab Interpretation (test code = 13058-1) Abnormal [facility] WITH [id number] 10:55:07* Test Item Value Reference Range Interpretation [...] g/dL 31.2-35.0 H RDW-SD (test code = 23304-9) 37.7 fL 38.5-51.6 L RDW-CV (test code = 788-0) 12.5 % 12.1-15.4 PLT (test code = 777-3) 329 See_Comment H [Automated message] The system which generated this result transmitted reference range: 150 - 328 10*3/?L. The reference range was not used to interpret this result as normal/abnormal. MPV (test code = 75670-2) 8.6 fL 9.8-13.0 L NRBC/100 WBC (test code = 7089626025) 0.0 See_Comment [Automated message] The system which generated this result transmitted reference range: 0.0 - 10.0 /100 WBCs. The reference range was not used to interpret this result as normal/abnormal. NRBC x10^3 (test code = 1143979217) See_Comment [Automated message] The system which generated this result transmitted reference range: 10*3/?L. The reference range was not used to interpret this result as normal/abnormal. GRAN MAT (NEUT) % (test code = 770-8) 72.5 % IMM GRAN % (test code = 3404506339) 1.60 % LYMPH % (test code = 736-9) 11.5 % MONO % (test code = 5905-5) 6.8 % EOS % (test code = 713-8) 6.9 % BASO % (test code = 706-2) 0.7 % GRAN MAT x10^3(ANC) (test code = 9404798531) 13.10 10*3/uL 1.99-6.95 H IMM GRAN x10^3 (test code = 2185678180) 0.29 10*3/uL 0.00-0.06 H LYMPH x10^3 (test code = 731-0) 2.08 10*3/uL 1.09-3.23 MONO x10^3 (test code = 742-7) 1.23 10*3/uL 0.36-1.02 H EOS x10^3 (test code = 711-2) 1.25 10*3/uL 0.06-0.53 H BASO x10^3 (test code = 704-7) 0.13 10*3/uL 0.01-0.09 H Lab Interpretation (test code = 14560-7) Abnormal [facility] METABOLIC PANEL (NA, K, CL, CO2, GLUCOSE, BUN, CREATININE, CA)2023-04-03 10:31:41* Test Item Value Reference Range Interpretation Comme nts NA (test code = 4879121252) 136 mmol/L 135-145 K (test code = 6822212944) 3.5 mmol/L 3.5-5.0 CL (test code = 6680119049) 104 mmol/L 98-108 CO2 TOTAL (test code = 0467888561) 22 mmol/L 23-31 L AGAP (test code = 8107432334) 10 2-16 BUN (test code = 4371637713) 7-23 L GLUCOSE (test code = 8424025556) 101 mg/dL 70-110 CREATININE (test code = 1135925891) 0.77 mg/dL 0.60-1.25 CALCIUM (test code = 4866767020) 8.4 mg/dL 8.6-10.6 L eGFR (test code = 1046497192) 124.1 mL/min/1.73m2 GEOAVNI (test code = GEOVANI) [employer] [...] imaging tests). Lab Interpretation (test code = 71037-2) Abnormal [facility] METABOLIC PANEL (NA, K, CL, CO2, GLUCOSE, BUN, CREATININE, CA)2023-04-03 10:31:41* Test Item Value Reference Range Interpretation Comme nts NA (test code = 3541054736) 136 mmol/L 135-145 K (test code = 5052700156) 3.5 mmol/L 3.5-5.0 CL (test code = 7410440908) 104 mmol/L 98-108 CO2 TOTAL (test code = 5288420999) 22 mmol/L 23-31 L AGAP (test code = 0310085486) 10 2-16 BUN (test code = 7565101799) 7-23 L GLUCOSE (test code = 3447700156) 101 mg/dL 70-110 CREATININE (test code = 1031833623) 0.77 mg/dL 0.60-1.25 CALCIUM (test code = 5882026086) 8.4 mg/dL 8.6-10.6 L eGFR (test code = 4154686877) 124.1 mL/min/1.73m2 GEOVANI (test code = GEOVANI) [...] imaging tests). Lab Interpretation (test code = 07816-5) Abnormal [facility] WITH [id number] 10:27:32* Test Item Value Reference Range Interpretation [...] 34.9 g/dL 31.2-35.0 RDW-SD (test code = 12516-7) 37.5 fL 38.5-51.6 L RDW-CV (test code = 788-0) 12.3 % 12.1-15.4 PLT (test code = 777-3) 406 See_Comment H [Automated message] The system which generated this result transmitted reference range: 150 - 328 10*3/?L. The reference range was not used to interpret this result as normal/abnormal. MPV (test code = 10171-7) 8.6 fL 9.8-13.0 L NRBC/100 WBC (test code = 6450215919) 0.0 See_Comment [Automated message] The system which generated this result transmitted reference range: 0.0 - 10.0 /100 WBCs. The reference range was not used to interpret this result as normal/abnormal. NRBC x10^3 (test code = 6067210370) See_Comment [Automated message] The system which generated this result transmitted reference range: 10*3/?L. The reference range was not used to interpret this result as normal/abnormal. GRAN MAT (NEUT) % (test code = 770-8) 72.4 % IMM GRAN % (test code = 3928006194) 1.70 % LYMPH % (test code = 736-9) 13.6 % MONO % (test code = 5905-5) 6.5 % EOS % (test code = 713-8) 5.3 % BASO % (test code = 706-2) 0.5 % GRAN MAT x10^3(ANC) (test code = 8762957454) 18.08 10*3/uL 1.99-6.95 H IMM GRAN x10^3 (test code = 4160969136) 0.42 10*3/uL 0.00-0.06 H LYMPH x10^3 (test code = 731-0) 3.39 10*3/uL 1.09-3.23 H MONO x10^3 (test code = 742-7) 1.61 10*3/uL 0.36-1.02 H EOS x10^3 (test code = 711-2) 1.31 10*3/uL 0.06-0.53 H BASO x10^3 (test code = 704-7) 0.13 10*3/uL 0.01-0.09 H BANDS (test code = 3655391644) Increased A Lab Interpretation (test code = 53606-2) Abnormal [facility] WITH [id number] 10:27:32* Test Item Value Reference Range Interpretation [...] 34.9 g/dL 31.2-35.0 RDW-SD (test code = 82116-2) 37.5 fL 38.5-51.6 L RDW-CV (test code = 788-0) 12.3 % 12.1-15.4 PLT (test code = 777-3) 406 See_Comment H [Automated message] The system which generated this result transmitted reference range: 150 - 328 10*3/?L. The reference range was not used to interpret this result as normal/abnormal. MPV (test code = 43292-1) 8.6 fL 9.8-13.0 L NRBC/100 WBC (test code = 5303380797) 0.0 See_Comment [Automated message] The system which generated this result transmitted reference range: 0.0 - 10.0 /100 WBCs. The reference range was not used to interpret this result as normal/abnormal. NRBC x10^3 (test code = 1505998966) See_Comment [Automated message] The system which generated this result transmitted reference range: 10*3/?L. The reference range was not used to interpret this result as normal/abnormal. GRAN MAT (NEUT) % (test code = 770-8) 72.4 % IMM GRAN % (test code = 3218502950) 1.70 % LYMPH % (test code = 736-9) 13.6 % MONO % (test code = 5905-5) 6.5 % EOS % (test code = 713-8) 5.3 % BASO % (test code = 706-2) 0.5 % GRAN MAT x10^3(ANC) (test code = 0402462372) 18.08 10*3/uL 1.99-6.95 H IMM GRAN x10^3 (test code = 5284286213) 0.42 10*3/uL 0.00-0.06 H LYMPH x10^3 (test code = 731-0) 3.39 10*3/uL 1.09-3.23 H MONO x10^3 (test code = 742-7) 1.61 10*3/uL 0.36-1.02 H EOS x10^3 (test code = 711-2) 1.31 10*3/uL 0.06-0.53 H BASO x10^3 (test code = 704-7) 0.13 10*3/uL 0.01-0.09 H BANDS (test code = 8932039706) Increased A Lab Interpretation (test code = 52082-5) Abnormal [facility]2023-05-08 10:27:27* Test Item Value Reference Range Interpretation Comme nts MAGNESIUM (test code = 5519786350) 1.7 mg/dL 1.7-2.4 Lab Interpretation (test cod e = 55564-6) Normal [facility]2023-05-08 10:27:27* Test Item Value Reference Range Interpretation Comme nts MAGNESIUM (test code = 0986815247) 1.7 mg/dL 1.7-2.4 Lab Interpretation (test cod e = 18443-8) Normal [facility] WITH [id number] 11:14:08* Test Item Value Reference Range Interpretation [...] 34.0 g/dL 31.2-35.0 RDW-SD (test code = 26626-9) 38.0 fL 38.5-51.6 L RDW-CV (test code = 788-0) 12.5 % 12.1-15.4 PLT (test code = 777-3) 328 See_Comment [Automated [place] ge] The system which generated this result transmitted reference range: 150 - 328 10*3/?L. The reference range was not used to interpret this result as normal/abnormal. MPV (test code = 22901-7) 9.2 fL 9.8-13.0 L NRBC/100 WBC (test code = 8186622986) 0.0 See_Comment [Automated Instagram ssage] The system which generated this result transmitted reference range: 0.0 - 10.0 /100 WBCs. The reference range was not used to interpret this result as normal/abnormal. NRBC x10^3 (test code = 7147512928) See_Comment [Automated [place] ge] The system which generated this result transmitted reference range: 10*3/?L. The reference range was not used to interpret this result as normal/abnormal. GRAN MAT (NEUT) % (test code = 770-8) 58.9 % IMM GRAN % (test code = 1033687810) 1.90 % LYMPH % (test code = 736-9) 20.1 % MONO % (test code = 5905-5) 8.8 % EOS % (test code = 713-8) 9.6 % BASO % (test code = 706-2) 0.7 % GRAN MAT x10^3(ANC) (test code = 8731494340) 7.34 10*3/uL 1.99-6.95 H IMM GRAN x10^3 (test code = 5659842108) 0.24 10*3/uL 0.00-0.06 H LYMPH x10^3 (test code = 731-0) 2.51 10*3/uL 1.09-3.23 MONO x10^3 (test code = 742-7) 1.10 10*3/uL 0.36-1.02 H EOS x10^3 (test code = 711-2) 1.20 10*3/uL 0.06-0.53 H BASO x10^3 (test code = 704-7) 0.09 10*3/uL 0.01-0.09 Lab Interpretation (test code = 38895-1) Abnormal [facility] WITH [id number] 11:14:08* Test Item Value Reference Range Interpretation [...] 34.0 g/dL 31.2-35.0 RDW-SD (test code = 37718-2) 38.0 fL 38.5-51.6 L RDW-CV (test code = 788-0) 12.5 % 12.1-15.4 PLT (test code = 777-3) 328 See_Comment [Automated messa ge] The system which generated this result transmitted reference range: 150 - 328 10*3/?L. The reference range was not used to interpret this result as normal/abnormal. MPV (test code = 85464-5) 9.2 fL 9.8-13.0 L NRBC/100 WBC (test code = 5883781747) 0.0 See_Comment [Automated me ssage] The system which generated this result transmitted reference range: 0.0 - 10.0 /100 WBCs. The reference range was not used to interpret this result as normal/abnormal. NRBC x10^3 (test code = 4988181426) See_Comment [Automated messa ge] The system which generated this result transmitted reference range: 10*3/?L. The reference range was not used to interpret this result as normal/abnormal. GRAN MAT (NEUT) % (test code = 770-8) 58.9 % IMM GRAN % (test code = 8094436651) 1.90 % LYMPH % (test code = 736-9) 20.1 % MONO % (test code = 5905-5) 8.8 % EOS % (test code = 713-8) 9.6 % BASO % (test code = 706-2) 0.7 % GRAN MAT x10^3(ANC) (test code = 7433376171) 7.34 10*3/uL 1.99-6.95 H IMM GRAN x10^3 (test code = 6253821600) 0.24 10*3/uL 0.00-0.06 H LYMPH x10^3 (test code = 731-0) 2.51 10*3/uL 1.09-3.23 MONO x10^3 (test code = 742-7) 1.10 10*3/uL 0.36-1.02 H EOS x10^3 (test code = 711-2) 1.20 10*3/uL 0.06-0.53 H BASO x10^3 (test code = 704-7) 0.09 10*3/uL 0.01-0.09 Lab Interpretation (test code = 12621-1) Abnormal [facility] [id number] 17:11:35* Test Item Value Reference Range Interpretation Comme nts CRP (test code = 1975634706) 2.1 mg/dL <=0.8 H Lab Interpretation (test cod e = 38759-1) Abnormal [facility]-REACTIVE [id number] 17:11:35* Test Item Value Reference Range Interpretation Comme nts CRP (test code = 9074200774) 2.1 mg/dL <=0.8 H Lab Interpretation (test cod e = 21222-1) [facility]normal [facility] Wwshe3390-60-40 14:44:35* Test Item Value Reference Range Interpretation Comme nts FERRITIN (test code = 3527702825) 47.1 ng/mL 18.0-464.0 GEOVANI (test code = GEOVANI) Biotin has been reported to cause a negative bias, interpret results relative to patient's use of biotin. Lab Interpretation (test code = 03581-4) Normal [facility] Vawvs8964-42-13 14:44:35* Test Item Value Reference Range Interpretation Comme nts FERRITIN (test code = 3187895949) 47.1 ng/mL 18.0-464.0 GEOVANI (test code = GEOVANI) Biotin has been reported to cause a negative bias, interpret results relative to patient's use of biotin. Lab Interpretation (test code = 24345-9) Normal [facility] Confirmation (Lab Only)2023-04-01 11:38:00* Test Item Value Reference Range Interpretation Comme nts ABO & RH (test code = 20) O Positive [facility] Confirmation (Lab Only)2023-04-01 11:38:00* Test Item Value Reference Range Interpretation Comme nts ABO & RH (test code = 20) O Positive [facility] Ygxin1790-81-00 11:22:35* Test Item Value Reference Range Interpretation Comme nts IRON (test code = 6570154107) 27 ug/dL 50-160 L TIBC (test code = 0649044547) 267 ug/dL 250-410 % FE SAT (test code = 0138149738) 10 % 20-50 L Lab Interpretation (test cod e = 31998-6) Abnormal [facility] Yqzzz5882-55-77 11:22:35* Test Item Value Reference Range Interpretation Comme nts IRON (test code = 6748213509) 27 ug/dL 50-160 L TIBC (test code = 0019611046) 267 ug/dL 250-410 % FE SAT (test code = 7501686262) 10 % 20-50 L Lab Interpretation (test cod e = 00527-5) Abnormal [facility] Metabolic Panel (NA, K, CL, CO2, GLUCOSE, BUN, CREATININE, CA)2023-04-01 11:01:54* Test Item Value Reference Range Interpretation Comme nts NA (test code = 7420260216) 136 mmol/L 135-145 K (test code = 0609097899) 3.5 mmol/L 3.5-5.0 CL (test code = 8888074502) 102 mmol/L 98-108 CO2 TOTAL (test code = 1841201601) 28 mmol/L 23-31 AGAP (test code = 7578458338) 6 2-16 BUN (test code = 8380579096) 3 mg/dL 7-23 L GLUCOSE (test code = 7001188396) 100 mg/dL 70-110 CREATININE (test code = 1540874736) 0.83 mg/dL 0.60-1.25 CALCIUM (test code = 4785324137) 7.9 mg/dL 8.6-10.6 L eGFR (test code = 2325419525) 113.8 mL/min/1.73m2 GEOVANI (test code = GEOVANI) [...] imaging tests). Lab Interpretation (test code = 31603-7) [facility]71385[facility] (ALB,T.PRO,BILI T,BU/BC,ALT,AST,ALK PHOS)2023-04-01 11:01:54* Test Item Value Reference Range Interpretation Comme nts TOTAL BILI (test code = 2003363455) 0.4 mg/dL 0.1-1.1 BILI UNCON (test code = 0498100155) 0.4 mg/dL 0.1-1.1 BILI CONJ (test code = 4559157936) 0.0 mg/dL 0.0-0.3 T PROTEIN (test code = 1475897496) 6.0 g/dL 6.3-8.2 L ALBUMIN (test code = 4394535902) 3.2 g/dL 3.5-5.0 L ALK PHOS (test code = 9635506571) 54 U/L 34-122 ALTv (test code = 1742-6) 12 U/L 5-50 AST(SGOT) (test code = 9497363105) 24 U/L 13-40 Lab Interpretation (test cod e = 44124-2) [facility]normal [facility] Center[facility] Pvesr2773-21-61 11:01:54* Test Item Value Reference Range Interpretation Comme nts MAGNESIUM (test code = 3375202554) 2.0 mg/dL 1.7-2.4 Lab Interpretation (test cod e = 51234-1) Normal [facility] (NA, K, CL, CO2, GLUCOSE, BUN, CREATININE, CA)2023-04-01 11:01:54* Test Item Value Reference Range Interpretation Comme nts NA (test code = 0111658140) 136 mmol/L 135-145 K (test code = 3239053440) 3.5 mmol/L 3.5-5.0 CL (test code = 8321714202) 102 mmol/L 98-108 CO2 TOTAL (test code = 8906068322) 28 mmol/L 23-31 AGAP (test code = 0928539293) 6 2-16 BUN (test code = 1321320183) 3 mg/dL 7-23 L GLUCOSE (test code = 5589175121) 100 mg/dL 70-110 CREATININE (test code = 1054753024) 0.83 mg/dL 0.60-1.25 CALCIUM (test code = 4439740626) 7.9 mg/dL 8.6-10.6 L eGFR (test code = 4502680225) 113.8 mL/min/1.73m2 GEOVANI (test code = GEOVANI) [...] imaging tests). Lab Interpretation (test code = 63856-0) [facility]normal [facility] (09490) (ALB,T.PRO,BILI T,BU/BC,ALT,AST,ALK PHOS)2023-04-01 11:01:54* Test Item Value Reference Range Interpretation Comme nts TOTAL BILI (test code = 0091380138) 0.4 mg/dL 0.1-1.1 BILI UNCON (test code = 7192312909) 0.4 mg/dL 0.1-1.1 BILI CONJ (test code = 3301569836) 0.0 mg/dL 0.0-0.3 T PROTEIN (test code = 7447618399) 6.0 g/dL 6.3-8.2 L ALBUMIN (test code = 0949656074) 3.2 g/dL 3.5-5.0 L ALK PHOS (test code = 6031656020) 54 U/L 34-122 ALTv (test code = 1742-6) 12 U/L 5-50 AST(SGOT) (test code = 7634288552) 24 U/L 13-40 Lab Interpretation (test cod e = 95969-3) Abnormal [facility] CenterMagn[facility] Dfgrk4037-21-79 11:01:54* Test Item Value Reference Range Interpretation Comme nts MAGNESIUM (test code = 1276619202) 2.0 mg/dL 1.7-2.4 Lab Interpretation (test cod e = 37900-5) Normal [facility] with Hmrumptdckoh7969-35-60 10:39:49* Test Item Value Reference Range Interpretation [...] g/dL 31.2-35.0 H RDW-SD (test code = 98869-1) 37.3 fL 38.5-51.6 L RDW-CV (test code = 788-0) 12.3 % 12.1-15.4 PLT (test code = 777-3) 332 See_Comment H [Automated message] The system which generated this result transmitted reference range: 150 - 328 10*3/?L. The reference range was not used to interpret this result as normal/abnormal. MPV (test code = 76000-2) 8.8 fL 9.8-13.0 L NRBC/100 WBC (test code = 0591134303) 0.0 See_Comment [Automated message] The system which generated this result transmitted reference range: 0.0 - 10.0 /100 WBCs. The reference range was not used to interpret this result as normal/abnormal. NRBC x10^3 (test code = 6136044646) See_Comment [Automated message] The system which generated this result transmitted reference range: 10*3/?L. The reference range was not used to interpret this result as normal/abnormal. GRAN MAT (NEUT) % (test code = 770-8) 69.2 % IMM GRAN % (test code = 3417613869) 1.20 % LYMPH % (test code = 736-9) 14.9 % MONO % (test code = 5905-5) 8.5 % EOS % (test code = 713-8) 5.7 % BASO % (test code = 706-2) 0.5 % GRAN MAT x10^3(ANC) (test code = 5671582049) 11.97 10*3/uL 1.99-6.95 H IMM GRAN x10^3 (test code = 4497414179) 0.21 10*3/uL 0.00-0.06 H LYMPH x10^3 (test code = 731-0) 2.58 10*3/uL 1.09-3.23 MONO x10^3 (test code = 742-7) 1.47 10*3/uL 0.36-1.02 H EOS x10^3 (test code = 711-2) 0.99 10*3/uL 0.06-0.53 H BASO x10^3 (test code = 704-7) 0.09 10*3/uL 0.01-0.09 Lab Interpretation (test code = 94372-8) Abnormal [facility] with [id number] 10:39:49* Test Item Value Reference Range Interpretation [...] g/dL 31.2-35.0 H RDW-SD (test code = 30055-3) 37.3 fL 38.5-51.6 L RDW-CV (test code = 788-0) 12.3 % 12.1-15.4 PLT (test code = 777-3) 332 See_Comment H [Automated message] The system which generated this result transmitted reference range: 150 - 328 10*3/?L. The reference range was not used to interpret this result as normal/abnormal. MPV (test code = 22623-5) 8.8 fL 9.8-13.0 L NRBC/100 WBC (test code = 2649790239) 0.0 See_Comment [Automated message] The system which generated this result transmitted reference range: 0.0 - 10.0 /100 WBCs. The reference range was not used to interpret this result as normal/abnormal. NRBC x10^3 (test code = 7308572574) See_Comment [Automated message] The system which generated this result transmitted reference range: 10*3/?L. The reference range was not used to interpret this result as normal/abnormal. GRAN MAT (NEUT) % (test code = 770-8) 69.2 % IMM GRAN % (test code = 3144046023) 1.20 % LYMPH % (test code = 736-9) 14.9 % MONO % (test code = 5905-5) 8.5 % EOS % (test code = 713-8) 5.7 % BASO % (test code = 706-2) 0.5 % GRAN MAT x10^3(ANC) (test code = 2340263238) 11.97 10*3/uL 1.99-6.95 H IMM GRAN x10^3 (test code = 3827618810) 0.21 10*3/uL 0.00-0.06 H LYMPH x10^3 (test code = 731-0) 2.58 10*3/uL 1.09-3.23 MONO x10^3 (test code = 742-7) 1.47 10*3/uL 0.36-1.02 H EOS x10^3 (test code = 711-2) 0.99 10*3/uL 0.06-0.53 H BASO x10^3 (test code = 704-7) 0.09 10*3/uL 0.01-0.09 Lab Interpretation (test code = 65616-3) [facility] [id number] 10:28:00* Test Item Value Reference Range Interpretation Comme nts ABO & RH (test code = 20) O POSITIVE IAT (test code = 1185) [facility] Khstlez7101-06-45 10:28:00* Test Item Value Reference Range Interpretation Comme nts ABO & RH (test code = 20) O POSITIVE IAT (test code = 1185) Negative [facility] SINGLE (PORTABLE)2020 09:39:00[place] [id number] PatientName: PA LAWRENCE MR #: [id number] : 2000 Age/Sex: 20/M Req #: [id number] Adm Physician: Ordered by: Sp Cazares MD Report #: [id number] Location: ER Room/Bed: Procedure: [id number] DX/CHEST SINGLE (PORTABLE) Exam Date: 09/01/20 Exam [...] virus A and B antigen identification by [id number] 08:30:00* Test Item Value Reference Range Interpretation Comme nts Influenza Virus Types A,B An tigen (test code = 08689-3) NEGATIVE NEGATIVE [facility] Notes Date/Time Note Provider Source 2025-03-29 19:15:38 Please review and advise. BRADLEY 03/28/25 Kaylee Perdue HEEL PRICKER [facility] 2025-03-29 14:06:00 Pa Lawrence is a 24 year old male Patient would like to come in Monday and pick form up Please advise Windy Noriega [facility] 2025-03-29 13:01:49 Patient requesitng to receive a Rerturn to work letter extended on his mychart, states he will need it to cover tomorrow Through the . Please F/u Didier Wilson [facility] 2025-02-19 11:12:51 Images from the original note were not included. Notes: Last Refilled: mesalamine 1.2 gram EC tablet Sig: Take 2 tablets by mouth daily with breakfast. Disp: 60 tablet Refills: 0 Start: 02/19/2025 Class: eRX For: Ulcerative pancolitis with rectal bleeding Last ordered: 4 months ago (10/17/2024) by BESSIE Pena IBD Medication Mchoxs5602/19/2025 10:48 AM Protocol Details Valid encounter within [...] within 360 days To be filled at: [facility][id number] - [place], [place] - [address] AT [facility] [employer] [address] [employer] Recent Visits Date Type Provider Dept 10/17/24 Office Visit Lauryn Salgado FNP [facility] Showing recent visits within past 540 days with a meds authorizing provider and meeting all other requirements Future Appointments Date Type Provider Dept 04/18/25 Appointment Lauryn Salgado FNP [facility] Showing future appointments within next 150 days with a meds authorizing provider and meeting all other requirements [facility] 2024-10-17 16:00:00 Images from the original note were not included. Venipuncture collection performed by clean technique on the right anticubitus. Total of 1 attempts were made. Slight pressure and a bandage/dressing were applied to the site(s). The patient experienced no complications. The following specimens were processed according to instructions and sent to [facility] laboratories per lab order on 10/17/2024 : LT BLUE SST 1 RED LAV 1 PPT DK GREEN (LiHep) DK GREEN (SodH) [place] DK BLUE (K2) DK BLUE (S) ACD Blood Culture NIPT/NTD CIAN [facility] 2024-10-09 10:11:21 Patient scheduled on 10/17/24. CIAN Lalita Baker [facility] 2024-10-08 11:27:04 Images from the original note were not included. Patient needs appt Notes: 10/18/23 Last Refilled: [facility][id number] - [place], [place] - [address] AT [facility] Recent Visits Date Type Provider Dept 05/11/23 [...] Marks MD Last refill: 09/02/2024 Rx #: [id number] IBD Medication Nfejtz4910/07/2024 04:47 PM Protocol Details Valid encounter within [...] within 360 days To be filled at: [facility] #[id number] - [place], [place] - [address] [facility] [place] NA Pardo MA [facility] 2023-07-20 09:07:42 Formatting of this n ote might be different from the original. Patient is needing a 30 day supply of Mesalamine due to a discrepancy on the script provided to the Patient assistance program. Script was corrected and resubmitted with corrections. [facility] receive a [facility]ill from provider. [facility]el [facility] 2023-07-10 09:57:20 Formatting of this n ote is different from the original. Received 07/05/2023 refill request for: Medication: Requested Prescriptions Pending Prescriptions Disp Refills mesalamine 1.2 gram EC tablet 60 tablet 0 Sig: Take 2 tablets by mouth daily with breakfast. Last filled: 06/15/2023 Follow up scheduled for : 08/15/2023 Last office visit: 07/05/2023 Refilled approval sent to: [id number] [place] - [address] AT [facility] [address] [place] [address] Refilled per ID Guidelines Julia Madera MA [facility] 2023-07-05 18:29:21 Formatting of this n [...] can make it until his next appointment. [id number] - [place], [place] - [address] AT [address] [place] [address] T [facility] 2023-05-11 14:30:00 Addended by: NAOMI Ho NP, BESSIE-LAURYN ARZATE on: 06/15/2023 05:04 PM Modules accepted: Orders T [facility]
--- NOTE | 2025-04-21 16:52 | EDPHYS ---
Physician Documentation [facility] Name: Orlando Rowland Age: 24 yrs Sex: Male : 2000 Arrival Date: 04/21/2025 Time: 16:21 Bed IW9 Private MD: ED Physician Raul Casarez HPI: 04/21 16:53 This 24 yrs old Male presents to ER via Unassigned with complaints of Abdominal Pain. ms3 16:53 24-year-old male with past medical history of ulcerative colitis presents [place] [facility] [place] for ulcerative colitis flare that is been ongoing for 1 month. Patient states he was seen in the emergency department and given steroids on the 10th and after finishing steroids symptoms have become worse. Patient requesting prescription for additional steroids. Patient states he has follow-up on the . ROS: 16:53 Constitutional: Negative for fever, and chills. Cardiovascular: Negative for chest ms3 pain, and palpitations. Respiratory: Negative for shortness of breath, cough, wheezing, and pleuritic chest pain, 16:53 MS/Extremity: Negative for injury and deformity, Skin: Negative for injury, rash, and discoloration, 16:53 Abdomen/GI: Positive for abdominal pain, Exam: 16:53 Constitutional: This is a well developed, well nourished patient who is awake, alert, ms3 and in no acute distress. Cardiovascular: Regular rate and rhythm with a normal S1 and S2. No gallops, murmurs, or rubs. Normal PMI, no JVD. No pulse deficits. Respiratory: Lungs have equal breath sounds bilaterally, clear to auscultation and percussion. No rales, rhonchi or wheezes noted. No increased work of breathing, no retractions or nasal flaring. Abdomen/GI: Soft, non-tender, with normal bowel sounds. No distension or tympany. No guarding or rebound. No evidence of tenderness throughout. MDM: 16:50 Medical Screening Exam initiated ms3 16:53 Differential diagnosis: non-specific abd pain, Ulcerative colitis. Data reviewed: [facility] signs, nurses notes, and as a result, I will discharge patient. I considered the following discharge prescriptions or medication management in the emergency department See prescription. Test considered but Not performed: Labs: Patient declines. CT: Patient declined. Counseling: I had a detailed discussion with the patient and/or guardian regarding the historical points, exam findings, and any diagnostic results supporting the discharge/admit diagnosis, the need for outpatient follow up, to return to the emergency department if symptoms worsen or persist or if there are any questions or concerns that arise at home. Refusal of service: The patient/guardian displays adequate decision making capability and despite a detailed discussion of alternatives, benefits, risks, and consequences refuses: CT Scan, all lab tests. ED course: Discussed obtaining labs and imaging with patient and patient declines at this time. Patient requesting steroid prescription. All questions were answered. Patient to follow-up with his primary care physician in 2 to 3 days. Patient given contact information for Dr. Mccoy to follow-up in 2 to 3 days. Patient understands and agrees with plan. All questions were answered. Return precautions discussed include worsening symptoms, or any other concerns.. Administered Medications: No medications were administered Disposition Summary: 04/21/25 16:52 Discharge Ordered Notes: Location: Home ms3 Condition: Stable ms3 Diagnosis - Abdominal pain, unspecified ms3 - Other ulcerative colitis without complications ms3 Followup: ms3 - With: Gordy Ortiz MD - When: 2 - 3 days - Reason: Recheck today's complaints Discharge Instructions: - Discharge Summary Sheet ms3 - Ulcerative Colitis, Adult ms3 Forms: - Work release form hb - Medication Reconciliation Form ms3 - Antibiotic Education ms3 - Prescription Opioid Use ms3 - Patient Portal Instructions ms3 - Leadership Thank You Letter ms3 Prescriptions: - Medrol (Jae) 4 mg Oral Tablets, Dose Pack - take 1 tablet ORAL route as directed - follow package instructions; 1 packet; ms3 Refills: 0, Product Selection Permitted Signatures: Raul Casarez DO DO ms3
--- NOTE | 2025-04-21 17:08 | ER ---
Nurse's Notes [facility] Name: Orlando Rowland Age: 24 yrs Sex: Male : 2000 Arrival Date: 04/21/2025 Time: 16:21 Bed IW9 [facility] MD: Diagnosis: Abdominal pain, unspecified;Other ulcerative colitis without complications ED Course: 04/21 16:24 Patient arrived in ED. al6 16:35 Raul Casarez DO is Attending Physician. ms3 16:51 Gordy Ortiz MD is Referral Physician. ms3 Administered Medications: No medications were administered Outcome: 16:52 Discharge ordered by . ms3 17:08 Patient left the ED. hb Signatures: Susan Gilliam RN RN Raul Casarez DO DO ms3 Nataly Daniels al6
== END 2025-04-21 17:08 | disposition home or self-care (01) ==
LOC: ER 16:21
DX: K51.80 Other ulcerative colitis without complications (principal)